=== PATIENT | female | born 1950 | race African-American/Black ===

== ENCOUNTER 2016-12-13 13:33 | Observation (INO) | payer BC ==
[2016-12-13] MEDS ORDERED: NS 0.9% 1000 ML* 1,000 ML IV ONE (14:22)
--- NOTE | 2016-12-13 15:01 | RAD ---
Indication: Near syncope. Comparison: March 10, 2016 Technique: Sitting AP chest 1446 hours Report: Accounting for superimposed soft tissues with large body habitus the lungs and pleural spaces are clear. Negative for pneumothorax. Median sternotomy wires. Upper normal heart size accounting for AP technique. Unremarkable central pulmonary vasculature and mediastinal contours. IMPRESSION: No acute cardiopulmonary process evident.
--- NOTE | 2016-12-13 15:12 | RAD ---
Indication: Near syncope today. Comparison: October 01, 2011 CT Technique: Noncontrast CT vertex of skull through foramen magnum. Report: Mild prominence of the cerebral sulci reflecting atrophy. Unremarkable ventricles and basal cisterns. Negative for johnson matter white matter obscuration, intra or extra-axial hemorrhage, or mass effect. Unremarkable orbital contents. No suspicious calvarial or skull base lesion evident. Indolent thickening of the table of the frontal bone noted without concern. Clear visualized paranasal sinuses and mastoid air spaces. Unremarkable scalp. IMPRESSION: Negative unenhanced head CT for age. No acute intracranial process evident.
[2016-12-13 15:48] LABS: Hematocrit 43 % (35-47); Mean Corpuscular HGB Conc 33 g/dl (31-36); Mean Corpuscular Hemoglobin 30 pg (27-31); Mean Corpuscular Volume 90 fL (80-97); Mean Platelet Volume 9 um3 (7.4-10.4); Red Blood Count 4.74 10^6/ul (4.0-5.4); Red Cell Distribution Width 14 % (10.5-15); White Blood Count 3.8 10^3/ul (3.5-10.8)
[2016-12-13 16:07] LABS: Troponin I 0.09 ng/mL (<0.04)
[2016-12-13 16:08] LABS: B Type Natriuretic Peptide 260 pg/mL
[2016-12-13 16:12] LABS: ALT 23 U/L (7-52); AST 26 U/L (13-39); Albumin 3.7 g/dL (3.2-5.2); Alkaline Phosphatase 70 U/L (34-104); Ammonia 31 mol/L (16-53); Anion Gap 7 mmol/L (2-11); BUN/Creatinine Ratio 20.7 (8-20); Blood Urea Nitrogen 28 mg/dL (6-24); CO2 Carbon Dioxide 27 mmol/L (22-32); Calcium 9.5 mg/dL (8.6-10.3); Chloride 102 mmol/L (101-111); Creatine Kinase 184 U/L (10-223); EGFR African American 50.8 (>60); EGFR Non-African American 39.5 (>60); Globulin 3.4 g/dL (2-4); Glucose 338 mg/dL (70-100); Magnesium 2.5 mg/dL (1.9-2.7); Potassium 3.9 mmol/L (3.5-5.0); Sodium 136 mmol/L (133-145); Total Protein 7.1 g/dL (6.4-8.9)
[2016-12-13 16:28] LABS: Alcohol < 10 mg/dL (<10)
[2016-12-13 16:38] LABS: TSH (Thyroid Stimulating Horm) 2.44 mcIU/mL (0.34-5.60)
[2016-12-13] MEDS ORDERED: Acetaminophen TAB* 325 MG PO PRN (17:43)
[2016-12-13] MEDS ORDERED: NS 0.9% 1000 ML* 1,000 ML IV SCH (17:45)
[2016-12-13] MEDS ORDERED: hydrALAZINE IV* 20 MG/ML VIAL IV SLOW PU PRN (17:46)
[2016-12-13] MEDS ORDERED: diPHENhydraMINE IV* 50 MG/ML 1 ml VIAL (BENADRYL) IV PRN (17:49)
[2016-12-13] MEDS ORDERED: Chlorthalidone TAB* 50 MG PO PRN (17:49)
[2016-12-13] MEDS ORDERED: Dextrose 50% Syringe 50 ML* 25 GM/50 ML SYRINGE IV PUSH PRN (17:51)
--- NOTE | 2016-12-13 19:01 | CONS ---
NEUROLOGY CONSULTATION: DATE OF CONSULT: 12/13/16 LOCATION: She is in the emergency room, bed 4. REFERRING PHYSICIAN: Dr. Mason. CHIEF COMPLAINT: Weakness. HISTORY OF PRESENT ILLNESS: Susan Arias is a 66-year-old right-handed woman, who was at the lab today, getting some blood drawn, when she felt very weak. She had to hold on to something and had to ease herself down. She felt diffusely weak, but denies lightheadedness or being faint. She never lost consciousness. People nearby summoned the ambulance and she was brought into the emergency room. In the emergency room, she was felt by Dr. Mason to have right-sided weakness, more than left-sided weakness. I was asked to see her in consultation. She has had a right carotid endarterectomy before, which she says was done simultaneously during a CABG procedure at a hospital in [place]. She said it was found incidentally and she has never had a stroke before. She has a history of diabetes and says that she is allergic to all the forms of diabetic medications that she has tried. She, therefore, does not take any medications for her diabetes. PAST MEDICAL HISTORY: Notable for uncontrolled diabetes, hypertension, coronary artery disease, renovascular disease. MEDICATIONS: Apparently consist of chlorthalidone at home and possibly Diflucan. It is not clear to me that she is taking any medication. ALLERGIES: She is listed as having numerous allergies to numerous medications with unknown reaction, but some of them consisting of throat and lip swelling. REVIEW OF SYSTEMS: Negative for change in vision recently, but she has had diabetic retinopathy in the past. No headaches today and she says she generally does not get headaches at all. No recent fevers or chills. She eased herself to the ground today, but no recent falls. She has several episodes where she gets generally weak over the last month, but never loses consciousness. PHYSICAL EXAMINATION: She is well nourished and overweight. Temperature 97.8 temporally, blood pressure most recently 180/110 on the monitor. Heart rate is in the 80s and looks to be in sinus. Respirations 17 and oxygen saturation is 99% on room air. Heart is in a regular rate and rhythm, without murmurs. Head is atraumatic. There are no cervical bruits. There is a well-healed right carotid endarterectomy scar. Neurological: Pupils react equally to light from 4 to 2.5 mm. Funduscopic exam reveals retinal scarring bilaterally, but no hemorrhages. Visual godinez are full to confrontation and eye movements are normal. Facial musculature is symmetric. Facial sensation to temperature and light touch are symmetric. Palate and tongue appear normal. Tongue protrudes in the midline. There is no dysarthria. Hearing is intact bilaterally. Motor exam reveals normal strength and tone in the limbs proximally and distally. Sensory exam is notable for distal loss to light touch and vibration in the hands and feet. Reflexes are hypoactive, trace at the knees, absent at the ankles. Plantars are flexor bilaterally. Finger taps are normal in both hands. She is alert and oriented and good historian. Memory seems preserved and language is fluent. She has good attention, concentration, and fund of knowledge. DIAGNOSTIC STUDIES/LAB DATA: Laboratory data is notable for chemistry profile with a glucose of 478 when she came in, down to 338 several hours later. Creatinine elevated at 1.35 which is stable for her and BUN slightly elevated at 28. Hemoglobin A1c goes back to 03/10/16 when it was 13.3%. First troponin today is 0.09. IMPRESSION: Diffuse weakness from severe hyperglycemia. 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 There is also a question of an ongoing cardiac process, which she is being evaluated by Dr. Mason. She is reportedly stronger and more lucid since Dr. Mason evaluated her earlier, which I would attribute to improvement in her severe hyperglycemia. I do not think there is a need for cerebrovascular workup. [id number]/[facility] #: [id number] [facility]
[2016-12-13 19:44] LABS: Urine Bacteria Absent (Absent); Urine Bilirubin Negative (Negative); Urine Glucose 3+(>=500 mg/dL) (Negative); Urine Nitrite Negative (Negative)
[2016-12-13] MEDS: Insulin GLARGINE(*) 1 UNITS UNIT SUBCUT SCH (19:46)
--- NOTE | 2016-12-13 21:38 | HP ---
CC: Dr. Garzon * HISTORY AND PHYSICAL: DATE OF ADMISSION: PRIMARY CARE PROVIDER: Dr. Garzon. ADMITTING PROVIDER: BHARAT Scott SUPERVISING PHYSICIAN: Dr. Mel Hernandez * (DICTATED BY BHARAT SCOTT) CHIEF COMPLAINT: Weakness and near syncope. HISTORY OF PRESENT ILLNESS: This is a 66-year-old female with history of severe coronary artery disease, status post CABG, as well as chronic kidney disease; largely untreated diabetes due to multiple drug allergies; hypertension ; obstructive sleep apnea, who presents to the emergency department after an acute episode of weakness that occurred earlier today. The patient was going to get lab work completed and was getting back on the bus to return home where she suddenly felt weak. She states that she was unable to put any weight on her legs. She did not fall, but she was able to lower herself to the ground. She denied any dizziness, palpitations, chest pain, or shortness of breath. She simply felt weak. The patient states that she had some recent diarrhea that has been intermittent for the last couple of weeks and has since resolved and she blamed on gluten intolerance and she has since started a gluten-free diet, which seems to be helping. She states that she is now having normal bowel movement without complaints of abdominal pain, nausea, or vomiting. She recently met with her primary care provider and attempted to restart Invokana for treatment of her diabetes, but stopped after 3 days due to complaints of shortness of breath. She denies any recent urinary symptoms including dysuria, hematuria, frequency, or pain. The patient was admitted about 9 months ago with a similar scenario, at which point, the patient had a mildly elevated troponin. She was kept for a period of observation and troponins remained minimally elevated without escalation. She did not undergo stress test at that time. They were not available during the time of her admission and it is recommended that it be completed on an outpatient basis. The patient declined trying additional medications for managing her blood pressure and glucose at that time. The patient reports that she has been recommended to take daily aspirin, but has not done so simply because she often forgets. PAST MEDICAL HISTORY: 1. Chronic kidney disease, stage 3. 2. Coronary artery disease, status post CABG. 3. Obstructive sleep apnea. 4. Poorly controlled diabetes. 5. Hypertension. PAST SURGICAL HISTORY: 1. CABG. 2. Carotid endarterectomy. HOME MEDICATIONS: Chlorthalidone 25 mg p.o. daily. 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 She has a minimal smoking history. No regular alcohol consumption. REVIEW OF SYSTEMS: As noted above in the HPI, all other systems reviewed and negative. PHYSICAL EXAMINATION GENERAL: This is a pleasant female who provides detailed history, but is in no acute distress. VITAL SIGNS: Initial vitals, temperature 97.8 degrees Fahrenheit, pulse 98 beats per minute, respiratory rate 20 per minute, oxygen saturation 99% on room air, and blood pressure 151/65 mmHg. HEENT: Head is normocephalic, atraumatic. Mucous membranes are pink and moist. RESPIRATORY: Lungs are clear to auscultation without wheezes, crackles, or rhonchi. CARDIOVASCULAR: Heart has a regular rate and rhythm without murmurs, rubs, or gallops. ABDOMEN: Abdomen is soft and nontender to palpation. EXTREMITIES: The patient has a few shallow ulcerations covering her lower legs , but no surrounding erythema or significant edema. PSYCH: The patient is alert and appropriately oriented. DIAGNOSTIC STUDIES/LAB DATA: CBC is unremarkable with white blood cell count of 3800, hemoglobin of 14, and platelet count of 227,000. D-dimer is negative. INR of 0.81, PTT of 27.6. Comprehensive metabolic panel shows a sodium of 136, potassium 3.9, BUN of 28, creatinine of 1.35 which appeared to be near her baseline, glucose of 338, lactic acid 2.0. Total bilirubin and transaminases within normal limits. Troponin, mildly elevated at 0.09. BNP mildly elevated at 260. TSH is normal at 2.44. EtOH is negative. Imagin. CT of the brain shows no acute process. 2. Chest x-ray shows no acute process. 3. EKG shows extremely large QRS segment meeting LVH voltage criteria. She has inverted T-waves in 1 and aVL as well as II and slightly biphasic in aVF, which appears unchanged from prior EKGs. ASSESSMENT AND PLAN: This is a 66-year-old female with poorly controlled diabetes; hypertension; coronary artery disease, status post CABG; obstructive sleep apnea; chronic kidney disease, who presented to the emergency department with complaints of weakness and near syncope, who reports poor control of her chronic medical problems due to multiple medication allergies. 1. Weakness and near syncope - this is not found to be cardiac, although the patient's troponin is mildly elevated and has been in the past. She is also hyperglycemic which seems to be chronic for her and there is no evidence of acidosis or hyperosmolar state. She is willing to trial treatment for her glucose with insulin during her hospital stay, but cites multiple prior reactions that she is unable to fully remember and is willing to take her Benadryl as needed if these occur. We will otherwise hydrate her with normal saline as she has had recent episodes of diarrhea, in combination with her hyperglycemia, this would make it more likely that she is mildly hypovolemic, which could contribute to her state of weakness. She also reports some improvement while sitting in the emergency department after receiving some fluid. 2. Poorly controlled diabetes - see discussion above. The patient cites allergies to nearly all listed DIABETIC MEDICATIONS including INSULIN therapy, but is willing to trial it during her hospital stay. 3. Elevated troponin - the patient has no complaints of chest pain or changes on EKG. She does have known significant coronary artery disease and again is not appropriately treated for this. We will plan to cycle her troponins. The patient should restart aspirin therapy. The patient would benefit from outpatient stress testing if there is no indication to do so during her hospital stay. 4. Hypertension - the patient is significantly hypertensive in the emergency department. She came in near normotensive, but blood pressure has risen throughout her time in the emergency room. Again, she is tentatively agreeable to a trialof some antihypertensive medications. We will use p.r.n. hydralazine as an IV medication and start her on oral carvedilol, neither of which is on her listed allergies. 5. Obstructive sleep apnea. 6. Code status. The patient is full code. 7. Healthcare proxy is unknown. 8. DVT prophylaxis. We will use SCDs and avoid chemical prophylactic measures at this time in order to reduce her risk of potential allergic interaction. DISPOSITION: The patient is being admitted to observation status. Anticipate potential discharge tomorrow morning. BHARAT SCOTT [id number]/[facility] #: [id number] [place]
[2016-12-13] MEDS: Carvedilol TAB* 6.25 MG PO SCH (22:48)
[2016-12-14] MEDS: traMADol TAB* 50 MG PO PRN ×2 (01:17→22:44)
--- NOTE | 2016-12-14 03:38 | ED ---
Nancy Mitchell Alfonso, scribed for Dena Mason MD on 12/13/16 at 1437 . Syncope/Near Syncope - HPI Summary HPI Summary: This patient is a 66 year old female presenting [facility] for near syncopal episode earlier today. She was at [facility] for blood work earlier today, and almost fell 3 times after standing from a chair. She reports generalized weakness, stating "loss of physical strength." Denies CP, SOB, Abd pain. No head trauma. Sx aggravated and alleviated by nothing. PSHx CABG and endarterectomy, both in December 2007. Employed at [employer]. Pt has hx DM which has been poorly controlled in part due to multiple medication allergies, HTN is also poorly controlled. - History Of Current Complaint Chief Complaint: EDSyncope Hx Obtained From: Patient Onset/Duration: Sudden Onset, Lasting Hours, Still Present Timing: Constant Context: Witnessed Activity At Onset: At Rest Associated Head Trauma: No Aggravating Factor(s): Nothing Alleviating Factor(s): Nothing Associated Signs And Symptoms: Headache, Weakness - generalized - Allergies/Home Medications Allergies/Adverse Reactions: Allergies Allergy/AdvReac Type Severity Reaction Status Date / Time Ceftriaxone [From Rocephin] Allergy Intermediate Swelling Verified 09/26/14 11: 33 Of Face,Lips Metformin Allergy Intermediate Pain Verified 09/26/14 11:33 Polyethylene Glycol Allergy Intermediate sob, Verified 09/26/14 11:33 [From MiraLax] abdominal swelling Levofloxacin [From Levaquin] Allergy Mild Hives Verified 09/26/14 11:33 Rosiglitazone [From Avandia] Allergy Mild sob, Verified 09/26/14 11:33 "doubling over" Insulin Allergy Unknown Unknown Verified 09/26/14 11:33 Reaction Details Insulin Aspart [From Novolog] Allergy Unknown Swelling Verified 09/26/14 11:33 Metoprolol Allergy Unknown Swelling Verified 09/26/14 11:33 Aliskiren [From Tekturna] Allergy Unknown Verified 09/26/14 11:34 Reaction Details Amlodipine [From Norvasc] Allergy Shortness Verified 09/26/14 11:31 of Breath Iodinated Diagnostic Agents Allergy Swelling Verified 03/10/16 16:26 Of Face,Lips,& Throat Irbesartan [From Avapro] Allergy Swelling Verified 09/26/14 11:33 Of Face,Lips,& Throat Lisinopril Allergy Unknown Verified 09/26/14 11:35 Reaction Details Rosuvastatin [From Crestor] Allergy Swelling Verified 09/26/14 11:30 Of Face,Lips,& Throat contrast dye Allergy Severe ^ BP / Uncoded 09/26/14 11:33 TONGUE SWELLING PMH/Surg Hx/FS Hx/Imm Hx Endocrine/Hematology History: Reports: Hx Diabetes Cardiovascular History: Reports: Hx Coronary Artery Disease, Hx Hypertension, Hx Peripheral Vascular Disease, Other Cardiovascular Problems/Disorders - carotid endarterectomy, cardiac cath 2010, CABG Denies: Hx Pacemaker/ICD Respiratory History: Reports: Hx Asthma, Hx Pneumonia, Hx Seasonal Allergies, Hx Sleep Apnea GI History: Reports: Hx Gastroesophageal Reflux Disease History: Reports: Hx Chronic Renal Failure - CKD stage III Musculoskeletal History: Reports: Hx Fibromyalgia Denies: Hx Osteoporosis Sensory History: Reports: Hx Cataracts, Hx Contacts or Glasses - Reading Glasses Denies: Hx Hearing Aid Opthamlomology History: Reports: Hx Cataracts, Hx Contacts or Glasses - Reading Glasses Neurological History: Reports: Hx Nerve Disease - fibromyalgia, Other Neuro Impairments/Disorders Psychiatric History: Denies: Hx Panic Disorder - Surgical History Surgery Procedure, Year, and Place: quintuple bi-pass. 2008, cataracts; Left 5th toe amputation; Left 2nd toe amputation; right patellar tendon repair; tonsilectomy, adenoids removed; carotid endarterectomy, left foot lisfranc reduction Infectious Disease History: No Infectious Disease History: Denies: Traveled Outside the [place] in Last 30 Days - Family History Known Family History: Positive: Cardiac Disease, Hypertension, Diabetes - Social History Occupation: Employed Full-time Alcohol Use: None Substance Use Type: Reports: None Smoking Status (MU): Former Smoker Review of Systems Constitutional: Negative Eyes: Negative ENT: Negative Cardiovascular: Negative Respiratory: Negative Gastrointestinal: Negative Genitourinary: Negative Musculoskeletal: Negative Skin: Negative Positive: Weakness - Generalized, Syncope - Near syncope earlier today Psychological: Normal All Other Systems Reviewed And Are Negative: Yes Physical Exam Triage Information Reviewed: Yes Vital Signs On Initial Exam: Initial Vitals Temp Pulse Resp BP Pulse Ox 97.8 F 98 20 151/65 99 12/13/16 13:47 12/13/16 13:47 12/13/16 13:47 12/13/16 13:47 12/13/16 13:47 Vital Signs Reviewed: Yes Appearance: Positive: No Pain Distress, Well-Nourished, Ill-Appearing - prefers eyes closed. Negative: Signs of Trauma Skin: Positive: Warm, Skin Color Reflects Adequate Perfusion, Dry Head/Face: Positive: Normal Head/Face Inspection. Negative: Cephalohematoma Eyes: Positive: EOMI, PATI, Conjunctiva Clear ENT: Positive: Normal ENT inspection, Hearing grossly normal, Pharynx normal, TMs normal. Negative: Muffled/hoarse voice Neck: Positive: Supple, Nontender, No Lymphadenopathy Respiratory/Lung Sounds: Positive: Clear to Auscultation, Breath Sounds Present - Normal breath sounds, Other - No respiratory distress Cardiovascular: Positive: RRR, Pulses are Symmetrical in both Upper and Lower Extremities, Murmur, Other - Brisk capillary refill Abdomen Description: Positive: Nontender, No Organomegaly, Soft. Negative: Distended, Guarding, Hepatomegaly, McBurney's Point Tenderness, Peritoneal Signs , Pulsatile Mass, Splenomegaly Bowel Sounds: Positive: Present Musculoskeletal: Positive: Strength/ROM Intact. Negative: Edema Left, Edema Right Neurological: Positive: Sensory/Motor Intact, Alert, Oriented to Person Place, Time, CN Intact II-III, Focal Deficit @ - right arm drops before count of 5, Speech Normal, Other - prefers eyes closed. Negative: Receptive Aphasia, Expressive Aphasia, Facial Droop, Slurred Speech Psychiatric: Positive: Normal Diagnostics - Vital Signs Vital Signs Temp Pulse Resp BP Pulse Ox 12/13/16 13:49 97.8 F 96 20 151/65 99 12/13/16 13:47 97.8 F 98 20 151/65 99 - Laboratory Lab Results: Lab Results 12/13/16 12/13/16 12/13/16 Range/Units 14:33 15:35 15:35 WBC 3.8 (3.5-10.8) 10^3/ul RBC 4.74 (4.0-5.4) 10^6/ul Hgb 14.0 (12.0-16.0) g/dl Hct 43 (35-47) % MCV 90 (80-97) fL MCH 30 (27-31) pg MCHC 33 (31-36) g/dl RDW 14 (10.5-15) % Plt Count 227 (150-450) 10^3/ul MPV 9 (7.4-10.4) um3 Neut % (Auto) 44.0 (38-83) % Lymph % (Auto) 44.6 (25-47) % [place] % (Auto) 8.9 (1-9) % Eos % (Auto) 2.0 (0-6) % Baso % (Auto) 0.5 (0-2) % Absolute Neuts (auto) 1.7 (1.5-7.7) 10^3/ul Absolute Lymphs (auto) 1.7 (1.0-4.8) 10^3/ul Absolute Monos (auto) 0.3 (0-0.8) 10^3/ul Absolute Eos (auto) 0.1 (0-0.6) 10^3/ul Absolute Basos (auto) 0 (0-0.2) 10^3/ul Absolute Nucleated RBC 0 10^3/ul Nucleated RBC % 0 INR (Anticoag Therapy) (0.89-1.11) APTT (26.0-36.3) seconds D-Dimer, Quantitative (Less Than 230) ng/mL Sodium 136 (133-145) mmol/L Potassium 3.9 (3.5-5.0) mmol/L Chloride 102 (101-111) mmol/L Carbon Dioxide 27 (22-32) mmol/L Anion Gap 7 (2-11) mmol/L BUN 28 H (6-24) mg/dL Creatinine 1.35 H (0.51-0.95) mg/dL Est GFR ( Amer) 50.8 (>60) Est GFR (Non-Af Amer) 39.5 (>60) BUN/Creatinine Ratio 20.7 H (8-20) Glucose 338 H (70-100) mg/dL POC Glucose (mg/dL) > 444 H* (74-106) mg/dL Hemoglobin A1c (Less than 6.0) % Lactic Acid (0.5-2.0) mmol/L Calcium 9.5 (8.6-10.3) mg/dL Magnesium 2.5 (1.9-2.7) mg/dL Total Bilirubin 0.40 (0.2-1.0) mg/dL AST 26 (13-39) U/L ALT 23 (7-52) U/L Alkaline Phosphatase 70 (34-104) U/L Ammonia (16-53) mol/L Total Creatine Kinase 184 (10-223) U/L Troponin I 0.09 H* (<0.04) ng/mL B-Natriuretic Peptide ( - 100) pg/mL Total Protein 7.1 (6.4-8.9) g/dL Albumin 3.7 (3.2-5.2) g/dL Globulin 3.4 (2-4) g/dL Albumin/Globulin Ratio 1.1 (1-3) TSH 2.44 (0.34-5.60) mcIU/mL Serum Alcohol < 10 (<10) mg/dL 12/13/16 12/13/16 12/13/16 Range/Units 15:35 15:35 15:35 WBC (3.5-10.8) 10^3/ul RBC (4.0-5.4) 10^6/ul Hgb (12.0-16.0) g/dl Hct (35-47) % MCV (80-97) fL MCH (27-31) pg MCHC (31-36) g/dl RDW (10.5-15) % Plt Count (150-450) 10^3/ul MPV (7.4-10.4) um3 Neut % (Auto) (38-83) % Lymph % (Auto) (25-47) % [place] % (Auto) (1-9) % Eos % (Auto) (0-6) % Baso % (Auto) (0-2) % Absolute Neuts (auto) (1.5-7.7) 10^3/ul Absolute Lymphs (auto) (1.0-4.8) 10^3/ul Absolute Monos (auto) (0-0.8) 10^3/ul Absolute Eos (auto) (0-0.6) 10^3/ul Absolute Basos (auto) (0-0.2) 10^3/ul Absolute Nucleated RBC 10^3/ul Nucleated RBC % INR (Anticoag Therapy) 0.81 L (0.89-1.11) APTT 27.6 (26.0-36.3) seconds D-Dimer, Quantitative < 200 (Less Than 230) ng/mL Sodium (133-145) mmol/L Potassium (3.5-5.0) mmol/L Chloride (101-111) mmol/L Carbon Dioxide (22-32) mmol/L Anion Gap (2-11) mmol/L BUN (6-24) mg/dL Creatinine (0.51-0.95) mg/dL Est GFR ( Amer) (>60) Est GFR (Non-Af Amer) (>60) BUN/Creatinine Ratio (8-20) Glucose (70-100) mg/dL POC Glucose (mg/dL) (74-106) mg/dL Hemoglobin A1c (Less than 6.0) % Lactic Acid 2.0 (0.5-2.0) mmol/L Calcium (8.6-10.3) mg/dL Magnesium (1.9-2.7) mg/dL Total Bilirubin (0.2-1.0) mg/dL AST (13-39) U/L ALT (7-52) U/L Alkaline Phosphatase (34-104) U/L Ammonia 31 (16-53) mol/L Total Creatine Kinase (10-223) U/L Troponin I (<0.04) ng/mL B-Natriuretic Peptide 260 H ( - 100) pg/mL Total Protein (6.4-8.9) g/dL Albumin (3.2-5.2) g/dL Globulin (2-4) g/dL Albumin/Globulin Ratio (1-3) TSH (0.34-5.60) mcIU/mL Serum Alcohol (<10) mg/dL 12/13/16 Range/Units 15:35 WBC (3.5-10.8) 10^3/ul RBC (4.0-5.4) 10^6/ul Hgb (12.0-16.0) g/dl Hct (35-47) % MCV (80-97) fL MCH (27-31) pg MCHC (31-36) g/dl RDW (10.5-15) % Plt Count (150-450) 10^3/ul MPV (7.4-10.4) um3 Neut % (Auto) (38-83) % Lymph % (Auto) (25-47) % [place] % (Auto) (1-9) % Eos % (Auto) (0-6) % Baso % (Auto) (0-2) % Absolute Neuts (auto) (1.5-7.7) 10^3/ul Absolute Lymphs (auto) (1.0-4.8) 10^3/ul Absolute Monos (auto) (0-0.8) 10^3/ul Absolute Eos (auto) (0-0.6) 10^3/ul Absolute Basos (auto) (0-0.2) 10^3/ul Absolute Nucleated RBC 10^3/ul Nucleated RBC % INR (Anticoag Therapy) (0.89-1.11) APTT (26.0-36.3) seconds D-Dimer, Quantitative (Less Than 230) ng/mL Sodium (133-145) mmol/L Potassium (3.5-5.0) mmol/L Chloride (101-111) mmol/L Carbon Dioxide (22-32) mmol/L Anion Gap (2-11) mmol/L BUN (6-24) mg/dL Creatinine (0.51-0.95) mg/dL Est GFR ( Amer) (>60) Est GFR (Non-Af Amer) (>60) BUN/Creatinine Ratio (8-20) Glucose (70-100) mg/dL POC Glucose (mg/dL) (74-106) mg/dL Hemoglobin A1c 12.2 H (Less than 6.0) % Lactic Acid (0.5-2.0) mmol/L Calcium (8.6-10.3) mg/dL Magnesium (1.9-2.7) mg/dL Total Bilirubin (0.2-1.0) mg/dL AST (13-39) U/L ALT (7-52) U/L Alkaline Phosphatase (34-104) U/L Ammonia (16-53) mol/L Total Creatine Kinase (10-223) U/L Troponin I (<0.04) ng/mL B-Natriuretic Peptide ( - 100) pg/mL Total Protein (6.4-8.9) g/dL Albumin (3.2-5.2) g/dL Globulin (2-4) g/dL Albumin/Globulin Ratio (1-3) TSH (0.34-5.60) mcIU/mL Serum Alcohol (<10) mg/dL Result Diagrams: 12/13/16 15:35 12/13/16 15:35 Lab Statement: Any lab studies that have been ordered have been reviewed, and results considered in the medical decision making process. - Radiology CXR Xray Interpretation: No Acute Changes - No acute cardiopulmonary process evident. Radiology Interpretation Completed By: Radiologist - CT CT Brain CT Interpretation: No Acute Changes - Negative unenhanced head CT for age. No acute intracranial process evident. CT Interpretation Completed By: Radiologist - EKG 1402 Cardiac Rate: NL EKG Rhythm: Sinus Rhythm - BPM EKG Interpretation: Normal AV and IV conduction time. Hubbard 4. LVH and not STEMI per Dr. Segal. EKG Comparison: No Significant Change - From 12/12/15 Re-Evaluation - Re-Evaluation 1610 Re-Evaluation Time: 16:10 Change: Improved Comment: Improved responsiveness and awareness. No neurological focal deficits. Second Eval Re-Evaluation Time: 16:25 Change: Unchanged Comment: Requests to use the bathroom. Course/Dx Assessment/Plan: Pt is a 65 y/o F who presents to ED s/p near syncopal episode earlier today while at [facility] for blood work. Additionally c/o generalized weakness. Denies any head trauma. PSHx CABG and endarterectomy. BNP 260. POC glucose >444. Troponin of 0.09 and 0.07. Discussed care of pt with Dr. Segal ( anode machine operator) who reports that the EKG shows LV hypertrophy and not STEMI. Dr. Cunningham (Neurology) consulted with the pt in the ED at 1425 and feels pt's neuro status can be explained by her hyperglycemia. No acute CVA. Pt will be admitted for observation and glucoses and troponins will be monitored. - Diagnoses Differential Diagnosis/HQI/PQRI: Positive: Cerebral Vascular Accident, Coronary Artery Disease, Metabolic Reaction, Transient Ischemic Attack Provider Diagnoses: Near syncope, Hypertension, poor control, Poorly controlled diabetes mellitus, Hx of type 2 diabetes mellitus, Hx of coronary artery disease, Elevated troponin - Physician Notifications Discussed Care of Patient With: Neto Segal Time Discussed With Above Provider: 14:20 Instructed by Provider To: Admit As Observation - Dr. Segal (Cardiology) reports that the EKG shows LV hypertrophy and not STEMI. Dr. Cunningham (Neurology ) consulted with the pt in the ED at 1425. - Critical Care Time Critical Care Time: 30-74 min Discharge - Discharge Plan Condition: Good Disposition: ADMITTED TO [facility] documentation as recorded by the Nancy pyle Alfonso accurately reflects the service I personally performed and the decisions made by , Dena Mason MD.
[2016-12-14 06:22] LABS: BUN/Creatinine Ratio 18.2 (8-20); Calcium 8.4 mg/dL (8.6-10.3); EGFR African American 57.6 (>60); EGFR Non-African American 44.8 (>60); Potassium 3.8 mmol/L (3.5-5.0)
[2016-12-14] MEDS: Insulin LISPRO* 1 UNITS UNIT SUBCUT SCH ×4 (08:32→21:24)
[2016-12-14] MEDS: Chlorthalidone TAB* 50 MG PO SCH (08:35)
--- NOTE | 2016-12-14 09:09 | PN ---
Subjective Date of Service: 12/14/16 Interval History: Patient seen and examined at bedside. She denies chest pain, SOB. She reports being out of bed multiple times but states that swelling in her feet made it difficult to walk. Ms. Arias reports recent diarrhea with "copious mucus" and concern that she may have a gluten allergy. She reports that she had blood work drawn yesterday for this but then became weak and nearly passed out. We discussed her HTN and DM and concern that these conditions are uncontrolled; the patient states that she was recently restarted on Invokana but stopped it because she became short of breath at home. She reports swelling of the lips and tongue after receiving Humalog this morning and while talking to me. She feels the medication she received last night caused swelling to her lower extremities and burning sensation. We also discussed her elevated troponin levels; patient continues to deny chest pain but acknowledges that she knows they have been elevated. She was supposed to follow up with Dr. Monet for her yearly visit a few weeks ago but missed the appointment. She is due in January for follow-up. Telemetry: SR with PACs 80s Family History: Unchanged from Admission Social History: Unchanged from Admission Past Medical History: Unchanged from Admission Objective Active Medications: Acetaminophen (Tylenol Tab*) 650 mg PO Q4H PRN PRN Reason: FEVER/PAIN Carvedilol (Coreg Tab*) 6.25 mg PO BID [facility] Last Admin: 12/13/16 22:48 Dose: 6.25 mg Chlorthalidone (Hygroton Tab*) 25 mg PO DAILY [facility] Last Admin: 12/14/16 08:35 Dose: 25 mg Dextrose (D50w Syringe 50 Ml*) 12.5 gm IV PUSH .FOR FS < 60 - SS PRN PRN Reason: FS < 60 Diphenhydramine HCl (Benadryl Iv*) 25 mg IV Q6H PRN PRN Reason: PRURITIS Last Admin: 12/14/16 08:48 Dose: 25 mg Hydralazine HCl (Apresoline Iv*) 5 mg IV SLOW PU Q6H PRN PRN Reason: sBP>190mmHg Last Admin: 12/13/16 19:46 Dose: 5 mg Insulin Glargine (Lantus(*)) 15 units SUBCUT Q24H [facility] Last Admin: 12/13/16 19:46 Dose: 15 units Insulin Human Lispro (Humalog*) 0 units SUBCUT ACHS [facility] PRN Reason: Protocol Last Admin: 12/14/16 08:32 Dose: 9 units Tramadol HCl (Ultram*) 50 mg PO Q6H PRN PRN Reason: PAIN Last Admin: 12/14/16 01:17 Dose: 50 mg Vital Signs 12/13/16 12/13/16 12/13/16 17:30 18:00 18:50 Temperature 97.3 F Pulse Rate 87 Respiratory 16 21 15 Rate Blood Pressure 198/98 209/97 210/118 (mmHg) O2 Sat by Pulse 98 Oximetry 12/13/16 12/13/16 12/14/16 22:13 23:50 01:17 Temperature 99.0 F Pulse Rate 78 83 Respiratory 20 16 Rate Blood Pressure 152/70 174/60 (mmHg) O2 Sat by Pulse 100 Oximetry 12/14/16 12/14/16 12/14/16 03:17 04:08 04:10 Temperature 98.7 F Pulse Rate 80 83 Respiratory 14 20 20 Rate Blood Pressure 167/75 148/73 (mmHg) O2 Sat by Pulse 94 Oximetry 12/14/16 12/14/16 12/14/16 04:30 04:32 04:33 Temperature 98.7 F Pulse Rate 80 83 96 Respiratory 20 20 20 Rate Blood Pressure 167/75 148/73 159/77 (mmHg) O2 Sat by Pulse 96 94 96 Oximetry 12/14/16 12/14/16 12/14/16 07:54 08:15 08:48 Temperature 99.2 F Pulse Rate 81 Respiratory 16 16 16 Rate Blood Pressure 142/75 (mmHg) O2 Sat by Pulse 97 Oximetry Oxygen Devices in Use Now: None Appearance: Pleasant middle aged female, sitting up in bed, in NAD. Patient is speaking in clear, full sentences. Eyes: PERRLA Ears/Nose/Mouth/Throat: Mucous Membranes Moist Neck: NL Appearance and Movements; NL JVP Respiratory: Symmetrical Chest Expansion and Respiratory Effort, Clear to Auscultation Cardiovascular: RRR Abdominal: NL Sounds; No Tenderness; No Distention Extremities: No Edema Skin: - - mild scattered ulcerations to BLE with no drainage or surrounding erythema Neurological: Alert and Oriented x 3 Lines/Tubes/Other Access: Clean, Dry and Intact Peripheral IV Nutrition: Taking PO's Result Diagrams: 12/13/16 15:35 12/14/16 05:40 Additional Lab and Data: Lab Results 12/13/16 12/13/16 12/13/16 Range/Units 14:33 15:35 15:35 WBC 3.8 (3.5-10.8) 10^3/ul RBC 4.74 (4.0-5.4) 10^6/ul Hgb 14.0 (12.0-16.0) g/dl Hct 43 (35-47) % MCV 90 (80-97) fL MCH 30 (27-31) pg MCHC 33 (31-36) g/dl RDW 14 (10.5-15) % Plt Count 227 (150-450) 10^3/ul MPV 9 (7.4-10.4) um3 Neut % (Auto) 44.0 (38-83) % Lymph % (Auto) 44.6 (25-47) % [place] % (Auto) 8.9 (1-9) % Eos % (Auto) 2.0 (0-6) % Baso % (Auto) 0.5 (0-2) % Absolute Neuts (auto) 1.7 (1.5-7.7) 10^3/ul Absolute Lymphs (auto) 1.7 (1.0-4.8) 10^3/ul Absolute Monos (auto) 0.3 (0-0.8) 10^3/ul Absolute Eos (auto) 0.1 (0-0.6) 10^3/ul Absolute Basos (auto) 0 (0-0.2) 10^3/ul Absolute Nucleated RBC 0 10^3/ul Nucleated RBC % 0 INR (Anticoag Therapy) (0.89-1.11) APTT (26.0-36.3) seconds D-Dimer, Quantitative (Less Than 230) ng/mL Sodium 136 (133-145) mmol/L Potassium 3.9 (3.5-5.0) mmol/L Chloride 102 (101-111) mmol/L Carbon Dioxide 27 (22-32) mmol/L Anion Gap 7 (2-11) mmol/L BUN 28 H (6-24) mg/dL Creatinine 1.35 H (0.51-0.95) mg/dL Est GFR ( Amer) 50.8 (>60) Est GFR (Non-Af Amer) 39.5 (>60) BUN/Creatinine Ratio 20.7 H (8-20) Glucose 338 H (70-100) mg/dL POC Glucose (mg/dL) > 444 H* (74-106) mg/dL Hemoglobin A1c (Less than 6.0) % Lactic Acid (0.5-2.0) mmol/L Calcium 9.5 (8.6-10.3) mg/dL Magnesium 2.5 (1.9-2.7) mg/dL Total Bilirubin 0.40 (0.2-1.0) mg/dL AST 26 (13-39) U/L ALT 23 (7-52) U/L Alkaline Phosphatase 70 (34-104) U/L Ammonia (16-53) mol/L Total Creatine Kinase 184 (10-223) U/L Troponin I 0.09 H* (<0.04) ng/mL B-Natriuretic Peptide ( - 100) pg/mL Total Protein 7.1 (6.4-8.9) g/dL Albumin 3.7 (3.2-5.2) g/dL Globulin 3.4 (2-4) g/dL Albumin/Globulin Ratio 1.1 (1-3) TSH 2.44 (0.34-5.60) mcIU/mL Serum Alcohol < 10 (<10) mg/dL 12/13/16 12/13/16 12/13/16 Range/Units 15:35 15:35 15:35 WBC (3.5-10.8) 10^3/ul RBC (4.0-5.4) 10^6/ul Hgb (12.0-16.0) g/dl Hct (35-47) % MCV (80-97) fL MCH (27-31) pg MCHC (31-36) g/dl RDW (10.5-15) % Plt Count (150-450) 10^3/ul MPV (7.4-10.4) um3 Neut % (Auto) (38-83) % Lymph % (Auto) (25-47) % [place] % (Auto) (1-9) % Eos % (Auto) (0-6) % Baso % (Auto) (0-2) % Absolute Neuts (auto) (1.5-7.7) 10^3/ul Absolute Lymphs (auto) (1.0-4.8) 10^3/ul Absolute Monos (auto) (0-0.8) 10^3/ul Absolute Eos (auto) (0-0.6) 10^3/ul Absolute Basos (auto) (0-0.2) 10^3/ul Absolute Nucleated RBC 10^3/ul Nucleated RBC % INR (Anticoag Therapy) 0.81 L (0.89-1.11) APTT 27.6 (26.0-36.3) seconds D-Dimer, Quantitative < 200 (Less Than 230) ng/mL Sodium (133-145) mmol/L Potassium (3.5-5.0) mmol/L Chloride (101-111) mmol/L Carbon Dioxide (22-32) mmol/L Anion Gap (2-11) mmol/L BUN (6-24) mg/dL Creatinine (0.51-0.95) mg/dL Est GFR ( Amer) (>60) Est GFR (Non-Af Amer) (>60) BUN/Creatinine Ratio (8-20) Glucose (70-100) mg/dL POC Glucose (mg/dL) (74-106) mg/dL Hemoglobin A1c (Less than 6.0) % Lactic Acid 2.0 (0.5-2.0) mmol/L Calcium (8.6-10.3) mg/dL Magnesium (1.9-2.7) mg/dL Total Bilirubin (0.2-1.0) mg/dL AST (13-39) U/L ALT (7-52) U/L Alkaline Phosphatase (34-104) U/L Ammonia 31 (16-53) mol/L Total Creatine Kinase (10-223) U/L Troponin I (<0.04) ng/mL B-Natriuretic Peptide 260 H ( - 100) pg/mL Total Protein (6.4-8.9) g/dL Albumin (3.2-5.2) g/dL Globulin (2-4) g/dL Albumin/Globulin Ratio (1-3) TSH (0.34-5.60) mcIU/mL Serum Alcohol (<10) mg/dL 12/13/16 Range/Units 15:35 WBC (3.5-10.8) 10^3/ul RBC (4.0-5.4) 10^6/ul Hgb (12.0-16.0) g/dl Hct (35-47) % MCV (80-97) fL MCH (27-31) pg MCHC (31-36) g/dl RDW (10.5-15) % Plt Count (150-450) 10^3/ul MPV (7.4-10.4) um3 Neut % (Auto) (38-83) % Lymph % (Auto) (25-47) % [place] % (Auto) (1-9) % Eos % (Auto) (0-6) % Baso % (Auto) (0-2) % Absolute Neuts (auto) (1.5-7.7) 10^3/ul Absolute Lymphs (auto) (1.0-4.8) 10^3/ul Absolute Monos (auto) (0-0.8) 10^3/ul Absolute Eos (auto) (0-0.6) 10^3/ul Absolute Basos (auto) (0-0.2) 10^3/ul Absolute Nucleated RBC 10^3/ul Nucleated RBC % INR (Anticoag Therapy) (0.89-1.11) APTT (26.0-36.3) seconds D-Dimer, Quantitative (Less Than 230) ng/mL Sodium (133-145) mmol/L Potassium (3.5-5.0) mmol/L Chloride (101-111) mmol/L Carbon Dioxide (22-32) mmol/L Anion Gap (2-11) mmol/L BUN (6-24) mg/dL Creatinine (0.51-0.95) mg/dL Est GFR ( Amer) (>60) Est GFR (Non-Af Amer) (>60) BUN/Creatinine Ratio (8-20) Glucose (70-100) mg/dL POC Glucose (mg/dL) (74-106) mg/dL Hemoglobin A1c 12.2 H (Less than 6.0) % Lactic Acid (0.5-2.0) mmol/L Calcium (8.6-10.3) mg/dL Magnesium (1.9-2.7) mg/dL Total Bilirubin (0.2-1.0) mg/dL AST (13-39) U/L ALT (7-52) U/L Alkaline Phosphatase (34-104) U/L Ammonia (16-53) mol/L Total Creatine Kinase (10-223) U/L Troponin I (<0.04) ng/mL B-Natriuretic Peptide ( - 100) pg/mL Total Protein (6.4-8.9) g/dL Albumin (3.2-5.2) g/dL Globulin (2-4) g/dL Albumin/Globulin Ratio (1-3) TSH (0.34-5.60) mcIU/mL Serum Alcohol (<10) mg/dL Diagnostic Imaging: CT brain - no acute process CXR - no acute process EKG Data: EKG - extremely large QRS segment meeting LVH voltage criteria. Inverted T- waves in lead I, II, and aVL, slightly biphasic in aVF, unchanged from previous. Assess/Plan/Problems-Billing Assessment: Ms. Arias is a 66 yo female with a PMH of CKD stage 3, CAD s/p CABG, TINO, poorly controlled diabetes, and HTN who presented to the ED on 12/13 with concern for weakness and with a noted elevated troponin. - Patient Problems (1) Weakness Code(s): R53.1 - WEAKNESS Comment: Improved with IVF Suspect mild hypovolemia in the presence of recent loose stools and chronic hyperglycemia, though there is no presence of hyperosmolar state. Patient has uncontrolled DM but reports allergies to insulin and most classes of medication. Patient also states she is undergoing evaluation for gluten allergy with PCP. PT evaluation Continue outpatient follow-up. (2) Elevated troponin Onset Date: 09/26/14 Code(s): R79.89 - OTHER SPECIFIED ABNORMAL FINDINGS OF BLOOD CHEMISTRY Comment: Patient denies CP, no new EKG changes (changes seen consistent with previous). Troponins have been minimally elevated with no significant escalation; patient had similar presentation in Mar 2016. Patient with known CAD (s/p CABG) but is not appropriately medically managed, due to reported allergies and medication intolerances. Patient advised to continue ASA therapy upon discharge. She appears to tolerate carvedilol but she is reluctant to continue this medication as she perceives that it may be causing swelling. Outpatient stress test recommended; patient states she will pursue with PCP. Continue outpatient follow-up with cardiology. (3) Uncontrolled diabetes mellitus Onset Date: 09/26/14 Code(s): E11.65 - TYPE 2 DIABETES MELLITUS WITH HYPERGLYCEMIA Comment: HgbA1c 12.2 Patient with existing retinopathy and nephropathy; previous diabetic ulcers and left 5th toe amputation. Patient with multiple "allergies" to insulin, metformin, Avandia, and ? Invokana. Patient unwilling to try any new medications, though she states the Lantus is fine. Will increase Lantus to 15 units BID. Outpatient follow-up. (4) History of hypertension Code(s): Z86.79 - PERSONAL HISTORY OF OTHER DISEASES OF THE CIRCULATORY SYSTEM Comment: Borderline control Continue to offer prn hydralazine and carvedilol. Patient has refused morning carvedilol. (5) Hx of coronary artery disease Code(s): Z86.79 - PERSONAL HISTORY OF OTHER DISEASES OF THE CIRCULATORY SYSTEM Comment: Hx of CABG Patient not compliant with ASA Patient encouraged to continue ASA everyday, as she does not take a statin, beta gary or GERARDO-I secondary to cited allergies. Outpatient f/u with cardiology as planned. (6) Obstructive sleep apnea Code(s): G47.33 - OBSTRUCTIVE SLEEP APNEA (ADULT) (PEDIATRIC) Comment: Offer CPAP for night time use. (7) DVT prophylaxis Onset Date: 09/26/14 Comment: SCDs (8) Full code status Onset Date: 09/26/14 Code(s): Z78.9 - OTHER SPECIFIED HEALTH STATUS Status and Disposition: OBV admit.
[2016-12-14] MEDS: Carvedilol TAB* 6.25 MG PO SCH ×2 (09:28→21:25)
[2016-12-14] MEDS ORDERED: Insulin GLARGINE(*) 1 UNITS UNIT SUBCUT ONE (11:49)
[2016-12-14] MEDS: Insulin GLARGINE(*) 1 UNITS UNIT SUBCUT SCH (19:21)
[2016-12-15] MEDS: Chlorthalidone TAB* 50 MG PO SCH (08:40)
[2016-12-15] MEDS: Insulin LISPRO* 1 UNITS UNIT SUBCUT SCH ×2 (08:41→14:59)
[2016-12-15] MEDS: Carvedilol TAB* 6.25 MG PO SCH (08:41)
[2016-12-15] MEDS ORDERED: Insulin GLARGINE(*) 1 UNITS UNIT SUBCUT ONE (08:44)
--- NOTE | 2016-12-15 08:59 | DCNOTE ---
Subjective Date of Service: 12/15/16 Interval History: Patient seen and examined at bedside. She reports feeling better and denies any CP, SOB, fever/chills, worsening weakness. She has declined Humalog, stating she is allergic. She has also been declining carvedilol. She states that she had previously stopped her Invokana due to allergies. She reports tolerating the Lantus well and would like to continue this at home. She states she was previously on Lantus but it was stopped by her PCP for a different medication. She denies any swelling or reaction to this medication. We discussed that this would provide baseline control for her but is not meant for use at mealtimes. She understands. Patient was also advised to check her BG twice a day in order to make sure her BG stays stable at home. She verbalized understanding. She has declined to stay for a stress test but states she will do this with Dr. Monet. Family History: Unchanged from Admission Social History: Unchanged from Admission Past Medical History: Unchanged from Admission Objective Active Medications: Acetaminophen (Tylenol Tab*) 650 mg PO Q4H PRN PRN Reason: FEVER/PAIN Carvedilol (Coreg Tab*) 6.25 mg PO BID [facility] Last Admin: 12/15/16 08:41 Dose: 6.25 mg Chlorthalidone (Hygroton Tab*) 25 mg PO DAILY [facility] Last Admin: 12/15/16 08:40 Dose: 25 mg Dextrose (D50w Syringe 50 Ml*) 12.5 gm IV PUSH .FOR FS < 60 - SS PRN PRN Reason: FS < 60 Diphenhydramine HCl (Benadryl Iv*) 25 mg IV Q6H PRN PRN Reason: PRURITIS Last Admin: 12/14/16 08:48 Dose: 25 mg Hydralazine HCl (Apresoline Iv*) 5 mg IV SLOW PU Q6H PRN PRN Reason: sBP>190mmHg Last Admin: 12/13/16 19:46 Dose: 5 mg Insulin Glargine (Lantus(*)) 15 units SUBCUT Q24H [facility] Last Admin: 12/14/16 19:21 Dose: 15 units Insulin Glargine (Lantus(*)) 15 units SUBCUT ONCE ONE Stop: 12/15/16 08:45 Insulin Human Lispro (Humalog*) 0 units SUBCUT ACHS [facility] PRN Reason: Protocol Last Admin: 12/15/16 08:41 Dose: Not Given Tramadol HCl (Ultram*) 50 mg PO Q6H PRN PRN Reason: PAIN Last Admin: 12/14/16 22:44 Dose: 50 mg Vital Signs 12/14/16 12/14/16 12/14/16 09:48 15:21 20:00 Temperature 97.8 F Pulse Rate 78 Respiratory 16 18 18 Rate Blood Pressure 178/82 (mmHg) O2 Sat by Pulse 99 Oximetry 12/14/16 12/14/16 12/14/16 20:12 22:44 23:26 Temperature 97.4 F 98.2 F Pulse Rate 78 79 Respiratory 18 17 16 Rate Blood Pressure 152/72 175/80 (mmHg) O2 Sat by Pulse 96 97 Oximetry 12/15/16 12/15/16 12/15/16 00:44 03:50 07:35 Temperature 97.5 F 99.2 F Pulse Rate 79 77 Respiratory 17 16 18 Rate Blood Pressure 155/80 184/84 (mmHg) O2 Sat by Pulse 99 98 Oximetry 12/15/16 07:37 Temperature Pulse Rate Respiratory 18 Rate Blood Pressure (mmHg) O2 Sat by Pulse Oximetry Oxygen Devices in Use Now: None Appearance: Female patient, lying in bed, NAD Eyes: PERRLA Ears/Nose/Mouth/Throat: Mucous Membranes Moist Neck: NL Appearance and Movements; NL JVP Respiratory: Symmetrical Chest Expansion and Respiratory Effort, Clear to Auscultation Cardiovascular: NL Sounds; No Murmurs; No JVD, RRR Abdominal: NL Sounds; No Tenderness; No Distention Extremities: No Edema Neurological: Alert and Oriented x 3 Lines/Tubes/Other Access: Clean, Dry and Intact Peripheral IV Nutrition: Taking PO's Result Diagrams: 12/13/16 15:35 12/14/16 05:40 Additional Lab and Data: Lab Results 12/13/16 12/13/16 12/13/16 Range/Units 14:33 15:35 15:35 WBC 3.8 (3.5-10.8) 10^3/ul RBC 4.74 (4.0-5.4) 10^6/ul Hgb 14.0 (12.0-16.0) g/dl Hct 43 (35-47) % MCV 90 (80-97) fL MCH 30 (27-31) pg MCHC 33 (31-36) g/dl RDW 14 (10.5-15) % Plt Count 227 (150-450) 10^3/ul MPV 9 (7.4-10.4) um3 Neut % (Auto) 44.0 (38-83) % Lymph % (Auto) 44.6 (25-47) % Real % (Auto) 8.9 (1-9) % Eos % (Auto) 2.0 (0-6) % Baso % (Auto) 0.5 (0-2) % Absolute Neuts (auto) 1.7 (1.5-7.7) 10^3/ul Absolute Lymphs (auto) 1.7 (1.0-4.8) 10^3/ul Absolute Monos (auto) 0.3 (0-0.8) 10^3/ul Absolute Eos (auto) 0.1 (0-0.6) 10^3/ul Absolute Basos (auto) 0 (0-0.2) 10^3/ul Absolute Nucleated RBC 0 10^3/ul Nucleated RBC % 0 INR (Anticoag Therapy) (0.89-1.11) APTT (26.0-36.3) seconds D-Dimer, Quantitative (Less Than 230) ng/mL Sodium 136 (133-145) mmol/L Potassium 3.9 (3.5-5.0) mmol/L Chloride 102 (101-111) mmol/L Carbon Dioxide 27 (22-32) mmol/L Anion Gap 7 (2-11) mmol/L BUN 28 H (6-24) mg/dL Creatinine 1.35 H (0.51-0.95) mg/dL Est GFR ( Amer) 50.8 (>60) Est GFR (Non-Af Amer) 39.5 (>60) BUN/Creatinine Ratio 20.7 H (8-20) Glucose 338 H (70-100) mg/dL POC Glucose (mg/dL) > 444 H* (74-106) mg/dL Hemoglobin A1c (Less than 6.0) % Lactic Acid (0.5-2.0) mmol/L Calcium 9.5 (8.6-10.3) mg/dL Magnesium 2.5 (1.9-2.7) mg/dL Total Bilirubin 0.40 (0.2-1.0) mg/dL AST 26 (13-39) U/L ALT 23 (7-52) U/L Alkaline Phosphatase 70 (34-104) U/L Ammonia (16-53) mol/L Total Creatine Kinase 184 (10-223) U/L Troponin I 0.09 H* (<0.04) ng/mL B-Natriuretic Peptide ( - 100) pg/mL Total Protein 7.1 (6.4-8.9) g/dL Albumin 3.7 (3.2-5.2) g/dL Globulin 3.4 (2-4) g/dL Albumin/Globulin Ratio 1.1 (1-3) TSH 2.44 (0.34-5.60) mcIU/mL Serum Alcohol < 10 (<10) mg/dL 12/13/16 12/13/16 12/13/16 Range/Units 15:35 15:35 15:35 WBC (3.5-10.8) 10^3/ul RBC (4.0-5.4) 10^6/ul Hgb (12.0-16.0) g/dl Hct (35-47) % MCV (80-97) fL MCH (27-31) pg MCHC (31-36) g/dl RDW (10.5-15) % Plt Count (150-450) 10^3/ul MPV (7.4-10.4) um3 Neut % (Auto) (38-83) % Lymph % (Auto) (25-47) % Real % (Auto) (1-9) % Eos % (Auto) (0-6) % Baso % (Auto) (0-2) % Absolute Neuts (auto) (1.5-7.7) 10^3/ul Absolute Lymphs (auto) (1.0-4.8) 10^3/ul Absolute Monos (auto) (0-0.8) 10^3/ul Absolute Eos (auto) (0-0.6) 10^3/ul Absolute Basos (auto) (0-0.2) 10^3/ul Absolute Nucleated RBC 10^3/ul Nucleated RBC % INR (Anticoag Therapy) 0.81 L (0.89-1.11) APTT 27.6 (26.0-36.3) seconds D-Dimer, Quantitative < 200 (Less Than 230) ng/mL Sodium (133-145) mmol/L Potassium (3.5-5.0) mmol/L Chloride (101-111) mmol/L Carbon Dioxide (22-32) mmol/L Anion Gap (2-11) mmol/L BUN (6-24) mg/dL Creatinine (0.51-0.95) mg/dL Est GFR ( Amer) (>60) Est GFR (Non-Af Amer) (>60) BUN/Creatinine Ratio (8-20) Glucose (70-100) mg/dL POC Glucose (mg/dL) (74-106) mg/dL Hemoglobin A1c (Less than 6.0) % Lactic Acid 2.0 (0.5-2.0) mmol/L Calcium (8.6-10.3) mg/dL Magnesium (1.9-2.7) mg/dL Total Bilirubin (0.2-1.0) mg/dL AST (13-39) U/L ALT (7-52) U/L Alkaline Phosphatase (34-104) U/L Ammonia 31 (16-53) mol/L Total Creatine Kinase (10-223) U/L Troponin I (<0.04) ng/mL B-Natriuretic Peptide 260 H ( - 100) pg/mL Total Protein (6.4-8.9) g/dL Albumin (3.2-5.2) g/dL Globulin (2-4) g/dL Albumin/Globulin Ratio (1-3) TSH (0.34-5.60) mcIU/mL Serum Alcohol (<10) mg/dL 12/13/16 Range/Units 15:35 WBC (3.5-10.8) 10^3/ul RBC (4.0-5.4) 10^6/ul Hgb (12.0-16.0) g/dl Hct (35-47) % MCV (80-97) fL MCH (27-31) pg MCHC (31-36) g/dl RDW (10.5-15) % Plt Count (150-450) 10^3/ul MPV (7.4-10.4) um3 Neut % (Auto) (38-83) % Lymph % (Auto) (25-47) % Real % (Auto) (1-9) % Eos % (Auto) (0-6) % Baso % (Auto) (0-2) % Absolute Neuts (auto) (1.5-7.7) 10^3/ul Absolute Lymphs (auto) (1.0-4.8) 10^3/ul Absolute Monos (auto) (0-0.8) 10^3/ul Absolute Eos (auto) (0-0.6) 10^3/ul Absolute Basos (auto) (0-0.2) 10^3/ul Absolute Nucleated RBC 10^3/ul Nucleated RBC % INR (Anticoag Therapy) (0.89-1.11) APTT (26.0-36.3) seconds D-Dimer, Quantitative (Less Than 230) ng/mL Sodium (133-145) mmol/L Potassium (3.5-5.0) mmol/L Chloride (101-111) mmol/L Carbon Dioxide (22-32) mmol/L Anion Gap (2-11) mmol/L BUN (6-24) mg/dL Creatinine (0.51-0.95) mg/dL Est GFR ( Amer) (>60) Est GFR (Non-Af Amer) (>60) BUN/Creatinine Ratio (8-20) Glucose (70-100) mg/dL POC Glucose (mg/dL) (74-106) mg/dL Hemoglobin A1c 12.2 H (Less than 6.0) % Lactic Acid (0.5-2.0) mmol/L Calcium (8.6-10.3) mg/dL Magnesium (1.9-2.7) mg/dL Total Bilirubin (0.2-1.0) mg/dL AST (13-39) U/L ALT (7-52) U/L Alkaline Phosphatase (34-104) U/L Ammonia (16-53) mol/L Total Creatine Kinase (10-223) U/L Troponin I (<0.04) ng/mL B-Natriuretic Peptide ( - 100) pg/mL Total Protein (6.4-8.9) g/dL Albumin (3.2-5.2) g/dL Globulin (2-4) g/dL Albumin/Globulin Ratio (1-3) TSH (0.34-5.60) mcIU/mL Serum Alcohol (<10) mg/dL Diagnostic Imaging: CT brain - no acute process CXR - no acute process EKG Data: EKG - extremely large QRS segment meeting LVH voltage criteria. Inverted T- waves in lead I, II, and aVL, slightly biphasic in aVF, unchanged from previous. Assess/Plan/Problems-Billing Assessment: Ms. Arias is a 66 yo female with a PMH of CKD stage 3, CAD s/p CABG, TINO, poorly controlled diabetes, and HTN who presented to the ED on 12/13 with concern for weakness and with a noted elevated troponin. - Patient Problems (1) Weakness Code(s): R53.1 - WEAKNESS Comment: Improved with IVF Suspect mild hypovolemia in the presence of recent loose stools and chronic hyperglycemia, though there is no presence of hyperosmolar state. Patient has uncontrolled DM but reports allergies to insulin and most classes of medication. Patient also states she is undergoing evaluation for gluten allergy with PCP. PT evaluation Continue outpatient follow-up. (2) Elevated troponin Onset Date: 09/26/14 Code(s): R79.89 - OTHER SPECIFIED ABNORMAL FINDINGS OF BLOOD CHEMISTRY Comment: Patient denies CP, no new EKG changes (changes seen consistent with previous). Troponins have been minimally elevated with no significant escalation; patient had similar presentation in Mar 2016. Patient with known CAD (s/p CABG) but is not appropriately medically managed, due to reported allergies and medication intolerances. Patient advised to continue ASA therapy upon discharge. She appears to tolerate carvedilol but she is reluctant to continue this medication as she perceives that it may be causing swelling. Outpatient stress test recommended (pt declined inpatient stress test); patient states she will pursue with PCP or crayon grader. Continue outpatient follow-up with cardiology. (3) Uncontrolled diabetes mellitus Onset Date: 09/26/14 Code(s): E11.65 - TYPE 2 DIABETES MELLITUS WITH HYPERGLYCEMIA Comment: HgbA1c 12.2 Patient with existing retinopathy and nephropathy; previous diabetic ulcers and left 5th toe amputation. Patient with multiple allergies to insulin, metformin, Avandia, and ? Invokana. Patient unwilling to try any new medications, though she states the Lantus is fine. Will increase Lantus to 15 units BID. Outpatient follow-up with PCP. (4) History of hypertension Code(s): Z86.79 - PERSONAL HISTORY OF OTHER DISEASES OF THE CIRCULATORY SYSTEM Comment: Borderline control Continue to offer prn hydralazine and carvedilol. Patient has refused morning carvedilol. Continue home chlorthalidone. (5) Hx of coronary artery disease Code(s): Z86.79 - PERSONAL HISTORY OF OTHER DISEASES OF THE CIRCULATORY SYSTEM Comment: Hx of CABG Patient not compliant with ASA Patient encouraged to continue ASA everyday, as she does not take a statin, beta gary or GERARDO-I secondary to cited allergies. Outpatient f/u with cardiology as planned. (6) Obstructive sleep apnea Code(s): G47.33 - OBSTRUCTIVE SLEEP APNEA (ADULT) (PEDIATRIC) Comment: Offer CPAP for night time use. (7) DVT prophylaxis Onset Date: 09/26/14 Comment: SCDs (8) Full code status Onset Date: 09/26/14 Code(s): Z78.9 - OTHER SPECIFIED HEALTH STATUS Status and Disposition: OBV admit. D/c to home.
[2016-12-15] MEDS ORDERED: Ondansetron INJ* 2 MG/ML VIAL IV PRN (10:41)
[2016-12-15 12:04] VITALS: BP 153/73
--- NOTE | 2016-12-16 02:50 | DS ---
CC: Dr. Garzon; Dr. Marlon Monet, Cardiology * MEDICINE DISCHARGE SUMMARY: DATE OF ADMISSION: 12/13/16 DATE OF DISCHARGE: 12/15/16 PRIMARY CARE PHYSICIAN: Dr. Garzon. PROVIDER: Connie Abdul NP ATTENDING PHYSICIAN: Dr. Chrsi Fiore * (as dictated by Connie Abdul NP) CONSULTING PHYSICIAN: Dr. Daniel Cunningham, Neurology. PRIMARY DISCHARGE DIAGNOSES: 1. Near syncope and weakness. 2. Elevated troponin. 3. Uncontrolled diabetes. SECONDARY DISCHARGE DIAGNOSES: 1. Chronic kidney disease, stage 3. 2. Coronary artery disease, status post coronary artery bypass graft. 3. Obstructive sleep apnea. 4. Hypertension. MEDICATIONS AT DISCHARGE: 1. Aspirin 81 mg daily. 2. Carvedilol 6.25 mg b.i.d. 3. Lantus SoloSTAR pen 15 units subcu b.i.d. 3. Tramadol 50 mg q.6 hours p.r.n. I did check I-STOP prior to prescription being transmitted. The patient was prescribed a 5-day supply with 20 pills. 4. Chlorthalidone 25 mg daily p.r.n. HOSPITAL COURSE OF STAY: For full details, please refer to the H and P provided by BHARAT Barrow, on 12/13/16. In summary, Ms. Ramirez is a 66-year -old female, who presented to the ER with complaints of weakness and near syncope. The patient reported going to get lab work completed and was getting back on the bus to return home when she suddenly felt weak. She was able to lower herself to the ground. She did report some recent diarrhea that has been intermittent over the last couple of weeks and has since resolved, which she blames on gluten intolerance. She has been seen in consultation by her PCP and states that she has started a gluten-free diet. She now reports normal bowel movements. The patient was admitted for observation and IV hydration as it was thought that her near syncope may be secondary to hypovolemia. The patient did report some improvement in the ER following fluids. It is also noted during her evaluation that she does have a mildly elevated troponin. The patient denied any chest pain and there are no changes noted on EKG. Of note, the patient was previous admitted about 9 months ago with a similar scenario and troponin has remained minimally elevated without escalation. During her stay here, the patient had no further episodes of near syncope or weakness. She had a PT evaluation where she was able to demonstrate safe ambulation. She reported a myriad of complaints, but denied chest pain or shortness of breath. The patient was offered a stress test, but states that she will follow up on this with Dr. Monet, who she is scheduled to see in a few weeks. In regards to her diabetes and hypertension, the patient is not adequately treated for these conditions. She is also not appropriately treated for her coronary artery disease. The patient presents with multiple allergies that she reports. The patient reports that she has been on numerous medications for her diabetes and hypertension, but that she is allergic to most of the medications offered to her for treatment. The patient did receive a dose of Humalog here, then reported lip swelling and tongue swelling, which was not observed by the nursing staff. However, the patient declined any further Humalog. The patient did state that she is in agreement with the Lantus, which did not cause any adverse reactions that she was able to notice. She states that she was previously prescribed Invokana a week or two ago and started this; however, she states that this caused swelling and shortness of breath and has since stopped it. She wishes to continue on Lantus in the outpatient setting. I did discuss that this will provide baseline blood sugar control, but would be better in combination with another medication. She understands this and states that she will follow up with Dr. Garzon regarding this medication. We have continued her on the 15 units subcu b.i.d. and the patient was advised to keep a track of her blood sugars at home. She does have a glucometer. In regards to her coronary artery disease and hypertension, the patient's blood pressures have been elevated. The patient initially refused the Coreg, but then states that she did not have much of reaction to it, would like to continue this medication as well. She asked a prescription for this medication. She does have a documented ALLERGY TO METOPROLOL, which includes swelling; however, she does not cite this complaint with the Coreg. Prescription was sent to the pharmacy for Coreg. The patient was also advised to continue her aspirin at home which she has been sporadically taking. The patient had no changes in her chronic minimal troponin elevation and no complaints of chest pain or other complaints that would be concerning for atypical ACS. Again, she has declined a stress test while she is here, but I did encourage her to pursue this with Dr. Garzon or Dr. Monet as an outpatient. CONCERNS AT DISCHARGE: Ms. Ramirez was discharged to home on 12/15/16. She is to follow up with her primary care provider, Dr. Garzon, as well as Dr. Monet , who she is scheduled to see in January. The patient also states that she has Podiatry and vascular surgeon appointment coming up in the upcoming weeks. DIET: Heart healthy, gluten-free diet. ACTIVITY: As tolerated. CONDITION: Stable. DISPOSITION: To home. TIME SPENT: Time spent on discharge was approximately 50 minutes. Again, this is only a brief summary of the patient's hospital course of stay. For full details, please refer to the full medical record. If you have any further questions or need further assistance, please feel free to contact me at [phone]. CONNIE ABDUL NP [id number]/[facility] #: [id number] YASSINE
== END 2016-12-15 15:20 | disposition home or self-care (01) ==
LOC: ED 13:33 → MEDTELE 17:13
PROVIDERS: ADMIT Internal Medicine; ATTEND Internal Medicine
DX: R55 Syncope and collapse (principal); R53.1 Weakness; R74.8 Abnormal levels of other serum enzymes; E11.65 Type 2 diabetes mellitus with hyperglycemia; I12.9 Hypertensive chronic kidney disease with stage 1 through stage 4 chronic kidney disease, or unspecified chronic kidney disease; N18.3 Chronic kidney disease, stage 3 (moderate); I25.10 Atherosclerotic heart disease of native coronary artery without angina pectoris; Z95.1 Presence of aortocoronary bypass graft; G47.33 Obstructive sleep apnea (adult) (pediatric); Z79.82 Long term (current) use of aspirin; Z79.899 Other long term (current) drug therapy; Z88.1 Allergy status to other antibiotic agents; Z88.8 Allergy status to other drugs, medicaments and biological substances; Z87.891 Personal history of nicotine dependence; I51.7 Cardiomegaly
CPT/HCPCS: 36415; 70450; 71010; 80048; 80053; 80320; 81003; 81015; 82140; 82550; 83036; 83605; 83735; 83880; 84443; 84484; 85025; 85379; 85610; 85730; 93005; 96361; 96374; 96375; 99291; A9270-GY; G0378; G0480; G8978-GP-CI; G8979-GP-CI; G8980-GP-CI; J0360; J1200

== ENCOUNTER 2017-02-28 16:12 | Emergency (ER) | payer BC, MEDICARE ==
[2017-02-28] MEDS ORDERED: Ondansetron INJ* 2 MG/ML VIAL IV ONE (16:55)
[2017-02-28] MEDS ORDERED: NS 0.9% 1000 ML* 1,000 ML IV ONE (16:55)
--- NOTE | 2017-02-28 18:22 | RAD ---
CLINICAL HISTORY: Abdominal pain COMPARISON: None TECHNIQUE: Multiple contiguous axial CT scans were obtained of the abdomen and pelvis, without intravenous contrast enhancement. Coronal and sagittal multiplanar reformations are submitted for review. Oral contrast was administered. FINDINGS: The study is limited by the lack of intravenous contrast. This limits evaluation of the solid organs and vasculature. LUNG BASES: The lung bases are clear. LIVER: The liver is normal in shape, size, contour, and attenuation. BILE DUCTS: There is no intrahepatic or extrahepatic biliary dilatation. GALLBLADDER: The gallbladder is normal, without pericholecystic inflammatory change. PANCREAS: The pancreas is normal, without mass or ductal dilatation. SPLEEN: Normal in size and appearance. UPPER GI TRACT: Evaluation of the gastrointestinal tract is limited by incomplete gastric distention. The upper GI tract is unremarkable. SMALL BOWEL AND MESENTERY: The small bowel is normal in contour, course, and caliber. There is no obstruction or dilatation. COLON: The colon is normal in contour, course, caliber. There is no pericolonic inflammatory change. There is a tubular, vermiform, hollow viscus that is blind ending, and originates from the cecum, consistent with a normal appendix. There is no periappendiceal inflammatory change. This is best seen on axial image 64. ADRENALS: Normal bilaterally. KIDNEYS: There are punctate nonobstructing renal calyceal stones. There is no hydronephrosis. BLADDER: There is mild bladder wall thickening. PELVIC ORGANS: The uterus and adnexa are grossly normal for technique. AORTA: There is calcific atherosclerotic disease of the abdominal aorta and its branches, without aneurysmal dilatation IVC: Unremarkable LYMPH NODES: There is no lymphadenopathy by size criteria. ABDOMINAL WALL: There is a fat-containing subxiphoid ventral hernia. BONES AND SOFT TISSUES: There is a scoliotic curvature of the spine. Degenerative changes are noted. OTHER: None IMPRESSION: 1. PUNCTATE NONOBSTRUCTING RENAL CALYCEAL STONES BILATERALLY. 2. MILD BLADDER WALL THICKENING. 3. FAT-CONTAINING SUBXIPHOID VENTRAL HERNIA.
[2017-02-28 19:03] LABS: Hematocrit 42 % (35-47); Hemoglobin 14.2 g/dl (12.0-16.0); Mean Corpuscular HGB Conc 34 g/dl (31-36); Mean Corpuscular Hemoglobin 30 pg (27-31); Mean Corpuscular Volume 89 fL (80-97); Mean Platelet Volume 8 um3 (7.4-10.4); Red Cell Distribution Width 13 % (10.5-15); White Blood Count 8.1 10^3/ul (3.5-10.8)
[2017-02-28 19:20] LABS: ALT 32 U/L (7-52); AST 34 U/L (13-39); Albumin 3.5 g/dL (3.2-5.2); Alkaline Phosphatase 107 U/L (34-104); Anion Gap 5 mmol/L (2-11); BUN/Creatinine Ratio 16.4 (8-20); Blood Urea Nitrogen 20 mg/dL (6-24); C Reactive Protein 19.69 mg/L (< 5.00); CO2 Carbon Dioxide 27 mmol/L (22-32); Calcium 9.4 mg/dL (8.6-10.3); Chloride 100 mmol/L (101-111); EGFR African American 56.9 (>60); EGFR Non-African American 44.2 (>60); Globulin 4.2 g/dL (2-4); Glucose 224 mg/dL (70-100); Lipase < 10 U/L (11.0-82.0); Magnesium 2.1 mg/dL (1.9-2.7); Potassium 3.8 mmol/L (3.5-5.0); Sodium 132 mmol/L (133-145); Total Protein 7.7 g/dL (6.4-8.9)
[2017-02-28 19:25] LABS: Troponin I 0.07 ng/mL (<0.04)
[2017-02-28 20:18] LABS: Urine Bacteria Absent (Absent); Urine Bilirubin Negative (Negative); Urine Glucose 2+(150 mg/dL) (Negative); Urine Nitrite Negative (Negative)
--- NOTE | 2017-02-28 20:46 | ED ---
Nancy Mitchell Alfonso scribed for Maria Elena Hwang MD on 02/28/17 at 1642 . Abdominal Pain/Female - HPI Summary HPI Summary: This patient is a 67 year old F presenting to [facility] accompanied by two female friends with a chief complaint of constipation since one week ago. The patient rates the aching pain 8/10 in severity. Symptoms aggravated by nothing. Symptoms alleviated by nothing. Patient reports chills, nausea, dark green stool (this morning), rectal pain (this morning), and abdominal pain ( intermittent). Patient denies headache, diarrhea, dysuria, cough, CP, and SOB. She denies any abdominal PSHx. PMHx includes DM, HTN, and CAD. - History of Current Complaint Chief Complaint: EDAbdPain Stated Complaint: SEVERE CONSTIPATION Time Seen by Provider: 02/28/17 16:24 Hx Obtained From: Patient Onset/Duration: Sudden Onset, Lasting Weeks - 1, Still Present Timing: Constant Severity Initially: Moderate Severity Currently: Moderate Pain Intensity: 8 Pain Scale Used: 0-10 Numeric Character: Dull - Aching Aggravating Factor(s): Nothing Alleviating Factor(s): Nothing Associated Signs and Symptoms: Positive: Other: - Patient reports chills, nausea , dark green stool (this morning), rectal pain (this morning), and abdominal pain (intermittent). Patient denies headache, diarrhea, dysuria, cough, CP, and SOB. Allergies/Adverse Reactions: Allergies Allergy/AdvReac Type Severity Reaction Status Date / Time Ceftriaxone [From Rocephin] Allergy Intermediate Swelling Verified 09/26/14 11: 33 Of Face,Lips Metformin Allergy Intermediate Pain Verified 09/26/14 11:33 Polyethylene Glycol Allergy Intermediate sob, Verified 09/26/14 11:33 [From MiraLax] abdominal swelling Levofloxacin [From Levaquin] Allergy Mild Hives Verified 09/26/14 11:33 Rosiglitazone [From Avandia] Allergy Mild sob, Verified 09/26/14 11:33 "doubling over" Insulin Allergy Unknown Unknown Verified 09/26/14 11:33 Reaction Details Insulin Aspart [From Novolog] Allergy Unknown Swelling Verified 09/26/14 11:33 Metoprolol Allergy Unknown Swelling Verified 09/26/14 11:33 Aliskiren [From Tekturna] Allergy Unknown Verified 09/26/14 11:34 Reaction Details Amlodipine [From Norvasc] Allergy Shortness Verified 09/26/14 11:31 of Breath Iodinated Diagnostic Agents Allergy Swelling Verified 03/10/16 16:26 Of Face,Lips,& Throat Irbesartan [From Avapro] Allergy Swelling Verified 09/26/14 11:33 Of Face,Lips,& Throat Lisinopril Allergy Unknown Verified 09/26/14 11:35 Reaction Details Rosuvastatin [From Crestor] Allergy Swelling Verified 09/26/14 11:30 Of Face,Lips,& Throat contrast dye Allergy Severe ^ BP / Uncoded 09/26/14 11:33 TONGUE SWELLING PMH/Surg Hx/FS Hx/Imm Hx Endocrine/Hematology History: Reports: Hx Diabetes Cardiovascular History: Reports: Hx Coronary Artery Disease, Hx Hypertension, Hx Peripheral Vascular Disease, Other Cardiovascular Problems/Disorders - carotid endarterectomy, cardiac cath 2010, CABG Denies: Hx Pacemaker/ICD Respiratory History: Reports: Hx Asthma, Hx Pneumonia, Hx Seasonal Allergies, Hx Sleep Apnea GI History: Reports: Hx Gastroesophageal Reflux Disease, Other GI Disorders - Ham[place] History: Reports: Hx Chronic Renal Failure - CKD stage III Denies: Hx Renal Disease Musculoskeletal History: Reports: Hx Fibromyalgia Denies: Hx Osteoporosis Sensory History: Reports: Hx Cataracts, Hx Contacts or Glasses - Reading Glasses Denies: Hx Hearing Aid Opthamlomology History: Reports: Hx Cataracts, Hx Contacts or Glasses - Reading Glasses Neurological History: Reports: Hx Nerve Disease - fibromyalgia, Other Neuro Impairments/Disorders Psychiatric History: Denies: Hx Panic Disorder - Surgical History Surgery Procedure, Year, and Place: quintuple bi-pass. 2008, cataracts; Left 5th toe amputation; Left 2nd toe amputation; right patellar tendon repair; tonsilectomy, adenoids removed; carotid endarterectomy, left foot lisfranc reduction Hx Anesthesia Reactions: No Infectious Disease History: No Infectious Disease History: Denies: Traveled Outside the [place] in Last 30 Days - Family History Known Family History: Positive: Cardiac Disease, Hypertension, Diabetes - Social History Lives: Alone Alcohol Use: None Substance Use Type: Reports: None Smoking Status (MU): Former Smoker Type: Cigarettes Amount Used/How Often: 1/2 ppweek Length of Time of Smoking/Using Tobacco: 2 years Review of Systems Positive: Chills Negative: Chest Pain Negative: Shortness Of Breath, Cough Positive: Abdominal Pain, Nausea, Other - Constipation, dark green stool, rectal pain . Negative: Diarrhea Negative: dysuria Negative: Headache All Other Systems Reviewed And Are Negative: Yes Physical Exam Triage Information Reviewed: Yes Vital Signs On Initial Exam: Initial Vitals Temp Pulse Resp BP Pulse Ox 98.1 F 104 20 202/110 97 02/28/17 16:14 02/28/17 16:14 02/28/17 16:14 02/28/17 16:14 02/28/17 16:14 Vital Signs Reviewed: Yes Appearance: Positive: Well-Appearing, No Pain Distress Skin: Positive: Skin Color Reflects Adequate Perfusion, Dry Eyes: Positive: EOMI, PATI ENT: Positive: Pharynx normal, TMs normal Neck: Positive: Supple, Nontender Respiratory/Lung Sounds: Positive: Clear to Auscultation, Breath Sounds Present. Negative: Rales, Rhonchi, Wheezes Cardiovascular: Positive: RRR, Other - No gallop. Negative: Murmur, Rub Abdomen Description: Positive: Nontender, Soft, Other: - No rebound. Negative: Distended, Guarding Bowel Sounds: Positive: Present Musculoskeletal: Positive: Strength/ROM Intact. Negative: Edema Left, Edema Right Neurological: Positive: Sensory/Motor Intact, Alert, Oriented to Person Place, Time, CN Intact II-III Psychiatric: Positive: Affect/Mood Appropriate Diagnostics - Vital Signs Vital Signs Temp Pulse Resp BP Pulse Ox 02/28/17 16:14 98.1 F 104 20 202/110 97 - Laboratory Lab Results: Lab Results 02/28/17 02/28/17 02/28/17 Range/Units 18:55 18:55 18:55 WBC 8.1 (3.5-10.8) 10^3/ul RBC 4.70 (4.0-5.4) 10^6/ul Hgb 14.2 (12.0-16.0) g/dl Hct 42 (35-47) % MCV 89 (80-97) fL MCH 30 (27-31) pg MCHC 34 (31-36) g/dl RDW 13 (10.5-15) % Plt Count 275 (150-450) 10^3/ul MPV 8 (7.4-10.4) um3 Neut % (Auto) 88.5 H (38-83) % Lymph % (Auto) 6.3 L (25-47) % Pettis % (Auto) 4.4 (1-9) % Eos % (Auto) 0.4 (0-6) % Baso % (Auto) 0.4 (0-2) % Absolute Neuts (auto) 7.2 (1.5-7.7) 10^3/ul Absolute Lymphs (auto) 0.5 L (1.0-4.8) 10^3/ul Absolute Monos (auto) 0.4 (0-0.8) 10^3/ul Absolute Eos (auto) 0 (0-0.6) 10^3/ul Absolute Basos (auto) 0 (0-0.2) 10^3/ul Absolute Nucleated RBC 0.01 10^3/ul Nucleated RBC % 0.1 Sodium 132 L (133-145) mmol/L Potassium 3.8 (3.5-5.0) mmol/L Chloride 100 L (101-111) mmol/L Carbon Dioxide 27 (22-32) mmol/L Anion Gap 5 (2-11) mmol/L BUN 20 (6-24) mg/dL Creatinine 1.22 H (0.51-0.95) mg/dL Est GFR ( Amer) 56.9 (>60) Est GFR (Non-Af Amer) 44.2 (>60) BUN/Creatinine Ratio 16.4 (8-20) Glucose 224 H (70-100) mg/dL Lactic Acid 1.3 (0.5-2.0) mmol/L Calcium 9.4 (8.6-10.3) mg/dL Magnesium 2.1 (1.9-2.7) mg/dL Total Bilirubin 0.80 (0.2-1.0) mg/dL AST 34 (13-39) U/L ALT 32 (7-52) U/L Alkaline Phosphatase 107 H (34-104) U/L Troponin I 0.07 H* (<0.04) ng/mL C-Reactive Protein 19.69 H (< 5.00) mg/L Total Protein 7.7 (6.4-8.9) g/dL Albumin 3.5 (3.2-5.2) g/dL Globulin 4.2 H (2-4) g/dL Albumin/Globulin Ratio 0.8 L (1-3) Lipase < 10 L (11.0-82.0) U/L Urine Color Urine Appearance Urine pH (5-9) Ur Specific [place] (1.010-1.030) Urine Protein (Negative) Urine Ketones (Negative) Urine Blood (Negative) Urine Nitrate (Negative) Urine Bilirubin (Negative) Urine Urobilinogen (Negative) Ur Leukocyte Esterase (Negative) Urine WBC (Auto) (Absent) Urine RBC (Auto) (Absent) Ur Squamous Epith Cells (Absent) Urine Bacteria (Absent) Urine Glucose (Negative) 02/28/17 Range/Units 20:06 WBC (3.5-10.8) 10^3/ul RBC (4.0-5.4) 10^6/ul Hgb (12.0-16.0) g/dl Hct (35-47) % MCV (80-97) fL MCH (27-31) pg MCHC (31-36) g/dl RDW (10.5-15) % Plt Count (150-450) 10^3/ul MPV (7.4-10.4) um3 Neut % (Auto) (38-83) % Lymph % (Auto) (25-47) % Pettis % (Auto) (1-9) % Eos % (Auto) (0-6) % Baso % (Auto) (0-2) % Absolute Neuts (auto) (1.5-7.7) 10^3/ul Absolute Lymphs (auto) (1.0-4.8) 10^3/ul Absolute Monos (auto) (0-0.8) 10^3/ul Absolute Eos (auto) (0-0.6) 10^3/ul Absolute Basos (auto) (0-0.2) 10^3/ul Absolute Nucleated RBC 10^3/ul Nucleated RBC % Sodium (133-145) mmol/L Potassium (3.5-5.0) mmol/L Chloride (101-111) mmol/L Carbon Dioxide (22-32) mmol/L Anion Gap (2-11) mmol/L BUN (6-24) mg/dL Creatinine (0.51-0.95) mg/dL Est GFR ( Amer) (>60) Est GFR (Non-Af Amer) (>60) BUN/Creatinine Ratio (8-20) Glucose (70-100) mg/dL Lactic Acid (0.5-2.0) mmol/L Calcium (8.6-10.3) mg/dL Magnesium (1.9-2.7) mg/dL Total Bilirubin (0.2-1.0) mg/dL AST (13-39) U/L ALT (7-52) U/L Alkaline Phosphatase (34-104) U/L Troponin I (<0.04) ng/mL C-Reactive Protein (< 5.00) mg/L Total Protein (6.4-8.9) g/dL Albumin (3.2-5.2) g/dL Globulin (2-4) g/dL Albumin/Globulin Ratio (1-3) Lipase (11.0-82.0) U/L Urine Color Yellow Urine Appearance Clear Urine pH 7.0 (5-9) Ur Specific [place] 1.017 (1.010-1.030) Urine Protein 2+(100 mg/dl) H (Negative) Urine Ketones Negative (Negative) Urine Blood 1+ H (Negative) Urine Nitrate Negative (Negative) Urine Bilirubin Negative (Negative) Urine Urobilinogen Negative (Negative) Ur Leukocyte Esterase Negative (Negative) Urine WBC (Auto) Trace(0-5/hpf) (Absent) Urine RBC (Auto) Trace(0-2/hpf) (Absent) Ur Squamous Epith Cells Present H (Absent) Urine Bacteria Absent (Absent) Urine Glucose 2+(150 mg/dl) H (Negative) Result Diagrams: 02/28/17 18:55 02/28/17 18:55 Lab Statement: Any lab studies that have been ordered have been reviewed, and results considered in the medical decision making process. - CT A/P CT Interpretation Completed By: Radiologist - 1. PUNCTATE NONOBSTRUCTING RENAL CALYCEAL STONES BILATERALLY. 2. MILD BLADDER WALL THICKENING. 3. FAT- CONTAINING SUBXIPHOID VENTRAL HERNIA. ED physician has reviewed this radiology report and agrees. - EKG 1710 Cardiac Rate: Tachycardia - BPM 102 EKG Rhythm: Sinus Tachycardia EKG Interpretation: LVH. Diffuse T-wave changes. EKG Comparison: No Significant Change - 12/15/16 Abdominal Pain Fem Course/Dx - Course Course Of Treatment: 67 yo female with c/o several days of constipation and then generalized weakness today, labs and ct were normal, but upon review there was mod stool on ct which was noted when pt asked for a fleets enema this was given and pt was sent home with docusate script - Diagnoses Provider Diagnoses: Constipation, Weakness Discharge - Discharge Plan Condition: Stable Disposition: HOME Prescriptions: Docusate CAP* [Colace Cap*] 100 mg PO BID PRN #20 cap PRN Reason: Constipation Patient Education Materials: Constipation (ED), Weakness (ED) Referrals: Tho Garzon MD [Primary Care Provider] - 3 Days The documentation as recorded by the Nancy pyle Alfonso accurately reflects the service I personally performed and the decisions made by me, Maria Elena Hwang MD.
[2017-02-28 21:09] VITALS: BP 160/76
== END 2017-02-28 22:12 | disposition home or self-care (01) ==
LOC: ED 16:12
DX: R11.0 Nausea (principal); R10.9 Unspecified abdominal pain; K59.00 Constipation, unspecified; Z87.891 Personal history of nicotine dependence; R53.1 Weakness
CPT/HCPCS: 36415; 74176; 80053; 81003; 81015; 83605; 83690; 83735; 84484; 85025; 86140; 93005; 96374; 99282; J2405

== ENCOUNTER 2017-04-20 14:40 | Inpatient (IN) | payer MEDICARE ==
[2017-04-20] MEDS ORDERED: NS 0.9% 1000 ML* 1,000 ML IV ONE ×2 (15:34→16:48)
[2017-04-20] MEDS ORDERED: Meropenem 1 GM PREMIX(*) 1 GM/50 ML BAG IV ONE (15:39)
[2017-04-20] MEDS ORDERED: Vancomycin(*) 1,000 MG in NS 0.9% 250 ML* 250 ML IVPB ONE (15:40)
[2017-04-20 15:59] LABS: Hematocrit 39 % (35-47); Hemoglobin 13.2 g/dl (12.0-16.0); Mean Corpuscular HGB Conc 34 g/dl (31-36); Mean Corpuscular Hemoglobin 30 pg (27-31); Mean Corpuscular Volume 88 fL (80-97); Mean Platelet Volume 8 um3 (7.4-10.4); Red Blood Count 4.44 10^6/ul (4.0-5.4); Red Cell Distribution Width 14 % (10.5-15); White Blood Count 11.8 10^3/ul (3.5-10.8)
[2017-04-20 16:07] LABS: Urine Bacteria Absent (Absent); Urine Bilirubin Negative (Negative); Urine Glucose 3+(>=500 mg/dL) (Negative); Urine Nitrite Negative (Negative)
--- NOTE | 2017-04-20 16:17 | RAD ---
INDICATION: Fever. COMPARISON: Comparison is made with a prior study from December 13, 2016. TECHNIQUE: A portable view of the chest was obtained. FINDINGS: The patient is status poststernotomy and coronary artery bypass surgery. The heart is within normal limits in size. The lungs are clear. No pleural effusion is seen. IMPRESSION: POSTSURGICAL CHANGES, NO EVIDENCE FOR ACUTE FINDING.
[2017-04-20 16:18] LABS: Troponin I 0.11 ng/mL (<0.04)
--- NOTE | 2017-04-20 16:23 | RAD ---
INDICATION: Left great toe infection. TECHNIQUE: 3 views of the left great toe were obtained. FINDINGS: The patient is status post amputation of the fifth toe at the level of the distal metatarsal and amputation of the second toe at the metatarsal phalangeal joint. There is diffuse soft tissue swelling in the great toe and adjacent to the first metatarsal. There appears to be a soft tissue defect inferior to the interphalangeal joint of the great toe. No significant focal osseous abnormality, erosion or periosteal reaction is seen. IMPRESSION: SOFT TISSUE SWELLING, NO SPECIFIC EVIDENCE FOR OSTEOMYELITIS. IF THE PATIENT'S SYMPTOMS PERSIST RECOMMEND AN MRI OF THE FOOT FOR FURTHER EVALUATION.
[2017-04-20 16:35] LABS: Albumin 3.6 g/dL (3.2-5.2); BUN/Creatinine Ratio 21.8 (8-20); C Reactive Protein 262.19 mg/L (< 5.00); Calcium 9.3 mg/dL (8.6-10.3); EGFR African American 40.2 (>60); EGFR Non-African American 31.2 (>60); Globulin 4.6 g/dL (2-4); Potassium 3.8 mmol/L (3.5-5.0); Total Bilirubin 0.6 mg/dL (0.2-1.0); Total Protein 8.2 g/dL (6.4-8.9)
[2017-04-20] MEDS ORDERED: Acetaminophen TAB* 325 MG PO PRN (20:02)
[2017-04-20] MEDS ORDERED: Acetaminophen TAB* 325 MG PO ONE (20:03)
[2017-04-20] MEDS ORDERED: Nitroglycerin 2% OINT* 1 GM PAK TOPICAL ONE (20:06)
[2017-04-20] MEDS ORDERED: Magnesium Hydroxide LIQ* 30 ML UDC PO PRN (20:08)
[2017-04-20] MEDS ORDERED: Zosyn per Pharmacy* NOTE FOLLOW UP SCH (21:00)
--- NOTE | 2017-04-20 21:00 | RAD ---
INDICATION: Poor pedal pulses, assess BELLA. COMPARISON: Comparison is made with a prior study from December 22, 2015. TECHNIQUE: Bilateral ankle brachial indices were measured and Doppler tracings were obtained at the ankle of the dorsalis pedis and posterior tibial arteries. FINDINGS: The ankle brachial index on the right was 0.58 and on the left was 0.42. The ankle-brachial indices on the prior study were 0.70 and 0.59 respectively. The arterial waveforms are dampened especially on the left side. There is biphasic flow within the right posterior tibial artery and biphasic flow within the right dorsalis pedis artery. There is monophasic flow within the left posterior tibial artery and monophasic flow within the left dorsalis pedis artery. IMPRESSION: DECREASED ANKLE-BRACHIAL INDICES AND DAMPENED WAVEFORMS CONSISTENT WITH SEVERE PERIPHERAL VASCULAR DISEASE WHICH HAS PROGRESSED FROM THE PRIOR STUDY. A CT ANGIOGRAM OF THE AORTA AND LOWER EXTREMITIES MAY BE HELPFUL FOR FURTHER EVALUATION CLINICALLY NEEDED.
[2017-04-20] MEDS: Chlorthalidone TAB* 50 MG PO SCH (22:33)
[2017-04-20] MEDS: traMADol TAB* 50 MG PO PRN (22:34)
[2017-04-20] MEDS: Docusate CAP* 100 MG PO SCH (22:34)
--- NOTE | 2017-04-20 22:36 | HP ---
CC: Dr. Garzon * HISTORY AND PHYSICAL: DATE OF ADMISSION: 04/20/17 PRIMARY CARE PROVIDER: Dr. Garzon. CHIEF COMPLAINT: Fever and weakness. HISTORY OF PRESENT ILLNESS: Susan Arias is a 67-year-old female with history of diabetes, uncontrolled hypertension, diabetic nephropathy who presented to the hospital with no specific complaints of generalized weakness, constipation, and fever. The patient is not the greatest historian. I believe she is encephalopathic with her fever of 101 with which she presented to the ED. Upon the evaluation in the ED, she was noted to have a couple of ulcerations with purulent discharge on her left great toe. The patient is going to be admitted with a diagnosis of sepsis. In addition to that, she has uncontrolled hypertension and uncontrolled diabetes. PAST MEDICAL HISTORY: 1. History of chronic kidney disease stage 3 due to diabetes. 2. Coronary artery disease, status post coronary artery bypass grafting. 3. Obstructive sleep apnea. 4. Diabetes type 2. 5. Hypertension. 6. Carotid endarterectomy. 7. History of diabetic foot disease, status post 2 toes amputation, left fifth toe and left second toe in the past. MEDICATIONS AT HOME: Include: 1. Chlorthalidone 25 mg daily. 2. Lantus insulin 15 units b.i.d. 3. Ultram 50 mg every 6 hours p.r.n. ALLERGIES: The patient stated that she is allergic to "ALL SHORT-ACTING INSULIN " including LISPRO, ASPART, and REGULAR. She is also allergic to many other medications including CEFTRIAXONE, METFORMIN, MIRALAX, LEVOFLOXACIN, AVANDIA, METOPROLOL, TEKTURNA, AMLODIPINE, CT DYE, AVAPRO, LISINOPRIL, CRESTOR. Despite having an allergy to "INSULIN," She has had been taking INSULIN LANTUS without any problems. FAMILY HISTORY: Positive for uncontrolled diabetes, hypertension in both parents and siblings. 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 She denies any tobacco, alcohol, or drug use. She lives by herself. Her surrogate is Shanelle Arias, her sister. REVIEW OF SYSTEMS: Very difficult to obtain from this patient who has problems remembering the timing of recent events. She stated that she had been weak for "quite sometime." She stated that she has her feet checked regularly at Dr. Lua. She does not remember how her sugars have been and she stated that she always has elevated blood pressure mostly because she is allergic to most of the medications. She used to be on Coreg during her previous hospital stay in December of 2016, but stated that she got allergic to it and she is not taking it anymore. All the remaining 12 systems reviewed with the patient, somewhat limited due to the patient's mental status, but otherwise negative. PHYSICAL EXAMINATION GENERAL: The patient is a pleasant 67-year-old female, who is in no acute distress. The patient is alert, awake, and oriented x3. Nevertheless, she is a very poor historian, poor memory and recall. VITAL SIGNS: Blood pressure of 196/73, heart rate of 107 and regular, respiratory rate 20, oxygen saturation 98% on room air, temperature of 101.0. HEENT: Head: Atraumatic, normocephalic. Eyes: Pupils are equal and reactive to light and accommodation. Oropharynx clear. Mucosa moist. NECK: Supple. No JVD. No bruits bilaterally. RESPIRATORY: Clear to auscultation bilaterally. CARDIOVASCULAR: Regular rate and rhythm. No murmur. ABDOMEN: Soft, nontender. Bowel sounds present in all 4 quadrants. EXTREMITIES: There is trace bilateral pedal edema, right slightly more than left. Pulses are poorly palpable in the left foot. There is no clubbing in the left great toe. The right great toe appears cyanotic and cool to touch. The left foot with the 3 toes remaining, the first great toe has very hardened skin on the bottom with a couple of ulcerations approximately 1 cm in diameter each with purulent discharge. The entire first toe was cyanotic and cold to touch. The remaining part of the foot is warm to touch with good capillary refill, but no palpable pedal pulses. The right foot has poorly palpable pedal pulses. Good capillary refill and no cyanosis. NEURO EVALUATION: Speech is clear. Cranial nerves II through XII are grossly intact. Motor strength is 5/5 bilaterally. Decreased sensation in bilateral feet. SKIN: Remaining evaluation of the patient's skin, no other ecchymotic areas or rashes noted. DIAGNOSTIC STUDIES/LAB DATA: The patient's EKG shows sinus tachycardia with a heart rate of 102 beats per minute with J-point elevation and LVH criteria in multiple leads. That is compatible with an EKG from December of 2016 apart from that the tachycardia is new. Toe x-ray, impression: "Soft tissue swelling, no specific evidence for osteomyelitis. If the patient's symptoms persist, recommend an MRI of the foot for further evaluation." Portable chest x-ray, impression: "Postsurgical changes. No evidence of acute findings." Laboratory data, white blood cell count of 11.8, hemoglobin of 13.2, hematocrit of 39, and platelets of 282. There was left shift with 89% of neutrophils. Sodium of 127, potassium 3.8, chloride 93, carbon dioxide 24, BUN 36, creatinine 1.65. The patient's baseline creatinine has been between 1.2 to 1.5. The patient's glucose level was 395. AST of 106, ALT of 93, alkaline phosphatase of 279. Troponin of 0.11. C-reactive protein of 162. Urinalysis positive for trace esterase, +1 blood and white cells, negative for bacteria, negative for nitrites. ASSESSMENT AND PLAN: 1. Sepsis in a patient who is mildly encephalopathic, has elevated creatinine and liver function test. At this point, the likely source of sepsis is the patient's left fist toe with suspicion of osteomyelitis. At this point, the patient received meropenem and vancomycin in the emergency department. She is going to be placed on Zosyn. She has multiple allergies and choice of antibiotics for this patient is at this point is limited. She is also going to be placed on intravenous hydration. 2. In regards to the patient's acute kidney injury on top of chronic kidney disease due to diabetes. I suspect the patient is mildly dehydrated, I will start her on intravenous fluids. 3. The patient's uncontrolled diabetes. I suspect was never controlled at home. I will obtain hemoglobin A1c in the morning. The patient stated that she is allergic to all short-acting insulin and at this point, insulin sliding scale would not be useful. I will increase the patient's insulin Lantus to 20 units twice a day and start it tonight. I will check the patient's sugars before insulin every meal and asked the nurse to notify doctor if the sugar is above 300. 4. In regards to the patient's uncontrolled hypertension. From review of medical record, the patient's blood pressure had been in between 170 to 180 for the past year. The patient stated that she is allergic to most of the medications . I will place her on hydralazine and continue her chlorthalidone. I will also institute nitro paste for the time being. Due to her EKG showing LVH, she would be a very good candidate for being treated with beta-gary, although the patient claims that she has an allergy to it. I will also obtain transthoracic echocardiogram. Her last echo was noted in 2011. 5. The patient's elevation of liver function test. I suspect this is due to sepsis and may be mild liver hypoperfusion due to dehydration. I will check liver function test in the morning and institute intravenous hydration as mentioned above. The patient's alkaline phosphatase is likely elevated due to osteomyelitis. 6. Due to poor peripheral pulses in the left foot and due to the patient's history of peripheral vascular disease I will obtain ankle brachial indexes on the left to evaluate it further. 7. The patient's elevated troponin is most likely due to demand ischemia. The patient is asymptomatic from cardiac standpoint. We will continue following troponins and obtain echocardiogram as mentioned above. 8. Hyponatremia as well as likely pseudohyponatremia with a sodium level of 127 when the glucose level was 395. We will work on controlling the patient's glucose level and and instituting intravenous hydration. 9. The patient's code status is full and her surrogate is her sister. TIME SPENT: Approximately 75 minutes were spent on admission of this patient, more than half that time was spent [id number] with the patient during the interview and physical exam. [id number]/[facility] #: [id number] [place]
[2017-04-20] MEDS: Insulin GLARGINE(*) 1 UNITS UNIT SUBCUT SCH (22:39)
[2017-04-20] MEDS: Heparin VIAL(*) 5000 UNITS/ML VIAL (FIVE THOUSAND) SUBCUT SCH (22:41)
[2017-04-21] MEDS: ZOSYN 3.375 GM Q8H per EXTENDED INFUSION IVPB SCH ×6 (03:30→21:03)
[2017-04-21] MEDS: Heparin VIAL(*) 5000 UNITS/ML VIAL (FIVE THOUSAND) SUBCUT SCH ×3 (05:50→20:51)
[2017-04-21 06:46] LABS: Hematocrit 34 % (35-47); Hemoglobin 11.7 g/dl (12.0-16.0); Mean Corpuscular HGB Conc 34 g/dl (31-36); Mean Corpuscular Hemoglobin 30 pg (27-31); Mean Corpuscular Volume 88 fL (80-97); Mean Platelet Volume 8 um3 (7.4-10.4); Red Blood Count 3.93 10^6/ul (4.0-5.4); Red Cell Distribution Width 14 % (10.5-15)
[2017-04-21 07:10] LABS: Troponin I 0.11 ng/mL (<0.04)
[2017-04-21 07:31] LABS: Albumin 2.8 g/dL (3.2-5.2); BUN/Creatinine Ratio 18.6 (8-20); Calcium 8.3 mg/dL (8.6-10.3); Direct Bilirubin 0.1 mg/dL (0.03-0.18); EGFR African American 48.5 (>60); EGFR Non-African American 37.7 (>60); Globulin 3.9 g/dL (2-4); Indirect Bilirubin 0.6 mg/dL (0.3-1.0); Potassium 3.5 mmol/L (3.5-5.0); Total Bilirubin 0.7 mg/dL (0.2-1.0); Total Protein 6.7 g/dL (6.4-8.9)
[2017-04-21] MEDS: Chlorthalidone TAB* 50 MG PO SCH (09:36)
[2017-04-21] MEDS: Docusate CAP* 100 MG PO SCH ×2 (09:36→20:51)
[2017-04-21] MEDS: Insulin GLARGINE(*) 1 UNITS UNIT SUBCUT SCH ×2 (09:36→20:52)
[2017-04-21] MEDS: NS 0.9% 1000 ML* 1,000 ML IV SCH (09:39)
[2017-04-21] MEDS ORDERED: Fluconazole 100 MG TAB* TAB PO ONE (11:40)
[2017-04-21] MEDS: traMADol TAB* 50 MG PO PRN ×2 (11:55→17:52)
[2017-04-21] MEDS: Lactobacillus Acidophilu (GG)* 1 CAP CAP PO SCH ×2 (11:56→20:51)
--- NOTE | 2017-04-21 12:57 | CONS ---
CONSULTATION REPORT: DATE OF CONSULT: 04/21/17 REQUESTING PROVIDER: BHARAT Barrow. CONSULTING SERVICE: Infectious Disease. REASON FOR CONSULTATION: Staph bacteremia. IMPRESSION: 1. Methicillin-sensitive Staphylococcus aureus bacteremia, 4 out of 4 blood culture bottles. I think this is the source of her left great toe infection, which probably includes chronic osteomyelitis and definitely includes cellulitis. There is also chronic non-pressure related wound on the great toe. She may have seeded distant structures including heart valve though she does not have prosthetic material present or painful spine or joints, so those areas of infection seem less likely. 2. Sepsis was present on admission. 3. Diabetes with peripheral neuropathy. 4. Peripheral vascular disease. 5. Coronary artery disease, status post coronary artery bypass grafting. 6. Chronic kidney disease. 7. Allergies to LISPRO, ASPART, CEFTRIAXONE, LEVAQUIN, unknown reactions. 8. Encephalopathy that was present on admission. RECOMMENDATIONS: 1. Agree with Zosyn 3.375 g every 8 hours by infusion as well as MRI of the toe , also transthoracic echocardiogram as starting point for endocarditis workup. I will repeat the blood cultures tomorrow. 2. I added a wound culture from the toe ulceration. HISTORY OF PRESENT ILLNESS: This is 67-year-old diabetic with diabetes and chronic left toe wounds for at least few months, she is unclear exactly how long they have been there, now with sepsis. She came to the hospital yesterday with fever, weakness, encephalopathy, which is improving. She was given vancomycin and meropenem in the emergency room and found to have ulcers on her great toe. X-ray was done that showed no bone changes. She was febrile initially, afebrile this morning and normotensive, though still tachycardic. She can answer most questions including no pain in her left foot and has noticed the redness there, had noticed fevers and chills the last few days. Does not have pain in her back or joints and does not have any artificial material present that she knows of. She has had toe infections in the past that required amputation, none recently. PAST MEDICAL HISTORY: 1. Diabetes complicated by neuropathy. 2. Coronary artery disease, status post CABG. 3. Peripheral vascular disease. 4. Hypertension. 5. Status post carotid endarterectomy. 6. Left foot infection, status post amputation of the left fifth and second toes. 7. Chronic kidney disease, stage 3. MEDICATIONS: 1. Tylenol. 2. Chlorthalidone. 3. Docusate. 4. Heparin subcutaneous injection. 5. Glargine. 6. Lactobacillus. 7. Zosyn 3.375 g every 8 hours. 8. Hydralazine. 9. Tramadol. ALLERGIES: To LISPRO, ASPART, CEFTRIAXONE, METFORMIN, MIRALAX, LEVAQUIN, AVANDIA, METOPROLOL, TEKTURNA, AMLODIPINE, CT DYE, AVAPRO, LISINOPRIL, CRESTOR. FAMILY HISTORY: High blood pressure in both parents, who are . SOCIAL HISTORY: She lives in [place]. She is retired. She has no travel or injection drug use. REVIEW OF SYSTEMS: A 14-point review of systems was negative except as noted above. PHYSICAL EXAM: Vital Signs: Temperature is 37, heart rate 91, respiratory rate 16, blood pressure 160/80, O2 sat 97% on room air. General: She is awake , not in distress. Neurologic: She is oriented, follows commands, answers most questions. Can move both legs and arms. Sensation is decreased to light touch in the feet bilaterally. HEENT: There is no conjunctival hemorrhage. Oropharynx without lesions. Neck: Supple. Lymph Nodes: There is no cervical , supraclavicular, inguinal, axillary, or epitrochlear lymphadenopathy. Heart is regular and tachycardic without murmurs. Lungs are clear to auscultation bilaterally. Abdomen is soft, nontender. There is bowel sounds present. Skin : There is no splinter hemorrhage. Around her left great toe and medial forefoot, there is erythema, warmth without tenderness or crepitus. There are two 2 to 3 mm ulcerations on the plantar surface of the great toe without surrounding crepitans or fluctuance. DIAGNOSTIC STUDIES/LAB DATA: White blood cell count 9, hemoglobin 11.7, platelets 261. Creatinine 1.4 down from 1.65. Troponin is 0.11. Hemoglobin A1c is 10.3. ALT 63 down from 93. Please see impressions and recommendations outlined above, which I have discussed with BHARAT Barrow. Thank you for asking me to see Ms. Arias in consultation. [id number]/[facility] #: [id number] [facility]
--- NOTE | 2017-04-21 14:00 | PN ---
Subjective Date of Service: 04/21/17 Interval History: This is a 67 yo female with DM and HTN which are poorly controlled due to multiple allergies who presented with complaints of confusion found to be febrile. She was admitted with signs of sepsis with multiple ulcerations noted on her L GT as the presumed source of infection. Blood cultures reported positive overnight. This am, she reports feeling slightly better. Still fatigued. Confusion has cleared. No c/o cough, SOB, or CP. Mild nausea, no vomiting. Some appetite Objective Active Medications: Acetaminophen (Tylenol Tab*) 650 mg PO Q4H PRN PRN Reason: FEVER/PAIN Chlorthalidone (Hygroton Tab*) 25 mg PO DAILY [facility] Last Admin: 04/21/17 09:36 Dose: 25 mg Diphenhydramine HCl (Benadryl Iv*) 50 mg IV Q6H PRN PRN Reason: allergic reaction Docusate Sodium (Colace Cap*) 100 mg PO BID [facility] Last Admin: 04/21/17 09:36 Dose: 100 mg Heparin Sodium (Porcine) (Heparin Vial(*)) 5,000 units SUBCUT Q8HR [facility] Last Admin: 04/21/17 05:50 Dose: 5,000 units Hydralazine HCl (Apresoline Iv*) 5 mg IV SLOW PU Q6H PRN PRN Reason: blood pressure Hydralazine HCl (Apresoline Tab*) 10 mg PO TID [facility] Sodium Chloride (Ns 0.9% 1000 Ml*) 1,000 mls @ 125 mls/hr IV PER RATE [facility] Last Admin: 04/21/17 09:39 Dose: 125 mls/hr Piperacillin Sod/Tazobactam (Sod 3.375 gm/ Sodium Chloride) 100 mls @ 25 mls/ hr IVPB Q8H [facility] Last Admin: 04/21/17 11:56 Dose: 25 mls/hr Insulin Glargine (Lantus(*)) 25 units SUBCUT Q12H [facility] Lactobacillus Rhamnosus (Culturelle*) 1 cap PO BID [facility] Last Admin: 04/21/17 11:56 Dose: 1 cap Magnesium Hydroxide (Milk Of Magnesia Liq*) 30 ml PO Q4H PRN PRN Reason: CONSTIPATION Last Admin: 04/21/17 09:36 Dose: 30 ml Pharmacy Consult (Zosyn Per Pharmacy*) 1 note FOLLOW UP .ZOSYN PER PHARMACY [facility] Tramadol HCl (Ultram*) 50 mg PO Q6HR PRN PRN Reason: PAIN Last Admin: 04/21/17 11:55 Dose: 50 mg Vital Signs: Temp Pulse Resp BP Pulse Ox 98.1 F 97 16 172/83 98 04/21/17 11:35 04/21/17 12:54 04/21/17 11:55 04/21/17 12:54 04/21/17 11:35 Oxygen Devices in Use Now: None Appearance: Relatively well appearing middle aged female in NAD Respiratory: Symmetrical Chest Expansion and Respiratory Effort, Clear to Auscultation Cardiovascular: NL Sounds; No Murmurs; No JVD, RRR Abdominal: NL Sounds; No Tenderness; No Distention Extremities: No Edema Skin: - - shallow ulcerations of the L GT on the dorsal and planar surface without purulent drainage, but some surrounding erythema Neurological: Alert and Oriented x 3 Result Diagrams: 04/21/17 06:36 04/21/17 06:36 Microbiology and Other Data: Microbiology 04/21/17 10:00 Skin and Soft Tissue MRSA/MSSA (PCR - Final Toe Mrsa Negative S.aureus Positive Gram Stain - Final Assess/Plan/Problems-Billing Assessment: This is a 67 yo female with poorly controlled DM and HTN with CKD who presents with confusion and fever, found to be septic with L GT as the likely source. - Patient Problems (1) Septicemia Comment: MSSA bacteremia with signs of sepsis present at admission qSOFA = 1 for confusion with SIRS criteria of fever and leukocytosis L GT appears to be the source of infection Acute cellulitis with suspected osteomyelitis, MRI pending Cont Zosyn, appreciate ID input Will request ortho eval if MRI confirms presence of osteo TTE pending (2) Elevated troponin Comment: Likely demand secondary to sepsis Echo pend (3) IDDM (insulin dependent diabetes mellitus) Comment: Poorly controlled, HgbA1c 10.3 Lantus is the only medication she is able to tolerate due to multiple allergies She uses 15u bid at home Will titrate that up during her admission to improve control (4) Hypertension Comment: Poorly controlled Multiple allergies Cont chlorthalidone Patient is agreeable to trial hydralazine if IV benadryl is ordered for use if a reaction develops. Start at 10mg tid, and will titrate up as necessary (5) CKD (chronic kidney disease) stage 3, GFR 30-59 ml/min Comment: Cr near baseline (6) Full code status (7) DVT prophylaxis Comment: SQ heparin Status and Disposition: Inpatient. Pending MRI of the L foot
[2017-04-21] MEDS: hydrALAZINE TAB* 10 MG PO SCH ×2 (14:16→20:51)
[2017-04-21] MEDS: hydrALAZINE IV* 20 MG/ML VIAL IV SLOW PU PRN (18:12)
[2017-04-22] MEDS: traMADol TAB* 50 MG PO PRN ×3 (00:10→18:55)
[2017-04-22] MEDS: NS 0.9% 1000 ML* 1,000 ML IV SCH (04:12)
[2017-04-22] MEDS: ZOSYN 3.375 GM Q8H per EXTENDED INFUSION IVPB SCH ×6 (04:12→18:55)
[2017-04-22] MEDS: Heparin VIAL(*) 5000 UNITS/ML VIAL (FIVE THOUSAND) SUBCUT SCH ×3 (05:51→22:12)
[2017-04-22 06:06] LABS: Hematocrit 32 % (35-47); Hemoglobin 10.8 g/dl (12.0-16.0); Mean Corpuscular HGB Conc 34 g/dl (31-36); Mean Corpuscular Hemoglobin 30 pg (27-31); Mean Corpuscular Volume 88 fL (80-97); Mean Platelet Volume 8 um3 (7.4-10.4); Red Blood Count 3.64 10^6/ul (4.0-5.4); Red Cell Distribution Width 14 % (10.5-15); White Blood Count 9.8 10^3/ul (3.5-10.8)
[2017-04-22 06:22] LABS: BUN/Creatinine Ratio 16.8 (8-20); Calcium 8.1 mg/dL (8.6-10.3); EGFR African American 47.4 (>60); EGFR Non-African American 36.8 (>60); Potassium 3.9 mmol/L (3.5-5.0)
[2017-04-22] MEDS: hydrALAZINE TAB* 10 MG PO SCH ×3 (08:30→20:17)
[2017-04-22] MEDS: Docusate CAP* 100 MG PO SCH ×2 (08:30→20:17)
[2017-04-22] MEDS: Chlorthalidone TAB* 50 MG PO SCH (08:31)
[2017-04-22] MEDS: Lactobacillus Acidophilu (GG)* 1 CAP CAP PO SCH ×2 (08:32→20:17)
[2017-04-22] MEDS: Insulin GLARGINE(*) 1 UNITS UNIT SUBCUT SCH ×2 (08:33→22:11)
--- NOTE | 2017-04-22 09:52 | RAD ---
Indication: Left great toe osteomyelitis. Image Sequences: Sagittal, axial and coronal T1 and STIR images of the foot with attention to the great toe was performed. Motion artifact limits evaluation. Diffuse soft tissue edema and muscular edema is noted consistent with cellulitis. No evidence of bone marrow edema is noted to suggest osteomyelitis. Soft tissue swelling is noted on the plantar aspect of the great toe. Patient is status post amputation of the second digit. The remainder of the metatarsals show no bone marrow edema. IMPRESSION: No definite bone marrow edema is noted, although soft tissue swelling is present.
--- NOTE | 2017-04-22 13:47 | PN ---
Subjective Date of Service: 04/22/17 Interval History: Patient is doing well today. She reports that she had some transient hives, but they resolved without intervention. She denies pain, SOB. No n/v. Objective Active Medications: Acetaminophen (Tylenol Tab*) 650 mg PO Q4H PRN PRN Reason: FEVER/PAIN Chlorthalidone (Hygroton Tab*) 25 mg PO DAILY [facility] Last Admin: 04/22/17 08:31 Dose: 25 mg Diphenhydramine HCl (Benadryl Iv*) 50 mg IV Q6H PRN PRN Reason: allergic reaction Docusate Sodium (Colace Cap*) 100 mg PO BID [facility] Last Admin: 04/22/17 08:30 Dose: 100 mg Heparin Sodium (Porcine) (Heparin Vial(*)) 5,000 units SUBCUT Q8HR [facility] Last Admin: 04/22/17 12:11 Dose: 5,000 units Hydralazine HCl (Apresoline Iv*) 5 mg IV SLOW PU Q6H PRN PRN Reason: blood pressure Last Admin: 04/21/17 18:12 Dose: 5 mg Hydralazine HCl (Apresoline Tab*) 15 mg PO TID [facility] Last Admin: 04/22/17 12:11 Dose: 15 mg Piperacillin Sod/Tazobactam (Sod 3.375 gm/ Sodium Chloride) 100 mls @ 25 mls/ hr IVPB Q8H [facility] Last Admin: 04/22/17 12:08 Dose: 25 mls/hr Insulin Glargine (Lantus(*)) 25 units SUBCUT Q12H [facility] Last Admin: 04/22/17 08:33 Dose: 25 units Lactobacillus Rhamnosus (Culturelle*) 1 cap PO BID [facility] Last Admin: 04/22/17 08:32 Dose: 1 cap Magnesium Hydroxide (Milk Of Magnesia Liq*) 30 ml PO Q4H PRN PRN Reason: CONSTIPATION Last Admin: 04/21/17 09:36 Dose: 30 ml Pharmacy Consult (Zosyn Per Pharmacy*) 1 note FOLLOW UP .ZOSYN PER PHARMACY [facility] Tramadol HCl (Ultram*) 50 mg PO Q6HR PRN PRN Reason: PAIN Last Admin: 04/22/17 05:51 Dose: 50 mg Vital Signs: Temp Pulse Resp BP Pulse Ox 98.0 F 84 20 147/73 98 10/17/17 11:58 04/22/17 11:58 04/22/17 08:00 04/22/17 11:58 04/22/17 11:58 Oxygen Devices in Use Now: None Appearance: Middle aged female who is somewhat lethargic, but in NAD Respiratory: Symmetrical Chest Expansion and Respiratory Effort, Clear to Auscultation Cardiovascular: NL Sounds; No Murmurs; No JVD, RRR Extremities: No Edema Skin: No Rash or Ulcers Neurological: Alert and Oriented x 3 Result Diagrams: 04/22/17 05:52 04/22/17 05:52 Microbiology and Other Data: Microbiology 04/21/17 10:00 Skin and Soft Tissue MRSA/MSSA (PCR - Final Toe Mrsa Negative S.aureus Positive Gram Stain - Final Diagnostic Imaging: MRI foot - soft tissue swelling of the foot, but no definite marrow edema Assess/Plan/Problems-Billing Assessment: This is a 67 yo female with poorly controlled DM and HTN with CKD who presents with confusion and fever, found to be septic with L GT as the likely source. - Patient Problems (1) Septicemia Comment: MSSA bacteremia with signs of sepsis present at admission qSOFA = 1 for confusion with SIRS criteria of fever and leukocytosis L GT appears to be the source of infection Acute cellulitis, acute osteomyelitis suspected, but no marrow edema noted on MRI Cont Zosyn, appreciate ID input TTE shows no obvious vegetations Repeat blood cultures drawn this am, depending on results can discuss dc options with ID tomorrow with oral v continued IV abx. (2) Elevated troponin Comment: Likely demand secondary to sepsis Echo showed no wall motion abnormalities to indicate ischemia (3) IDDM (insulin dependent diabetes mellitus) Comment: Poorly controlled, HgbA1c 10.3 Lantus is the only medication she is able to tolerate due to multiple allergies She uses 15u bid at home Up to 25U bid here, with some improvement in glycemic control Can increase further tomorrow if necessary (4) Hypertension Comment: BP control is improving Multiple allergies Cont chlorthalidone Started hydralazine and titrated up to 15mg tid, she appears to be tolerating well (5) CKD (chronic kidney disease) stage 3, GFR 30-59 ml/min Comment: Cr near baseline (6) Full code status (7) DVT prophylaxis Comment: SQ heparin Status and Disposition: Inpatient. Dc in 2-3d
[2017-04-22] MEDS ORDERED: LORazepam INJ* 2 MG/ML 1 ML VIAL IV PUSH ONE (19:50)
[2017-04-23] MEDS: ZOSYN 3.375 GM Q8H per EXTENDED INFUSION IVPB SCH ×6 (04:56→11:33)
[2017-04-23] MEDS: Heparin VIAL(*) 5000 UNITS/ML VIAL (FIVE THOUSAND) SUBCUT SCH ×4 (04:56→21:47)
[2017-04-23] MEDS: Docusate CAP* 100 MG PO SCH ×2 (09:52→21:21)
[2017-04-23] MEDS: Lactobacillus Acidophilu (GG)* 1 CAP CAP PO SCH ×2 (09:56→21:15)
[2017-04-23] MEDS: Chlorthalidone TAB* 50 MG PO SCH (09:56)
[2017-04-23] MEDS: Insulin GLARGINE(*) 1 UNITS UNIT SUBCUT SCH ×2 (09:56→21:16)
[2017-04-23] MEDS: hydrALAZINE TAB* 10 MG PO SCH ×3 (09:56→21:15)
[2017-04-23] MEDS: traMADol TAB* 50 MG PO PRN (11:33)
--- NOTE | 2017-04-23 12:14 | PN ---
Subjective Date of Service: 04/23/17 Interval History: Patient seen and examined at bedside. Denies fever, chills, shortness of breath , chest discomfort, N/V/D. Pt states that she had abdominal cramping last night when the nurse entered the room with the IV ABX bag, Pt has since been declining the ABX as she feels that she no longer needs it. Tele: Sinus rhythm, rate 70-80's. Few PVCs noted. Family History: Unchanged from Admission Social History: Unchanged from Admission Past Medical History: Unchanged from Admission Objective Active Medications: Acetaminophen (Tylenol Tab*) 650 mg PO Q4H PRN Reason: FEVER/PAIN Chlorthalidone (Hygroton Tab*) 25 mg PO DAILY ROYAL Diphenhydramine HCl (Benadryl Iv*) 50 mg IV Q6H PRN Reason: allergic reaction Docusate Sodium (Colace Cap*) 100 mg PO BID ROYAL Heparin Sodium (Porcine) (Heparin Vial(*)) 5,000 units SUBCUT Q8HR ROYAL Hydralazine HCl (Apresoline Iv*) 5 mg IV SLOW PU Q6H PRN Reason: blood pressure Hydralazine HCl (Apresoline Tab*) 15 mg PO TID ROYAL Piperacillin Sod/Tazobactam (Sod 3.375 gm/ Sodium Chloride) 100 mls @ 25 mls/ hr IVPB Q8H ROYAL Insulin Glargine (Lantus(*)) 25 units SUBCUT Q12H ROYAL Lactobacillus Rhamnosus (Culturelle*) 1 cap PO BID ROYAL Magnesium Hydroxide (Milk Of Magnesia Liq*) 30 ml PO Q4H PRN Reason: CONSTIPATION Pharmacy Consult (Zosyn Per Pharmacy*) 1 note FOLLOW UP .ZOSYN PER PHARMACY ROYAL Tramadol HCl (Ultram*) 50 mg PO Q6HR PRN Reason: PAIN Vital Signs 04/22/17 04/22/17 04/22/17 15:11 18:53 18:55 Temperature 98.2 F 98.9 F Pulse Rate 76 94 Respiratory 16 16 16 Rate Blood Pressure 137/70 144/59 (mmHg) O2 Sat by Pulse 98 100 Oximetry 04/22/17 04/22/17 04/22/17 20:00 20:55 23:21 Temperature 99.7 F Pulse Rate 87 Respiratory 16 16 16 Rate Blood Pressure 152/74 (mmHg) O2 Sat by Pulse 94 Oximetry 04/23/17 04/23/17 04/23/17 03:56 08:00 08:14 Temperature 98.5 F 100.4 F Pulse Rate 81 81 Respiratory 16 16 16 Rate Blood Pressure 148/74 170/83 (mmHg) O2 Sat by Pulse 95 93 Oximetry Oxygen Devices in Use Now: None Appearance: NAD, laying in bed Ears/Nose/Mouth/Throat: Mucous Membranes Moist Respiratory: Symmetrical Chest Expansion and Respiratory Effort, Clear to Auscultation Cardiovascular: NL Sounds; No Murmurs; No JVD, RRR Abdominal: NL Sounds; No Tenderness; No Distention Extremities: No Edema Skin: No Rash or Ulcers Neurological: Alert and Oriented x 3, NL Muscle Strength and Tone Lines/Tubes/Other Access: Clean, Dry and Intact Peripheral IV - site benign Nutrition: Taking PO's Result Diagrams: 04/22/17 05:52 04/22/17 05:52 Microbiology and Other Data: Microbiology 04/21/17 10:00 Skin and Soft Tissue MRSA/MSSA (PCR - Final Toe Mrsa Negative S.aureus Positive Gram Stain - Final Diagnostic Imaging: MRI foot - soft tissue swelling of the foot, but no definite marrow edema Assess/Plan/Problems-Billing Assessment: Ms. Arias is a 67 yo female with poorly controlled DM and HTN with CKD who presents with confusion and fever, found to be septic with Left great toe as the likely source. - Patient Problems (1) Septicemia Code(s): A41.9 - SEPSIS, UNSPECIFIED ORGANISM SNOMED Code(s): 454767548 Comment: - MSSA bacteremia with signs of sepsis present at admission - qSOFA = 1 for confusion and SIRS criteria of fever and leukocytosis - Left great toe appears to be the source of infection - Acute cellulitis, acute osteomyelitis suspected, but no marrow edema noted on MRI - TTE shows no obvious vegetations - Repeat blood cultures from 04/22 - 07/10 bottles with MSSA - ID consult, appreciate input - Will get a AYALA - Change Zosyn to oxacillin (2) Elevated troponin Code(s): R79.89 - OTHER SPECIFIED ABNORMAL FINDINGS OF BLOOD CHEMISTRY SNOMED Code(s): 568821490 Comment: - Likely demand ischemia - Echo - no wall motion abnormalities to indicate ischemia - Continue outpatient follow-up with cardiology. (3) IDDM (insulin dependent diabetes mellitus) Code(s): E11.9 - TYPE 2 DIABETES MELLITUS WITHOUT COMPLICATIONS; Z79.4 - SHELTER (CURRENT) USE OF INSULIN SNOMED Code(s): 61452434 Comment: - Poorly controlled, HgbA1c 10.3 - Glucose 130-160's - Lantus is the only medication she is able to tolerate due to multiple allergies - She uses 15u bid at home - Continue Lantus 25U bid, now with improvement in glycemic control (4) CKD (chronic kidney disease) stage 3, GFR 30-59 ml/min Code(s): N18.3 - CHRONIC KIDNEY DISEASE, STAGE 3 (MODERATE) SNOMED Code(s): 401394350 Comment: - Cr near baseline (5) Hypertension Code(s): I10 - ESSENTIAL (PRIMARY) HYPERTENSION SNOMED Code(s): 79713731 Comment: - BP control is improving, SBP 130-170's - Multiple allergies - Continue chlorthalidone and hydralazine 15mg tid (6) Hx of coronary artery disease Code(s): Z86.79 - PERSONAL HISTORY OF OTHER DISEASES OF THE CIRCULATORY SYSTEM SNOMED Code(s): 627612102 Comment: - Hx of CABG - Patient not compliant with ASA - Patient encouraged to continue ASA everyday, as she does not take a statin, beta gary or GERARDO-I secondary to cited allergies. (7) Obstructive sleep apnea Code(s): G47.33 - OBSTRUCTIVE SLEEP APNEA (ADULT) (PEDIATRIC) SNOMED Code(s): 09707146 Comment: - Offer CPAP for night time use. (8) DVT prophylaxis Code(s): MJP1064 - SNOMED Code(s): 259339591 Comment: - SQ heparin (9) Full code status Code(s): Z78.9 - OTHER SPECIFIED HEALTH STATUS SNOMED Code(s): 571458159 Status and Disposition: Inpatient. Discharge to home when medically stable, possibly in 2-3 days.
[2017-04-23] MEDS: diPHENhydraMINE IV* 50 MG/ML 1 ml VIAL (BENADRYL) IV PRN ×2 (16:47→22:48)
[2017-04-24] MEDS: hydrALAZINE IV* 20 MG/ML VIAL IV SLOW PU PRN ×2 (02:10→12:41)
[2017-04-24] MEDS: diPHENhydraMINE IV* 50 MG/ML 1 ml VIAL (BENADRYL) IV PRN ×3 (05:43→21:42)
[2017-04-24] MEDS: Heparin VIAL(*) 5000 UNITS/ML VIAL (FIVE THOUSAND) SUBCUT SCH ×3 (05:46→21:22)
[2017-04-24 06:15] LABS: Hematocrit 33 % (35-47); Hemoglobin 11.5 g/dl (12.0-16.0); Mean Corpuscular HGB Conc 35 g/dl (31-36); Mean Corpuscular Hemoglobin 30 pg (27-31); Mean Corpuscular Volume 87 fL (80-97); Mean Platelet Volume 7 um3 (7.4-10.4); Red Blood Count 3.83 10^6/ul (4.0-5.4); Red Cell Distribution Width 14 % (10.5-15); White Blood Count 9.9 10^3/ul (3.5-10.8)
[2017-04-24 06:34] LABS: BUN/Creatinine Ratio 15.7 (8-20); Calcium 8.7 mg/dL (8.6-10.3); EGFR African American 54.3 (>60); EGFR Non-African American 42.2 (>60); Potassium 3.4 mmol/L (3.5-5.0)
[2017-04-24] MEDS ORDERED: Midazolam* 1 MG/ML 5 ML VIAL (5 MG) ONE (09:49)
[2017-04-24] MEDS ORDERED: Flumazenil* 0.1 MG/ML 5 ML MDV ONE (09:49)
[2017-04-24] MEDS ORDERED: Lidocaine 2% VISCOUS* 15 ML UDC ONE (09:49)
[2017-04-24] MEDS ORDERED: Naloxone* 0.4 MG/ML 1 ML VIAL ONE (09:49)
[2017-04-24] MEDS ORDERED: fentaNYL* 50 MCG/ML 2 ML VIAL (100 MCG VIAL) ONE (09:49)
[2017-04-24] MEDS: hydrALAZINE TAB* 10 MG PO SCH ×3 (12:32→21:21)
[2017-04-24] MEDS: traMADol TAB* 50 MG PO PRN ×2 (12:41→19:12)
--- NOTE | 2017-04-24 13:01 | TEE ---
Patient: ELEN CASAREZ [facility] Rec#: [id number] : 1950 Date: 04/24/2017 Age: 67y Height: 142.24 cm / 56.0 in Weight: 95.71 kg / 210.9 lbs Sex: F BSA: 1.82 Room#: 446 Type: Inpatient Referring: Arcelia Liang NP Performing: Jackeline Leos MD Reading: Jackeline Leos MD Postage Machine Operator: Marie Franco RDCS Nurse: Tatyana MCPHERSON,Dominique Nurse: VIDA Agosto,[place] CC: Ryann KOENIG,Yousif Transesophageal Echocardiogram Indication: Bacteremia BP: 168/69 HR: 87 Rhythm: NSR Findings History: CAD with CABG,PVD,HTN,TINO,CKD stage III,DM, + blood cultures Staph Aureus. Technical Comments: The study quality is good. Completed at 1125. Left Ventricle: Moderate to severe concentric left ventricular hypertrophy is observed. The estimated ejection fraction is 55-60%. Post surgical hypokinesis of the interventricular septum is observed consistent with coronary artery bypass. Left Atrium: The left atrium is normal in size. Spontaneous echo contrast is present in the left atrium. The spontaneous echo contrast is of a mild degree. Right Ventricle: The right ventricular cavity size is normal. The right ventricular global systolic function is normal. Right Atrium: The right atrial cavity size is normal. There is no patent foramen ovale visualized. There is no evidence of patent foramen ovale shunting. A patent foramen ovale is not demonstrated with color Doppler and agitated contrast. Aortic Valve: The aortic valve is trileaflet. There is a trace of aortic regurgitation. There is no aortic vegetation present. Mitral Valve: The mitral valve leaflets are mildly thickened. Mild mitral leaflet calcification is visualized. There is mild mitral regurgitation. There is no evidence of mitral stenosis. No vegetation is observed on the mitral valve. Tricuspid Valve: The tricuspid valve leaflets are normal. There is trace tricuspid regurgitation. There is no tricuspid stenosis. No vegetation is observed on the tricuspid valve. Pulmonic Valve: The pulmonic valve structure is not well visualized. No vegetation is observed on the pulmonic valve. Pericardium: The pericardium appears normal. Aorta: There is no dilatation of the ascending aorta. There is no dilatation of the aortic arch. There is no dilation of the aortic root. There is plaque visualized in the descending aorta. Pulmonary Artery: The main pulmonary artery appears normal. Venous: The bicaval view was obtained and appears normal. The pulmonary veins appear normal in size. 3 out of 4 seen. The flow pattern of the pulmonary veins appear normal. AYALA Procedures: History and physical as well as labs were reviewed. The patient was in a fasting state. Risks and benefits of the procedure, including alternatives, were discussed and written informed consent was obtained. The patient and/or their health care medical device sales representative expressed understanding of the procedure, risks and benefits. Baseline and continuous monitoring of blood pressure, heart rate, pulse oximetry and heart rhythm was performed throughout the procedure. The appropriate time-out procedure was performed as per [facility] protocol. The patient was placed in the left lateral decubitus position. The patient's posterior pharynx was anesthetized with 20ml of 2% viscous lidocaine. The patient received IV Midazolam with a total dose of 3mg. The patient received IV Fentanyl with a total dose of 25mcg. An oral bite block was inserted for protection of oral dentition. The multiplane transesophageal echocardiogram probe was inserted through the posterior oropharynx and advanced into the esophagus without difficulty. Multiple 2D images were obtained of the heart and its related structures. Color flow Doppler was used for evaluation. Spectral Doppler was also used. The atrial septum was interrogated with color flow Doppler. At the conclusion of the procedure the probe was removed with continuous suction without complications. The patient tolerated the procedure with no apparent complications. Conclusions Moderate to severe concentric left ventricular hypertrophy is observed. The estimated ejection fraction is 55-60%. Post surgical hypokinesis of the interventricular septum is observed consistent with coronary artery bypass. Spontaneous echo contrast is present in the left atrium. The spontaneous echo contrast is of a mild degree. A patent foramen ovale is not demonstrated with color Doppler and agitated contrast. There is a trace of aortic regurgitation. There is mild mitral regurgitation. There is trace tricuspid regurgitation. No obvious intracavitary masses, clots or vegetations seen. Measurements Name Value Normal Range Aortic Annulus 2 cm (1.4 - 2.6) Ao root diameter (2D) 2.9 cm (2.1 - 3.5) Ascending Ao 3.1 cm (2.1 - 3.4) Name Value Normal Range MV E-wave Vmax 1.1 m/sec - MV deceleration time 165 msec - MV A-wave Vmax 0.8 m/sec - MV E:A ratio 1.39 ratio -
[2017-04-24] MEDS: Docusate CAP* 100 MG PO SCH ×2 (13:46→21:19)
[2017-04-24] MEDS: Lactobacillus Acidophilu (GG)* 1 CAP CAP PO SCH ×2 (13:46→21:21)
[2017-04-24] MEDS: Chlorthalidone TAB* 50 MG PO SCH (13:46)
[2017-04-24] MEDS: Insulin GLARGINE(*) 1 UNITS UNIT SUBCUT SCH ×2 (13:48→21:25)
--- NOTE | 2017-04-24 16:09 | PN ---
Subjective Date of Service: 04/24/17 Interval History: Patient seen and examined at bedside. Denies fever, chills, shortness of breath , chest discomfort, N/V/D. Pt reports soft stools. Pt denies further feelings of tongue tingling, lip or leg swelling. Tele: Sinus rhythm, rate 80's. Family History: Unchanged from Admission Social History: Unchanged from Admission Past Medical History: Unchanged from Admission Objective Active Medications: Acetaminophen (Tylenol Tab*) 650 mg PO Q4H PRN Reason: FEVER/PAIN Chlorthalidone (Hygroton Tab*) 25 mg PO DAILY ROYAL Diphenhydramine HCl (Benadryl Iv*) 50 mg IV Q6H PRN Reason: allergic reaction Docusate Sodium (Colace Cap*) 100 mg PO BID ROYAL Heparin Sodium (Porcine) (Heparin Vial(*)) 5,000 units SUBCUT Q8HR ROYAL Hydralazine HCl (Apresoline Iv*) 5 mg IV SLOW PU Q6H PRN Reason: blood pressure Hydralazine HCl (Apresoline Tab*) 15 mg PO TID ROYAL Piperacillin Sod/Tazobactam (Sod 3.375 gm/ Sodium Chloride) 100 mls @ 25 mls/ hr IVPB 0600,1400,2200 ROYAL Insulin Glargine (Lantus(*)) 25 units SUBCUT Q12H ROYAL Lactobacillus Rhamnosus (Culturelle*) 1 cap PO BID ROYAL Magnesium Hydroxide (Milk Of Magnesia Liq*) 30 ml PO Q4H PRN Reason: CONSTIPATION Tramadol HCl (Ultram*) 50 mg PO Q6HR PRN Reason: PAIN Vital Signs 04/23/17 04/23/17 04/23/17 16:47 17:47 20:00 Temperature Pulse Rate Respiratory 18 18 18 Rate Blood Pressure (mmHg) O2 Sat by Pulse 99 Oximetry 04/23/17 04/23/17 04/23/17 20:02 22:48 23:29 Temperature 97.8 F 98.2 F Pulse Rate 87 91 Respiratory 16 18 Rate Blood Pressure 171/79 (mmHg) O2 Sat by Pulse 99 98 Oximetry 04/23/17 04/24/17 04/24/17 23:48 00:51 03:34 Temperature 98.1 F Pulse Rate 90 Respiratory 18 16 24 Rate Blood Pressure 192/95 168/69 (mmHg) O2 Sat by Pulse 98 Oximetry 04/24/17 04/24/17 04/24/17 05:43 06:43 08:18 Temperature 98.7 F Pulse Rate 83 Respiratory 22 16 16 Rate Blood Pressure 166/81 (mmHg) O2 Sat by Pulse 97 Oximetry 04/24/17 04/24/17 04/24/17 11:12 11:50 12:24 Temperature 98.7 F 99.4 F Pulse Rate 81 93 Respiratory 24 18 Rate Blood Pressure 165/76 184/83 190/100 (mmHg) O2 Sat by Pulse 96 95 Oximetry 04/24/17 04/24/17 04/24/17 12:41 13:52 14:02 Temperature Pulse Rate Respiratory 18 20 Rate Blood Pressure 147/71 (mmHg) O2 Sat by Pulse Oximetry Oxygen Devices in Use Now: None Appearance: NAD, laying in bed Ears/Nose/Mouth/Throat: Mucous Membranes Moist Respiratory: Symmetrical Chest Expansion and Respiratory Effort, Clear to Auscultation Cardiovascular: NL Sounds; No Murmurs; No JVD, RRR Abdominal: NL Sounds; No Tenderness; No Distention Extremities: No Edema Skin: - - Dressing to left 1st toe, clean dry and intact. Neurological: Alert and Oriented x 3, NL Muscle Strength and Tone Lines/Tubes/Other Access: Clean, Dry and Intact Peripheral IV - site benign Nutrition: Taking PO's Result Diagrams: 04/24/17 05:59 04/24/17 05:59 Microbiology and Other Data: Microbiology 04/21/17 10:00 Skin and Soft Tissue MRSA/MSSA (PCR - Final Toe Mrsa Negative S.aureus Positive Gram Stain - Final Diagnostic Imaging: MRI foot - soft tissue swelling of the foot, but no definite marrow edema Assess/Plan/Problems-Billing Assessment: Ms. Arias is a 67 yo female with poorly controlled DM and HTN with CKD who presents with confusion and fever, found to be septic with Left great toe as the likely source. - Patient Problems (1) Septicemia Code(s): A41.9 - SEPSIS, UNSPECIFIED ORGANISM SNOMED Code(s): 140793422 Comment: - MSSA bacteremia with signs of sepsis present at admission - qSOFA = 1 for confusion and SIRS criteria of fever and leukocytosis - Left great toe appears to be the source of infection - Acute cellulitis, acute osteomyelitis suspected, but no marrow edema noted on MRI - TTE shows no obvious vegetations - Repeat blood cultures from 04/22 - 07/10 bottles with MSSA - ID consult, appreciate input - AYALA shows no vegitation - Continue Zosyn (2) Elevated troponin Code(s): R79.89 - OTHER SPECIFIED ABNORMAL FINDINGS OF BLOOD CHEMISTRY SNOMED Code(s): 667691594 Comment: - Likely demand ischemia - Echo - no wall motion abnormalities to indicate ischemia - Continue outpatient follow-up with cardiology. (3) IDDM (insulin dependent diabetes mellitus) Code(s): E11.9 - TYPE 2 DIABETES MELLITUS WITHOUT COMPLICATIONS; Z79.4 - DATA COORDINATOR (CURRENT) USE OF INSULIN SNOMED Code(s): 22900523 Comment: - Poorly controlled, HgbA1c 10.3 - Glucose 70-140's - Lantus is the only medication she is able to tolerate due to multiple allergies - She uses 15u bid at home - Continue Lantus 25U bid, now with improvement in glycemic control (4) CKD (chronic kidney disease) stage 3, GFR 30-59 ml/min Code(s): N18.3 - CHRONIC KIDNEY DISEASE, STAGE 3 (MODERATE) SNOMED Code(s): 444595856 Comment: - Cr near baseline (5) Hypertension Code(s): I10 - ESSENTIAL (PRIMARY) HYPERTENSION SNOMED Code(s): 43554316 Comment: - BP control is improving, SBP 110-190's - Multiple allergies - Continue chlorthalidone and hydralazine 15mg tid (6) Hx of coronary artery disease Code(s): Z86.79 - PERSONAL HISTORY OF OTHER DISEASES OF THE CIRCULATORY SYSTEM SNOMED Code(s): 973364262 Comment: - Hx of CABG - Patient not compliant with ASA - Patient encouraged to continue ASA everyday, as she does not take a statin, beta gary or GERARDO-I secondary to cited allergies. (7) Obstructive sleep apnea Code(s): G47.33 - OBSTRUCTIVE SLEEP APNEA (ADULT) (PEDIATRIC) SNOMED Code(s): 83760679 Comment: - Offer CPAP for night time use. (8) DVT prophylaxis Code(s): KKB1001 - SNOMED Code(s): 314212282 Comment: - SQ heparin (9) Full code status Code(s): Z78.9 - OTHER SPECIFIED HEALTH STATUS SNOMED Code(s): 823316211 Status and Disposition: Inpatient. Discharge to home when medically stable, possibly in 2-3 days.
[2017-04-24] MEDS ORDERED: Potassium Chlor TAB* 20 MEQ TAB.ER PO ONE (20:21)
[2017-04-25] MEDS: traMADol TAB* 50 MG PO PRN ×3 (03:27→21:15)
[2017-04-25 05:34] LABS: BUN/Creatinine Ratio 13.6 (8-20); Calcium 9.2 mg/dL (8.6-10.3); EGFR African American 51.9 (>60); EGFR Non-African American 40.4 (>60)
[2017-04-25] MEDS: Heparin VIAL(*) 5000 UNITS/ML VIAL (FIVE THOUSAND) SUBCUT SCH ×3 (06:38→21:17)
[2017-04-25] MEDS: Lactobacillus Acidophilu (GG)* 1 CAP CAP PO SCH ×2 (08:45→21:15)
[2017-04-25] MEDS: hydrALAZINE TAB* 10 MG PO SCH ×3 (08:45→21:15)
[2017-04-25] MEDS: Insulin GLARGINE(*) 1 UNITS UNIT SUBCUT SCH ×2 (08:45→21:16)
[2017-04-25] MEDS: Docusate CAP* 100 MG PO SCH ×2 (08:45→21:16)
[2017-04-25] MEDS: Chlorthalidone TAB* 50 MG PO SCH (08:46)
--- NOTE | 2017-04-25 12:40 | PN ---
Subjective Date of Service: 04/25/17 Interval History: Patient seen and examined at bedside. Pt denies fever, chills, shortness of breath, chest discomfort, N/V. Pt states that she gets abdominal cramping with the antibiotic and feels that she is having leg, lip and tongue swelling with the antibiotics, Pt will not discuss if this is still occurring since changing back to Zosyn. Pt feels that she no longer needs antibiotics since she doesn't have an elevated WBC and no fevers. Discussed that she still has bacteria in her blood and a significant infection in her left 1st toe. There are no signs of tongue, lip or LE swelling with exam. Pt also states that she pain in her legs that she feels is related to the antibiotics, discussed that this could be peripheral neuropathy. Also attempted to discuss with the Pt if she felt she would be able to do home IV ABX infusions or if she would need short term placement and she wouldn't discuss this. It is noted that the Pt has been refusing the IV abx. Family History: Unchanged from Admission Social History: Unchanged from Admission Past Medical History: Unchanged from Admission Objective Active Medications: Acetaminophen (Tylenol Tab*) 650 mg PO Q4H PRN Reason: FEVER/PAIN Chlorthalidone (Hygroton Tab*) 25 mg PO DAILY ROYAL Diphenhydramine HCl (Benadryl Iv*) 50 mg IV Q6H PRN Reason: allergic reaction Docusate Sodium (Colace Cap*) 100 mg PO BID ROYAL Heparin Sodium (Porcine) (Heparin Vial(*)) 5,000 units SUBCUT Q8HR ROYAL Hydralazine HCl (Apresoline Iv*) 5 mg IV SLOW PU Q6H PRN Reason: blood pressure Hydralazine HCl (Apresoline Tab*) 15 mg PO TID ROYAL Piperacillin Sod/Tazobactam (Sod 3.375 gm/ Sodium Chloride) 100 mls @ 25 mls/ hr IVPB 0600,1400,2200 ROYAL Insulin Glargine (Lantus(*)) 25 units SUBCUT Q12H ROYAL Lactobacillus Rhamnosus (Culturelle*) 1 cap PO BID ROYAL Magnesium Hydroxide (Milk Of Magnesia Liq*) 30 ml PO Q4H PRN Reason: CONSTIPATION Tramadol HCl (Ultram*) 50 mg PO Q6HR PRN Reason: PAIN Vital Signs 04/24/17 04/24/17 04/24/17 12:41 13:52 14:02 Temperature Pulse Rate Respiratory 18 20 Rate Blood Pressure 147/71 (mmHg) O2 Sat by Pulse Oximetry 04/24/17 04/24/17 04/24/17 14:41 15:02 15:36 Temperature 98.2 F Pulse Rate 93 Respiratory 16 16 20 Rate Blood Pressure 119/48 (mmHg) O2 Sat by Pulse 97 Oximetry 04/24/17 04/24/17 04/24/17 19:12 19:37 20:00 Temperature 98.1 F Pulse Rate 89 Respiratory 16 20 20 Rate Blood Pressure 168/80 (mmHg) O2 Sat by Pulse 97 97 Oximetry 04/25/17 04/25/17 04/25/17 00:08 03:27 03:48 Temperature 97.7 F 97.8 F Pulse Rate 87 85 Respiratory 16 20 16 Rate Blood Pressure 158/75 159/81 (mmHg) O2 Sat by Pulse 98 98 Oximetry 04/25/17 04/25/17 04/25/17 05:27 07:46 08:00 Temperature 97.4 F Pulse Rate 90 Respiratory 17 18 18 Rate Blood Pressure 184/87 (mmHg) O2 Sat by Pulse 100 Oximetry 04/25/17 04/25/17 10:11 11:19 Temperature 97.4 F Pulse Rate 86 81 Respiratory 18 Rate Blood Pressure 138/74 140/65 (mmHg) O2 Sat by Pulse 99 Oximetry Oxygen Devices in Use Now: None Appearance: NAD, laying in bed Ears/Nose/Mouth/Throat: - - No signs of tongue or lip swelling Respiratory: Symmetrical Chest Expansion and Respiratory Effort, Clear to Auscultation Cardiovascular: NL Sounds; No Murmurs; No JVD, RRR Abdominal: NL Sounds; No Tenderness; No Distention Extremities: No Edema Skin: - - Dry skin to bilateral LE. Left 1st toe with some areas that appear to be wet and dry gangrene. Toe cool to the touch Neurological: Alert and Oriented x 3 Lines/Tubes/Other Access: Clean, Dry and Intact Peripheral IV - site benign Result Diagrams: 04/24/17 05:59 04/25/17 05:01 Additional Lab and Data: Pictures taken 04/25/17 Microbiology and Other Data: Microbiology 04/21/17 10:00 Skin and Soft Tissue MRSA/MSSA (PCR - Final Toe Mrsa Negative S.aureus Positive Gram Stain - Final Diagnostic Imaging: MRI foot - soft tissue swelling of the foot, but no definite marrow edema Assess/Plan/Problems-Billing Assessment: Ms. Arias is a 67 yo female with poorly controlled DM and HTN with CKD who presented with confusion and fever, found to be septic with Left great toe as the likely source. - Patient Problems (1) Gangrene Comment: - Acute cellulitis, acute osteomyelitis suspected, but no marrow edema noted on MRI, now looks like gangrene - Ortho consult requested for possible amputation - Continue IV ABX (2) Septicemia Code(s): A41.9 - SEPSIS, UNSPECIFIED ORGANISM SNOMED Code(s): 009148719 Comment: - MSSA bacteremia with signs of sepsis present at admission - Left great toe appears to be the source of infection - Acute cellulitis, acute osteomyelitis suspected, but no marrow edema noted on MRI - TTE shows no obvious vegetation - Repeat blood cultures from 04/22 - 07/10 bottles with MSSA - ID consult, appreciate input - AYALA shows no vegetation - Continue Zosyn (3) Elevated troponin Code(s): R79.89 - OTHER SPECIFIED ABNORMAL FINDINGS OF BLOOD CHEMISTRY SNOMED Code(s): 924696369 Comment: - Likely demand ischemia - Echo - no wall motion abnormalities to indicate ischemia - Continue outpatient follow-up with cardiology. (4) IDDM (insulin dependent diabetes mellitus) Code(s): E11.9 - TYPE 2 DIABETES MELLITUS WITHOUT COMPLICATIONS; Z79.4 - PATIENT CASE MANAGER (CURRENT) USE OF INSULIN SNOMED Code(s): 85631373 Comment: - Poorly controlled, HgbA1c 10.3 - Glucose 70-120's - Lantus is the only medication she is able to tolerate due to multiple allergies - She uses 15u bid at home - Continue Lantus 25U bid, now with improvement in glycemic control (5) CKD (chronic kidney disease) stage 3, GFR 30-59 ml/min Code(s): N18.3 - CHRONIC KIDNEY DISEASE, STAGE 3 (MODERATE) SNOMED Code(s): 021256068 Comment: - Cr near baseline (6) Hypertension Code(s): I10 - ESSENTIAL (PRIMARY) HYPERTENSION SNOMED Code(s): 56174907 Comment: - BP control is improving, SBP 130-180's - Multiple allergies - Continue chlorthalidone and hydralazine 15mg tid (7) Hx of coronary artery disease Code(s): Z86.79 - PERSONAL HISTORY OF OTHER DISEASES OF THE CIRCULATORY SYSTEM SNOMED Code(s): 132928054 Comment: - Hx of CABG - Patient not compliant with ASA - Patient encouraged to continue ASA everyday, as she does not take a statin, beta gary or GERARDO-I secondary to cited allergies. (8) Obstructive sleep apnea Code(s): G47.33 - OBSTRUCTIVE SLEEP APNEA (ADULT) (PEDIATRIC) SNOMED Code(s): 07266703 Comment: - Offer CPAP for night time use. (9) DVT prophylaxis Code(s): [id number] - SNOMED Code(s): 330454129 Comment: - SQ heparin (10) Full code status Code(s): Z78.9 - OTHER SPECIFIED HEALTH STATUS SNOMED Code(s): 433746938 Status and Disposition: Inpatient. Discharge to home when medically stable, possibly in 2-3 days.
--- NOTE | 2017-04-25 15:43 | CONSULT ---
Consult Consult: Orthopedic consult was requested, upon arrival to patients room she refused to be examined or treated by orthopedics. Patient's nursing staff and Dr. Acevedo have been made aware. I will alert the hospitalist team as well.
[2017-04-25] MEDS: diPHENhydraMINE IV* 50 MG/ML 1 ml VIAL (BENADRYL) IV PRN (20:30)
[2017-04-26] MEDS: diPHENhydraMINE IV* 50 MG/ML 1 ml VIAL (BENADRYL) IV PRN ×2 (05:37→20:03)
[2017-04-26] MEDS: traMADol TAB* 50 MG PO PRN ×3 (05:37→21:12)
[2017-04-26] MEDS: Heparin VIAL(*) 5000 UNITS/ML VIAL (FIVE THOUSAND) SUBCUT SCH ×3 (06:27→21:12)
[2017-04-26 08:29] LABS: Hematocrit 35 % (35-47); Hemoglobin 11.7 g/dl (12.0-16.0); Mean Corpuscular HGB Conc 34 g/dl (31-36); Mean Corpuscular Hemoglobin 30 pg (27-31); Mean Corpuscular Volume 88 fL (80-97); Mean Platelet Volume 7 um3 (7.4-10.4); Red Blood Count 3.93 10^6/ul (4.0-5.4); Red Cell Distribution Width 14 % (10.5-15)
[2017-04-26] MEDS: hydrALAZINE TAB* 10 MG PO SCH ×3 (09:08→19:59)
[2017-04-26] MEDS: Insulin GLARGINE(*) 1 UNITS UNIT SUBCUT SCH ×2 (09:09→20:07)
[2017-04-26] MEDS: Lactobacillus Acidophilu (GG)* 1 CAP CAP PO SCH ×2 (09:09→20:00)
[2017-04-26] MEDS: Chlorthalidone TAB* 50 MG PO SCH (09:09)
[2017-04-26] MEDS: Docusate CAP* 100 MG PO SCH ×2 (09:09→20:00)
[2017-04-26] MEDS: hydrALAZINE IV* 20 MG/ML VIAL IV SLOW PU PRN (09:10)
[2017-04-26] MEDS ORDERED: NS 0.9% 250 ML* 250 ML ONE (09:21)
[2017-04-26] MEDS: DOXYcycline IV* 100 MG in NS 0.9% 250 ML* 250 ML IVPB SCH ×2 (09:23→21:12)
[2017-04-26 09:49] LABS: BUN/Creatinine Ratio 11.4 (8-20); Calcium 9.2 mg/dL (8.6-10.3); EGFR African American 48.5 (>60); EGFR Non-African American 37.7 (>60); Potassium 3.9 mmol/L (3.5-5.0)
--- NOTE | 2017-04-26 11:47 | CONS ---
ORTHOPEDIC CONSULTATION NOTE: DATE OF CONSULT: 04/26/17 Thank you for this Orthopedic consultation. CHIEF COMPLAINT: Left toe infection and pain. HISTORY OF PRESENT ILLNESS: Ms. Arias is a 67-year-old female with multiple medical comorbidities, who presented to [facility] on 04/20/17 with sepsis. She was noted to have purulent jojo inage from the left great toe and positive Staph aureus was found in her blood stream. The patient was admitted. Her left great toe has become necrotic and Orthopedics was consulted yesterday. Yester day, on 04/25/17, the patient did refuse a consult by Orthopedics. Today, she agrees to speak with me at her bedside. She reports several weeks of increasingly severe left foot pain and the developm ent of infection in her great toe. She does have a history of multiple open wounds over time. She has diabetes, diabetic nephropathy and neuropathy distally. She also has peripheral vascular diseas e history. PAST MEDICAL HISTORY: Chronic kidney disease, stage 3, due to diabetes; diabetes, type 2; periphera l vascular disease; coronary artery disease; obstructive sleep apnea; hypertension; diabetic neuropa thy with multiple diabetic foot disease; multiple toes amputated on the left. PAST SURGICAL HISTORY: CABG, carotid endarterectomy, left second and fifth toe amputation. HOME MEDICATIONS: 1. Chlorthalidone 25 mg p.o. daily. 2. Lantus insulin 15 units b.i.d. 3. Ultram 50 mg q.6 hours p.r.n. ALLERGIES: The patient states she is allergic to ALL SHORT-ACTING INSULIN including LISPRO, ASPART REGULAR. Also, allergic to CEFTRIAXONE, METFORMIN, MIRALAX, LEVOFLOXACIN, AVANDIA, METOPROLOL, TEKT URNA, AMLODIPINE, CT DYE, AVAPRO, LISINOPRIL, CRESTOR. FAMILY HISTORY: Diabetes, hypertension. SOCIAL HISTORY: The patient is retired. No tobacco, alcohol, or recreational drug use. Lives by h erself. Her surrogate is her sister, Shanelle Arias. REVIEW OF SYSTEMS: Fourteen systems reviewed with the patient today, positive for some weakness, po sitive for left foot wounds in the past, and left great toe infection. Positive for multiple drug a llergies. Negative for fevers, chills, chest pain, shortness of breath. Otherwise, review of syste ms is negative, but not relevant. PHYSICAL EXAM: General: The patient is a thin female, in no apparent distress. She is in bed. Angelique rt and oriented x3. Pleasant mood and appropriate affect today. Vitals: Temperature 97.8, heart ra te 83, respiratory rate 18, 96% oxygen on room air, blood pressure 131/59. Chest: Unlabored breath ing. HEENT: Atraumatic, normocephalic. Pupils equal and reactive to light. Left lower extremity: The patient's skin has multiple healing scabs along the tibia. She has some amount of open wound along the great toe with what looks like wet gangrene up to the metatarsophalangeal joint. No signi ficant cellulitis or warmth around the foot. No palpable pulses. Multiple healed scars around the f oot. She has multiple toes amputated including second and fifth on this foot with healed wounds her e. She can demonstrate dorsiflexion and plantar flexion strength. She reports full sensation to li ght touch in all nerve distribution. DIAGNOSTIC STUDIES/LAB DATA: Radiographs: There is lower extremity MRI from 04/21/17 showing soft tissue swelling around the great toe but no obvious bone marrow edema. Laboratory values: Most recent 04/26/17, show white blood cells of 10 with no left shift, hematocri t 35, platelets 401. Sodium 134, potassium 3.9, chloride 100, BUN and creatinine 16 and 1.4. ASSESSMENT AND PLAN: Ms. Arias is a 67-year-old female, who was admitted on 04/20/17 with sepsis l ikely due to left great toe infection. She has multiple medical comorbidities including peripheral vascular disease and diabetes with associated complications. The patient is often noncompliant and refuses recommended treatment. Yesterday, she refused an Orth opedic consult. Today, the patient is pleasant and accepts an Orthopedic consultation at her bedside. We discussed that she will likely need surgery for this toe at some point. We discussed that I do not feel this toe will have clearance of infection. First, she would like to have Vascular consult to determine va scular blood flow to that leg and foot. Dr. Acevedo, one of our foot and ankle specialists, has ag juan francisco to see this patient and is also awaiting some vascular studies. ABIs are significantly abnorma l and there are no palpable pulses or Doppler signals distally. For now, the patient will continue IV antibiotics and I made it well known to her and clear that I r ecommend continuing IV antibiotics. Ortho will follow and Dr. Acevedo will see the patient as soon as vascular appraisal of that limb has been performed. Thank you for this Orthopedic consultation. [id number]/[facility] #: [id number]
--- NOTE | 2017-04-26 15:46 | PN ---
Subjective Date of Service: 04/26/17 Interval History: HOSPITALIST PROGRESS NOTE Patient seen and examined at bedside. She offers no new complaints today. Concerned her glucose was 75 this AM and she felt weak. Appetite has been poor, but she states this is not a new change for her. Family History: Unchanged from Admission Social History: Unchanged from Admission Past Medical History: Unchanged from Admission Objective Active Medications: Acetaminophen (Tylenol Tab*) 650 mg PO Q4H PRN PRN Reason: FEVER/PAIN Chlorthalidone (Hygroton Tab*) 25 mg PO DAILY [facility] Last Admin: 04/26/17 09:09 Dose: 25 mg Diphenhydramine HCl (Benadryl Iv*) 50 mg IV Q6H PRN PRN Reason: allergic reaction Last Admin: 04/26/17 05:37 Dose: 50 mg Docusate Sodium (Colace Cap*) 100 mg PO BID [facility] Last Admin: 04/26/17 09:09 Dose: 100 mg Heparin Sodium (Porcine) (Heparin Vial(*)) 5,000 units SUBCUT Q8HR [facility] Last Admin: 04/26/17 13:04 Dose: Not Given Hydralazine HCl (Apresoline Iv*) 5 mg IV SLOW PU Q6H PRN PRN Reason: blood pressure Last Admin: 04/26/17 09:10 Dose: 5 mg Hydralazine HCl (Apresoline Tab*) 15 mg PO TID [facility] Last Admin: 04/26/17 13:09 Dose: 15 mg Doxycycline Hyclate 100 mg/ (Sodium Chloride) 250 mls @ 250 mls/hr IVPB Q12H [facility] Last Admin: 04/26/17 09:23 Dose: 250 mls/hr Insulin Glargine (Lantus(*)) 20 units SUBCUT Q12H [facility] Lactobacillus Rhamnosus (Culturelle*) 1 cap PO BID [facility] Last Admin: 04/26/17 09:09 Dose: 1 cap Magnesium Hydroxide (Milk Of Magnesia Liq*) 30 ml PO Q4H PRN PRN Reason: CONSTIPATION Last Admin: 04/21/17 09:36 Dose: 30 ml Tramadol HCl (Ultram*) 50 mg PO Q6HR PRN PRN Reason: PAIN Last Admin: 04/26/17 15:32 Dose: 50 mg Vital Signs 04/26/17 04/26/17 04/26/17 11:48 15:19 15:32 Temperature 97.7 F 98.0 F Pulse Rate 77 80 Respiratory 16 16 18 Rate Blood Pressure 140/69 138/62 (mmHg) O2 Sat by Pulse 97 99 Oximetry Oxygen Devices in Use Now: None Appearance: Pleasant lady sitting up in bed in NAD. Eyes: No Scleral Icterus Ears/Nose/Mouth/Throat: Mucous Membranes Moist Neck: Trachea Midline Respiratory: Symmetrical Chest Expansion and Respiratory Effort, Clear to Auscultation Cardiovascular: RRR - Normal S1 and S2 Extremities: - - No edema. Very dry skin with desquamation. Left hallux wet gangrene, s/p amputation of 2nd and 5th toes on the left. Unable to palpate DP and TP. Neurological: Alert and Oriented x 3, NL Muscle Strength and Tone, - - States feet sensation is intact. Lines/Tubes/Other Access: Clean, Dry and Intact Peripheral IV Nutrition: Taking PO's Result Diagrams: 04/26/17 08:19 04/26/17 08:19 Additional Lab and Data: Assess/Plan/Problems-Billing Assessment: Ms. 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 - Patient Problems (1) Severe sepsis Comment: - Patient met sepsis criteria on admission with fever and tachycardia, complicated by encephalopathy, transaminitis, and demand ischemia. - Source is MSSA septicemia secondary to left hallux infection. (2) MSSA (methicillin susceptible Staphylococcus aureus) septicemia Comment: - One set of blood cultures was still positive on 04/22 - follow repeat blood cultures to make sure bacteremia is resolved. - AYALA was negative for vegetations. (3) Diabetic infection of left foot Comment: - Patient presented with severe sepsis, left hallux cellulitis, that progressed to wet gangrene. - She c/o GI reactions with Zosyn and declined multiple doses of it; could not tolerate oxacillin either and describes multiple reactions to different antibiotics over the years. - D/w ID (Dr. Barber) - will try doxycycline with Benadryl to see if she can tolerate it as at this point she has declined almost 24h of Zosyn. - D/w Ortho (Dr. Acevedo) - patient will certainly require amputation, but he would like to have vascular evaluation prior to surgery as her BELLA was compatible with severe PVD. - Patient has seen Dr. Ricci in the past - will request consultation. - MRI showed soft tissue swelling, but no definite bone marrow edema. - Patient update about test results and plan of care. (4) Elevated troponin Comment: - Likely demand ischemia in the setting of severe sepsis. - Echo showed no wall motion abnormalities, only post surgical hypokinesis and EF 60-65%. (5) CKD (chronic kidney disease) stage 3, GFR 30-59 ml/min Comment: - Renal function is stable. (6) Type 2 diabetes mellitus Comment: - Chronically uncontrolled - last A1c 10.3. - She's concerned with her lower glucose numbers - will decrease Lantus to 20 units BID and continue to monitor. (7) Hypertension Comment: - Controlled with chlorthalidone and hydralazine 15mg tid. (8) Hx of coronary artery disease Comment: - Patient has h/o CAD s/p CABG. - Not compliant with ASA, not taking a statin, beta gary or ACEI secondary to multiple reactions. (9) DVT prophylaxis Comment: - SQ heparin. (10) Full code status Status and Disposition: Inpatient. Long conversation with patient about seriousness of her diagnosis and importance of compliance with treatment.
[2017-04-27] MEDS: traMADol TAB* 50 MG PO PRN ×3 (03:26→21:23)
[2017-04-27] MEDS: hydrALAZINE IV* 20 MG/ML VIAL IV SLOW PU PRN ×2 (03:26→05:08)
[2017-04-27] MEDS ORDERED: Ondansetron INJ* 2 MG/ML VIAL IV PRN (04:51)
[2017-04-27] MEDS ORDERED: Ondansetron INJ* 2 MG/ML VIAL ONE (05:00)
[2017-04-27] MEDS ORDERED: hydrALAZINE IV* 20 MG/ML VIAL ONE (05:01)
[2017-04-27] MEDS: Heparin VIAL(*) 5000 UNITS/ML VIAL (FIVE THOUSAND) SUBCUT SCH ×3 (05:08→22:32)
[2017-04-27] MEDS: diPHENhydraMINE IV* 50 MG/ML 1 ml VIAL (BENADRYL) IV PRN ×2 (07:25→19:41)
[2017-04-27] MEDS: Insulin GLARGINE(*) 1 UNITS UNIT SUBCUT SCH ×2 (07:29→21:08)
[2017-04-27] MEDS: Lactobacillus Acidophilu (GG)* 1 CAP CAP PO SCH ×2 (07:50→21:05)
[2017-04-27] MEDS: hydrALAZINE TAB* 10 MG PO SCH ×3 (07:50→21:05)
[2017-04-27] MEDS: Chlorthalidone TAB* 50 MG PO SCH (07:50)
[2017-04-27] MEDS: Docusate CAP* 100 MG PO SCH ×2 (07:50→21:05)
[2017-04-27] MEDS: DOXYcycline IV* 100 MG in NS 0.9% 250 ML* 250 ML IVPB SCH ×2 (08:22→21:09)
--- NOTE | 2017-04-27 13:47 | PN ---
Subjective Date of Service: 04/27/17 Interval History: HOSPITALIST PROGRESS NOTE Patient seen and examined at bedside. She c/o fatigue, poor appetite. Denies pain, tolerating Doxycycline well so far with Benadryl. Complains her diet is too salty and she thinks that's why her BP was high last night. Family History: Unchanged from Admission Social History: Unchanged from Admission Past Medical History: Unchanged from Admission Objective Active Medications: Acetaminophen (Tylenol Tab*) 650 mg PO Q4H PRN PRN Reason: FEVER/PAIN Chlorthalidone (Hygroton Tab*) 25 mg PO DAILY [facility] Last Admin: 04/27/17 07:50 Dose: 25 mg Diphenhydramine HCl (Benadryl Iv*) 50 mg IV Q6H PRN PRN Reason: allergic reaction Last Admin: 04/27/17 07:25 Dose: 50 mg Docusate Sodium (Colace Cap*) 100 mg PO BID [facility] Last Admin: 04/27/17 07:50 Dose: 100 mg Heparin Sodium (Porcine) (Heparin Vial(*)) 5,000 units SUBCUT Q8HR [facility] Last Admin: 04/27/17 13:30 Dose: 5,000 units Hydralazine HCl (Apresoline Tab*) 15 mg PO TID [facility] Last Admin: 04/27/17 13:31 Dose: 15 mg Hydralazine HCl (Apresoline Iv*) 10 mg IV SLOW PU Q6H PRN PRN Reason: blood pressure Last Admin: 04/27/17 05:08 Dose: 10 mg Doxycycline Hyclate 100 mg/ (Sodium Chloride) 250 mls @ 250 mls/hr IVPB Q12H [facility] Last Admin: 04/27/17 08:22 Dose: 250 mls/hr Insulin Glargine (Lantus(*)) 20 units SUBCUT Q12H [facility] Last Admin: 04/27/17 07:29 Dose: Not Given Lactobacillus Rhamnosus (Culturelle*) 1 cap PO BID [facility] Last Admin: 04/27/17 07:50 Dose: 1 cap Magnesium Hydroxide (Milk Of Magnesia Liq*) 30 ml PO Q4H PRN PRN Reason: CONSTIPATION Last Admin: 04/21/17 09:36 Dose: 30 ml Ondansetron HCl (Zofran Inj*) 4 mg IV Q6H PRN PRN Reason: NAUSEA Last Admin: 04/27/17 05:22 Dose: 4 mg Tramadol HCl (Ultram*) 50 mg PO Q6HR PRN PRN Reason: PAIN Last Admin: 04/27/17 13:04 Dose: 50 mg Vital Signs 04/27/17 04/27/17 04/27/17 12:17 12:19 13:04 Temperature 98.2 F Pulse Rate 86 Respiratory 18 18 Rate Blood Pressure 155/80 (mmHg) O2 Sat by Pulse 100 Oximetry Oxygen Devices in Use Now: None Appearance: Pleasant lady lying in bed in NAD. Eyes: No Scleral Icterus Ears/Nose/Mouth/Throat: Mucous Membranes Moist Neck: Trachea Midline Extremities: No Edema, - - CDI to left foot Neurological: Alert and Oriented x 3, NL Muscle Strength and Tone Lines/Tubes/Other Access: Clean, Dry and Intact Peripheral IV Nutrition: Taking PO's Result Diagrams: 04/26/17 08:19 04/26/17 08:19 Additional Lab and Data: Assess/Plan/Problems-Billing Assessment: Ms. 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 - Patient Problems (1) Severe sepsis Comment: - Patient met sepsis criteria on admission with fever and tachycardia, complicated by encephalopathy, transaminitis, and demand ischemia. - Source is MSSA septicemia secondary to left hallux infection. (2) MSSA (methicillin susceptible Staphylococcus aureus) septicemia Comment: - One set of blood cultures was still positive on 04/22 - last set of repeat blood cultures shows no growth so far. - AYALA was negative for vegetations. (3) Diabetic infection of left foot Comment: - Patient presented with severe sepsis, left hallux cellulitis, that progressed to wet gangrene. - She c/o GI reactions with Zosyn and declined multiple doses of it; could not tolerate oxacillin either and describes multiple reactions to different antibiotics over the years. - D/w ID (Dr. Barber) - will try doxycycline with Benadryl to see if she can tolerate it as at this point she has declined almost 24h of Zosyn. - D/w Ortho (Dr. Acevedo) - patient will certainly require amputation, but he would like to have vascular evaluation prior to surgery as her BELLA was compatible with severe PVD. - Patient has seen Dr. Ricci in the past - will request consultation. - MRI showed soft tissue swelling, but no definite bone marrow edema. - Patient updated about test results and plan of care. (4) Elevated troponin Comment: - Likely demand ischemia in the setting of severe sepsis. - Echo showed no wall motion abnormalities, only post surgical hypokinesis and EF 60-65%. (5) CKD (chronic kidney disease) stage 3, GFR 30-59 ml/min Comment: - Renal function is stable. (6) Type 2 diabetes mellitus Comment: - Chronically uncontrolled - last A1c 10.3. - She's concerned with her lower glucose numbers - will decrease Lantus to 15 units bedtime and continue to monitor. (7) Hypertension Comment: - Change diet to low sodium and continue chlorthalidone and hydralazine 15mg tid. (8) Hx of coronary artery disease Comment: - Patient has h/o CAD s/p CABG. - Not compliant with ASA, not taking a statin, beta gary or ACEI secondary to multiple reactions. (9) DVT prophylaxis Comment: - SQ heparin. (10) Full code status Status and Disposition: Inpatient.
[2017-04-28] MEDS: hydrALAZINE IV* 20 MG/ML VIAL IV SLOW PU PRN ×2 (00:23→23:44)
[2017-04-28] MEDS: Heparin VIAL(*) 5000 UNITS/ML VIAL (FIVE THOUSAND) SUBCUT SCH ×3 (05:38→21:52)
[2017-04-28] MEDS: diPHENhydraMINE IV* 50 MG/ML 1 ml VIAL (BENADRYL) IV PRN ×2 (07:43→20:48)
--- NOTE | 2017-04-28 08:30 | SURGPN ---
Subjective - Introduction -: [f ADM pt sex out], current age [f ADM pt cur age] years Admitted on: [f ADM pt adm dt] Patient's surgical date: Procedure completed: - Medications -: Active Medications Generic Name Dose Route Start Last Admin Trade Name Freq PRN Reason Stop Dose Admin Acetaminophen 650 mg 04/20/17 20:02 Tylenol Tab* PO Q4H PRN FEVER/PAIN Chlorthalidone 25 mg 04/20/17 21:00 04/27/17 07:50 [place]groton Tab* PO 25 mg DAILY [facility] Administration Diphenhydramine HCl 50 mg 04/21/17 13:48 04/28/17 07:43 Benadryl Iv* IV 50 mg Q6H PRN Administration allergic reaction Docusate Sodium 100 mg 04/20/17 21:00 04/27/17 21:05 Colace Cap* PO 100 mg BID [facility] Administration Heparin Sodium (Porcine) 5,000 units 04/20/17 22:00 04/28/17 05:38 Heparin Vial(*) SUBCUT 5,000 units Q8HR [facility] Administration Hydralazine HCl 15 mg 04/22/17 09:00 04/27/17 21:05 Apresoline Tab* PO 15 mg TID [facility] Administration Hydralazine HCl 10 mg 04/27/17 04:52 04/28/17 00:23 Apresoline Iv* IV SLOW PU 10 mg Q6H PRN Administration blood pressure Doxycycline Hyclate 100 mg/ 250 mls @ 250 mls/hr 04/26/17 08:00 04/27/17 21: 09 Sodium Chloride IVPB 250 mls/hr Q12H [facility] Administration Insulin Glargine 15 units 04/27/17 21:00 04/27/17 21:08 Lantus(*) SUBCUT 15 units BEDTIME [facility] Administration Lactobacillus Rhamnosus 1 cap 04/21/17 11:00 04/27/17 21:05 Culturelle* PO 1 cap BID [facility] Administration Magnesium Hydroxide 30 ml 04/20/17 20:08 04/21/17 09:36 Milk Of Magnesia Liq* PO 30 ml Q4H PRN Administration CONSTIPATION Ondansetron HCl 4 mg 04/27/17 04:51 04/27/17 05:22 Zofran Inj* IV 4 mg Q6H PRN Administration NAUSEA Tramadol HCl 50 mg 04/20/17 20:04 04/27/17 21:23 Ultram* PO 50 mg Q6HR PRN Administration PAIN - Comments Comments: Chief Complaint: Left hallux infection/gangrene. History: 67F with ~1 week of left hallux gangrene. Reports unchanged this morning. The pain is located at left hallux and is daily, minimal, dull. Pain worse with weight-bearing and lessened when weight bearing is discontinued. Review of Systems: Negative for recent visual changes, difficulty swallowing, chest pain, shortness of breath, abdominal pain, hematuria, easy bruising, diffuse weakness or lack of coordination, and diffuse rash. Physical Examination: Constitutional: Temp Pulse Resp BP Pulse Ox 97.6 F 79 16 142/64 98 04/28/17 07:28 04/28/17 07:28 04/28/17 07:43 04/28/17 07:28 04/28/17 07:28 General appearance is healthy and non-septic in no acute distress. Cardiovascular: Pulse examination demonstrates absent pedal pulses. Psychiatric / Neurological: Appropriate affect. Alert and oriented to person, place and time. Musculoskeletal: Impaired light touch sensation. there is a gangrenous hallux. There does appear to be some purulence at the dorsal skin break. No spreading Erythema proximally. Absent pedal pulses. Studies: MRI reviewed. BELLA 0.4 Impression and Plan: Left hallux gangrene in the setting of peripheral vascular disease and diabetes. . The diagnosis and prognosis was diiscussed with the patient at length this morning. While this will likely need an amputation, I feel it is important to see if any sort of revascularization is possible before hand. Given the current poor blood flow, I worry she would have trouble healing a surgical wound. - Vascular consult - Antibiotics per ID - will continue to follow A total of 35 min. was spent [id number] with the patient during this encounter and over half of that time was spent on counseling and coordination of care. Orlando Acevedo MD Objective - Intake and Output -: Intake & Output 04/26/17 04/27/17 04/28/17 04/29/17 06:59 06:59 06:59 06:59 Intake Total 1653 3191 2255 Output Total 0 Balance 1653 3191 2255 Intake: IV Fluids 25 36 65 ABX - DOXYCYCLINE 36 ABX - ZOSYN 25 NS (0.9%) 65 IVPB 108 355 510 ABX - DOXYCYCLINE 355 510 ABX - ZOSYN 108 Oral 1520 2800 1680 Output: Urine 0 Other: Estimated Void Medium Medium Small # Bowel Movements 0 3 Estimated Stool Amount Small # Voids 1 1 0 ADLs: Meal Record Start: 04/20/17 19: 36 Freq: DAILY@0900,1400,1800 Status: Active Created 04/20/17 19:36 System (Rec: 04/20/17 19:36 System TELE-M04) Document 04/21/17 09:00 [id number] (Rec: 04/21/17 09:12 [id number] TELE-C09) Document 04/21/17 14:00 [id number] (Rec: 04/21/17 14:29 [id number] TELE-C09) Document 04/21/17 18:00 [id number] (Rec: 04/21/17 18:42 [id number] TELE-C07) Document 04/22/17 09:02 [id number] (Rec: 04/22/17 09:02 [id number] TELE-C05) Document 04/22/17 14:00 [id number] (Rec: 04/22/17 15:12 [id number] TELE-C01) Document 04/22/17 18:00 [id number] (Rec: 04/22/17 21:43 [id number] TELE-C08) Document 04/23/17 09:00 [id number] (Rec: 04/23/17 14:53 [id number] TELE-C01) Document 04/23/17 14:00 [id number] (Rec: 04/23/17 14:55 WWJ7401 TELE-C01) Document 04/23/17 18:00 [id number] (Rec: 04/23/17 18:31 OED1661 TELE-C01) Document 04/24/17 09:00 IOJ3253 (Rec: 04/24/17 13:26 HIF0028 TELE-C01) Document 04/24/17 14:00 LMI6113 (Rec: 04/24/17 14:42 HYG0130 TELE-C01) Document 04/24/17 18:00 IWD9361 (Rec: 04/24/17 18:50 WVC0003 TELE-C07) Document 04/25/17 09:00 MIZ7571 (Rec: 04/25/17 10:36 [id number] TELE-C03) Document 04/25/17 14:00 PRG0551 (Rec: 04/25/17 14:19 BIX3754 TELE-C03) Document 04/25/17 18:00 [id number] (Rec: 04/25/17 22:07 [id number] TELE-C01) Document 04/26/17 14:00 IED0606 (Rec: 04/26/17 15:34 [id number] TELE-M07) Document 04/26/17 18:00 ZAS6966 (Rec: 04/26/17 18:23 [id number] MED-C11) Document 04/27/17 09:00 NWH9743 (Rec: 04/27/17 12:04 MKG3564 MED-C11) Document 04/27/17 13:51 ZVB2057 (Rec: 04/27/17 13:58 [id number] MED-C11) Document 04/27/17 18:00 IHU8510 (Rec: 04/27/17 19:06 PVO5120 MED-C11) Intake and Output Start: 04/20/17 14: 45 Freq: Status: Active Created 04/20/17 14:45 System (Rec: 04/20/17 14:45 System ED-C24) Intake and Output Start: 04/20/17 19: 36 Freq: DAILY@0600,1400,2200 Status: Active Created 04/20/17 19:36 System (Rec: 04/20/17 19:36 System TELE-M04) Document 04/21/17 06:00 [id number] (Rec: 04/21/17 06:40 SKC0064 TELE-C34) Document 04/21/17 14:00 IKD9717 (Rec: 04/21/17 14:29 INH9713 TELE-C09) Document 04/21/17 22:00 [id number] (Rec: 04/21/17 22:43 GOO8499 TELE-C07) Document 04/22/17 04:40 [id number] (Rec: 04/22/17 04:40 SJT5312 TELE-C05) Document 04/22/17 06:00 UIG4630 (Rec: 04/22/17 06:30 AVR9792 TELE-C35) Document 04/22/17 07:58 ZFV1673 (Rec: 04/22/17 07:58 IYP6205 TELE-C05) Document 04/22/17 08:39 [id number] (Rec: 04/22/17 08:39 UFX6522 TELE-M06) Document 04/22/17 14:00 LMQ3296 (Rec: 04/22/17 15:12 LWD8583 TELE-C01) Document 04/22/17 21:32 [id number] (Rec: 04/22/17 21:32 [id number] TELE-C08) Document 04/22/17 22:00 [id number] (Rec: 04/22/17 22:18 BIK9325 TELE-C08) Document 04/23/17 06:00 DJS5553 (Rec: 04/23/17 06:39 BWK4740 TELE-C09) Document 04/23/17 07:49 QRE0508 (Rec: 04/23/17 07:49 BHR3794 MED-M21) Document 04/23/17 14:00 SRR5745 (Rec: 04/23/17 14:55 [id number] TELE-C01) Document 04/23/17 21:59 KOA0582 (Rec: 04/23/17 22:00 YXI2649 TELE-C01) Document 04/24/17 05:47 BWJ9157 (Rec: 04/24/17 05:48 URR5717 TELE-C01) Document 04/24/17 14:00 ZZU6725 (Rec: 04/24/17 14:42 OWS2973 TELE-C01) Document 04/24/17 22:00 AXI2529 (Rec: 04/24/17 22:27 FQI1869 TELE-C05) Document 04/25/17 06:00 FLI4400 (Rec: 04/25/17 06:40 MYN4630 TELE-C05) Document 04/25/17 14:00 OCQ9695 (Rec: 04/25/17 14:22 [id number] TELE-C03) Document 04/25/17 22:00 VJU0678 (Rec: 04/25/17 22:15 QTW9592 TELE-C01) Document 04/26/17 06:00 CSF1388 (Rec: 04/26/17 06:02 [id number] TELE-C10) Document 04/26/17 11:30 XGB7301 (Rec: 04/26/17 12:41 LSN2811 TELE-C08) Document 04/26/17 14:00 [id number] (Rec: 04/26/17 15:35 IZF0999 TELE-M07) Document 04/26/17 21:24 BKD4001 (Rec: 04/26/17 21:24 JJZ9488 MED-C15) Document 04/27/17 04:12 DPI8581 (Rec: 04/27/17 04:12 GVF9467 MED-M01) Document 04/27/17 13:51 [id number] (Rec: 04/27/17 13:58 [id number] MED-C11) Document 04/27/17 22:00 [id number] (Rec: 04/27/17 22:22 PZM9639 MED-C11) Document 04/28/17 05:15 GMP5630 (Rec: 04/28/17 05:15 [id number] MEDL-C02)
[2017-04-28] MEDS: Lactobacillus Acidophilu (GG)* 1 CAP CAP PO SCH ×2 (08:41→20:48)
[2017-04-28] MEDS: Chlorthalidone TAB* 50 MG PO SCH (08:41)
[2017-04-28] MEDS: hydrALAZINE TAB* 10 MG PO SCH ×3 (08:42→20:45)
[2017-04-28] MEDS: Docusate CAP* 100 MG PO SCH ×3 (08:42→21:18)
[2017-04-28] MEDS: DOXYcycline IV* 100 MG in NS 0.9% 250 ML* 250 ML IVPB SCH ×2 (08:47→21:51)
--- NOTE | 2017-04-28 09:38 | PN ---
Subjective Date of Service: 04/28/17 Interval History: HOSPITALIST PROGRESS NOTE Patient seen and examined at bedside. She offers no new complaints at this time. Tolerating IV doxycycline well as long as she receives Benadryl before. Denies pain. Family History: Unchanged from Admission Social History: Unchanged from Admission Past Medical History: Unchanged from Admission Objective Active Medications: Acetaminophen (Tylenol Tab*) 650 mg PO Q4H PRN PRN Reason: FEVER/PAIN Chlorthalidone (Hygroton Tab*) 25 mg PO DAILY [facility] Last Admin: 04/28/17 08:41 Dose: 25 mg Diphenhydramine HCl (Benadryl Iv*) 50 mg IV Q6H PRN PRN Reason: allergic reaction Last Admin: 04/28/17 07:43 Dose: 50 mg Docusate Sodium (Colace Cap*) 100 mg PO BID [facility] Last Admin: 04/28/17 08:42 Dose: Not Given Heparin Sodium (Porcine) (Heparin Vial(*)) 5,000 units SUBCUT Q8HR [facility] Last Admin: 04/28/17 05:38 Dose: 5,000 units Hydralazine HCl (Apresoline Tab*) 15 mg PO TID [facility] Last Admin: 04/28/17 08:42 Dose: 15 mg Hydralazine HCl (Apresoline Iv*) 10 mg IV SLOW PU Q6H PRN PRN Reason: blood pressure Last Admin: 04/28/17 00:23 Dose: 10 mg Doxycycline Hyclate 100 mg/ (Sodium Chloride) 250 mls @ 250 mls/hr IVPB Q12H [facility] Last Admin: 04/28/17 08:47 Dose: 250 mls/hr Insulin Glargine (Lantus(*)) 15 units SUBCUT BEDTIME [facility] Last Admin: 04/27/17 21:08 Dose: 15 units Lactobacillus Rhamnosus (Culturelle*) 1 cap PO BID [facility] Last Admin: 04/28/17 08:41 Dose: 1 cap Magnesium Hydroxide (Milk Of Magnesia Liq*) 30 ml PO Q4H PRN PRN Reason: CONSTIPATION Last Admin: 04/21/17 09:36 Dose: 30 ml Ondansetron HCl (Zofran Inj*) 4 mg IV Q6H PRN PRN Reason: NAUSEA Last Admin: 04/27/17 05:22 Dose: 4 mg Tramadol HCl (Ultram*) 50 mg PO Q6HR PRN PRN Reason: PAIN Last Admin: 04/27/17 21:23 Dose: 50 mg Vital Signs 04/27/17 04/28/17 04/28/17 23:45 03:21 07:28 Temperature 98.1 F 97.6 F Pulse Rate 91 97 79 Respiratory 17 17 15 Rate Blood Pressure 168/80 130/60 142/64 (mmHg) O2 Sat by Pulse 99 98 98 Oximetry Oxygen Devices in Use Now: None Appearance: Pleasant lady sitting up in bed in NAD. Eyes: No Scleral Icterus Ears/Nose/Mouth/Throat: Mucous Membranes Moist Neck: Trachea Midline Extremities: - - CDI to left foot Neurological: Alert and Oriented x 3, NL Muscle Strength and Tone Lines/Tubes/Other Access: Clean, Dry and Intact Peripheral IV Nutrition: Taking PO's Result Diagrams: 04/26/17 08:19 04/26/17 08:19 Assess/Plan/Problems-Billing Assessment: Ms. 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 - Patient Problems (1) Severe sepsis Comment: - Patient met sepsis criteria on admission with fever and tachycardia, complicated by encephalopathy, transaminitis, and demand ischemia. - Source is MSSA septicemia secondary to left hallux infection. (2) MSSA (methicillin susceptible Staphylococcus aureus) septicemia Comment: - One set of blood cultures was still positive on 04/22 - last set of repeat blood cultures shows no growth so far. - AYALA was negative for vegetations. (3) Diabetic infection of left foot Comment: - Patient presented with severe sepsis, left hallux cellulitis, that progressed to wet gangrene. - She c/o GI reactions with Zosyn and declined multiple doses of it; could not tolerate oxacillin either and describes multiple reactions to different antibiotics over the years. - D/w ID (Dr. Barber) - will continue doxycycline with Benadryl as she declined almost Zosyn and oxacillin. - D/w Ortho (Dr. Acevedo) - patient will certainly require amputation, but he would like to have vascular evaluation prior to surgery as her BELLA was compatible with severe PVD. - Consult requested with Dr. Ricci. - MRI showed soft tissue swelling, but no definite bone marrow edema. - Patient updated about test results and plan of care. (4) Elevated troponin Comment: - Likely demand ischemia in the setting of severe sepsis. - Echo showed no wall motion abnormalities, only post surgical hypokinesis and EF 60-65%. (5) CKD (chronic kidney disease) stage 3, GFR 30-59 ml/min Comment: - Renal function is stable. (6) Type 2 diabetes mellitus Comment: - Chronically uncontrolled - last A1c 10.3. - She's concerned with her lower glucose numbers - continue Lantus 15 units at bedtime and monitor. (7) Hypertension Comment: - Better controlled. - Continue low sodium diet and chlorthalidone/hydralazine 15mg tid. (8) Hx of coronary artery disease Comment: - Patient has h/o CAD s/p CABG. - Not compliant with ASA, not taking a statin, beta gary or ACEI secondary to multiple reactions. (9) DVT prophylaxis Comment: - SQ heparin. (10) Full code status Status and Disposition: Inpatient.
[2017-04-28] MEDS: traMADol TAB* 50 MG PO PRN (12:28)
--- NOTE | 2017-04-28 14:37 | CONSULT ---
Consult Consult: Date of Service: 04/28/17 Reason for Consultation: Gangrenous left toe/foot with evidence of arterial insufficiency. Focused HPI: Mrs. Casarez is a 67 YOF, known to the IR service from consultation for renal artery stenosis, admitted to the hospital with signs of sepsis in the presence of a gangrenous left toe. She reports that prior to her hospital admission her friend felt she "wasn't well" and she was febrile with chattering teeth. It was not until she was examined in the ER that she was made aware of her gangrenous foot wound. Prior to this event she describes intermittent foot and toe "pins and needles" pain, but denies symptoms of claudication. She does admit that prior to this she experienced foot pain when laying in bed at night. PE: Selected Entries 04/28/17 04/28/17 07:28 12:28 Temperature 97.6 F Temperature Oral Source Pulse Rate 79 Respiratory 18 Rate Blood Pressure 142/64 (mmHg) Blood Pressure 83 Mean O2 Sat by Pulse 98 Oximetry Patient on Room Yes Air NAD, AAO X 3 Speech is tangential RRR, S1/S2 CTAB Abd is soft, NT 2+ pulses palpated in the bilateral upper extremities and B/L [employer] 1+ popliteal artery pulses nonpalpable pedal pulses left distal foot is wrapped in gauze Laboratory Tests 04/26/17 04/26/17 08:19 08:19 WBC 10.0 RBC 3.93 L Hgb 11.7 L Hct 35 BUN 16 Creatinine 1.40 H Est GFR ( Amer) 48.5 Patient Name: ELEN CASAREZ Medical Record#: [id number] Ordering Physician: Mel Hernandez MD Acct.#: [id number] : 1950 Age: 67 Sex: F Location: [address] [place] [address]/TELEMETRY Exam Date: 04/21/172002 ADM Status: ADM IN Order Information: MRI LOWER EXTREMITY LEFT W/O Accession Number: [id number] CPT: 76981 Indication: Left great toe osteomyelitis. Image Sequences: Sagittal, axial and coronal T1 and STIR images of the foot with attention to the great toe was performed. Motion artifact limits evaluation. Diffuse soft tissue edema and muscular edema is noted consistent with cellulitis. No evidence of bone marrow edema is noted to suggest osteomyelitis. Soft tissue swelling is noted on the plantar aspect of the great toe. Patient is status post amputation of the second digit. The remainder of the metatarsals show no bone marrow edema. IMPRESSION: No definite bone marrow edema is noted, although soft tissue swelling is present. <Electronically signed by Carlie Jesus MD in [place]> 04/22/171900 Dictated By: Carlie Jesus MD Dictated Date/Time: 04/22/171900 Transcribed Date/Time: 04/21/172146 Copy to: CC:Elizabeth Titus MD; Clemente Chicas MD; Jayy Mccray MD; Mel Hernandez MD ; Tho Garzon MD Imaging - [facility] [address] [place] [address] ph ([phone]) ph ([phone]) ph ([phone]) Patient Name: ELEN CASAREZ Medical Record#: [id number] Ordering Physician: Mel Hernandez MD Acct.#: [id number] : 1950 Age: 67 Sex: F Location: [address] [place] [address] MEDICAL/TELEMETRY Exam Date: 04/20/172001 ADM Status: ADM IN Order Information: VL ANK/BRACHIAL INDICES Accession Number: [id number] CPT: 38225 INDICATION: Poor pedal pulses, assess BELLA. COMPARISON: Comparison is made with a prior study from December 22, 2015. TECHNIQUE: Bilateral ankle brachial indices were measured and Doppler tracings were obtained at the ankle of the dorsalis pedis and posterior tibial arteries. FINDINGS: The ankle brachial index on the right was 0.58 and on the left was 0.42. The ankle-brachial indices on the prior study were 0.70 and 0.59 respectively. The arterial waveforms are dampened especially on the left side. There is biphasic flow within the right posterior tibial artery and biphasic flow within the right dorsalis pedis artery. There is monophasic flow within the left posterior tibial artery and monophasic flow within the left dorsalis pedis artery. IMPRESSION: DECREASED ANKLE-BRACHIAL INDICES AND DAMPENED WAVEFORMS CONSISTENT WITH SEVERE PERIPHERAL VASCULAR DISEASE WHICH HAS PROGRESSED FROM THE PRIOR STUDY. A CT ANGIOGRAM OF THE AORTA AND LOWER EXTREMITIES MAY BE HELPFUL FOR FURTHER EVALUATION CLINICALLY NEEDED. <Electronically signed by Mariano Davenport MD in [place]> 04/20/172056 Dictated By: Mariano Davenport MD Dictated Date/Time: 04/20/172056 Transcribed Date/Time: 04/20/172050 Copy to: CC:Jayy Mccray MD; Mel Hernandez MD; Tho Garzon MD Imaging - [facility] Imaging - [facility] [address] [address] ph ([phone]) ph ([phone]) ph ([phone]) Summary: 67 year old diabetic woman presents with sepsis due to a gangrenous left great toe with objective and physical examination evidence of left infrapopliteal arterial insufficiency. Plan: Left lower extremity arteriography with potential endovascular revascularization. I explained to Mrs. Casarez that best case scenario may be restoring in line arterial flow to heal an amputation site. At the moment Mrs. Casarez appears to be hemodynamically stable and WBC has returned to normal with IV abx. Her arteriogram will be given priority scheduling, but she may have to return to the hospital if she is otherwise stable to discharge prior to being able to schedule her arteriogram.
--- NOTE | 2017-04-28 16:06 | PN ---
Progress Note - Progress Note Date of Service: 04/28/17 SOAP: Subjective: CC: foot infection HPI: 67 year old woman with bacteremia due to infected left great toe which was initially cellulitic. By report it has progressed to include some ischemic type changes. She has had issues with antibiotics over the weekend including abdominal pain during infusion of zosyn and when oxacillin bags were brought into the room. She has no fever, rash, or diarrhea. Objective: [] Vital Signs Temp 36.6 C 04/28/17 15:26 Pulse 80 04/28/17 15:26 Resp 18 04/28/17 15:26 BP 147/70 04/28/17 15:26 Pulse Ox 99 04/28/17 15:26 Intake & Output 04/27/17 04/28/17 04/28/17 18:59 06:59 18:59 Intake Total 1095 1160 955 Balance 1095 1160 955 Intake: IV Fluids 30 35 25 NS (0.9%) 30 35 25 IVPB 255 255 250 ABX - DOXYCYCLINE 255 255 250 Oral 810 870 680 Other: Estimated Void Small Medium # Bowel Movements 1 3 1 Estimated Stool Amount Medium Small Medium # Voids 1 0 2 Gen:awake, no distress HEENT:PERRL, MMM Neck:Supple Heart:RRR no murmur Lungs:CTA BL Abd:+BS NTND soft Skin: no rash MSK: L foot wrapped, she declines unwrapping Laboratory Results - last 24 hr 04/27/17 04/28/17 04/28/17 17:04 07:20 11:39 POC Glucose (mg/dL) 108 H 134 H 152 H Microbiology 04/26/17 10:16 Blood Venous Aerobic Blood Culture - Preliminary No Growth Day 2 04/26/17 10:16 Blood Venous Anaerobic Blood Culture - Preliminary No Growth Day 2 04/26/17 10:16 Blood Venous Blood Culture - Final 04/26/17 08:19 Blood Venous Aerobic Blood Culture - Preliminary No Growth Day 2 04/26/17 08:19 Blood Venous Anaerobic Blood Culture - Preliminary No Growth Day 2 04/26/17 08:19 Blood Venous Blood Culture - Final 04/22/17 05:52 Blood Venous Aerobic Blood Culture - Final No Growth Day 5 04/22/17 05:52 Blood Venous Anaerobic Blood Culture - Final No Growth Day 5 04/22/17 05:52 Blood Venous Blood Culture - Final 04/22/17 05:52 Blood Venous Aerobic Blood Culture - Final No Growth Day 5 04/22/17 05:52 Blood Venous Anaerobic Blood Culture - Final Staphylococcus Aureus 04/22/17 05:52 Blood Venous Blood Culture - Final 04/22/17 05:52 Blood Venous Blood MRSA/MSSA (PCR) - Final Mrsa Negative S.aureus Positive 04/20/17 15:42 Blood Venous Aerobic Blood Culture - Final Staphylococcus Aureus 04/20/17 15:42 Blood Venous Anaerobic Blood Culture - Final Staphylococcus Aureus 04/20/17 15:42 Blood Venous Blood Culture - Final 04/20/17 15:42 Blood Venous Blood MRSA/MSSA (PCR) - Final Mrsa Negative S.aureus Positive 04/21/17 10:00 Toe Skin and Soft Tissue MRSA/MSSA (PCR - Final Mrsa Negative S.aureus Positive 04/21/17 10:00 Toe Gram Stain - Final 04/21/17 10:00 Toe Wound Culture - Final Staphylococcus Aureus Alcaligenes Species 04/20/17 15:42 Urine Urine Culture - Final 04/20/17 16:04 Blood Venous Aerobic Blood Culture - Final Staphylococcus Aureus 04/20/17 16:04 Blood Venous Anaerobic Blood Culture - Final Staphylococcus Aureus 04/20/17 16:04 Blood Venous Blood Culture - Final 04/20/17 16:04 Nasal Influenza Types A,B Antigen (AMINAH) - Final Specimen received for Influenza A/B Molecular testing Assessment: 1. MSSA left great toe cellulitis and myositis with bacteremia 2. left great toe ischemia 3. diabetes with neuropathy 4. vascular disease Plan: 1. continue doxycycline, though not 1st line abx for MSSA bacteremia she has declined all other options 2. non viable toe will need amputation, vascular intervention pending
[2017-04-28] MEDS ORDERED: Fluconazole 100 MG TAB* TAB PO ONE (17:45)
[2017-04-28] MEDS: Insulin GLARGINE(*) 1 UNITS UNIT SUBCUT SCH (20:49)
[2017-04-29] MEDS: traMADol TAB* 50 MG PO PRN ×2 (05:22→12:19)
[2017-04-29] MEDS: Heparin VIAL(*) 5000 UNITS/ML VIAL (FIVE THOUSAND) SUBCUT SCH (05:23)
[2017-04-29] MEDS: hydrALAZINE IV* 20 MG/ML VIAL IV SLOW PU PRN (06:36)
[2017-04-29] MEDS: diPHENhydraMINE IV* 50 MG/ML 1 ml VIAL (BENADRYL) IV PRN (07:34)
[2017-04-29] MEDS: Chlorthalidone TAB* 50 MG PO SCH (07:34)
[2017-04-29] MEDS: Lactobacillus Acidophilu (GG)* 1 CAP CAP PO SCH (07:34)
[2017-04-29] MEDS: Docusate CAP* 100 MG PO SCH (07:34)
[2017-04-29] MEDS: DOXYcycline IV* 100 MG in NS 0.9% 250 ML* 250 ML IVPB SCH (08:30)
[2017-04-29] MEDS: hydrALAZINE TAB* 10 MG PO SCH (09:57)
[2017-04-29 11:31] VITALS: BP 152/72
--- NOTE | 2017-04-29 13:41 | PN ---
Progress Note - Progress Note Date of Service: 04/29/17
--- NOTE | 2017-04-29 13:42 | PN ---
Progress Note - Progress Note Date of Service: 04/29/17 Note: Time spent on discharge 50 minutes.
[2017-04-29] MEDS ORDERED: DOXYcycline CAP(*) 100 MG PO SCH (21:00)
--- NOTE | 2017-04-30 03:00 | DS ---
CC: Dr. Garzon; Dr. Ricci; Dr. Richter DISCHARGE SUMMARY: DATE OF ADMISSION: DATE OF DISCHARGE: 04/29/17 HISTORY OF PRESENT ILLNESS: This 67-year-old woman presented with fever and weakness. Temperature was 101.1 on admission. Sodium is 127. Patient had mild encephalopathy related to her sepsis and her fever. The left foot had only three t oes remaining. The great toe had hardened, was completely cyanotic and cold. There was no discharg e. One set of blood cultures on 04/20, both bottles grew out MSSA. Wound grew the same staphylococcus. On 04/22, two sets of blood cultures were drawn, one out of four bottles grew MSSA. On 04/26/17, two sets of blood cultures were drawn, all four bottles were no growth. Clinically, she did well. Her fever resolved. She was given hydralazine and chlorthalidone for her blood pressure. She is either allergic or intolerant to many medications and would not accept any blood pressure medications or antibiotics. She was mainly treated with intravenous doxycycline. [employer] sodium level on 04/26/17 was 134. She was seen in consultation by Dr. Ricci. He scheduled her for angiography with possible revascul arization on 05/01/17 at 12:30 p.m. She has an appointment with Dr. Richter, 05/05/17 at 3:45 p.m. f or surgical evaluation. She will take three more weeks of oral doxycycline 100 mg b.i.d. She will continue on chlorthalidon e and doxycycline. DISCHARGE DIAGNOSES: 1. Severe sepsis with encephalopathy, transaminitis, demand ischemia, fever, and tachycardia due to peripheral arterial disease with left great toe infection. 2. MSSA bacteremia. 3. Diabetic infection of left foot. 4. Chronic kidney disease, stage 3. 5. Diabetes mellitus. 6. Hypertension. 7. History of coronary artery disease. DISCHARGE MEDICATIONS: 1. Glargine insulin 18 units daily at bedtime. 2. Lactobacillus one capsule b.i.d. 3. Doxycycline 100 mg b.i.d. for 21 days. 4. Hydralazine 15 mg t.i.d. 5. Chlorthalidone 25 mg daily. 6. Tramadol 50 mg every 6 hours p.r.n. [id number]/[facility] #: [id number]
--- NOTE | 2017-05-02 13:24 | ED ---
Jose Mitchell Abhishek, scribed for Evans Olson MD on 04/20/17 at 1543 . HPI Febrile Illness - HPI Summary HPI Summary: This patient is a 67 year old F presenting to [facility] accompanied by female with a chief complaint of fever (100.5 to 102.2). The CC is described as constant. The patient rates the pain 8/10 in severity. Symptoms aggravated by nothing. Symptoms alleviated by nothing. Patient reports abd pain onset few minutes ago, constipation, nausea, right pedal pain onset a few days ago. Patient denies cough, congestion, and dysuria. PMHx includes HTH and DM. FHx includes cardiac disease, diabetes and HTN. - History of Current Complaint Chief Complaint: EDFever Time Seen by Provider: 04/20/17 15:03 Hx Obtained From: Patient Onset/Duration: Still Present Timing: Constant Initial Severity: Severe Current Severity: Severe Pain Intensity: 8 Pain Scale Used: 0-10 Numeric Aggravating Factors: Nothing Alleviating Factors: Nothing Associated Signs and Symptoms: Nausea, Other: - abd pain onset a few minutes ago , constipation, and right pedal pain onset a few days - Additional Pertinent History Primary Care Physician: [id number] - Allergy/Home Medications Allergies/Adverse Reactions: Allergies Allergy/AdvReac Type Severity Reaction Status Date / Time Ceftriaxone [From Rocephin] Allergy Intermediate Swelling Verified 09/26/14 11: 33 Of Face,Lips Metformin Allergy Intermediate Pain Verified 09/26/14 11:33 Polyethylene Glycol Allergy Intermediate sob, Verified 09/26/14 11:33 [From MiraLax] abdominal swelling Levofloxacin [From Levaquin] Allergy Mild Hives Verified 09/26/14 11:33 Rosiglitazone [From Avandia] Allergy Mild sob, Verified 09/26/14 11:33 "doubling over" Insulin Allergy Unknown Unknown Verified 09/26/14 11:33 Reaction Details Insulin Aspart [From Novolog] Allergy Unknown Swelling Verified 09/26/14 11:33 Metoprolol Allergy Unknown Swelling Verified 09/26/14 11:33 Aliskiren [From Tekturna] Allergy Unknown Verified 09/26/14 11:34 Reaction Details Amlodipine [From Norvasc] Allergy Shortness Verified 09/26/14 11:31 of Breath Iodinated Diagnostic Agents Allergy Swelling Verified 03/10/16 16:26 Of Face,Lips,& Throat Irbesartan [From Avapro] Allergy Swelling Verified 09/26/14 11:33 Of Face,Lips,& Throat Lisinopril Allergy Unknown Verified 09/26/14 11:35 Reaction Details Rosuvastatin [From Crestor] Allergy Swelling Verified 09/26/14 11:30 Of Face,Lips,& Throat contrast dye Allergy Severe ^ BP / Uncoded 09/26/14 11:33 TONGUE SWELLING PMH/Surg Hx/FS Hx/Imm Hx Endocrine/Hematology History: Reports: Hx Diabetes Cardiovascular History: Reports: Hx Coronary Artery Disease, Hx Hypertension, Hx Peripheral Vascular Disease, Other Cardiovascular Problems/Disorders - carotid endarterectomy, cardiac cath 2010, CABG Denies: Hx Pacemaker/ICD Respiratory History: Reports: Hx Asthma, Hx Pneumonia, Hx Seasonal Allergies, Hx Sleep Apnea GI History: Reports: Hx Gastroesophageal Reflux Disease, Other GI Disorders - [place] History: Reports: Hx Chronic Renal Failure - CKD stage III Denies: Hx Renal Disease Musculoskeletal History: Reports: Hx Fibromyalgia Denies: Hx Osteoporosis Sensory History: Reports: Hx Cataracts, Hx Contacts or Glasses - Reading Glasses Denies: Hx Hearing Aid Opthamlomology History: Reports: Hx Cataracts, Hx Contacts or Glasses - Reading Glasses Neurological History: Reports: Hx Nerve Disease - fibromyalgia, Other Neuro Impairments/Disorders Psychiatric History: Denies: Hx Panic Disorder - Surgical History Surgery Procedure, Year, and Place: quintuple bi-pass. 2008, cataracts; Left 5th toe amputation; Left 2nd toe amputation; right patellar tendon repair; tonsilectomy, adenoids removed; carotid endarterectomy, left foot lisfranc reduction Hx Anesthesia Reactions: No Infectious Disease History: No Infectious Disease History: Denies: Traveled Outside the [place] in Last 30 Days - Family History Known Family History: Positive: Cardiac Disease, Hypertension, Diabetes - Social History Alcohol Use: None Substance Use Type: Reports: None Smoking Status (MU): Former Smoker Type: Cigarettes Amount Used/How Often: 1/2 ppweek Length of Time of Smoking/Using Tobacco: 2 years Review of Systems Positive: Fever - 100.5 to 102.2 Eyes: Negative ENT: Negative Positive: Other - Negative nasal congestion Cardiovascular: Negative Negative: Cough Positive: Abdominal Pain - onset a few minutes ago, Nausea, Other - constipation Negative: dysuria Positive: Other - right pedal pain onset a few days ago Skin: Negative Neurological: Negative Psychological: Normal All Other Systems Reviewed And Are Negative: Yes Physical Exam - Summary Physical Exam Summary: Appearance: Well-appearing, no pain distress IF BMI > 30 = obese Skin: Left foot has an ulcer plantar surface of her great toe She has erythema and warmth of the distal half of her footn Head/face: Nml head/face Eyes: Nml eyes ENT: Nml ENT Neck: Supple, non-tender Respiratory: CTA, breath sound present Cardiovascular: RRR Abdomen: Abd soft, non-tender, Bowel: Bowel sounds + Musculoskeletal: Nml musculoskeletal, Abd soft nontender Neurological: Nml neuro (unless it is a neuro Pt, then click the first 4) Psychiatric: Nml psychiatric, affect/mood appropriate Triage Information Reviewed: Yes Vital Signs On Initial Exam: Initial Vitals Temp Pulse Resp BP Pulse Ox 101.0 F 112 20 199/96 96 04/20/17 14:42 04/20/17 14:42 04/20/17 14:42 04/20/17 14:42 04/20/17 14:42 Vital Signs Reviewed: Yes - Rebekah Coma Scale Coma Scale Total: 15 Diagnostics - Vital Signs Vital Signs Temp Pulse Resp BP Pulse Ox 04/20/17 14:42 101.0 F 112 20 199/96 96 - Laboratory Lab Results: Lab Results 04/20/17 04/20/17 04/20/17 Range/Units 15:42 15:42 15:42 WBC 11.8 H (3.5-10.8) 10^3/ul RBC 4.44 (4.0-5.4) 10^6/ul Hgb 13.2 (12.0-16.0) g/dl Hct 39 (35-47) % MCV 88 (80-97) fL MCH 30 (27-31) pg MCHC 34 (31-36) g/dl RDW 14 (10.5-15) % Plt Count 282 (150-450) 10^3/ul MPV 8 (7.4-10.4) um3 Neut % (Auto) 89.6 H (38-83) % Lymph % (Auto) 5.8 L (25-47) % Mower % (Auto) 4.1 (1-9) % Eos % (Auto) 0.2 (0-6) % Baso % (Auto) 0.3 (0-2) % Absolute Neuts (auto) 10.6 H (1.5-7.7) 10^3/ul Absolute Lymphs (auto) 0.7 L (1.0-4.8) 10^3/ul Absolute Monos (auto) 0.5 (0-0.8) 10^3/ul Absolute Eos (auto) 0 (0-0.6) 10^3/ul Absolute Basos (auto) 0 (0-0.2) 10^3/ul Absolute Nucleated RBC 0 10^3/ul Nucleated RBC % 0 INR (Anticoag Therapy) 0.98 (0.89-1.11) APTT 29.4 (26.0-36.3) seconds Sodium 127 L (133-145) mmol/L Potassium 3.8 (3.5-5.0) mmol/L Chloride 93 L (101-111) mmol/L Carbon Dioxide 24 (22-32) mmol/L Anion Gap 10 (2-11) mmol/L BUN 36 H (6-24) mg/dL Creatinine 1.65 H (0.51-0.95) mg/dL Est GFR ( Amer) 40.2 (>60) Est GFR (Non-Af Amer) 31.2 (>60) BUN/Creatinine Ratio 21.8 H (8-20) Glucose 395 H (70-100) mg/dL Lactic Acid (0.5-2.0) mmol/L Calcium 9.3 (8.6-10.3) mg/dL Total Bilirubin 0.60 (0.2-1.0) mg/dL AST 106 H (13-39) U/L ALT 93 H (7-52) U/L Alkaline Phosphatase 279 H (34-104) U/L Troponin I 0.11 H* (<0.04) ng/mL C-Reactive Protein 262.19 H (< 5.00) mg/L Total Protein 8.2 (6.4-8.9) g/dL Albumin 3.6 (3.2-5.2) g/dL Globulin 4.6 H (2-4) g/dL Albumin/Globulin Ratio 0.8 L (1-3) Urine Color Urine Appearance Urine pH (5-9) Ur Specific [place] (1.010-1.030) Urine Protein (Negative) Urine Ketones (Negative) Urine Blood (Negative) Urine Nitrate (Negative) Urine Bilirubin (Negative) Urine Urobilinogen (Negative) Ur Leukocyte Esterase (Negative) Urine WBC (Auto) (Absent) Urine RBC (Auto) (Absent) Ur Squamous Epith Cells (Absent) Urine Bacteria (Absent) Hyaline Casts (Absent) Urine Glucose (Negative) Influenza A (Rapid) (Negative) Influenza B (Rapid) (Negative) 04/20/17 04/20/17 04/20/17 Range/Units 15:42 15:42 16:20 WBC (3.5-10.8) 10^3/ul RBC (4.0-5.4) 10^6/ul Hgb (12.0-16.0) g/dl Hct (35-47) % MCV (80-97) fL MCH (27-31) pg MCHC (31-36) g/dl RDW (10.5-15) % Plt Count (150-450) 10^3/ul MPV (7.4-10.4) um3 Neut % (Auto) (38-83) % Lymph % (Auto) (25-47) % Mower % (Auto) (1-9) % Eos % (Auto) (0-6) % Baso % (Auto) (0-2) % Absolute Neuts (auto) (1.5-7.7) 10^3/ul Absolute Lymphs (auto) (1.0-4.8) 10^3/ul Absolute Monos (auto) (0-0.8) 10^3/ul Absolute Eos (auto) (0-0.6) 10^3/ul Absolute Basos (auto) (0-0.2) 10^3/ul Absolute Nucleated RBC 10^3/ul Nucleated RBC % INR (Anticoag Therapy) (0.89-1.11) APTT (26.0-36.3) seconds Sodium (133-145) mmol/L Potassium (3.5-5.0) mmol/L Chloride (101-111) mmol/L Carbon Dioxide (22-32) mmol/L Anion Gap (2-11) mmol/L BUN (6-24) mg/dL Creatinine (0.51-0.95) mg/dL Est GFR ( Amer) (>60) Est GFR (Non-Af Amer) (>60) BUN/Creatinine Ratio (8-20) Glucose (70-100) mg/dL Lactic Acid 1.8 (0.5-2.0) mmol/L Calcium (8.6-10.3) mg/dL Total Bilirubin (0.2-1.0) mg/dL AST (13-39) U/L ALT (7-52) U/L Alkaline Phosphatase (34-104) U/L Troponin I (<0.04) ng/mL C-Reactive Protein (< 5.00) mg/L Total Protein (6.4-8.9) g/dL Albumin (3.2-5.2) g/dL Globulin (2-4) g/dL Albumin/Globulin Ratio (1-3) Urine Color Yellow Urine Appearance Cloudy Urine pH 5.0 (5-9) Ur Specific [place] 1.015 (1.010-1.030) Urine Protein 2+(100 mg/dl) H (Negative) Urine Ketones Negative (Negative) Urine Blood 1+ H (Negative) Urine Nitrate Negative (Negative) Urine Bilirubin Negative (Negative) Urine Urobilinogen Negative (Negative) Ur Leukocyte Esterase Trace H (Negative) Urine WBC (Auto) 1+(6-10/hpf) H (Absent) Urine RBC (Auto) 1+(3-5/hpf) H (Absent) Ur Squamous Epith Cells Present H (Absent) Urine Bacteria Absent (Absent) Hyaline Casts Present H (Absent) Urine Glucose 3+(>=500 mg/dl) H (Negative) Influenza A (Rapid) Negative (Negative) Influenza B (Rapid) Negative (Negative) Result Diagrams: 04/26/17 08:19 04/26/17 08:19 Lab Statement: Any lab studies that have been ordered have been reviewed, and results considered in the medical decision making process. - Radiology toe X-ray Radiology Interpretation Completed By: Radiologist - Toe X-ray reveals SOFT TISSUE SWELLING, NO SPECIFIC EVIDENCE FOR OSTEOMYELITIS. IF THE PATIENT'S SYMPTOMS PERSIST RECOMMEND AN MRI OF THE FOOT FOR FURTHER EVALUATION. ED physician has reviewed this radiology report and agrees. Chest X-ray Radiology Interpretation Completed By: Radiologist - CXR reveals POSTSURGICAL CHANGES, NO EVIDENCE FOR ACUTE FINDING. ED physician has reviewed this radiology report and agrees. Course/Dx - Course Course Of Treatment: Ms. Sharp presented tachydardic and febrile and was identified as septic and given flouids and antibiotics and admitted to the hospitalists. - Diagnoses Provider Diagnoses: Sepsis Discharge - Discharge Plan Condition: Stable Disposition: ADMITTED TO [facility] The documentation as recorded by the Jose pyle Abhishek accurately reflects the service I personally performed and the decisions made by me, Evans Olson MD.
== END 2017-04-29 15:50 | disposition home or self-care (01) | DRG 871 ==
LOC: ED 14:40 → MEDTELE 18:59 → MED 04-26 16:38
PROVIDERS: ADMIT Internal Medicine; ATTEND Internal Medicine
PROC: B24BZZ4 Ultrasonography of Heart with Aorta, Transesophageal (ICD-10-PCS; principal; 2017-04-24 09:45)
DX: A41.01 Sepsis due to Methicillin susceptible Staphylococcus aureus (principal); G93.41 Metabolic encephalopathy; N17.9 Acute kidney failure, unspecified; M60.077 Infective myositis, left toe(s); E87.1 Hypo-osmolality and hyponatremia; E11.52 Type 2 diabetes mellitus with diabetic peripheral angiopathy with gangrene; E11.21 Type 2 diabetes mellitus with diabetic nephropathy; E11.40 Type 2 diabetes mellitus with diabetic neuropathy, unspecified; I25.10 Atherosclerotic heart disease of native coronary artery without angina pectoris; R65.20 Severe sepsis without septic shock; E11.621 Type 2 diabetes mellitus with foot ulcer; N18.3 Chronic kidney disease, stage 3 (moderate); G47.33 Obstructive sleep apnea (adult) (pediatric); E11.65 Type 2 diabetes mellitus with hyperglycemia; L97.529 Non-pressure chronic ulcer of other part of left foot with unspecified severity; L03.032 Cellulitis of left toe; M20.5X2 Other deformities of toe(s) (acquired), left foot; B95.61 Methicillin susceptible Staphylococcus aureus infection as the cause of diseases classified elsewhere; I12.9 Hypertensive chronic kidney disease with stage 1 through stage 4 chronic kidney disease, or unspecified chronic kidney disease; E11.22 Type 2 diabetes mellitus with diabetic chronic kidney disease; Z89.422 Acquired absence of other left toe(s); Z88.8 Allergy status to other drugs, medicaments and biological substances; Z88.1 Allergy status to other antibiotic agents; Z91.041 Radiographic dye allergy status; Z82.49 Family history of ischemic heart disease and other diseases of the circulatory system; Z83.3 Family history of diabetes mellitus; Z95.1 Presence of aortocoronary bypass graft; Z79.4 Long term (current) use of insulin
CPT/HCPCS: 36415; 71010; 80048; 80053; 80076; 81003; 81015; 83036; 83605; 84484; 85025; 85610; 85730; 86140; 87040; 87070; 87077; 87086; 87150; 87186; 87205; 87502; 87640; 87641; 93306; 93312; 93325; 93922; 99156; A9270-GY; J0360; J1200; J1644; J2060; J2185; J2250; J2310; J2405; J2543; J2700; J3010; J3370

== ENCOUNTER 2017-05-31 16:40 | Inpatient (IN) | payer MEDICARE ==
[2017-05-31 19:53] LABS: Hematocrit 35 % (35-47); Hemoglobin 11.6 g/dl (12.0-16.0); Mean Corpuscular HGB Conc 34 g/dl (31-36); Mean Corpuscular Hemoglobin 30 pg (27-31); Mean Corpuscular Volume 88 fL (80-97); Mean Platelet Volume 8 um3 (7.4-10.4); Red Blood Count 3.95 10^6/ul (4.0-5.4); Red Cell Distribution Width 15 % (10.5-15)
[2017-05-31 20:11] LABS: ALT 54 U/L (7-52); AST 46 U/L (13-39); Albumin 3.4 g/dL (3.2-5.2); Alkaline Phosphatase 119 U/L (34-104); Anion Gap 7 mmol/L (2-11); Blood Urea Nitrogen 38 mg/dL (6-24); CO2 Carbon Dioxide 27 mmol/L (22-32); Calcium 8.9 mg/dL (8.6-10.3); Chloride 102 mmol/L (101-111); EGFR African American 36.1 (>60); EGFR Non-African American 28.1 (>60); Globulin 3.2 g/dL (2-4); Glucose 166 mg/dL (70-100); Potassium 3.9 mmol/L (3.5-5.0); Sodium 136 mmol/L (133-145); Total Protein 6.6 g/dL (6.4-8.9)
--- NOTE | 2017-05-31 20:46 | RAD ---
INDICATION: Right flank abdominal pain. COMPARISON: Comparison is made with a prior CT of the abdomen and pelvis from February 28, 2017. TECHNIQUE: A CT scan of the abdomen and pelvis was performed without intravenous or oral contrast. Contiguous axial sections were obtained from the lung bases through the symphysis pubis. Images were reconstructed in the coronal and sagittal planes. FINDINGS: The lung bases are clear. No pleural effusion is present. The liver and spleen are normal in size without significant focal abnormality on this noncontrast study. There are are small areas of increased density in the dependent portion of the gallbladder most consistent with gallstones. No gallbladder wall thickening is present. The pancreas appears to be within normal limits. The adrenal glands appear within normal limits. The kidneys are normal in size. There are bilateral vascular calcifications within the renal dhara and probable small bilateral renal calculi. No hydronephrosis is seen. No ureteral or bladder calculi are seen. There is mild diffuse thickening of the wall of the urinary bladder which appears similar to the prior study. The aorta is normal in caliber with moderate calcific plaque present. No significant enlarged retroperitoneal lymph nodes are seen. The stomach, small and large bowel appear nondistended. The appendix is within normal limits. There is a moderate to large amount retained stool. There are mild diverticulosis in the descending and sigmoid colon. There is no evidence for diverticulitis or colitis. There is a small periumbilical hernia containing fat. The uterus is retroverted and normal in size. No free intraperitoneal air or fluid is seen. There is degenerative disc disease and severe hypertrophic changes in the facet joints at the L3-L4, L4-L5 and L5-S1 levels. IMPRESSION: 1. MILD DIFFUSE THICKENING OF THE WALL OF THE URINARY BLADDER SUGGESTING THE POSSIBILITY OF CYSTITIS. 2. SMALL NONOBSTRUCTING RENAL CALCULI, NO EVIDENCE FOR HYDRONEPHROSIS. 3. PROBABLE CHOLELITHIASIS.
[2017-05-31 21:47] LABS: Budding Yeast Present (Absent); Urine Bacteria Absent (Absent); Urine Bilirubin Negative (Negative); Urine Glucose Negative (Negative); Urine Nitrite Negative (Negative)
[2017-05-31 22:23] LABS: Lipase < 10 U/L (11.0-82.0)
[2017-05-31] MEDS ORDERED: Aspirin TAB* 325 MG PO ONE (23:15)
[2017-05-31] MEDS ORDERED: traMADol TAB* 50 MG PO PRN (23:46)
[2017-05-31] MEDS ORDERED: Albuterol 2.5 MG/3 ML NEB.SOL* (0.083%) INH PRN (23:49)
[2017-05-31] MEDS ORDERED: Melatonin (NF) 3 MG TAB PO PRN (23:49)
[2017-05-31] MEDS ORDERED: Ondansetron INJ* 2 MG/ML VIAL IV PRN (23:49)
[2017-06-01 00:10] LABS: Creatine Kinase 175 U/L (10-223)
[2017-06-01] MEDS ORDERED: traMADol TAB* 50 MG ONE (00:16)
--- NOTE | 2017-06-01 00:19 | ED ---
Roc Mitchell Thomas, scribed for Sylvester Solomon on 05/31/17 at 1949 . GI/ HPI - HPI Summary HPI Summary: The pt is a 67 y/o F presenting to the ED c/o low back pain and dots of blood in my urine that began 24 hours ago. The pain is rated 3/10. The pain is aggravated by ambulation and is alleviated by nothing. 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 Pt additionally c/o urinary frequency, urinary incontinence, chronic constipation, drowsiness, generalized weakness, and R- sided abd pain. Pt denies CP, IYER, and fever. PMHx includes CAD and sepsis. - History of Current Complaint Chief Complaint: EDUrogenitalProblems Time Seen by Provider: 05/31/17 19:15 Stated Complaint: BLOOD IN URINE Hx Obtained From: Patient Onset/Duration: Started Hours Ago - 24, Still Present Timing: Constant Current Severity: Moderate Pain Intensity: 3 Associated Signs and Symptoms: Positive: Other: - Chronic constipation, lower back pain, drowsiness, urinary frequency, urinary incontinence, generalized weakness, R-sided abd pain; NEGATIVE: CP, IYER, fever Aggravating Factor(s): Liquids - Ambulation Alleviating Factor(s): Nothing - Additional Pertinent History Primary Care Physician: [id number] - Allergy/Home Medications Allergies/Adverse Reactions: Allergies Allergy/AdvReac Type Severity Reaction Status Date / Time Ceftriaxone [From Rocephin] Allergy Intermediate Swelling Verified 05/31/17 16: 44 Of Face,Lips Metformin Allergy Intermediate Pain Verified 05/31/17 16:44 Polyethylene Glycol Allergy Intermediate sob, Verified 05/31/17 16:44 [From MiraLax] abdominal swelling Levofloxacin [From Levaquin] Allergy Mild Hives Verified 05/31/17 16:44 Rosiglitazone [From Avandia] Allergy Mild sob, Verified 05/31/17 16:44 "doubling over" Insulin Allergy Unknown Unknown Verified 05/31/17 16:44 Reaction Details Insulin Aspart [From Novolog] Allergy Unknown Swelling Verified 05/31/17 16:44 Metoprolol Allergy Unknown Swelling Verified 05/31/17 16:44 Aliskiren [From Tekturna] Allergy Unknown Verified 05/31/17 16:44 Reaction Details Amlodipine [From Norvasc] Allergy Shortness Verified 05/31/17 16:44 of Breath Iodinated Diagnostic Agents Allergy Swelling Verified 05/31/17 16:44 Of Face,Lips,& Throat Irbesartan [From Avapro] Allergy Swelling Verified 05/31/17 16:44 Of Face,Lips,& Throat Lisinopril Allergy Unknown Verified 05/31/17 16:44 Reaction Details Rosuvastatin [From Crestor] Allergy Swelling Verified 05/31/17 16:44 Of Face,Lips,& Throat contrast dye Allergy Severe ^ BP / Uncoded 05/31/17 16:44 TONGUE SWELLING PMH/Surg Hx/FS Hx/Imm Hx Previously Healthy: No Endocrine/Hematology History: Reports: Hx Diabetes Cardiovascular History: Reports: Hx Coronary Artery Disease, Hx Hypertension, Hx Peripheral Vascular Disease, Other Cardiovascular Problems/Disorders - carotid endarterectomy, cardiac cath 2010, CABG Denies: Hx Pacemaker/ICD Respiratory History: Reports: Hx Asthma, Hx Pneumonia, Hx Seasonal Allergies, Hx Sleep Apnea GI History: Reports: Hx Gastroesophageal Reflux Disease, Other GI Disorders - [place], constipation History: Reports: Hx Chronic Renal Failure - CKD stage III Denies: Hx Renal Disease Musculoskeletal History: Reports: Hx Fibromyalgia, Hx Orthopedic Injury Denies: Hx Osteoporosis Sensory History: Reports: Hx Cataracts Denies: Hx Contacts or Glasses, Hx Hearing Aid, Hx Hearing Problem Opthamlomology History: Reports: Hx Cataracts Denies: Hx Contacts or Glasses Neurological History: Reports: Hx Nerve Disease - fibromyalgia, Other Neuro Impairments/Disorders Denies: Hx Dementia Psychiatric History: Denies: Hx Panic Disorder - Surgical History Surgery Procedure, Year, and Place: quintuple bi-pass. 2008, cataracts; Left 5th toe amputation; Left 2nd toe amputation; right patellar tendon repair; tonsilectomy, adenoids removed; carotid endarterectomy, left foot lisfranc reduction Hx Anesthesia Reactions: No Infectious Disease History: No Infectious Disease History: Denies: Hx Hepatitis, Hx Shingles, Hx Tuberculosis, Traveled Outside the [place] in Last 30 Days - Family History Known Family History: Positive: Cardiac Disease, Hypertension, Diabetes - Social History Alcohol Use: None Substance Use Type: Reports: None Smoking Status (MU): Former Smoker Type: Cigarettes Amount Used/How Often: 1/2 ppweek Length of Time of Smoking/Using Tobacco: 2 years Review of Systems Positive: Other - Generalized weakness. Negative: Fever Negative: Chest Pain Positive: Abdominal Pain - R-sided, Other - Chronic constipation Positive: frequency, hematuria, incontinence Positive: Other - Lower back pain Neurological: Other - Drowsiness Negative: Headache All Other Systems Reviewed And Are Negative: Yes Physical Exam - Summary Physical Exam Summary: Appearance: Well appearing, no pain distress Skin: warm, dry, reflects adequate perfusion Head/face: normal Eyes: EOMI, PATI ENT: normal Neck: supple, non-tender Respiratory: CTA, breath sounds present Cardiovascular: RRR, pulses symmetrical Abdomen: non-tender, soft Bowel: present Musculoskeletal: normal, strength/ROM intact Neuro: normal, sensory motor intact, A&Ox3 Triage Information Reviewed: Yes Vital Signs On Initial Exam: Initial Vitals Temp Pulse Resp BP Pulse Ox 98.5 F 92 16 130/67 100 05/31/17 16:44 05/31/17 16:44 05/31/17 16:44 05/31/17 16:44 05/31/17 16:44 Vital Signs Reviewed: Yes Diagnostics - Vital Signs Vital Signs Temp Pulse Resp BP Pulse Ox 05/31/17 16:44 98.5 F 92 16 130/67 100 - Laboratory Lab Results: Lab Results 05/31/17 05/31/17 05/31/17 Range/Units 19:36 19:36 21:28 WBC 5.0 (3.5-10.8) 10^3/ul RBC 3.95 L (4.0-5.4) 10^6/ul Hgb 11.6 L (12.0-16.0) g/dl Hct 35 (35-47) % MCV 88 (80-97) fL MCH 30 (27-31) pg MCHC 34 (31-36) g/dl RDW 15 (10.5-15) % Plt Count 247 (150-450) 10^3/ul MPV 8 (7.4-10.4) um3 Neut % (Auto) 42.1 (38-83) % Lymph % (Auto) 44.8 (25-47) % [place] % (Auto) 9.3 H (1-9) % Eos % (Auto) 3.2 (0-6) % Baso % (Auto) 0.6 (0-2) % Absolute Neuts (auto) 2.1 (1.5-7.7) 10^3/ul Absolute Lymphs (auto) 2.2 (1.0-4.8) 10^3/ul Absolute Monos (auto) 0.5 (0-0.8) 10^3/ul Absolute Eos (auto) 0.2 (0-0.6) 10^3/ul Absolute Basos (auto) 0 (0-0.2) 10^3/ul Absolute Nucleated RBC 0 10^3/ul Nucleated RBC % 0.1 Sodium 136 (133-145) mmol/L Potassium 3.9 (3.5-5.0) mmol/L Chloride 102 (101-111) mmol/L Carbon Dioxide 27 (22-32) mmol/L Anion Gap 7 (2-11) mmol/L BUN 38 H (6-24) mg/dL Creatinine 1.81 H (0.51-0.95) mg/dL Est GFR ( Amer) 36.1 (>60) Est GFR (Non-Af Amer) 28.1 (>60) BUN/Creatinine Ratio 21.0 H (8-20) Glucose 166 H (70-100) mg/dL Calcium 8.9 (8.6-10.3) mg/dL Total Bilirubin 0.30 (0.2-1.0) mg/dL AST 46 H (13-39) U/L ALT 54 H (7-52) U/L Alkaline Phosphatase 119 H (34-104) U/L Total Creatine Kinase 175 (10-223) U/L CK-MB (CK-2) 6.5 H (0.6-6.3) ng/mL Troponin I 0.50 H* (<0.04) ng/mL Total Protein 6.6 (6.4-8.9) g/dL Albumin 3.4 (3.2-5.2) g/dL Globulin 3.2 (2-4) g/dL Albumin/Globulin Ratio 1.1 (1-3) Lipase < 10 L (11.0-82.0) U/L Urine Color Yellow Urine Appearance Cloudy Urine pH 5.0 (5-9) Ur Specific [place] 1.013 (1.010-1.030) Urine Protein Negative (Negative) Urine Ketones Negative (Negative) Urine Blood 2+ H (Negative) Urine Nitrate Negative (Negative) Urine Bilirubin Negative (Negative) Urine Urobilinogen Negative (Negative) Ur Leukocyte Esterase 1+ H (Negative) Urine WBC (Auto) 2+(11-20/hpf) H (Absent) Urine RBC (Auto) 1+(3-5/hpf) H (Absent) Ur Squamous Epith Cells Present H (Absent) Urine Bacteria Absent (Absent) Hyaline Casts Present H (Absent) Urine Yeast Present H (Absent) Urine Glucose Negative (Negative) Result Diagrams: 05/31/17 19:36 05/31/17 19:36 Lab Statement: Any lab studies that have been ordered have been reviewed, and results considered in the medical decision making process. - CT Abd/Pel CT Interpretation: Positive (See Comments) - 1. MILD DIFFUSE THICKENING OF THE WALL OF THE URINARY BLADDER SUGGESTING THE POSSIBILITY OF CYSTITIS. 2. SMALL NONOBSTRUCTING RENAL CALCULI, NO EVIDENCE FOR HYDRONEPHROSIS. 3. PROBABLE CHOLELITHIASIS. ED physician has reviewed this report and agrees. CT Interpretation Completed By: Radiologist - EKG 22:53 Cardiac Rate: NL EKG Rhythm: Sinus Rhythm EKG Interpretation: [address] are old ST T-wave changes. No new changes. GIGU Course/Dx - Course Assessment/Plan: The patient came into the ED with weakness and back pain. Labs and EKG were obtained, which showed an elevated troponin. The patient will be admitted for ACS. - Diagnoses Differential Diagnoses - Female: Dehydration, Diverticulitis, Gerd, DC, Renal Colic, Urinary Tract Infection Provider Diagnoses: Dizziness, ACS (acute coronary syndrome), Weakness - Physician Notifications Discussed Care Of Patient With: Teodoro Cavazos Time Discussed With Above Provider: 23:20 Instructed by Provider To: Admit As Inpatient Discharge - Discharge Plan Condition: Fair Disposition: ADMITTED TO [facility] documentation as recorded by the Roc pyle Thomas accurately reflects the service I personally performed and the decisions made by , Sylvester Solomon.
[2017-06-01 00:30] LABS: Hematocrit 38 % (35-47); Mean Corpuscular HGB Conc 34 g/dl (31-36); Mean Corpuscular Hemoglobin 30 pg (27-31); Mean Corpuscular Volume 88 fL (80-97); Mean Platelet Volume 8 um3 (7.4-10.4); Red Blood Count 4.35 10^6/ul (4.0-5.4); Red Cell Distribution Width 15 % (10.5-15); White Blood Count 5.5 10^3/ul (3.5-10.8)
[2017-06-01 00:44] LABS: EGFR African American 40.2 (>60); EGFR Non-African American 31.2 (>60)
[2017-06-01 01:21] LABS: Troponin I 0.51 ng/mL (<0.04)
[2017-06-01] MEDS: NS 0.9% 1000 ML* 1,000 ML IV SCH ×2 (02:20→16:46)
--- NOTE | 2017-06-01 06:08 | HP ---
H&P (Free Text) History and Physical: PCP: Brandy Garzon MD Cardiology: Cynthia Monet MD Date/Time: 05/31/20172044 CC: blood in urine HPI: Ms Arias is a 67YO female HX CAD/CABG, DM2 w/ CKD stg 3, PAOD s/p CEA & arterial insufficiency to LLE who was admitted to [facility] 04/20-04/29/2017 for severe sepsis with encephalopathy 2nd gangrene of L 1st toe and MSSA bacteremia. She presents at this time reporting seeing a small clot of blood in her urine on 2 occasions today. She is currently irritable and a difficult tangential historian as she is dissatisfied with her progress through ED and prefers to perseverate. However, ultimately she reports having felt some SOB last PM and again today without significant exertion, chest pain, palpitations, nausea, sweats, light-headedness, or palpitations. She denies B/U/F of urine, abdominal pain, change in bowel, F/C, or other issues. She has LLE revascularization surgery scheduled for Jun 09 at [facility]. PMedHx DM2 w/ CKD stg 3 CAD/CABG TINO HTN PAOD s/p carotid endarterectomy & arterial insufficiency to [facility] Ambulatory Orders Chlorthalidone TAB* [Hygroton TAB*] 25 mg PO DAILY 03/10/16 traMADol TAB* [Ultram*] 50 mg PO Q6HR PRN #20 tab MDD 4 12/15/16 Insulin GLARGINE(*) [Lantus(*)] 15 units SUBCUT BID 04/30/17 DOXYcycline CAP(*) [DOXYcycline 100MG CAP(*)] 100 mg PO BID 05/01/17 hydrALAZINE TAB* [Apresoline TAB*] 15 mg PO TID 05/01/17 predniSONE TAB* [Deltasone TAB*] 50 mg PO SEE INSTRUCTIONS 05/01/17 Allergies Ceftriaxone [From Rocephin] Allergy (Intermediate, Verified 05/31/17 16:44) Swelling Of Face,Lips Polyethylene Glycol [From MiraLax] Allergy (Intermediate, Verified 05/31/17 16: 44) sob, abdominal swelling Insulin Aspart [From Novolog] Allergy (Mild, Verified 06/01/17 05:34) Swelling Levofloxacin [From Levaquin] Allergy (Mild, Verified 05/31/17 16:44) Hives Metoprolol Allergy (Mild, Verified 06/01/17 05:34) Swelling Rosiglitazone [From Avandia] Allergy (Mild, Verified 05/31/17 16:44) sob, "doubling over" Insulin Allergy (Unknown, Verified 05/31/17 16:44) Unknown Reaction Details PT UNABLE TO TOLERATE SOME INSULINS (UNKNOWN WHICH ONES) PLEASE DOUBLE CHECK Aliskiren [From Tekturna] Allergy (Verified 05/31/17 16:44) Unknown Reaction Details Amlodipine [From Norvasc] Allergy (Verified 05/31/17 16:44) Shortness of Breath Iodinated Diagnostic Agents Allergy (Verified 05/31/17 16:44) Swelling Of Face,Lips,& Throat Irbesartan [From Avapro] Allergy (Verified 05/31/17 16:44) Swelling Of Face,Lips,& Throat Lisinopril Allergy (Verified 05/31/17 16:44) Unknown Reaction Details Rosuvastatin [From Crestor] Allergy (Verified 05/31/17 16:44) Swelling Of Face,Lips,& Throat Metformin Adverse Reaction (Intermediate, Verified 06/01/17 05:34) Pain contrast dye Allergy (Severe, Uncoded 05/31/17 16:44) ^ BP / TONGUE SWELLING REACTIONS PER PT SocHx: no tobacco, alcohol, or recreational drugs; lives alone; retired frm the [employer], previously worked as a hospital social service agency director; full code status FamHx: positive for DM, HTN ROS: as above, otherwise reviewed and all were negative vitals: Vital Signs Temp 36.2 C 06/01/17 00:25 Pulse 84 06/01/17 00:25 Resp 18 06/01/17 00:25 BP 146/89 06/01/17 00:25 Pulse Ox 100 06/01/17 00:25 Intake & Output 05/31/17 05/31/17 06/01/17 11:59 23:59 11:59 Weight 92.533 kg 94.846 kg Constitutional: NAD, normally developed, obese black female HEENM: atraumatic; sclera/conjunctiva: anicteric/mildly injected OU; hearing: clinically intact; oropharynx: clear, mucosa moist Neck: soft tissue: non-tender; thyroid: normal Pulmonary: clear to auscultation bilaterally, good aeration, no accessory muscle use CV: RR/RR, normal S1S2, no carotid bruit, no jugular venous distention, 2+ B DP/ PT, no edema Abdominal: soft, non-distended, non-tender, no rebound/guarding/rigidity, normoactive bowel sounds, no hepatosplenomegaly or masses, no costovertebral angle tenderness Musculoskeletal: general: L 2nd & 5th toes surgically absent, L 1st toe mummified dry gangrene, L foot dusky & atrophic; gait: uses walker at baseline Integumental: as above Psychiatric orientation: AA&O to PPS affect: frustrated mood: irritable eye contact: fair content: reliable responses: highly tangential insight: poor Testing: Lab Results 05/31/17 05/31/17 05/31/17 Range/Units 19:36 19:36 21:28 WBC 5.0 (3.5-10.8) 10^3/ul RBC 3.95 L (4.0-5.4) 10^6/ul Hgb 11.6 L (12.0-16.0) g/dl Hct 35 (35-47) % MCV 88 (80-97) fL MCH 30 (27-31) pg MCHC 34 (31-36) g/dl RDW 15 (10.5-15) % Plt Count 247 (150-450) 10^3/ul MPV 8 (7.4-10.4) um3 Neut % (Auto) 42.1 (38-83) % Lymph % (Auto) 44.8 (25-47) % [place] % (Auto) 9.3 H (1-9) % Eos % (Auto) 3.2 (0-6) % Baso % (Auto) 0.6 (0-2) % Absolute Neuts (auto) 2.1 (1.5-7.7) 10^3/ul Absolute Lymphs (auto) 2.2 (1.0-4.8) 10^3/ul Absolute Monos (auto) 0.5 (0-0.8) 10^3/ul Absolute Eos (auto) 0.2 (0-0.6) 10^3/ul Absolute Basos (auto) 0 (0-0.2) 10^3/ul Absolute Nucleated RBC 0 10^3/ul Nucleated RBC % 0.1 INR (Anticoag Therapy) (0.89-1.11) APTT (26.0-36.3) seconds Sodium 136 (133-145) mmol/L Potassium 3.9 (3.5-5.0) mmol/L Chloride 102 (101-111) mmol/L Carbon Dioxide 27 (22-32) mmol/L Anion Gap 7 (2-11) mmol/L BUN 38 H (6-24) mg/dL Creatinine 1.81 H (0.51-0.95) mg/dL Est GFR ( Amer) 36.1 (>60) Est GFR (Non-Af Amer) 28.1 (>60) BUN/Creatinine Ratio 21.0 H (8-20) Glucose 166 H (70-100) mg/dL Calcium 8.9 (8.6-10.3) mg/dL Total Bilirubin 0.30 (0.2-1.0) mg/dL AST 46 H (13-39) U/L ALT 54 H (7-52) U/L Alkaline Phosphatase 119 H (34-104) U/L Total Creatine Kinase 175 (10-223) U/L CK-MB (CK-2) 6.5 H (0.6-6.3) ng/mL Troponin I 0.50 H* (<0.04) ng/mL Total Protein 6.6 (6.4-8.9) g/dL Albumin 3.4 (3.2-5.2) g/dL Globulin 3.2 (2-4) g/dL Albumin/Globulin Ratio 1.1 (1-3) Lipase < 10 L (11.0-82.0) U/L Urine Color Yellow Urine Appearance Cloudy Urine pH 5.0 (5-9) Ur Specific [place] 1.013 (1.010-1.030) Urine Protein Negative (Negative) Urine Ketones Negative (Negative) Urine Blood 2+ H (Negative) Urine Nitrate Negative (Negative) Urine Bilirubin Negative (Negative) Urine Urobilinogen Negative (Negative) Ur Leukocyte Esterase 1+ H (Negative) Urine WBC (Auto) 2+(11-20/hpf) H (Absent) Urine RBC (Auto) 1+(3-5/hpf) H (Absent) Ur Squamous Epith Cells Present H (Absent) Urine Bacteria Absent (Absent) Hyaline Casts Present H (Absent) Urine Yeast Present H (Absent) Urine Glucose Negative (Negative) 06/01/17 06/01/17 06/01/17 Range/Units 00:10 00:10 00:10 WBC 5.5 (3.5-10.8) 10^3/ul RBC 4.35 (4.0-5.4) 10^6/ul Hgb 13.0 (12.0-16.0) g/dl Hct 38 (35-47) % MCV 88 (80-97) fL MCH 30 (27-31) pg MCHC 34 (31-36) g/dl RDW 15 (10.5-15) % Plt Count 274 (150-450) 10^3/ul MPV 8 (7.4-10.4) um3 Neut % (Auto) 35.5 L (38-83) % Lymph % (Auto) 52.7 H (25-47) % [place] % (Auto) 7.5 (1-9) % Eos % (Auto) 3.5 (0-6) % Baso % (Auto) 0.8 (0-2) % Absolute Neuts (auto) 1.9 (1.5-7.7) 10^3/ul Absolute Lymphs (auto) 2.9 (1.0-4.8) 10^3/ul Absolute Monos (auto) 0.4 (0-0.8) 10^3/ul Absolute Eos (auto) 0.2 (0-0.6) 10^3/ul Absolute Basos (auto) 0 (0-0.2) 10^3/ul Absolute Nucleated RBC 0.01 10^3/ul Nucleated RBC % 0.1 INR (Anticoag Therapy) 0.85 L (0.89-1.11) APTT 31.4 (26.0-36.3) seconds Sodium (133-145) mmol/L Potassium (3.5-5.0) mmol/L Chloride (101-111) mmol/L Carbon Dioxide (22-32) mmol/L Anion Gap (2-11) mmol/L BUN 39 H (6-24) mg/dL Creatinine 1.65 H (0.51-0.95) mg/dL Est GFR ( Amer) 40.2 (>60) Est GFR (Non-Af Amer) 31.2 (>60) BUN/Creatinine Ratio (8-20) Glucose (70-100) mg/dL Calcium (8.6-10.3) mg/dL Total Bilirubin (0.2-1.0) mg/dL AST (13-39) U/L ALT (7-52) U/L Alkaline Phosphatase (34-104) U/L Total Creatine Kinase (10-223) U/L CK-MB (CK-2) (0.6-6.3) ng/mL Troponin I 0.51 H* (<0.04) ng/mL Total Protein (6.4-8.9) g/dL Albumin (3.2-5.2) g/dL Globulin (2-4) g/dL Albumin/Globulin Ratio (1-3) Lipase (11.0-82.0) U/L Urine Color Urine Appearance Urine pH (5-9) Ur Specific [place] (1.010-1.030) Urine Protein (Negative) Urine Ketones (Negative) Urine Blood (Negative) Urine Nitrate (Negative) Urine Bilirubin (Negative) Urine Urobilinogen (Negative) Ur Leukocyte Esterase (Negative) Urine WBC (Auto) (Absent) Urine RBC (Auto) (Absent) Ur Squamous Epith Cells (Absent) Urine Bacteria (Absent) Hyaline Casts (Absent) Urine Yeast (Absent) Urine Glucose (Negative) ECG, personally reviewed: NSR rate 76, J-point elevation V1-2, biphasic T V3, T- wave inversions V3-6/I/II; unchanged compared to 02/28/2017 CT abd/pel WO, personally reviewed: IMPRESSION: 1. MILD DIFFUSE THICKENING OF THE WALL OF THE URINARY BLADDER SUGGESTING THE POSSIBILITY OF CYSTITIS. 2. SMALL NONOBSTRUCTING RENAL CALCULI, NO EVIDENCE FOR HYDRONEPHROSIS. 3. PROBABLE CHOLELITHIASIS. AYALA (04/24/2017): Conclusions: Moderate to severe concentric left ventricular hypertrophy is observed. The estimated ejection fraction is 55-60%. Post surgical hypokinesis of the interventricular septum is observed consistent with coronary artery bypass. Spontaneous echo contrast is present in the left atrium. Thespontaneous echo contrast is of a mild degree. A patent foramen ovale is not demonstrated with color Doppler andagitated contrast. There is a trace of aortic regurgitation. There is mild mitral regurgitation. There is trace tricuspid regurgitation. No obvious intracavitary masses, clots or vegetations seen. Impression: 67F presenting with blood in the urine and findings consistent with UTI on CT abd/pel WO & UA; incidental findings of an elevated troponin of 0.5 concerning for her HX CAD, POAD, CEA and recent episodes of SOB DIAGNOSIS & PLAN Primary UTI : PO sulfamethoxazole/trimethoprim (claims allergy to ceftriaxone & levofloxacin ) : IVFs : urine CX : supportive care elevated troponin : telemetry : trend : aspirin given in ED : no beta gary 2nd claimed allergy to metoprolol : she has recently been cleared by her sports marketer (Cynthia Monet) for the LLE revascularization, recommend consulting in AM for further recommendations Secondary DM2 w/ CKD stg 3 : A1c 10.3 in Apr 2017 : continue glargine : no bolus/correctional insulin as she claims an allergy to insulin despite taking glargine : BID glucometry as we will not be doing bolus/correctional therapy CAD/CABG : currently on no medications HTN : continue chlorthalidone & hydralazine PAOD s/p carotid endarterectomy & arterial insufficiency to LLE : revascularization of LLE scheduled for Jun 09 recent severe sepsis 2nd L 1st toe gangrene : continue PO doxycycline Admission Rational: observation for elevated troponin of uncertain significance DVTp: heparin SQ Code Status: full HCP: sister, Shanelle Arias
[2017-06-01 06:20] LABS: Hematocrit 36 % (35-47); Hemoglobin 11.8 g/dl (12.0-16.0); Mean Corpuscular HGB Conc 33 g/dl (31-36); Mean Corpuscular Hemoglobin 29 pg (27-31); Mean Corpuscular Volume 89 fL (80-97); Mean Platelet Volume 8 um3 (7.4-10.4); Red Blood Count 4.05 10^6/ul (4.0-5.4); Red Cell Distribution Width 15 % (10.5-15); White Blood Count 5.2 10^3/ul (3.5-10.8)
[2017-06-01 06:28] LABS: BUN/Creatinine Ratio 24.2 (8-20); EGFR African American 42.5 (>60); EGFR Non-African American 33.1 (>60); Potassium 3.9 mmol/L (3.5-5.0)
[2017-06-01 06:52] LABS: Troponin I 0.26 ng/mL (<0.04)
[2017-06-01] MEDS: Insulin GLARGINE(*) 1 UNITS UNIT SUBCUT SCH ×2 (08:51→22:05)
[2017-06-01] MEDS: traMADol TAB* 50 MG PO PRN ×2 (08:51→22:03)
[2017-06-01] MEDS: Aspirin EC Low Dose* 81 MG TAB.EC PO SCH (08:52)
[2017-06-01] MEDS: hydrALAZINE TAB* 10 MG PO SCH ×3 (08:52→22:11)
[2017-06-01] MEDS: Sulfamethox/Trimethoprim DS 800/160* TAB PO SCH ×2 (08:52→22:02)
[2017-06-01] MEDS: Docusate CAP* 100 MG PO SCH ×2 (08:52→22:02)
[2017-06-01] MEDS: Heparin VIAL(*) 5000 UNITS/ML VIAL (FIVE THOUSAND) SUBCUT SCH ×4 (08:52→22:11)
[2017-06-01] MEDS: Chlorthalidone TAB* 50 MG PO SCH (08:56)
[2017-06-01] MEDS: Omeprazole CAP* 20 MG PO SCH (08:57)
[2017-06-01] MEDS ORDERED: DOXYcycline CAP(*) 100 MG PO SCH (09:00)
[2017-06-01] MEDS ORDERED: diPHENhydraMINE IV* 50 MG/ML 1 ml VIAL (BENADRYL) SLOW PUSH ONE (13:42)
--- NOTE | 2017-06-01 14:34 | PN ---
Subjective Date of Service: 06/01/17 Interval History: Pt believes she is having an allergic rxn to hydralazine, SOB, swollen lip and tongue (not noticable to me), hives (none noted on exam), hoarse voice and staccato like speech. She tells me she was allergic to it years ago but was willing to try it again last hospitalization but feels she has had a progressive allergy to the hydralazine since restarting it last hospitalization. She denies any chest pain. She states she had mild SOB when she came in that she was attributing to hydralazine that she was taking at home , then was SOB free until just recently when she again took the hydralazine and she believes she is having a worse allergic rxn. Objective Active Medications: Albuterol (Ventolin 2.5 Mg/3 Ml Neb.Kelsey*) 2.5 mg INH Q2H PRN PRN Reason: SOB/WHEEZING Aspirin (Aspirin Ec Low Dose*) 81 mg PO DAILY [facility] Last Admin: 06/01/17 08:52 Dose: 81 mg Chlorthalidone (Hygroton Tab*) 25 mg PO DAILY [facility] Last Admin: 06/01/17 08:56 Dose: 25 mg Docusate Sodium (Colace Cap*) 200 mg PO BID [facility] Last Admin: 06/01/17 08:52 Dose: 200 mg Doxycycline Hyclate (Vibramycin Cap(*)) 100 mg PO BID [facility] Last Admin: 06/01/17 08:52 Dose: 100 mg Heparin Sodium (Porcine) (Heparin Vial(*)) 5,000 units SUBCUT Q8HR [facility] Last Admin: 06/01/17 13:22 Dose: Not Given Hydralazine HCl (Apresoline Tab*) 15 mg PO TID [facility] Last Admin: 06/01/17 13:30 Dose: 15 mg Sodium Chloride (Ns 0.9% 1000 Ml*) 1,000 mls @ 75 mls/hr IV PER RATE [facility] Last Admin: 06/01/17 02:20 Dose: 75 mls/hr Insulin Glargine (Lantus(*)) 15 units SUBCUT BID [facility] Last Admin: 06/01/17 08:51 Dose: 15 unit Melatonin (Melatonin (Nf)) 3 mg PO BEDTIME PRN; Protocol PRN Reason: Sleep Omeprazole (Prilosec Cap*) 20 mg PO DAILY@0600 [facility] Last Admin: 06/01/17 08:57 Dose: Not Given Ondansetron HCl (Zofran Inj*) 4 mg IV Q6H PRN PRN Reason: NAUSEA Tramadol HCl (Ultram*) 50 mg PO Q6HR PRN PRN Reason: PAIN Last Admin: 06/01/17 08:51 Dose: 50 mg Trimethoprim/Sulfamethoxazole (Bactrim Ds 800/160 Tab*) 1 tab PO BID [facility] Last Admin: 06/01/17 08:52 Dose: 1 tab Vital Signs 06/01/17 06/01/17 06/01/17 00:19 00:25 07:27 Temperature 97.1 F 97.3 F Pulse Rate 84 77 Respiratory 18 18 16 Rate Blood Pressure 146/89 163/82 (mmHg) O2 Sat by Pulse 100 100 Oximetry 06/01/17 06/01/17 06/01/17 08:13 08:51 11:58 Temperature 97.9 F Pulse Rate 77 73 Respiratory 16 14 16 Rate Blood Pressure 117/57 (mmHg) O2 Sat by Pulse 100 100 Oximetry 06/01/17 06/01/17 13:40 14:18 Temperature Pulse Rate Respiratory 16 16 Rate Blood Pressure (mmHg) O2 Sat by Pulse Oximetry Oxygen Devices in Use Now: None Appearance: Middle aged male lying in bed, NAD Eyes: No Scleral Icterus Ears/Nose/Mouth/Throat: Mucous Membranes Moist Respiratory: Symmetrical Chest Expansion and Respiratory Effort, Clear to Auscultation Cardiovascular: NL Sounds; No Murmurs; No JVD, RRR, No Edema Abdominal: NL Sounds; No Tenderness; No Distention Extremities: No Clubbing, Cyanosis Skin: No Rash or Ulcers, No Nodules or Sclerosis, - - Left 1st toe appears blackened and mummified Neurological: Alert and Oriented x 3 Result Diagrams: 06/01/17 06:01 06/01/17 06:01 Additional Lab and Data: Lab Results 05/31/17 05/31/17 05/31/17 Range/Units 19:36 19:36 21:28 WBC 5.0 (3.5-10.8) 10^3/ul RBC 3.95 L (4.0-5.4) 10^6/ul Hgb 11.6 L (12.0-16.0) g/dl Hct 35 (35-47) % MCV 88 (80-97) fL MCH 30 (27-31) pg MCHC 34 (31-36) g/dl RDW 15 (10.5-15) % Plt Count 247 (150-450) 10^3/ul MPV 8 (7.4-10.4) um3 Neut % (Auto) 42.1 (38-83) % Lymph % (Auto) 44.8 (25-47) % [place] % (Auto) 9.3 H (1-9) % Eos % (Auto) 3.2 (0-6) % Baso % (Auto) 0.6 (0-2) % Absolute Neuts (auto) 2.1 (1.5-7.7) 10^3/ul Absolute Lymphs (auto) 2.2 (1.0-4.8) 10^3/ul Absolute Monos (auto) 0.5 (0-0.8) 10^3/ul Absolute Eos (auto) 0.2 (0-0.6) 10^3/ul Absolute Basos (auto) 0 (0-0.2) 10^3/ul Absolute Nucleated RBC 0 10^3/ul Nucleated RBC % 0.1 Sodium 136 (133-145) mmol/L Potassium 3.9 (3.5-5.0) mmol/L Chloride 102 (101-111) mmol/L Carbon Dioxide 27 (22-32) mmol/L Anion Gap 7 (2-11) mmol/L BUN 38 H (6-24) mg/dL Creatinine 1.81 H (0.51-0.95) mg/dL Est GFR ( Amer) 36.1 (>60) Est GFR (Non-Af Amer) 28.1 (>60) BUN/Creatinine Ratio 21.0 H (8-20) Glucose 166 H (70-100) mg/dL Calcium 8.9 (8.6-10.3) mg/dL Total Bilirubin 0.30 (0.2-1.0) mg/dL AST 46 H (13-39) U/L ALT 54 H (7-52) U/L Alkaline Phosphatase 119 H (34-104) U/L Total Creatine Kinase 175 (10-223) U/L CK-MB (CK-2) 6.5 H (0.6-6.3) ng/mL Troponin I 0.50 H* (<0.04) ng/mL Total Protein 6.6 (6.4-8.9) g/dL Albumin 3.4 (3.2-5.2) g/dL Globulin 3.2 (2-4) g/dL Albumin/Globulin Ratio 1.1 (1-3) Lipase < 10 L (11.0-82.0) U/L Urine Color Yellow Urine Appearance Cloudy Urine pH 5.0 (5-9) Ur Specific [place] 1.013 (1.010-1.030) Urine Protein Negative (Negative) Urine Ketones Negative (Negative) Urine Blood 2+ H (Negative) Urine Nitrate Negative (Negative) Urine Bilirubin Negative (Negative) Urine Urobilinogen Negative (Negative) Ur Leukocyte Esterase 1+ H (Negative) Urine WBC (Auto) 2+(11-20/hpf) H (Absent) Urine RBC (Auto) 1+(3-5/hpf) H (Absent) Ur Squamous Epith Cells Present H (Absent) Urine Bacteria Absent (Absent) Hyaline Casts Present H (Absent) Urine Yeast Present H (Absent) Urine Glucose Negative (Negative) Assess/Plan/Problems-Billing Ms Arias is a 67 yo F who has a h/o CAD, PAD, type II DM, stage III CKD, HTN and TINO who presented to the ER with c/o blood clots in the urine and was admitted for treatment of a possible UTI and was also found to have an elevated troponin. - Patient Problems (1) Elevated troponin Current Visit: Yes Status: Acute Priority: Medium Onset Date: 09/26/14 Code(s): R79.89 - OTHER SPECIFIED ABNORMAL FINDINGS OF BLOOD CHEMISTRY SNOMED Code(s): 483096241 Comment: Unclear why the patient's troponin is elevated. She does not look acutely ill. Will get stress test as the plan is for the patient to go for L LE revascularization 06/09. Continue ASA. (2) UTI (urinary tract infection) Current Visit: Yes Status: Acute Comment: Await urine culture. Continue bactrim. (3) Diabetic infection of left foot Current Visit: Yes Status: Acute Code(s): E11.69 - TYPE 2 DIABETES MELLITUS WITH OTHER SPECIFIED COMPLICATION; L08.9 - LOCAL INFECTION OF THE SKIN AND SUBCUTANEOUS TISSUE, UNSP SNOMED Code(s): 30791028 Comment: Now dry gangrene of the left 1st toe. No signs of active infection. Plan for revascularization 06/09/17. (4) CKD (chronic kidney disease) stage 3, GFR 30-59 ml/min Current Visit: Yes Status: Chronic Code(s): N18.3 - CHRONIC KIDNEY DISEASE, STAGE 3 (MODERATE) SNOMED Code(s): 818605658 Comment: Creatinine is at baseline. Continue to monitor. (5) Hypertension Current Visit: Yes Status: Chronic Code(s): I10 - ESSENTIAL (PRIMARY) HYPERTENSION SNOMED Code(s): 64066610 Comment: BP is under good control but she is now going to refuse hydralazine which will undoubtedly cause worsened control. If BP increases can start clonidine. (6) Uncontrolled diabetes mellitus Current Visit: Yes Status: Chronic Onset Date: 09/26/14 Code(s): E11.65 - TYPE 2 DIABETES MELLITUS WITH HYPERGLYCEMIA SNOMED Code(s): 038350739 Comment: Most recent A1c 04/2017 is 10.3%. Continue lantus 15 units BID. (7) DVT prophylaxis Current Visit: Yes Status: Acute Onset Date: 09/26/14 Code(s): LHX3387 - SNOMED Code(s): 106951309 Comment: SQ heparin. (8) Full code status Current Visit: Yes Status: Acute Onset Date: 09/26/14 Code(s): Z78.9 - OTHER SPECIFIED HEALTH STATUS SNOMED Code(s): 905946573
[2017-06-01] MEDS ORDERED: diPHENhydraMINE IV* 50 MG/ML 1 ml VIAL (BENADRYL) IM ONE (23:40)
[2017-06-02] MEDS: hydrALAZINE TAB* 10 MG PO SCH (00:27)
[2017-06-02] MEDS: Heparin VIAL(*) 5000 UNITS/ML VIAL (FIVE THOUSAND) SUBCUT SCH ×2 (05:29→12:26)
[2017-06-02] MEDS: Omeprazole CAP* 20 MG PO SCH (05:29)
[2017-06-02] MEDS: NS 0.9% 1000 ML* 1,000 ML IV SCH (06:28)
[2017-06-02] MEDS ORDERED: Regadenoson* 0.4 MG/5 ML SYRINGE ONE (10:43)
[2017-06-02] MEDS: Insulin GLARGINE(*) 1 UNITS UNIT SUBCUT SCH (10:58)
[2017-06-02] MEDS: Chlorthalidone TAB* 50 MG PO SCH (11:00)
[2017-06-02] MEDS: Aspirin EC Low Dose* 81 MG TAB.EC PO SCH (11:00)
[2017-06-02] MEDS: Docusate CAP* 100 MG PO SCH (11:00)
--- NOTE | 2017-06-02 11:34 | RAD ---
Edited for charges. INDICATION: Shortness of breath, history of prior coronary artery bypass surgery evaluate for ischemia. COMPARISON: Correlation is made with a prior study from June 28, 2009. Technique: A single day myocardial perfusion stress study was performed. Initially the resting study was performed. The patient was given an intravenous injection of 10.1 mCi of technetium 99m tetrofosmin and and the heart was imaged in multiple projections. The patient returned later in the day and under the direction of Dr. Medina, the patient was given intervenous injection of Lexiscan. Subsequently the patient was given intravenous injection of 26.0 mCi of technetium 99m tetrofosmin and the heart was imaged in multiple projections. Images were reconstructed in the axial, sagittal and coronal planes and in a 3- D format. FINDINGS: There is global decreased wall motion with more focal decreased wall motion in the inferior wall. The left ventricular ejection fraction is calculated to be 38 % which is decreased from the prior study. This was calculated to be 46% on the prior exam. Review of the images demonstrates a moderate size area of decreased activity in the anterior wall on the post pharmacologic stress images which appears improved on the resting set of images most consistent with ischemic change. There is also a moderate size area of decreased activity in the lateral wall which appears similar on the post pharmacologic stress and resting images most consistent with an infarct. The results of this exam were called to the referring clinician. IMPRESSION: 1. FINDINGS MOST CONSISTENT WITH A MODERATE SIZE AREA OF ISCHEMIA IN THE ANTERIOR WALL. 2. PERSISTENT DECREASED ACTIVITY IN THE LATERAL WALL MOST CONSISTENT WITH AN INFARCT. 3. DECREASED THE LEFT VENTRICULAR EJECTION FRACTION CALCULATED TO BE 38%. ASSESSMENT: Intermediate risk. Based on imaging criteria from ACC/AHA 2002 Guideline Update for the Management of Patients With Chronic Stable Angina Table 23. Noninvasive Risk Stratification. MTDD
[2017-06-02] MEDS ORDERED: diPHENhydraMINE IV* 50 MG/ML 1 ml VIAL (BENADRYL) IM ONE (11:43)
--- NOTE | 2017-06-02 13:42 | PN ---
Subjective Date of Service: 06/02/17 Interval History: Pt is feeling ok. She states she has persistent SOB. She states she also feels like she is "swollen on the inside." She noticed 2 small areas of light pink blood in her urine this AM. Objective Active Medications: Albuterol (Ventolin 2.5 Mg/3 Ml Neb.Kelsey*) 2.5 mg INH Q2H PRN PRN Reason: SOB/WHEEZING Aspirin (Aspirin Ec Low Dose*) 81 mg PO DAILY [facility] Last Admin: 06/02/17 11:00 Dose: 81 mg Chlorthalidone (Hygroton Tab*) 25 mg PO DAILY [facility] Last Admin: 06/02/17 11:00 Dose: 25 mg Docusate Sodium (Colace Cap*) 200 mg PO BID [facility] Last Admin: 06/02/17 11:00 Dose: 200 mg Heparin Sodium (Porcine) (Heparin Vial(*)) 5,000 units SUBCUT Q8HR [facility] Last Admin: 06/02/17 12:26 Dose: Not Given Hydralazine HCl (Apresoline Tab*) 15 mg PO TID [facility] Last Admin: 06/02/17 00:27 Dose: 15 mg Sodium Chloride (Ns 0.9% 1000 Ml*) 1,000 mls @ 75 mls/hr IV PER RATE [facility] Last Admin: 06/02/17 06:28 Dose: 75 mls/hr Insulin Glargine (Lantus(*)) 15 units SUBCUT BID [facility] Last Admin: 06/02/17 10:58 Dose: 15 unit Melatonin (Melatonin (Nf)) 3 mg PO BEDTIME PRN; Protocol PRN Reason: Sleep Omeprazole (Prilosec Cap*) 20 mg PO DAILY@0600 [facility] Last Admin: 06/02/17 05:29 Dose: Not Given Ondansetron HCl (Zofran Inj*) 4 mg IV Q6H PRN PRN Reason: NAUSEA Tramadol HCl (Ultram*) 50 mg PO Q6HR PRN PRN Reason: PAIN Last Admin: 06/01/17 22:03 Dose: 50 mg Trimethoprim/Sulfamethoxazole (Bactrim Ds 800/160 Tab*) 1 tab PO BID [facility] Last Admin: 06/01/17 22:02 Dose: 1 tab Vital Signs 06/01/17 06/01/17 06/01/17 19:37 20:00 22:03 Temperature 97.5 F Pulse Rate 70 Respiratory 16 16 18 Rate Blood Pressure 145/76 (mmHg) O2 Sat by Pulse 100 Oximetry 06/01/17 06/02/17 06/02/17 23:51 00:03 01:08 Temperature 97.5 F Pulse Rate 83 Respiratory 16 20 14 Rate Blood Pressure 177/89 (mmHg) O2 Sat by Pulse 100 Oximetry 06/02/17 06/02/17 06/02/17 03:01 03:52 04:13 Temperature 98.7 F Pulse Rate 81 80 Respiratory 14 20 16 Rate Blood Pressure 129/68 (mmHg) O2 Sat by Pulse 100 100 Oximetry 06/02/17 06/02/17 08:33 11:48 Temperature 98.9 F 97.5 F Pulse Rate 73 80 Respiratory 16 18 Rate Blood Pressure 148/80 187/87 (mmHg) O2 Sat by Pulse 100 100 Oximetry Oxygen Devices in Use Now: None Appearance: Middle aged female lying in bed, NAD Eyes: No Scleral Icterus Ears/Nose/Mouth/Throat: Mucous Membranes Moist Respiratory: Symmetrical Chest Expansion and Respiratory Effort, Clear to Auscultation Cardiovascular: NL Sounds; No Murmurs; No JVD, RRR, No Edema Abdominal: NL Sounds; No Tenderness; No Distention Extremities: No Clubbing, Cyanosis Skin: No Rash or Ulcers, No Nodules or Sclerosis Neurological: Alert and Oriented x 3 Result Diagrams: 06/01/17 06:01 06/01/17 06:01 Additional Lab and Data: Lab Results 05/31/17 05/31/17 05/31/17 Range/Units 19:36 19:36 21:28 WBC 5.0 (3.5-10.8) 10^3/ul RBC 3.95 L (4.0-5.4) 10^6/ul Hgb 11.6 L (12.0-16.0) g/dl Hct 35 (35-47) % MCV 88 (80-97) fL MCH 30 (27-31) pg MCHC 34 (31-36) g/dl RDW 15 (10.5-15) % Plt Count 247 (150-450) 10^3/ul MPV 8 (7.4-10.4) um3 Neut % (Auto) 42.1 (38-83) % Lymph % (Auto) 44.8 (25-47) % Branch % (Auto) 9.3 H (1-9) % Eos % (Auto) 3.2 (0-6) % Baso % (Auto) 0.6 (0-2) % Absolute Neuts (auto) 2.1 (1.5-7.7) 10^3/ul Absolute Lymphs (auto) 2.2 (1.0-4.8) 10^3/ul Absolute Monos (auto) 0.5 (0-0.8) 10^3/ul Absolute Eos (auto) 0.2 (0-0.6) 10^3/ul Absolute Basos (auto) 0 (0-0.2) 10^3/ul Absolute Nucleated RBC 0 10^3/ul Nucleated RBC % 0.1 Sodium 136 (133-145) mmol/L Potassium 3.9 (3.5-5.0) mmol/L Chloride 102 (101-111) mmol/L Carbon Dioxide 27 (22-32) mmol/L Anion Gap 7 (2-11) mmol/L BUN 38 H (6-24) mg/dL Creatinine 1.81 H (0.51-0.95) mg/dL Est GFR ( Amer) 36.1 (>60) Est GFR (Non-Af Amer) 28.1 (>60) BUN/Creatinine Ratio 21.0 H (8-20) Glucose 166 H (70-100) mg/dL Calcium 8.9 (8.6-10.3) mg/dL Total Bilirubin 0.30 (0.2-1.0) mg/dL AST 46 H (13-39) U/L ALT 54 H (7-52) U/L Alkaline Phosphatase 119 H (34-104) U/L Total Creatine Kinase 175 (10-223) U/L CK-MB (CK-2) 6.5 H (0.6-6.3) ng/mL Troponin I 0.50 H* (<0.04) ng/mL Total Protein 6.6 (6.4-8.9) g/dL Albumin 3.4 (3.2-5.2) g/dL Globulin 3.2 (2-4) g/dL Albumin/Globulin Ratio 1.1 (1-3) Lipase < 10 L (11.0-82.0) U/L Urine Color Yellow Urine Appearance Cloudy Urine pH 5.0 (5-9) Ur Specific [place] 1.013 (1.010-1.030) Urine Protein Negative (Negative) Urine Ketones Negative (Negative) Urine Blood 2+ H (Negative) Urine Nitrate Negative (Negative) Urine Bilirubin Negative (Negative) Urine Urobilinogen Negative (Negative) Ur Leukocyte Esterase 1+ H (Negative) Urine WBC (Auto) 2+(11-20/hpf) H (Absent) Urine RBC (Auto) 1+(3-5/hpf) H (Absent) Ur Squamous Epith Cells Present H (Absent) Urine Bacteria Absent (Absent) Hyaline Casts Present H (Absent) Urine Yeast Present H (Absent) Urine Glucose Negative (Negative) Assess/Plan/Problems-Billing Ms Arias is a 67 yo F who has a h/o CAD, PAD, type II DM, stage III CKD, HTN and TINO who presented to the ER with c/o blood clots in the urine and was admitted for treatment of a possible UTI and was also found to have an elevated troponin. - Patient Problems (1) Elevated troponin Current Visit: Yes Status: Acute Onset Date: 09/26/14 Code(s): R79.89 - OTHER SPECIFIED ABNORMAL FINDINGS OF BLOOD CHEMISTRY SNOMED Code(s): 223789024 Comment: Pt underwent stress test today that showed a large reversible defect in the anterior wall. Cardiology consult pending. Continue ASA. (2) UTI (urinary tract infection) Current Visit: Yes Status: Acute Comment: Urine culture is negative. She will continue course of bactrim (3 days). She should be seen by urology for evaluation of the hematuria and bladder wall thickening on CT scan. (3) Diabetic infection of left foot Current Visit: Yes Status: Acute Code(s): E11.69 - TYPE 2 DIABETES MELLITUS WITH OTHER SPECIFIED COMPLICATION; L08.9 - LOCAL INFECTION OF THE SKIN AND SUBCUTANEOUS TISSUE, UNSP SNOMED Code(s): 77078883 Comment: Now dry gangrene of the left 1st toe. No signs of active infection. Plan for revascularization 06/09/17. (4) CKD (chronic kidney disease) stage 3, GFR 30-59 ml/min Current Visit: Yes Status: Chronic Code(s): N18.3 - CHRONIC KIDNEY DISEASE, STAGE 3 (MODERATE) SNOMED Code(s): 443503523 Comment: Creatinine is at baseline. Continue to monitor. (5) Hypertension Current Visit: Yes Status: Chronic Code(s): I10 - ESSENTIAL (PRIMARY) HYPERTENSION SNOMED Code(s): 89336610 Comment: Pt states she would rather take hydralazine than clonidine. Will continue to dose prn benadryl with the hydralazine. I did not notice any allergic rxn signs at the time of the patient's reported allergy yesterday. (6) Uncontrolled diabetes mellitus Current Visit: Yes Status: Chronic Onset Date: 09/26/14 Code(s): E11.65 - TYPE 2 DIABETES MELLITUS WITH HYPERGLYCEMIA SNOMED Code(s): 566422055 Comment: Most recent A1c 04/2017 is 10.3%. Continue lantus 15 units BID. Sugars are under fair control. (7) DVT prophylaxis Current Visit: Yes Status: Acute Onset Date: 09/26/14 Code(s): MLM0288 - SNOMED Code(s): 089161945 Comment: SQ heparin. (8) Full code status Current Visit: Yes Status: Acute Onset Date: 09/26/14 Code(s): Z78.9 - OTHER SPECIFIED HEALTH STATUS SNOMED Code(s): 586519223
[2017-06-02 15:36] VITALS: BP 149/82
--- NOTE | 2017-06-02 16:56 | PN ---
Progress Note - Progress Note Date of Service: 06/02/17 Note: Dr. Álvarez reviewed her stress test and prior test ([address] Monet's office) and notes no significant changes. He does not feel she needs catheterization so will d/c pt home.
--- NOTE | 2017-06-03 02:44 | CONS ---
CC: Dr. Marlon Monte; Dr. Tuyet Bales, Vascular Surgery Department, [facility] [place], [place]; Dr. Garzon. * CARDIOLOGY CONSULTATION: DATE OF CONSULTATION: 06/02/17 INDICATION FOR CONSULTATION: Coronary artery disease. HISTORY OF PRESENT ILLNESS: The patient is a 67-year-old female with a history of coronary artery disease, history of coronary bypass surgery who was admitted to the hospital because of blood in her urine. While the patient was in the emergency room, she was noted to have mildly elevated troponin level and was admitted for evaluation. In speaking with the patient, I cannot elicit any significant change in her symptoms. The patient denies any chest pain. She denies any shortness of breath. She denies any palpitations. No lightheadedness, dizziness, or syncope. On admission to the hospital, the patient's elevated troponin level was 0.5. Because of that patient underwent a chemical nuclear stress test today that was evaluated by the radiologist and documented a large area of ischemia to his anterior wall and a smaller area of infarct to a lateral wall and significantly reduced LV systolic function with calculated ejection fraction of 38%. I personally reviewed the stress test. I also reviewed the patient's old stress test from 2013 at our office. The moderate area of anterior wall ischemia has been present all the way back from 2008 since her bypass surgery. There has been no change in her anterior wall ischemia. Her small area of infarct was even less obvious on the attenuated corrected images. I personally reviewed the gated images from the nuclear stress test. I think her stress test images show an ejection fraction of at least 50% and I think the calculated ejection fraction is erroneous. Again in speaking with the patient, I cannot elicit any cardiac symptoms. PAST MEDICAL HISTORY: Significant for: 1. Coronary artery disease. 2. History of coronary bypass surgery in 2007. 3. History of severe peripheral vascular disease. 4. History of renal artery stenosis. 5. History of diabetes. 6. Obesity. 7. Hyperlipidemia. 8. Hypertension. OUTPATIENT MEDICATIONS: 1. Insulin as directed. 2. Tramadol 50 mg q. 6 hours as needed. 3. Chlorthalidone 25 mg a day. 4. Benadryl. 5. Multiple supplements. 6. Hydralazine 10 mg 3 times a day. 7. Diflucan 150 mg every 72 hours. ALLERGIES: The patient has very long list of allergies, both to cardiac and other medications, too long to list at this time. FAMILY HISTORY: Her mother of hypertension. Father has diabetes. SOCIAL HISTORY: She is single. She lives alone. She is a retired director of social services. She quit smoking 20 years ago. Rare alcohol intake. She exercises sporadically. PHYSICAL EXAMINATION: Height is 5 feet 6 inches, weight 209 pounds, temperature 98.9, heart rate of 73, blood pressure 148/80, respiratory rate is 16, oxygen saturation 100% on room air. Sclerae anicteric. Oropharynx is pink without erythema. Carotids are 2+ without bruits. JVD is normal. Thyroid is normal. Cardiac Exam: S1, S2 without any murmurs, rubs, or gallops. Abdomen is soft, nontender, and nondistended with normoactive bowel sounds. Extremities show 1+ edema. DIAGNOSTIC STUDIES: EKG demonstrates normal sinus rhythm with LVH and T wave abnormalities. No change from previous EKGs. Please see my description above of her recent stress test in the hospital; again , in comparing it to her stress test in 2014 there is no significant change. IMPRESSION: This is a 67-year-old female with a history of coronary artery disease admitted to the hospital with a urinary tract infection, was found to have minimally elevated troponin. Stress test shows possible anterior ischemia and possible lateral wall infarct. Again, please see my description at the top of this dictation for details of my interpretation. At this point, I do not think any medication changes are necessary, I do not think any cardiac testing is necessary. I think her cardiac status is same as Dr. Monet's evaluation earlier this month when she was consulted by Dr. Monet for preop surgery for her vascular disease. The patient will follow up with Dr. Monet as directed. [id number]/[facility] #: [id number] [facility]
--- NOTE | 2017-06-03 07:38 | DS ---
CC: Dr. Bales; Dr. Garzon * DISCHARGE SUMMARY: DATE OF ADMISSION: 05/31/17 DATE OF DISCHARGE: 06/02/17 PRIMARY CARE PROVIDER: Dr. Garzon. VASCULAR SURGEON: Dr. Bales. PRINCIPAL DIAGNOSES: 1. Hematuria of unclear etiology - no signs of urinary tract infection. 2. Elevated troponin of unclear significance with unchanged stress test. SECONDARY DIAGNOSES: 1. Hypertension. 2. Type 2 diabetes. 3. Dry gangrene of the left 1st toe with known peripheral arterial disease. DISCHARGE MEDICATIONS: 1. Tramadol 50 mg p.o. q.6 hours p.r.n. pain. 2. Hydralazine 15 mg p.o. t.i.d. 3. Lantus 15 units subcutaneous twice daily. 4. Chlorthalidone 25 mg p.o. daily. 5. Aspirin 81 mg p.o. daily. HOSPITAL COURSE: Ms. Arias is a 67-year-old female who has past medical history significant for hypertension, type 2 diabetes, peripheral artery disease , and coronary artery disease, who presented to the emergency room with complaints of blood in her urine. While in the ER, the patient had a troponin checked, which was found to be elevated at 0.51. The patient was admitted for the troponin elevation and possible UTI. In terms of a possible UTI, the patient's urine culture was negative. The urinalysis did reveal blood, but it was negative for nitrites and bacteria. Antibiotic therapy is being stopped at this point as there is no clear evidence of urinary tract infection. In terms of elevated troponin, given the patient's upcoming revascularization surgery, the decision was made to have the patient undergo nuclear stress test. This revealed moderate ischemia of the anterior wall and an infarct of the lateral wall. Given these findings as well as a reduced EF, a cardiology consultation was requested. Dr. Álvarez reviewed the current images and compared them to stress test from 2014 and feels that there is no significant change. The patient was not recommended to undergo cardiac catheterization by Dr. Álvarez. It was recommended to continue medical management of her diabetes and hypertension. The patient will continue on her usual home medication regimen; however, she does feel that she may be having an allergy to hydralazine; however , I did not witness any hives or swelling that the patient claims she had. The patient was offered a trial of a different antihypertensive; however, she decided against this and wants to stay on the hydralazine. The patient, unfortunately, appears to be limiting her medical care by her reported allergies , which are numerous and impact management of each disease process. The patient also has chronic kidney disease. Her creatinine is essentially at baseline. At this point, the patient is stable for discharge home. FOLLOWUP CONCERNS: The patient is being discharged home today, 06/02/17. She is to follow up with Dr. Garzon in the next 4 to 7 days. She has a followup appointment with Dr. Bales for later this week. ACTIVITY LEVEL: As tolerated. DIET: Diabetic, heart healthy. CONDITION ON DISCHARGE: Stable. TIME SPENT: Thirty-five minutes was spent discharging this patient. [id number]/[facility] #: [id number] [facility]
== END 2017-06-02 17:55 | disposition home or self-care (01) | DRG 696 ==
LOC: ED 16:40 → MEDTELE 23:44 → OBSVTOIN 06-01 17:26
PROVIDERS: ADMIT Hospitalist; ATTEND Hospitalist
DX: R31.9 Hematuria, unspecified (principal); E11.52 Type 2 diabetes mellitus with diabetic peripheral angiopathy with gangrene; I13.10 Hypertensive heart and chronic kidney disease without heart failure, with stage 1 through stage 4 chronic kidney disease, or unspecified chronic kidney disease; R74.8 Abnormal levels of other serum enzymes; I25.10 Atherosclerotic heart disease of native coronary artery without angina pectoris; N18.3 Chronic kidney disease, stage 3 (moderate); Z95.1 Presence of aortocoronary bypass graft; G47.33 Obstructive sleep apnea (adult) (pediatric); Z79.4 Long term (current) use of insulin; Z79.52 Long term (current) use of systemic steroids; Z79.899 Other long term (current) drug therapy; Z88.8 Allergy status to other drugs, medicaments and biological substances; Z91.041 Radiographic dye allergy status; Z83.3 Family history of diabetes mellitus; Z82.49 Family history of ischemic heart disease and other diseases of the circulatory system; E11.65 Type 2 diabetes mellitus with hyperglycemia; E66.9 Obesity, unspecified; Z68.33 Body mass index [BMI] 33.0-33.9, adult; E78.5 Hyperlipidemia, unspecified; Z87.891 Personal history of nicotine dependence
CPT/HCPCS: 36415; 74176; 78452; 80048; 80053; 81003; 81015; 82550; 82553; 82565; 83690; 84484; 84520; 85025; 85610; 85730; 87086; 93005; 93017; A9270-GY; A9502; J1200; J1644; J2785

== ENCOUNTER 2018-08-01 14:59 | Observation (INO) | payer MEDICARE ==
[2018-08-01 15:45] LABS: ABS Basophils 0 10^3/ul (0-0.2); ABS Eosinophils 0.1 10^3/ul (0-0.6); ABS Lymphocytes 0.7 10^3/ul (1.0-4.8); ABS Monocytes 0.3 10^3/ul (0-0.8); ABS Neutrophils 2.6 10^3/ul (1.5-7.7); ABS Nucleated RBC 0 10^3/ul; Eosinophil % 1.4 %; Hematocrit 42 % (35-47); Hemoglobin 13.5 g/dl (12.0-16.0); Lymphocyte % 19.1 %; Mean Corpuscular HGB Conc 32 g/dl (31-36); Mean Corpuscular Hemoglobin 28 pg (27-31); Mean Corpuscular Volume 87 fL (80-97); Mean Platelet Volume 9.4 fL (7.4-10.4); Nucleated Red Blood Cells % 0.2; Platelet Count 204 10^3/ul (150-450); Red Blood Count 4.81 10^6/ul (4.00-5.40); Red Cell Distribution Width 14 % (10.5-15); White Blood Count 3.7 10^3/ul (3.5-10.8)
[2018-08-01 15:57] LABS: Activated Partial Thrombo Time 27.7 seconds (26.0-36.3); INR 0.97 (0.77-1.02)
[2018-08-01 16:01] LABS: Albumin 3.7 g/dL (3.2-5.2); Albumin/Globulin Ratio 1.1 (1-3); BUN/Creatinine Ratio 16.4 (8-20); Calcium 9.1 mg/dL (8.6-10.3); EGFR African American 43.4 (>60); EGFR Non-African American 35.8 (>60); Globulin 3.4 g/dL (2-4); Potassium 3.5 mmol/L (3.5-5.0); Total Bilirubin 0.7 mg/dL (0.2-1.0); Total Protein 7.1 g/dL (6.4-8.9)
[2018-08-01 16:04] LABS: Troponin I 0.09 ng/mL (<0.04)
[2018-08-01 16:05] LABS: CKMB ng/mL 6.1 ng/mL (0.6-6.3)
--- NOTE | 2018-08-01 16:06 | ED ---
Hypertension - HPI Summary HPI Summary: This patient is a 68 year old female brought in by ambulance [place] [facility] [place] by friend with a chief complaint of near-syncope, generalized weakness and severe hypertension since 2-3 hours ago. EMS was initially called for a mechanical fall, but patient denies a fall. Instead, patient states that when she bent down to open her door, she could not straighten back up, so she let herself sit down and called EMS because she could not get up from the floor. En route to the ED by EMS, patient was noted to have a bp reading of 265/ 130. A second reading a few minute later revealed 190/100. In the ED, patients bp reading lowered to the 160s. The pain is rated 0/10 in severity. Symptoms aggravated by nothing. Symptoms alleviated by nothing. Patient additionally reports mild SOB, productive cough (clear phlegm), mild fever, hematuria. Patients blood glucose is 265 by FS enroute to [facility] [place] Pt has multiple medication allergies (most anti-hypertension drugs, and insulin) which are documented severe allergies. Pt's parents were both pharmacists and pt is conversant and knowledgeable about medication names and allergic reactions. Pt has hx HTN, DM, HLD, PVD, sleep apnea, S/P CABG. Pt's only medication for hypertension is chlorthalidone 25mg qd as her only medication. Pt states she has had furosemide in the past in 2007, and she thought she reacted to it, but it is not listed in her allergies. Pt also complains of mold in her apt which she states she is allergic to. Vital signs while in room: HR 96 bpm, BP 191/101 O2 sat. 98%. - History of Current Complaint Stated Complaint: FALL Time Seen by Provider: 08/01/18 15:12 Hx Obtained From: Patient, EMS, Other: - friend Cristine with pt Onset/Duration: Started Hours Ago, Still Present Timing: Constant Reported Blood Pressure Prior To Arrival: 265/130 Aggravating Factor(s): Nothing Alleviating Factor(s): Nothing Associated Signs & Symptoms: Other: - mild SOB, productive cough (clear phlegm) , mild fever, hematuria - Allergies/Home Medications Allergies/Adverse Reactions: Allergies Allergy/AdvReac Type Severity Reaction Status Date / Time aliskiren [From Tekturna] Allergy Severe Swelling Verified 08/02/18 08:17 Of Face,Lips,& Throat amlodipine [From Norvasc] Allergy Severe Shortness Verified 08/01/18 15:37 of Breath ceftriaxone [From Rocephin] Allergy Severe Swelling Verified 08/01/18 15:37 Of Face,Lips,& Throat insulin aspart Allergy Severe Swelling Verified 08/01/18 15:37 Of Face,Lips,& Throat Insulins Allergy Severe Swelling Verified 08/02/18 08:19 Iodinated Contrast- Oral and Allergy Severe Anaphylatic Verified 08/01/18 15:37 IV Dye Shock irbesartan [From Avapro] Allergy Severe Swelling Verified 08/01/18 15:37 Of Face,Lips,& Throat levofloxacin [From Levaquin] Allergy Severe Hives Verified 08/01/18 15:37 metoprolol Allergy Severe Swelling Verified 08/01/18 15:37 MS Iodinated Diagnostic Allergy Severe Swelling Verified 08/01/18 15:37 Agents Of [Iodinated Diagnostic Agents] Face,Lips,& Throat polyethylene glycol 3350 Allergy Severe Shortness Verified 08/01/18 15:37 [From Miralax] of Breath rosiglitazone [From Avandia] Allergy Severe Shortness Verified 08/01/18 15:37 of Breath rosuvastatin [From Crestor] Allergy Severe Swelling Verified 08/01/18 15:37 Of Face,Lips,& Throat metformin Allergy Intermediate Pain Verified 08/01/18 15:37 iodine Allergy Anaphylatic Verified 08/01/18 15:37 Shock lisinopril Allergy Unknown Verified 08/01/18 15:37 Reaction Details contrast dye Allergy Severe ^ BP / Uncoded 05/31/17 16:44 TONGUE SWELLING PMH/Surg Hx/FS Hx/Imm Hx Previously Healthy: No Endocrine/Hematology History: Reports: Hx Diabetes Cardiovascular History: Reports: Hx Coronary Artery Disease, Hx Hypertension, Hx Peripheral Vascular Disease, Other Cardiovascular Problems/Disorders - carotid endarterectomy, cardiac cath 2010, CABG x 4 Denies: Hx Angina, Hx Hypercholesterolemia, Hx Myocardial Infarction, Hx Pacemaker/ICD, Hx Valvular Heart Disease Respiratory History: Reports: Hx Asthma, Hx Pneumonia, Hx Seasonal Allergies, Hx Sleep Apnea Denies: Hx Chronic Obstructive Pulmonary Disease (COPD) GI History: Reports: Hx Gastroesophageal Reflux Disease, Other GI Disorders - [place], constipation History: Reports: Hx Chronic Renal Failure - CKD stage III Denies: Hx Renal Disease Musculoskeletal History: Reports: Hx Fibromyalgia, Hx Orthopedic Injury, Other Musculoskeletal History - S/P metatarsal amputation left foot Denies: Hx Osteoporosis Sensory History: Reports: Hx Cataracts - corrected by surgery, Hx Contacts or Glasses - reading only Denies: Hx Hearing Aid, Hx Hearing Problem Opthamlomology History: Reports: Hx Cataracts - corrected by surgery, Hx Contacts or Glasses - reading only Neurological History: Reports: Hx Nerve Disease - fibromyalgia Denies: Hx Dementia Psychiatric History: Denies: Hx Panic Disorder - Surgical History Surgery Procedure, Year, and Place: quintup bi-pass. 2008, cataracts; Left 5th toe amputation; Left 2nd toe amputation;(subsequent left foot complete metatarsal amputation) right patellar tendon repair; tonsilectomy, adenoids removed; carotid endarterectomy, left foot LisFranc reduction Hx Anesthesia Reactions: No Infectious Disease History: No Infectious Disease History: Denies: Hx Hepatitis, Hx Shingles, Hx Tuberculosis, Traveled Outside the [place] in Last 30 Days - Family History Known Family History: Positive: Cardiac Disease, Hypertension, Diabetes - Social History Occupation: Retired - nursing home social worker Lives: Dormitory/Roommates Alcohol Use: Rare Hx Substance Use: No Substance Use Type: Reports: None Hx Tobacco Use: Yes Smoking Status (MU): Former Smoker Type: Cigarettes Amount Used/How Often: 1/2 ppweek Length of Time of Smoking/Using Tobacco: 2 years Have You Smoked in the Last Year: No Review of Systems Positive: Fever Cardiovascular: Other - negative chest pain Positive: Other - HTN emergency Positive: Shortness Of Breath, Cough - clear phlegm Gastrointestinal: Negative Positive: hematuria Positive: Other - couldn't get up from floor, redness left foot (with metatarsal amputation), draining wound L leg Positive: Other - open wound left leg, clear draining Neurological: Negative Psychological: Normal All Other Systems Reviewed And Are Negative: Yes Physical Exam - Summary Physical Exam Summary: Appearance: Well-appearing, no pain distress, well-nourished, hypertensive Skin: Warm, color reflects adequate perfusion, redness left foot, draining wound , clear fluid, LLE Head: Normal Head/Face inspection, atraumatic Eyes: Conjunctiva clear, PERRL, EOMI ENT: Normal inspection Neck: Supple, no nodes, no JVD Respiratory: no respiratory distress, mild expiratory wheezing bilaterally Cardio: RRR, No murmur, pulses normal, brisk capillary refill Abdomen: Soft, nontender Bowel sounds: Present Musculoskeletal: Strength Intact/ROM intact, Metatarsal amputation of left foot , Redness of left foot that is entire foot to ankle, swollen with erythema, Multiple lesions of differing ages on bilateral anterior tibiae and one area that is open and weeping clear fluid in lateral lower fibula; Well healed midline scar from CABG on anterior chest Psychological: Normal Neuro: Alert, muscle tone normal, no focal deficit, facial symmetry, speech intact, no motor weakness, decreased sensation bilat LE consistent with peripheral neuropathy Triage Information Reviewed: Yes Vital Signs On Initial Exam: Initial Vitals Temp Pulse Resp BP Pulse Ox 100.1 F 97 16 179/85 97 08/01/18 15:19 08/01/18 15:19 08/01/18 15:19 08/01/18 15:19 08/01/18 15:19 Vital Signs Reviewed: Yes Diagnostics - Vital Signs Vital Signs Temp Pulse Resp BP Pulse Ox 08/01/18 15:20 98 08/01/18 15:19 100.1 F 97 16 179/85 97 - Laboratory Lab Results: Lab Results 08/01/18 08/01/18 08/01/18 Range/Units 14:40 14:40 14:40 WBC 3.7 (3.5-10.8) 10^3/ul RBC 4.81 (4.00-5.40) 10^6/ul Hgb 13.5 (12.0-16.0) g/dl Hct 42 (35-47) % MCV 87 (80-97) fL MCH 28 (27-31) pg MCHC 32 (31-36) g/dl RDW 14 (10.5-15) % Plt Count 204 (150-450) 10^3/ul MPV 9.4 (7.4-10.4) fL Neut % (Auto) 70.1 % Lymph % (Auto) 19.1 % Brown % (Auto) 8.7 % Eos % (Auto) 1.4 % Baso % (Auto) 0.7 % Absolute Neuts (auto) 2.6 (1.5-7.7) 10^3/ul Absolute Lymphs (auto) 0.7 L (1.0-4.8) 10^3/ul Absolute Monos (auto) 0.3 (0-0.8) 10^3/ul Absolute Eos (auto) 0.1 (0-0.6) 10^3/ul Absolute Basos (auto) 0 (0-0.2) 10^3/ul Absolute Nucleated RBC 0 10^3/ul Nucleated RBC % 0.2 INR (Anticoag Therapy) 0.97 (0.77-1.02) APTT 27.7 (26.0-36.3) seconds D-Dimer, Quantitative 412 H (Less Than 230) ng/mL Sodium 139 (135-145) mmol/L Potassium 3.5 (3.5-5.0) mmol/L Chloride 101 (101-111) mmol/L Carbon Dioxide 29 (22-32) mmol/L Anion Gap 9 (2-11) mmol/L BUN 24 (6-24) mg/dL Creatinine 1.46 H (0.51-0.95) mg/dL Est GFR ( Amer) 43.4 (>60) Est GFR (Non-Af Amer) 35.8 (>60) BUN/Creatinine Ratio 16.4 (8-20) Glucose 301 H (70-100) mg/dL Lactic Acid (0.5-2.0) mmol/L Calcium 9.1 (8.6-10.3) mg/dL Total Bilirubin 0.70 (0.2-1.0) mg/dL AST 25 (13-39) U/L ALT 16 (7-52) U/L Alkaline Phosphatase 97 (34-104) U/L Total Creatine Kinase 232 H (10-223) U/L CK-MB (CK-2) Pending Troponin I Pending Total Protein 7.1 (6.4-8.9) g/dL Albumin 3.7 (3.2-5.2) g/dL Globulin 3.4 (2-4) g/dL Albumin/Globulin Ratio 1.1 (1-3) Thyroxine (T4) Pending 08/01/18 Range/Units 14:40 WBC (3.5-10.8) 10^3/ul RBC (4.00-5.40) 10^6/ul Hgb (12.0-16.0) g/dl Hct (35-47) % MCV (80-97) fL MCH (27-31) pg MCHC (31-36) g/dl RDW (10.5-15) % Plt Count (150-450) 10^3/ul MPV (7.4-10.4) fL Neut % (Auto) % Lymph % (Auto) % Brown % (Auto) % Eos % (Auto) % Baso % (Auto) % Absolute Neuts (auto) (1.5-7.7) 10^3/ul Absolute Lymphs (auto) (1.0-4.8) 10^3/ul Absolute Monos (auto) (0-0.8) 10^3/ul Absolute Eos (auto) (0-0.6) 10^3/ul Absolute Basos (auto) (0-0.2) 10^3/ul Absolute Nucleated RBC 10^3/ul Nucleated RBC % INR (Anticoag Therapy) (0.77-1.02) APTT (26.0-36.3) seconds D-Dimer, Quantitative (Less Than 230) ng/mL Sodium (135-145) mmol/L Potassium (3.5-5.0) mmol/L Chloride (101-111) mmol/L Carbon Dioxide (22-32) mmol/L Anion Gap (2-11) mmol/L BUN (6-24) mg/dL Creatinine (0.51-0.95) mg/dL Est GFR ( Amer) (>60) Est GFR (Non-Af Amer) (>60) BUN/Creatinine Ratio (8-20) Glucose (70-100) mg/dL Lactic Acid 2.0 (0.5-2.0) mmol/L Calcium (8.6-10.3) mg/dL Total Bilirubin (0.2-1.0) mg/dL AST (13-39) U/L ALT (7-52) U/L Alkaline Phosphatase (34-104) U/L Total Creatine Kinase (10-223) U/L CK-MB (CK-2) Troponin I Total Protein (6.4-8.9) g/dL Albumin (3.2-5.2) g/dL Globulin (2-4) g/dL Albumin/Globulin Ratio (1-3) Thyroxine (T4) Result Diagrams: 08/02/18 05:59 08/02/18 05:59 Lab Statement: Any lab studies that have been ordered have been reviewed, and results considered in the medical decision making process. - EKG 1508 Cardiac Rate: NL EKG Rhythm: Sinus Rhythm - 98 BPM Summary of EKG Findings: An EKG, taken 1508, reveals NSR (98 BPM), normal AV Iv CT, normal QTc, normal axis, + LVH, no ectopy, no significant change compared to 05/28/17 Re-Evaluation - Re-Evaluation First Eval Re-Evaluation Time: 18:00 Change: Unchanged Comment: Troponin is elevated, but has been consistently elevated in the past. Pt has no chest pain, no SOB at rest, remains hypertensive, tachycardic. Pt agrees with hospitalist consult for possible admission. Hypertension Course/Dx - Course Course Of Treatment: This patient is a 68 year old female with hx HTN, DM, HLD, sleep apnea, PVD, CKD stage III, S/P CABG x 4, brought in by ambulance to [facility] accompanied by friend with a chief complaint of generalized weakness,near- syncope and severe hypertension since 2-3 hours ago. Bloodwork Obtained showing elevated troponin 0.09, elevated glucose 301, stable elevated creatinine, elevated BNP 1046 (higher than previous). Urinalysis Obtained showing hematuria that pt has c/o. In the ED course the patient was given IV hydralazine 10mg for hypertensive emergency. Benadryl medication was in the room at the time of administration of the hydralazine, due to patient's hx of anaphylaxis due to multiple medications, but was not needed. Pt did not have allergic reaction to the hydralazine. The pt is hemodynamically stable, alert and oriented x3 with no signs or symptoms of stroke. Patient will be signed out to Dr. Arnold at end of shift, awaiting Medicine Consult for admission. The patient is agreeable with this plan. - Diagnoses Differential Diagnosis/HQI PQRI: Angina, Endocrine Disorder, Hypertensive Crisis , Hyperthyroidism, Other - CHF, demand ischemia Provider Diagnoses: Hypertensive emergency, Elevated troponin, Uncontrolled diabetes mellitus, Weakness, CKD (chronic kidney disease) stage 3, GFR 30-59 ml/min, Open wound of left lower leg, Hematuria Discharge - Sign-Out/Discharge Documenting (check all that apply): Sign-Out Patient Signing out patient TO: Evans Arnold - 08/01/18 1900, pending med consult for admission - Discharge Plan Condition: Stable Disposition: ADMITTED TO [facility] - Billing Disposition and Condition Condition: STABLE Disposition: Admitted to [facility] - Attestation Statements Document Initiated by Shahzad: Yes Documenting Scribe: Tripp Ballesteros Provider For Whom Shahzad is Documenting (Include Credential): Dena Mason MD Scribe Attestation: Tripp Mitchell, scribed for Dena Maosn MD on 08/02/18 at 1243. Scribe Documentation Reviewed: Yes Provider Attestation: The documentation as recorded by the Tripp pyle accurately reflects the service I personally performed and the decisions made by me, Dena Mason MD Status of Scribe Document: Viewed
[2018-08-01] MEDS ORDERED: hydrALAZINE IV* 20 MG/ML VIAL IV SLOW PU ONE (16:12)
[2018-08-01 16:17] LABS: T4, Total 17.39 g/dL (6.09-12.23)
[2018-08-01] MEDS ORDERED: diPHENhydraMINE IV* 50 MG/ML 1 ml VIAL (BENADRYL) IV ONE (16:20)
[2018-08-01 19:03] LABS: Urine Appearance Cloudy; Urine Bacteria 1+ (Absent); Urine Bilirubin Negative (Negative); Urine Blood 2+ (Negative); Urine Color Yellow; Urine Glucose 3+(>=500 mg/dL) (Negative); Urine Ketones Negative (Negative); Urine Nitrite Negative (Negative); Urine Protein 2+(100 mg/dL) (Negative); Urine Red Blood Cell 1+(3-5/hpf) (Absent); Urine Squamous Epithelial Cell Present (Absent); Urine Urobilinogen Negative (Negative); Urine White Blood Cell Trace(0-5/hpf) (Absent)
[2018-08-01 19:44] LABS: Influenza A Molecular NEGATIVE (Negative); Influenza B Molecular NEGATIVE (Negative)
[2018-08-01] MEDS ORDERED: Acetaminophen TAB* 325 MG PO PRN (20:42)
[2018-08-01] MEDS ORDERED: Ondansetron INJ* 2 MG/ML VIAL IV PRN (20:42)
[2018-08-01] MEDS ORDERED: hydrALAZINE TAB* 10 MG PO SCH (21:00)
[2018-08-01] MEDS: Heparin VIAL(*) 5000 UNITS/ML VIAL (FIVE THOUSAND) SUBCUT SCH (22:18)
[2018-08-01] MEDS: Calcium/Vitamin D TAB 250/125* TAB PO SCH (23:52)
--- NOTE | 2018-08-02 00:37 | PN ---
Hospitalist Progress Note Date of Service: 08/02/18 seen and evaluated, does not have any weakness any more. Lying in bed, not in distress mild exophthalmos, with no lid lag regular rate rhythm no tachypnea, not using oxygen, no crackles/wheezing. dry skin noted. AA/OX 3, moves all four extremities. Patient is a diabetic, was prescribed insulin, but does not use as she feels she is allergic to. HTN; was given hydralazine script by PCP, however she does not use CAD: does not take aspirin, because she does not like it. CKD 1. TSH low with elevated T4, labs in February 2018, normal TSH, so we will repeat the TSH, currently does not appear to have thyroid storm. On the scoring system of Jones and Wartofsky- she scores 10 points due to temp on arrival was 100.1F. We will repeat the TSH and T4, ultrasound of the thyroid. If TSH still low, and elevated T4, she will require medications for hyperthyroidism and endocrinology follow up. She does have elevated BNP, but no crackles on exam, no leg edema and clear CXR- I do not think she is having acute CHF. 2. Eleavted trop: due to demand caused by accelerated HTN. 3. Accelerated HTN: restart home dose hydralazine, monitor BP, could add second agent if does not get controlled- given thyroid issues- Beta gary would be a good choice. 4. Diabetes: chooses not to take insulin, will monitor fingersticks, currently not in DKA.
--- NOTE | 2018-08-02 00:50 | HP ---
AMENDED REPORT NOW INCLUDES DESIGNATED COSIGNER CC: Dr. Garzon * HISTORY AND PHYSICAL: DATE OF ADMISSION: 08/01/18 PRIMARY CARE PROVIDER: Dr. Garzon. ATTENDING PHYSICIAN: Dr. Cadet * (dictated by Kiki Yeboah, LEVI) CHIEF COMPLAINT: 1. Weakness. 2. Hypertension. HISTORY OF PRESENT ILLNESS: Mrs. Arias is a 68-year-old female with a past medical history significant for CAD, PVD, hypertension, CABG, asthma, sleep apnea, GERD, diabetes; who presented to the emergency department today with complaints of feeling weak. On the patient's arrival to the emergency room, she reports that she was accompanied by a friend and attempting to open her apartment door when she felt like she could not straighten back up and felt like she was bending down at the knees and at the waist due to weakness, therefore she sat herself down. She also reports that she attempted to roll on to her side, but was too weak. She tells this creative services writer that she attempted to get up with assistance of neighbors and friends without success due to weakness. Therefore, EMS was called. En route to [facility], the patient was noted to have a BP of 265/130. While in the emergency room, the patient continued to have elevated blood pressures in the 190s systolically and 100 diastolically. The patient was given hydralazine IV with improvement and her SBP dropped into the 160s. Due to the patient's hypertensive emergency with elevated BP into the 200 systolically without intervention, elevated troponin of 0.9 and elevated BNP of 1067, we were asked to evaluate the patient for admission. While in the emergency room, the patient's troponin was repeated several hours after her initial troponin and is noted to be trending down at 0.08. The patient continues to have some hypertension with most recent blood pressure being 170/ 94. The patient's previous medical records were reviewed and it was noted that she saw her primary care provider on 07/23/17 at which time she was noted to be on insulin, aspirin, hydralazine 15 mg 3 times a day by mouth. When discussing admission with the patient, she is agreeable to admission. We discussed her complicated medical history and treatment due to multiple drug allergies including, but not limited to MULTIPLE BLOOD PRESSURE MEDICATIONS, STATINS, ANTIBIOTICS, ALL INSULINS, and ORAL DIABETIC AGENTS. The patient reports that she did not have reaction to the hydralazine given to her in the emergency department "so far." I asked the patient if she was still taking hydralazine at home and the patient states she did not know that she was on hydralazine. The patient reports she has had no recent illness. There were no aggravating or alleviating factors to her weakness. She reports that she has mold in her apartment, which she is allergic to, which has been causing recent cough with production of clear sputum. She reports this cough has also caused occasional shortness of breath. She denies that the shortness of breath is increased with exertion or lying flat. She also reports that she has had occasional blood in her urine and/or stool. She states, "I am unsure where it is coming from." She also mentions that she has had incontinence of bowel and bladder for about a month. She reports this is not consistent and it only happens once in a while. She reports that when she is constipated, she will have leakage of stool and urine. PAST MEDICAL HISTORY: 1. CAD, status post cath and CABG. 2. PVD. 3. Hypertension. 4. Carotid endarterectomy. 5. Diabetes. 6. Obesity. 7. Hypothyroid. 8. Sleep apnea. 9. Dyslipidemia. 10. Asthma. 11. Seasonal allergies. 12. GERD. 13. Constipation. 14. Hamida. PAST SURGICAL HISTORY: 1. Quintuple bypass. 2. Cataracts. 3. Left fifth toe amputation. 4. Left second toe amputation. 5. Right patellar tendon repair. 6. Tonsillectomy. 7. Adenoids removed. 8. Carotid endarterectomy. 9. Left foot Lisfranc reduction. HOME MEDICATIONS: 1. Chlorthalidone 25 mg p.o. daily. This is reviewed with the patient and she verifies this is the only medication she takes. ALLERGIES: 1. ALISKIREN. 2. AMLODIPINE. 3. CEFTRIAXONE. 4. INSULIN ASPART. 5. ALL INSULINS. 6. IODINE CONTRAST. 7. AVAPRO. 8. LEVAQUIN. 9. METOPROLOL. 10. MIRALAX. 11. AVANDIA. 12. CRESTOR. 13. METFORMIN. 14. IODINE. 15. LISINOPRIL. FAMILY HISTORY: The patient's family history is positive for cardiac disease and diabetes. SOCIAL HISTORY: The patient is a former smoker half a pack per week for approximately 2 years. The patient denies substance abuse. The patient reports very rare alcohol use. The patient is retired. The patient lives with roommates. She uses a wheelchair for transportation. REVIEW OF SYSTEMS: The patient denies fevers, anorexia, and chills. The patient denies chest pain, edema, palpitations. Respiratory: The patient denies hemoptysis. The patient reports occasional cough and shortness of breath , which she attributes to mold in her home. The patient denies nausea and vomiting, denies diarrhea, denies abdominal pain. : The patient reports occasional blood in urine. The patient denies dysuria, denies increasing frequency, denies flank pain. Neuro: The patient denies focal weakness or sensory loss. The patient reports she currently is no longer weak as she was able to transfer herself between the CT table and her bed. Eyes: No visual complaints. ENT: No sore throat, difficulty swallowing, or nasal congestion. Musculoskeletal: No arthralgias or myalgias. Skin: No rashes or lesions. Psych: No psychosis, anxiety, or depression. PHYSICAL EXAMINATION GENERAL: Mrs. Arias is a 68-year-old female. She is well developed, slightly obese, sitting in bed, in no acute distress. Appears stated age. VITAL SIGNS: Temp 97.9, HR 88, RR 21, O2 saturation 95% on room air, BP 170/94. HEENT: Visual godinez are grossly intact. Pupils are equal and round, reactive to light and accommodation. EOMs intact. Sclerae without icterus. External ears and nose within normal limits. Dentition is good. Oral mucosa is moist without lesion. Tonsils are without erythema or exudate. Pharynx is clear. NECK: Full range of motion. Thyroid not palpable. No lymphadenopathy. RESPIRATORY: Symmetrical chest expansion. No accessory muscle use. LUNGS: Clear to auscultation. No rhonchi, wheezes, or rubs. CV: Regular rate and rhythm. S1, S2 present. No murmurs, rubs, or gallops. No JVD. ABDOMEN: Soft, nontender to palpation. Bowel sounds x4. EXTREMITIES: Skin is warm and smooth bilaterally. She has no edema. No clubbing or cyanosis. Pedal pulses 2+ bilaterally. The patient does have a midfoot amputation on the left. In addition, has a small healing wound to left medial thompson that is not open. Per patient, the culture was sent by ER physician. MUSCULOSKELETAL: Full range of motion. No deformities. NEURO: Alert, awake, and oriented x4. Cranial nerves II thorough XII intact. Moves all extremities. Motor strength 5/5 in upper and lower extremities bilaterally. SKIN: Grossly intact without lesions. DIAGNOSTIC STUDIES/LABORATORY DATA: Sodium 139, potassium 3.5, chloride 101, carbon dioxide 29, anion gap 9, BUN 24, creatinine is 1.46, glucose 103. Troponin 0.08, BNP 1067. TSH 0.00, T4 of 17.39. WBC 3.7, hemoglobin 13.4, hematocrit 42, platelets 204. Urine positive for protein, blood, rbc, squamous epithelial cell, bacteria, hyaline cast, urine glucose. Negative flu swab. Chest x-ray revealed no active cardiopulmonary disease. Brain CT revealed no intracranial abnormality. ASSESSMENT AND PLAN: Mrs. Arias is a 68-year-old female with a past medical history of coronary artery disease, status post cath and coronary artery bypass grafting, hyperlipidemia, peripheral vascular disease, obesity, diabetes, hypertension, asthma, sleep apnea, constipation; who presented to the ED today with complaints of weakness and was found to have hypertensive emergency. The patient will be admitted OBV for the followin. Hypertension emergency: The patient's blood pressure responded well to 1 dose of 10 mg IV hydralazine in the emergency department. Since the patient's primary care notes do document the patient has been prescribed hydralazine 15 mg p.o. t.i.d., we will restart this tonight at a lower dose initially. The patient will be started at 10 mg p.o. t.i.d. We will monitor the patient's blood pressure routinely. In addition due to the patient's possible longstanding hypertension, I have ordered an echo to be completed. Since the patient's troponins are trending down, I suspect this was from demand ischemia due to hypertension. Therefore, we will repeat an EKG in the morning. 2. Renal insufficiency: It should be noted that the patient has a documented history of chronic kidney disease stage III. The patient's current creatinine is 1.46 which is consistent with previous visits since 2016. We will monitor the patient's kidney function. 3. Elevated glucose: The patient's glucose on admission was 301. The patient is a known diabetic, but not treated as she has not been able to tolerate any diabetic medications. Therefore, she will not be started on sliding scale while in the hospital. I believe this patient may benefit from an Endocrinology consult as an outpatient. I have also ordered hemoglobin A1c to be obtained in the morning. 4. Elevated troponin: As previously mentioned, the patient's admission troponin was 0.09. This is consistent with the patient's baseline as she has had an elevated troponin since 2016 ranging from 0.09 to 0.51. Repeat troponin while in the emergency department revealed a downtrend with a troponin of 0.08. 5. Elevated BNP: The patient's BNP was noted to be 1067; this is higher than previously documented BNPs of approximately 200. The patient does not appear to be in acute heart failure as she has no respiratory symptoms, her oxygen saturation is within normal limits on room air, she has no signs of edema. I suspect this elevated BNP is due to the patient's hypertension. We will continue to watch the patient for signs and symptoms of heart failure. As previously mentioned, I have ordered an echo to be completed. 6. Hyperthyroid state: The patient's TSH is 0.00 and T4 is 17.39. I did find mention in previous notes of hypothyroidism, but no recorded labs to support this. The patient's last TSH was obtained on 02/04/17 and was 2.10. Given this TSH of 0.00 which is new, I will obtain an ultrasound of the patient's thyroid in the morning. In addition, I have ordered her TSH to be repeated. If it is again low, she would benefit from an Endocrinology consult and possible intervention. She does not have signs of thyroid storm. Will continue to monitor. 7. Coronary artery disease: On the patient's previous med list, it appears she was to be taking 81 mg aspirin. I am unsure why the patient is no longer taking this. Given the reports of bloody stool and bloody urine, I will hold on restarting this currently and await further evaluation. But if the patient can tolerate, she should be restarted on her aspirin. 8. Hyperlipidemia: As previously mentioned, the patient has a statin as a listed allergy. I have ordered a repeat lipid panel to be completed in the morning. If continues to be elevated, the patient should be referred to her primary care for further treatment and possible alternative agents. 9. Peripheral vascular disease: The patient does have a healing wound on the anterior left thompson that should be watched, but it is not open at this time. 10. FEN: The patient will be provided with a heart healthy diet and no caffeine. 11. Code status: The patient is a full code. 12. DVT prophylaxis: Based on the patient's DVT risk assessment, the patient is high risk. I will order subcu heparin q.8 hours. TIME SPENT: Approximately 60 minutes was spent on this admission; greater than half the time was spent [id number] withe the patient, obtaining my history and performing my physical exam and reviewing my plan of care. The case has been reviewed with my attending, Dr. Cadet, who is in agreement with my plan. KIKI YEBOAH, LEVI [id number]/CPS #: [id number] YASSINE
--- NOTE | 2018-08-02 04:06 | ED ---
Progress - Progress Note Progress Note: Received pt sign out from Dr. Mason awaiting medicine consult. Pt was admitted to medicine with diagnosis of hypertensive emergency. Course/Dx - Course Course Of Treatment: Received pt sign out from Dr. Mason awaiting medicine consult. Pt was admitted to medicine with diagnosis of hypertensive emergency. - Diagnoses Provider Diagnoses: Hypertensive emergency Discharge - Sign-Out/Discharge Documenting (check all that apply): Patient Departure - Admit Receiving patient FROM: Dena Mason - Discharge Plan Condition: Fair Disposition: ADMITTED TO [facility] - Billing Disposition and Condition Condition: FAIR Disposition: Admitted to [facility] - Attestation Statements Document Initiated by Shahzad: Yes Documenting Scribe: Dahiana Barfield Provider For Whom Shahzad is Documenting (Include Credential): Dr. Evans Arnold MD Scribe Attestation: Dahiana Mitchell, scribed for Dr. Evans Arnold MD on 08/02/18 at 0524. Scribe Documentation Reviewed: Yes Provider Attestation: The documentation as recorded by the Dahiana pyle accurately reflects the service I personally performed and the decisions made by , Dr. Evans Arnold MD Status of Scribe Document: Viewed
[2018-08-02] MEDS: Heparin VIAL(*) 5000 UNITS/ML VIAL (FIVE THOUSAND) SUBCUT SCH ×2 (05:54→15:26)
[2018-08-02 06:52] LABS: ABS Basophils 0 10^3/ul (0-0.2); ABS Eosinophils 0.1 10^3/ul (0-0.6); ABS Monocytes 0.4 10^3/ul (0-0.8); ABS Nucleated RBC 0 10^3/ul; Eosinophil % 2.6 %; Hematocrit 36 % (35-47); Hemoglobin 11.5 g/dl (12.0-16.0); Lymphocyte % 39.1 %; Mean Corpuscular HGB Conc 32 g/dl (31-36); Mean Corpuscular Hemoglobin 28 pg (27-31); Mean Corpuscular Volume 86 fL (80-97); Mean Platelet Volume 9.4 fL (7.4-10.4); Nucleated Red Blood Cells % 0.4; Platelet Count 185 10^3/ul (150-450); Red Blood Count 4.11 10^6/ul (4.00-5.40); Red Cell Distribution Width 14 % (10.5-15); White Blood Count 2.4 10^3/ul (3.5-10.8)
[2018-08-02 07:11] LABS: BUN/Creatinine Ratio 18.8 (8-20); Calcium 8.6 mg/dL (8.6-10.3); EGFR African American 50.5 (>60); EGFR Non-African American 41.7 (>60); HDL Cholesterol 35.7 mg/dL; Potassium 3.2 mmol/L (3.5-5.0)
[2018-08-02 07:30] LABS: Free T4 2.34 ng/dL (0.61-1.12)
[2018-08-02] MEDS: Calcium/Vitamin D TAB 250/125* TAB PO SCH (08:22)
[2018-08-02] MEDS ORDERED: diPHENhydraMINE IV* 50 MG/ML 1 ml VIAL (BENADRYL) IV PRN (09:23)
[2018-08-02] MEDS: hydrALAZINE TAB* 25 MG PO SCH ×2 (11:00→15:26)
[2018-08-02 11:56] LABS: Troponin I 0.09 ng/mL (<0.04)
[2018-08-02] MEDS ORDERED: Chlorthalidone TAB* 50 MG PO ONE (15:00)
[2018-08-02] MEDS ORDERED: Fluconazole 150 MG TAB PO ONE (15:00)
--- NOTE | 2018-08-02 15:36 | ECHO ---
Patient: ELEN CASAREZ [facility] Rec#: [id number] : 1950 Date: 08/02/2018 Age: 68y Height: 168 cm / 66.1 in Weight: 99.8 kg / 220.0 lbs Sex: F BSA: 2.09 Room#: 452 Admit Date#: 08/02/2018 Type: Inpatient Referring: Lacy Lanier Reading: Jemal De León MD Warehouse Delivery Manager: Caren Abbott RN RDCS CC: Ryann KOENIG,[facility] Transthoracic Echocardiogram Indication: Syncope BP: 163/80 HR: 93 Rhythm: NSR Findings History: CAD, CABG, PVD, HTN, TINO, CKD, DM Technical Comments: The study quality is fair. Left Ventricle: The left ventricular chamber size is normal. Moderate concentric left ventricular hypertrophy is observed. Global left ventricular wall motion and contractility are within normal limits. There is normal left ventricular systolic function.Mid to distal lateral wall not well seen in the ap4; cannot exclude mild hypokinesis. The estimated ejection fraction is 55-60%. Abnormal left ventricular diastolic function is observed. The left ventricular diastolic filling pattern is consistent with pseudonormalization. Left Atrium: The left atrium is mildly dilated. Right Ventricle: The right ventricular chamber size and systolic function are within normal limits. Right Atrium: The right atrial cavity size is normal. Aortic Valve: The aortic valve is trileaflet. The aortic valve leaflets are mildly thickened. There is no evidence of aortic regurgitation. There is no evidence of aortic stenosis. Mitral Valve: The mitral valve leaflets are mildly thickened. There is mild mitral regurgitation. There is no evidence of mitral stenosis. Tricuspid Valve: The tricuspid valve leaflets are normal. There is mild tricuspid regurgitation. There is evidence of moderate pulmonary hypertension. There is no tricuspid stenosis. Pulmonic Valve: The pulmonic valve appears normal. There is a trace pulmonic regurgitation. There is no pulmonic stenosis. Pericardium: There is no significant pericardial effusion. A pericardial fat pad is visualized. A left pleural effusion is present. Aorta: There is no dilatation of the ascending aorta. There is no dilation of the aortic root. Pulmonary Artery: The main pulmonary artery appears normal. Venous: The inferior vena cava is dilated. There is less than 50% respiratory change in the inferior vena cava dimension. Conclusions Moderate concentric left ventricular hypertrophy is observed. There is normal left ventricular systolic function.Mid to distal lateral wall not well seen in the ap4; cannot exclude mild hypokinesis. The estimated ejection fraction is 55-60%. The left ventricular diastolic filling pattern is consistent with pseudonormalization. The left atrium is mildly dilated. There is mild mitral regurgitation. There is mild tricuspid regurgitation. There is evidence of moderate pulmonary hypertension. A left pleural effusion is present. Similar to the echo report of 04/2017 Measurements Name Value Normal Range RVDdMajor (2D) 3.6 cm (2.2 - 4.4) RAd ISD 4CH 4.8 cm (3.4 - 4.9) RA (A4C)W 4.4 cm (2.9 - 4.6) IVSd (2D) 1.4 cm (0.6 - 1) LVPWd (2D) 1.4 cm (0.6 - 1) LVIDd (2D) 3.8 cm (3.6 - 5.4) LVIDs (2D) 2.7 cm - LV FS (2D) 29 % (25 - 45) Aortic Annulus 2 cm (1.4 - 2.6) Ao root diameter (2D) 2.9 cm (2.1 - 3.5) Ascending Ao 3.2 cm (2.1 - 3.4) LA dimension (AP) 2D 4 cm (2.3 - 3.8) LAd ISD 4CH 5.7 cm (2.9 - 5.3) LA ISD 4CH W 4.5 cm (2.5 - 4.5) Name Value Normal Range LA ESV BP (A/L) index 35 ml/m2 - Name Value Normal Range MV E-wave Vmax 1.3 m/sec - MV deceleration time 197 msec - MV A-wave Vmax 0.84 m/sec - MV E:A ratio 1.6 ratio - LV septal e' Vmax 0.06 m/sec - LV lateral e' Vmax 0.04 m/sec - LV E:e' septal ratio 21.7 ratio - LV E:e' lateral ratio 32.5 ratio - Name Value Normal Range AV Vmax 1.5 m/sec - AV VTI 27 cm - AV peak gradient 9 mmHg - AV mean gradient 5 mmHg - LVOT Vmax 0.95 m/sec - LVOT VTI 15.7 cm - LVOT peak gradient 4 mmHg - LVOT mean gradient 2 mmHg - Name Value Normal Range TR Vmax 3 m/sec - TR peak gradient 36 mmHg - RAP 15 mmHg - RVSP 51 mmHg - IVC diameter 2.2 cm - Name Value Normal Range PV Vmax 0.82 m/sec - Wallmotion BAS Normal BA Normal BAL Normal MARÍA Normal BI Normal BIS Normal MAS Normal MA Normal MAL Normal MIL Normal GA Normal MIS Normal Normal AA Normal AL Not Seen AI Normal APEX Scarring/Thinning
[2018-08-02 17:28] VITALS: BP 173/80
[2018-08-03] MEDS ORDERED: Chlorthalidone TAB* 50 MG PO SCH (09:00)
--- NOTE | 2018-08-28 15:06 | DS ---
CC: Dr. Garzon * DISCHARGE SUMMARY: DATE OF ADMISSION: 08/01/18 DATE OF DISCHARGE: 08/02/18 PRINCIPAL DISCHARGE DIAGNOSES: 1. Hypertensive emergency. 2. Hyperthyroidism. SECONDARY DISCHARGE DIAGNOSES: 1. Type 2 diabetes. 2. Obesity. 3. History of coronary artery disease. 4. History of peripheral vascular disease. 5. History of sleep apnea. 6. History of extensive medication allergies. HISTORY OF PRESENT ILLNESS AND REASON FOR PRESENTATION: Please see Lacy Lanier's H and P for a complete description of the HPI. In brief, Ms. Arias is a 68-year-old lady with history of hypertension and diabetes, both of which have been poorly controlled, who presented to the emergency department on for weakness that began several hours prior. She had been on a walk with her friend and she felt herself down and felt that she could not stand up. Her friend called EMS, and in the ambulance, she was noted to have a blood pressure of 265/130, and in the emergency department, she was given IV hydralazine and was noted to have an elevated troponin, and so we were asked to admit her for suspected hypertensive emergency. HOSPITAL COURSE BY PROBLEM: 1. Hypertensive emergency, likely related to poorly controlled blood pressure at baseline. According to her PCP notes, she was supposed to be on hydralazine as an outpatient; however, she was not taking it. She was only taking chlorthalidone. She was given IV hydralazine in the emergency department without any adverse reactions and her MAP dropped by over 25% already by the time we admitted her, so she was admitted to the floor and the decision was made not to treat her with a drip and rather scheduled medications with a goal of normalizing her blood pressure in the next 24 hours. This was done with the addition of PO hydralazine to her chlorthalidone and she tolerated it well. It should be noted that these medications were chosen based on her extensive list of allergies. They would not otherwise be the two firstline agents. She declined addition of other agents based on prior allergice reactions. On the day following admission, her blood pressures were improved, though not at goal which needs to be continued to be followed closely as an outpatient. Her weakness resolved and I ambulated with her walker to the hallway and she felt that she was at baseline and agreed to discharge. She walks with a walker at baseline, and she was able to safely do so as she was prior to admission. 2. Hyperthyroidism. Again, her TSH was 0.00; however, she did not meet criteria for a hyperthyroid storm. Her free T4 was 2.34 and she was given instruction to follow up and a referral with Dr. Collins upon discharge. This was emphasized strongly, as it may be contributing both to her accelerated hypertension and her symptoms of weakness. 3. Elevated troponin. This was thought to be due to the demand in the setting of hypertensive emergency. On further review, her troponin has been elevated since 2014. An echocardiogram was obtained on this admission and showed moderate concentric LVH with an EF of 55% to 60% with the LV diastolic filling pattern consistent with pseudonormalization, mildly dilated left atrium, mild mitral regurgitation, mild tricuspid regurgitation, and moderate pulmonary hypertension. An ECG also showed evidence of LVH. 4. Diabetes. Her hemoglobin A1c had been 10.3 in 2017. Her primary care notes suggest that she is on INSULIN; however, she declines ever taking INSULIN due to an allergy. She declines retrying INSULIN and also has METFORMIN listed as an allergy. Given her extensive allergy list, she was not interested in trying an alternative diabetic medication. She was encouraged to also discuss this with Dr. Collins when she follows up with him for hyperthyroidism. 5. Chronic renal insufficiency. Her renal function was at baseline and her discharge creatinine is 1.33. PHYSICAL EXAM AT THE TIME OF DISCHARGE: General: Alert, well-appearing female , in no distress. HEENT: Pupils are 3 mm bilaterally and reactive to light. Extraocular movements are intact with no nystagmus. Oral mucosa is moist with no pharyngeal exudates or erythema. Neck: No JVP. No cervical adenopathy. Chest: She is in a regular rate and rhythm with no murmurs. Her PMI is laterally displaced. Lungs are clear bilaterally. No wheezes or rhonchi. Abdomen is soft, nontender, nondistended with no guarding or rebound. Extremities: She has no edema. She has a left mid foot amputation. She has a small sore on her left thompson with little drainage. Neurologic: Strength is 5/5 in all extremities. Her gait is antalgic with a walker due to a midfoot amputation, but she is steady. FOLLOWUP NEEDED: Ms. Arias is instructed to follow up with her primary care physician within 1 week of discharge for a blood pressure check on both chlorthalidone and hydralazine. She has also been referred to Dr. Collins for evaluation of her diabetes and hyperthyroidism. These are essential follow up visits, and this was emphasized to Susan prior to discharge. [id number]/[facility] #: [id number] YASSINE
== END 2018-08-02 21:59 | disposition home or self-care (01) ==
LOC: ED 14:59 → MEDTELE 20:42
PROVIDERS: ADMIT Internal Medicine; ATTEND Hospitalist
DX: I16.1 Hypertensive emergency (principal); E03.9 Hypothyroidism, unspecified; R53.1 Weakness; I10 Essential (primary) hypertension; I25.10 Atherosclerotic heart disease of native coronary artery without angina pectoris; I73.9 Peripheral vascular disease, unspecified; Z86.79 Personal history of other diseases of the circulatory system; E11.9 Type 2 diabetes mellitus without complications; E66.9 Obesity, unspecified; G47.30 Sleep apnea, unspecified; E78.5 Hyperlipidemia, unspecified; J45.909 Unspecified asthma, uncomplicated; J30.2 Other seasonal allergic rhinitis; K21.9 Gastro-esophageal reflux disease without esophagitis; K59.00 Constipation, unspecified; L30.2 Cutaneous autosensitization; Z95.1 Presence of aortocoronary bypass graft; Z89.429 Acquired absence of other toe(s), unspecified side; Z88.8 Allergy status to other drugs, medicaments and biological substances; Z87.891 Personal history of nicotine dependence; N18.9 Chronic kidney disease, unspecified
CPT/HCPCS: 36415; 70450; 71045; 76536; 80048; 80053; 80061; 81003; 81015; 82270; 82550; 82553; 83605; 83735; 83880; 84436; 84439; 84443; 84484; 85025; 85379; 85610; 85730; 87070; 87077; 87086; 87186; 87205; 87640; 87641; 93005; 93306; 96372; 96374; 96375; 96376; 99284; A9270-GY; G0378; J0360; J1200; J1644

== ENCOUNTER 2018-08-12 12:28 | Inpatient (IN) | payer MEDICARE ==
--- NOTE | 2018-08-12 12:50 | ED ---
Hypertension - HPI Summary HPI Summary: This pt is a 68 y/o female presenting to [facility] via EMS from her PCP's office for hypertension. Pt reports she saw Dr. March today for a follow up and was told her blood pressure was in the 260s/100s. She states she has been feeling a little weak and SOB. Denies chest pain, dizziness, headache, nausea, vomiting. Pt notes she was hospitalized and discharged on 08/02/18 with Hydralazine. She notes she had an allergic reaction 2-3 days ago after taking Hydralazine, she had swelling of her bottom lip and had her whole body in hives. Pt stopped taking this medication and also notes Hydralazine did not make her blood pressure any better. Pt was also told on 08/02/18 upon being discharged she had hyperthyroidism. - History of Current Complaint Stated Complaint: HIGH BLOOD PRESSURE Hx Obtained From: Patient Onset/Duration: Started Hours Ago, Still Present Timing: Lasting Hours Aggravating Factor(s): Nothing Alleviating Factor(s): Nothing Associated Signs & Symptoms: Weakness, SOB, Other: - NEG: chest pain, SOB, dizziness, headache, nausea, vomiting - Allergies/Home Medications Allergies/Adverse Reactions: Allergies Allergy/AdvReac Type Severity Reaction Status Date / Time aliskiren [From Tekturna] Allergy Severe Swelling Verified 08/12/18 14:32 Of Face,Lips,& Throat amlodipine [From Norvasc] Allergy Severe Shortness Verified 08/12/18 14:32 of Breath ceftriaxone [From Rocephin] Allergy Severe Swelling Verified 08/12/18 14:32 Of Face,Lips,& Throat Insulins Allergy Severe Swelling Verified 08/12/18 14:32 Iodinated Contrast- Oral and Allergy Severe Anaphylatic Verified 08/12/18 14:32 IV Dye Shock irbesartan [From Avapro] Allergy Severe Swelling Verified 08/12/18 14:32 Of Face,Lips,& Throat levofloxacin [From Levaquin] Allergy Severe Hives Verified 08/12/18 14:32 metoprolol Allergy Severe Swelling Verified 08/12/18 14:32 polyethylene glycol 3350 Allergy Severe Shortness Verified 08/12/18 14:32 [From Miralax] of Breath rosiglitazone [From Avandia] Allergy Severe Shortness Verified 08/12/18 14:32 of Breath rosuvastatin [From Crestor] Allergy Severe Swelling Verified 08/12/18 14:32 Of Face,Lips,& Throat metformin Allergy Intermediate Pain Verified 08/12/18 14:32 furosemide [From Lasix] Allergy Unknown Verified 08/12/18 14:32 Reaction Details iodine Allergy Anaphylatic Verified 08/12/18 14:32 Shock Iodine and Iodide Containing Allergy Anaphylatic Verified 08/12/18 14:32 Produc Shock lisinopril Allergy Unknown Verified 08/12/18 14:32 Reaction Details PMH/Surg Hx/FS Hx/Imm Hx Endocrine/Hematology History: Reports: Hx Diabetes Cardiovascular History: Reports: Hx Coronary Artery Disease, Hx Hypertension, Hx Peripheral Vascular Disease, Other Cardiovascular Problems/Disorders - carotid endarterectomy, cardiac cath 2010, CABG x 4 Denies: Hx Angina, Hx Hypercholesterolemia, Hx Myocardial Infarction, Hx Pacemaker/ICD, Hx Valvular Heart Disease Respiratory History: Reports: Hx Asthma, Hx Pneumonia, Hx Seasonal Allergies, Hx Sleep Apnea Denies: Hx Chronic Obstructive Pulmonary Disease (COPD) GI History: Reports: Hx Gastroesophageal Reflux Disease, Other GI Disorders - Ham[place], constipation History: Reports: Hx Chronic Renal Failure - CKD stage III Denies: Hx Renal Disease Musculoskeletal History: Reports: Hx Fibromyalgia, Hx Orthopedic Injury, Other Musculoskeletal History - S/P metatarsal amputation left foot Denies: Hx Osteoporosis Sensory History: Reports: Hx Cataracts - corrected by surgery, Hx Contacts or Glasses - reading only Denies: Hx Hearing Aid, Hx Hearing Problem Opthamlomology History: Reports: Hx Cataracts - corrected by surgery, Hx Contacts or Glasses - reading only Neurological History: Reports: Hx Nerve Disease - fibromyalgia, Other Neuro Impairments/Disorders Denies: Hx Dementia Psychiatric History: Denies: Hx Panic Disorder - Surgical History Surgery Procedure, Year, and Place: quintuple bi-pass. 2008, cataracts; Left 5th toe amputation; Left 2nd toe amputation;(subsequent left foot complete metatarsal amputation) right patellar tendon repair; tonsilectomy, adenoids removed; carotid endarterectomy, left foot LisFranc reduction Hx Anesthesia Reactions: No Infectious Disease History: Denies: Hx Hepatitis, Hx Shingles, Hx Tuberculosis - Family History Known Family History: Positive: Cardiac Disease, Hypertension, Diabetes - Social History Alcohol Use: Rare Hx Substance Use: No Substance Use Type: Reports: None Hx Tobacco Use: Yes Smoking Status (MU): Former Smoker Type: Cigarettes Amount Used/How Often: 1/2 ppweek Length of Time of Smoking/Using Tobacco: 2 years Have You Smoked in the Last Year: No Review of Systems Negative: Fever, Chills Negative: Chest Pain Positive: Shortness Of Breath Negative: Vomiting, Nausea Neurological: Other - NEG: dizziness Positive: Weakness. Negative: Headache All Other Systems Reviewed And Are Negative: Yes Physical Exam - Summary Physical Exam Summary: VITAL SIGNS: Reviewed. GENERAL: Patient is a well-developed and nourished female who is lying comfortable in the stretcher. Patient is not in any acute respiratory distress. HEAD AND FACE: No signs of trauma. No ecchymosis, hematomas or skull depressions. No sinus tenderness. EYES: PERRLA, EOMI x 2, No injected conjunctiva, no nystagmus. EARS: Hearing grossly intact. Ear canals and tympanic membranes are within normal limits. MOUTH: Oropharynx within normal limits. NECK: Supple, trachea is midline, no adenopathy, no JVD, no carotid bruit, no c- spine tenderness, neck with full ROM. CHEST: Symmetric, no tenderness at palpation LUNGS: Clear to auscultation bilaterally. No wheezing or crackles. CVS: Regular rate and rhythm, S1 and S2 present, no murmurs or gallops appreciated. ABDOMEN: Soft, non-tender. No signs of distention. No rebound, no guarding, and no masses palpated. Bowel sounds are normal. EXTREMITIES: FROM in all major joints, no edema, no cyanosis or clubbing. NEURO: Alert and oriented x 3. No acute neurological deficits. Speech is normal and follows commands. SKIN: Dry and warm Triage Information Reviewed: Yes Vital Signs On Initial Exam: Initial Vitals Temp Pulse Resp BP Pulse Ox 98.7 F 94 19 221/118 99 08/12/18 12:49 08/12/18 12:49 08/12/18 12:49 08/12/18 12:49 08/12/18 12:49 Vital Signs Reviewed: Yes Diagnostics - Laboratory Result Diagrams: 08/12/18 13:02 08/13/18 07:50 Lab Statement: Any lab studies that have been ordered have been reviewed, and results considered in the medical decision making process. - Radiology Chest XR Radiology Interpretation Completed By: Radiologist Summary of Radiographic Findings: IMPRESSION: Cardiomegaly. Patient is status post tracer thoracotomy. Right basilar atelectasis is noted. Dr. Krishna has reviewed this report. - EKG 13:01 Cardiac Rate: NL - at 90 bpm EKG Rhythm: Sinus Rhythm EKG Comparison: No Significant Change - similar to prior EKG on 08/01/18. Summary of EKG Findings: No ST elevations. LVH. Hypertension Course/Dx - Course Assessment/Plan: Blood work without any significant abnormality except for WBC of 3.1, BUN is 26, creatinine 1.18, glucose of 205, troponin 0.0.7, BNP is 1166 , and urinalysis is contaminated. Therefore we will send urine for cultures. In the ED course the patient has hypertensive urgency and she has multiple antihypertensive medications allergies. Therefore, I decided to place the patient on Nitroprusside drip. The patient was also given Lasix. The troponin is usually elevated for her and I do not believe that the patient has an acute coronary syndrome. I discussed my physical exam and findings with Dr. Mccray from the hospitalist services and he accepted the patient for admission. Patient is hemodynamically stable, alert and oriented x3. - Diagnoses Differential Diagnosis/HQI PQRI: Hypertension, Hypertensive Crisis, Hypertensive Urgency, Myocardial Infarction Provider Diagnoses: Hypertensive emergency, CHF exacerbation - Physician Notifications Discussed Care Of Patient With: Moe Mccray MD - hospitalist Time Discussed With Above Provider: 13:44 Instructed by Provider To: Admit As Inpatient - Critical Care Time Critical Care Time: 75-104 min Discharge - Sign-Out/Discharge Documenting (check all that apply): Patient Departure - [place] [facility] [place] Received Moderate/Deep Sedation with Procedure: No - Discharge Plan Condition: Stable Disposition: ADMITTED TO [facility] - Billing Disposition and Condition Condition: STABLE Disposition: Admitted to [facility] - Attestation Statements Document Initiated by Scribe: Yes Documenting Scribe: Taya Hernandez Provider For Whom Scribe is Documenting (Include Credential): Bishnu Krishna MD Scribe Attestation: Taya Mitchell, scribed for Bishnu Krishna MD on 08/14/18 at 2033. Scribe Documentation Reviewed: Yes Provider Attestation: The documentation as recorded by the scribTaya mckeon accurately reflects the service I personally performed and the decisions made by me, Bishnu Krishna MD Status of Scribe Document: Viewed
[2018-08-12 13:11] LABS: ABS Basophils 0 10^3/ul (0-0.2); ABS Eosinophils 0.1 10^3/ul (0-0.6); ABS Lymphocytes 1.1 10^3/ul (1.0-4.8); ABS Monocytes 0.4 10^3/ul (0-0.8); ABS Neutrophils 1.5 10^3/ul (1.5-7.7); ABS Nucleated RBC 0 10^3/ul; Eosinophil % 2.3 %; Hematocrit 39 % (35-47); Hemoglobin 12.8 g/dl (12.0-16.0); Mean Corpuscular HGB Conc 33 g/dl (31-36); Mean Corpuscular Hemoglobin 28 pg (27-31); Mean Corpuscular Volume 86 fL (80-97); Nucleated Red Blood Cells % 0.3; Platelet Count 232 10^3/ul (150-450); Red Blood Count 4.59 10^6/ul (4.00-5.40); Red Cell Distribution Width 14 % (10.5-15); White Blood Count 3.1 10^3/ul (3.5-10.8)
[2018-08-12] MEDS ORDERED: diPHENhydraMINE IV* 50 MG/ML 1 ml VIAL (BENADRYL) IV ONE (13:19)
[2018-08-12 13:29] LABS: ALT 18 U/L (7-52); Albumin 3.7 g/dL (3.2-5.2); Albumin/Globulin Ratio 1.1 (1-3); Alkaline Phosphatase 93 U/L (34-104); Blood Urea Nitrogen 26 mg/dL (6-24); CO2 Carbon Dioxide 27 mmol/L (22-32); Calcium 8.9 mg/dL (8.6-10.3); Chloride 106 mmol/L (101-111); Creatine Kinase 172 U/L (10-223); EGFR African American 55.5 (>60); EGFR Non-African American 45.8 (>60); Globulin 3.4 g/dL (2-4); Glucose 205 mg/dL (70-100); Sodium 139 mmol/L (135-145); Total Protein 7.1 g/dL (6.4-8.9)
[2018-08-12 13:31] LABS: Urine Appearance Cloudy; Urine Bacteria Absent (Absent); Urine Bilirubin Negative (Negative); Urine Blood 2+ (Negative); Urine Color Yellow; Urine Glucose 2+(150 mg/dL) (Negative); Urine Ketones Negative (Negative); Urine Nitrite Negative (Negative); Urine Protein 2+(100 mg/dL) (Negative); Urine Red Blood Cell 2+(6-10/hpf) (Absent); Urine Specific Gravity 1.014 (1.010-1.030); Urine Squamous Epithelial Cell Present (Absent); Urine Urobilinogen Negative (Negative); Urine White Blood Cell 1+(6-10/hpf) (Absent)
[2018-08-12 13:32] LABS: CKMB ng/mL 5.6 ng/mL (0.6-6.3)
[2018-08-12 13:38] LABS: Troponin I 0.07 ng/mL (<0.04)
[2018-08-12] MEDS ORDERED: Furosemide IV* 10 MG/ML 2 ML VIAL (20 MG) IV ONE (13:38)
[2018-08-12 13:53] LABS: T4, Total 18.66 g/dL (6.09-12.23)
[2018-08-12] MEDS ORDERED: NitroPRUSSide* 50 MG in D5W 250 ML BAG* 248 ML IVPB SCH ×4 (14:00)
[2018-08-12 14:10] LABS: Anion Gap 6 mmol/L (2-11)
[2018-08-12] MEDS ORDERED: Acetaminophen TAB* 325 MG PO PRN (15:13)
[2018-08-12] MEDS ORDERED: diPHENhydraMINE IV* 50 MG/ML 1 ml VIAL (BENADRYL) IV PRN (15:19)
[2018-08-12] MEDS: nitroGLYCERIN DRIP* 25,000 MCG/250 ML BTL IV SCH (15:29)
[2018-08-12 15:40] LABS: Magnesium 2.4 mg/dL (1.9-2.7); Potassium Redraw 3.8 mmol/L (3.5-5.0)
--- NOTE | 2018-08-12 17:42 | HP ---
CC: Dr. Garzon * HISTORY AND PHYSICAL: DATE OF ADMISSION: 08/12/18 PROVIDER: Patricia Paredes NP. PRIMARY CARE PROVIDER: Dr. Garzon. ATTENDING PHYSICIAN WHILE IN THE HOSPITAL: Dr. Jayy Mccray * (dictated by Patricia Paredes NP). CHIEF COMPLAINT: Hypertension. HISTORY OF PRESENT ILLNESS: Ms. Arias is a 68-year-old female with a past medical history significant for CAD, PVD, hypertension, CABG, asthma, sleep apnea, GERD, diabetes, who presented to the emergency room from her doctor's office due to hypertension. The patient reports that she was seen at her primary care physician's office today for routine followup after a recent admission from 08/01/18 to 08/03/18 for hypertension. The patient reports the blood pressure at her doctor's office was 200s/100s, so she was sent to the emergency room for further evaluation. On arrival to the emergency room, the patient's blood pressure was 221/118. The patient states that she was recently started on hydralazine 3 times a day, which she had been taking at home until 3 days ago when she developed lower lip swelling and broke out into hives, so she discontinued the medication. Due to the patient's continued hypertensive emergency, we were asked to evaluate the patient for admission. PAST MEDICAL HISTORY: Significant for coronary artery disease, status post CABG ; peripheral vascular disease; hypertension; carotid endarterectomy; diabetes; obesity; hypothyroid; sleep apnea; dyslipidemia; asthma; seasonal allergies; GERD; constipation; edgar. PAST SURGICAL HISTORY: Quintuple bypass, cataracts, left fifth toe amputation, left second toe amputation, right patellar tendon repair, tonsillectomy, adenoidectomy, carotid endarterectomy, left foot Lisfranc reduction. HOME MEDICATIONS: Chlorthalidone 25 mg p.o. daily. ALLERGIES: 1. ALISKIREN. 2. AMLODIPINE. 3. CEFTRIAXONE. 4. INSULIN ASPART. 5. ALL INSULINS. 6. IODINE CONTRAST. 7. AVAPRO. 8. HYDRALAZINE. 9. LEVAQUIN. 10. METOPROLOL. 11. MIRALAX. 12. AVANDIA. 13. CRESTOR. 14. METFORMIN. 15. IODINE. 16. LISINOPRIL. 17. FUROSEMIDE. FAMILY HISTORY: The patient reports father had a history of hypertension and diabetes. She does report maternal and paternal grandparents with heart disease and diabetes. No reported history of cancer within the family. SOCIAL HISTORY: The patient reports she quit smoking approximately 40 years ago. She denies any alcohol or illicit drug use. She is single. She lives alone. Her surrogate decision maker in the event she is unable to make her own decisions is her sister, Shanelle Arias or Cristine Guerra. Code status, she is a full code. The patient does use a wheelchair for transportation. REVIEW OF SYSTEMS: The patient denies any fever, chills, unintended weight loss. Denies any chest pain or edema. Denies any cough, hemoptysis, or shortness of breath. Denies any nausea, vomiting, diarrhea, hematuria, dysuria , focal weakness, or sensory loss. Denies any visual complaints, dysphagia, arthralgias, myalgias, rashes, lesions, psychosis, or anxiety. The patient does report some tongue tingling and swelling after the initiation of nitroprusside in the emergency room. Nitroprusside drip has been discontinued. PHYSICAL EXAMINATION GENERAL: At this time, Ms. Arias is a 68-year-old female. She is well developed, sitting in bed. She is in no acute distress. She appears her stated age. VITAL SIGNS: Temperature was 98.7, blood pressure 203/104, heart rate is 94, respirations are 20, O2 saturation 97%. HEENT: Head is atraumatic, normocephalic. Eyes: EOMs are intact. Sclerae anicteric and not pale. Oral mucosa appeared to be moist. No oropharyngeal erythema. NECK: Supple. LUNGS: Clear to auscultation bilaterally. No wheezes, rales, or rhonchi. CARDIAC: S1, S2. Regular rate and rhythm. No murmurs, rubs, or gallops. There is no JVD. ABDOMEN: Soft and nontender. Bowel sounds are present x4. EXTREMITIES: There is no clubbing or cyanosis. Pedal pulses are +1 bilaterally. The patient has a left mid foot amputation. She also has a left lateral extremity with dressing that is intact with healing wound. She is able to move all 4 extremities. There are no deformities. NEUROLOGIC: She is awake, alert, and oriented x3. Cranial nerves II through XII are grossly intact. Speech is clear. Thought process is intact. SKIN: She does have an abrasion and wound noted to her left lateral leg. DIAGNOSTIC STUDIES/LAB DATA: WBCs are 3.1, RBCs 4.59, hemoglobin 12.8, hematocrit was 39, platelet count was 232. Sodium 139, potassium not reported, chloride 106, carbon dioxide was 27, anion gap was 6, BUN was 26, creatinine 1.18, glucose is 205, lactic acid is 1.2, calcium 8.9, magnesium not reported. Total bilirubin 0.60. Troponin 0.07. BNP was 1166. TSH was 0.00. T4 was 18.66. Urine was cloudy, pH was 6, specific gravity 1.014, urine protein was 2+ , ketones was negative, urine blood was 2+, nitrites was negative, bilirubin was negative, urobilinogen was negative, leukocyte esterase was trace, wbc's were 1+, rbc's were 2+, squamous epithelial cells were present, bacteria was absent, glucose was 2+. She had a chest x-ray, radiologist's impression: Cardiomegaly. The patient is status post tracer thoracotomy, right basilar atelectasis is noted. ASSESSMENT AND PLAN: Ms. Arias is a 68-year-old female with a past medical history significant for coronary artery disease, hypertension, coronary artery bypass grafting, hyperlipidemia, peripheral vascular disease, obesity, diabetes , who presented to the emergency room from her primary care office after being found to have hypertensive emergency. She will be admitted under observation for the followin. Hypertensive emergency. The patient recently was started on hydralazine, which she has developed an allergy to. The patient reports she developed hives and lip swelling, so medication was discontinued. The patient was started on nitroprusside in the emergency room. Again, the patient complained of tongue tingling and tongue swelling, so nitroprusside was discontinued. She will be started on a nitro drip at 5 mcg and titrated to achieve a systolic blood pressure between 140 and 150. I did talk to Dr. Leos as he says this was his recommendation. We will consider trying clonidine and Imdur if the patient tolerates nitroglycerin drip. We can convert her to a nitro patch when able. We will place her in the ICU on a nitro drip and titrate the nitro drip to achieve a systolic blood pressure between 140 and 150. Will add clonidine if no reaction to nitroglycerin. The patient again has an elevated troponin. I suspect this is related to demand ischemia due to his hypertension. We will repeat an EKG in the morning and the patient currently is chest pain-free. 2. Renal insufficiency. The patient has chronic kidney disease stage 3. The patient's current creatinine is at her baseline of 1.18, which is slightly lower than her baseline since 2017. We will continue to monitor her BNP and avoid nephrotoxic medications. 3. Elevated blood glucose. The patient's blood sugar on arrival was 205. The patient currently does not take any oral or insulin for diabetes management due to her allergies. I will place her on a consistent carb heart healthy diet. She will not be started on the sliding scale due to her history of allergies to insulin and oral diabetic medications. I would recommend again that she follow up with Endocrinology as an outpatient for further management. Her hemoglobin A1c was 10.3. 4. Elevated troponin. The patient has a chronic elevation in her troponin, I suspect this is related to demand ischemia from hypertension. Her troponin today was 0.07. We will repeat her troponin and continue to monitor. Again, the patient does not have any active chest pain at this time. 5. Elevated BNP. Her BNP was 1166. The patient has no shortness of breath at this time. Chest x-ray does not show any congestive heart failure. She does have some mild swelling in her lower extremities, which the patient reports comes and goes. At this point, she does report an allergy to furosemide. I will hold off on giving her diuretics as the patient's oxygen saturation is within normal limits and she is not acutely short of breath. 6. Hyperthyroid. The patient's TSH is 0.00, her T4 is 18.66. She does have a scheduled followup appointment with Dr. Collins on 08/20/18. We could consider consult to Endocrinology as this also could be contributing to her hypertension. 7. Coronary artery disease. The patient is not currently taking any medications for coronary artery disease due to her extensive allergies. 8. The patient has a history of hyperlipidemia. She is currently not on any statin therapy due to her allergies. I would recommend continuing with lifestyle modifications and follow up with primary care provider for possible alternative agents to treat her hyperlipidemia. 9. FEN. The patient will be prescribed a consistent carb heart healthy diet. 10. Code status. She is a full code. 11. DVT prophylaxis. The patient is at high risk. I will order heparin as the patient was able to tolerate heparin subcu during her last admission. TIME SPENT: Time spent on this admission was 60 minutes, greater than half that time was spent [id number] with the patient, obtaining my history and physical; the other half of the time was spent reviewing my plan of care. I have discussed this with my attending, Dr. Jayy Mccray; he is in agreement with my plan. PATRICIA PAREDES, [employer]CHITECT [id number]/CPS #: [id number] YASSINE
[2018-08-12] MEDS ORDERED: cloNIDine TAB* 0.1 MG PO SCH (23:00)
[2018-08-13] MEDS: nitroGLYCERIN DRIP* 25,000 MCG/250 ML BTL IV SCH ×3 (02:31→14:30)
[2018-08-13 06:10] LABS: Blood Urea Nitrogen 26 mg/dL (6-24); CO2 Carbon Dioxide 27 mmol/L (22-32); Calcium 8.6 mg/dL (8.6-10.3); Chloride 104 mmol/L (101-111); EGFR African American 58.3 (>60); EGFR Non-African American 48.2 (>60); Glucose 235 mg/dL (70-100); Sodium 137 mmol/L (135-145)
[2018-08-13 06:13] LABS: Anion Gap 6 mmol/L (2-11); Troponin I 0.07 ng/mL (<0.04)
[2018-08-13] MEDS: Chlorthalidone TAB* 50 MG PO SCH (08:09)
[2018-08-13] MEDS: cloNIDine TAB* 0.1 MG PO SCH ×3 (08:09→20:53)
[2018-08-13] MEDS ORDERED: Methimazole TAB* 5 MG PO ONE (08:43)
--- NOTE | 2018-08-13 08:47 | CONSULT ---
Consult Consult: [facility] Inpatient Consult Note Date of Consult: 08/13/18 Reason for Consult: hyperthyroidism Reason for Admission: hypertensive urgency ASSESSMENT: 68 yo F with thyrotoxicosis and ophthalmopathy, most likely due to recent-onset Graves' Disease, now admitted for hypertensive urgency. Her symptoms of LE weakness, diarrhea, dry eyes, palpitations, tremor and tremulousness are consistent with Graves. Mild hypokalemia, goiter, tachycardia suggest a mild clinical syndrome. Multiple medication intolerances (BB, CCB, sulfa, iodine, diuretic, etc) will make medical treatment challenging; she is not a candidate for iodine ablation of the thyroid due to eye involvement. I recommend initiation of standard dose thionamide (methimazole) for now and observation for at least 24h to ensure that she tolerates this medication before discharge. She has uncontrolled diabetes and would benefit from resumption of basal insulin to establish glycemic control this admission. I also recommend nutritional insulin to estimate her insulin requirement. In the future, she would benefit from a low-carbohydrate diet, as she is intolerant to all classes of diabetes medications except insulin and has not been able to adhere to insulin regimens at home in the past. PLAN: - start methimazole 20mg BID today, then once daily tomorrow and at discharge - if allergic response or symptoms, start hydrocortisone 100mg Q6H - check free T4 and free T3 daily while inpatient - add-on free T4, free T3 and TRAb from AM sample (done) - start Lasix 20 units once daily - start Humalog 5 units TID-AC - start Humalog SSI SUBJECTIVE: History of Present Illness: 68 yo F with T2DM and multiple medication intolerances, recently admitted for lower extremity weakness, now re-admitted for hypertensive crisis. At the previous admission, she was found to have suppressed TSH and goiter on ultrasound, in setting of bilateral exophthalmos. She has been feeling until the past several months. She had a collapse at home several weeks ago that was caused by acute weakness in the lower extremities and inability to bear weight. She has recovered strength in the legs recently and has not fallen since, although she is now using a wheelchair. She was readmitted for hypertensive urgency after presenting to PCP office with tachycardia and BP>200, in setting of multiple intolerances to multiple antihypertensive agents. Past Medical History: 1. DM2, A1c >>10% since 2008, with microvascular (CKD, neuropathy) and macrovascular (toe amputation) 2. Essential hypertension 3. Multiple medication intolerances with angioedema 4. CAD/PAD 5. Dyslipidemia 6. BMI >30 Medications Prior to Admission: Chlorthalidone TAB* [Hygroton TAB*] 25 mg PO DAILY 03/10/16 [History Confirmed 08/12/18] Inpatient Medications: Acetaminophen (Tylenol Tab*) 650 mg PO Q4H PRN PRN Reason: FEVER/PAIN Chlorthalidone (Hygroton Tab*) 50 mg PO DAILY [facility] Last Admin: 08/13/18 08:09 Dose: 50 mg Clonidine HCl (Catapres Tab*) 0.2 mg PO TID [facility] Last Admin: 08/13/18 08:09 Dose: 0.2 mg Diphenhydramine HCl (Benadryl Iv*) 25 mg IV Q6H PRN PRN Reason: Allergy Symptoms Nitroglycerin/Dextrose (Nitroglycerin Drip*) 25,000 mcg in 250 mls @ 3 mls/hr IV .(Initial Rate) [facility]; Protocol Last Admin: 08/13/18 08:11 Dose: 3 mls/hr Allergies/Intolerances: MULTIPLE -- SEE LIST Social History: Lives alone. 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 Sister ( Shanelle Arias) is proxy. No alcohol, tobacco. Family History: Non-contributory. No autoimmune disorders that she recalls. Review of Systems: Diarrhea noted in past several days. No recent allergic or infectious symptoms. 12 system review is otherwise negative. OBJECTIVE: Temp Pulse Resp BP Pulse Ox 97.9 F 92 26 185/91 92 08/13/18 07:00 08/13/18 08:30 08/13/18 08:30 08/13/18 08:30 08/13/18 08:30 General: pleasant, oriented, no distress ENT: neck supple, moderate thyromegaly without bruit or nodule, no bruit is heard Chest: CTAB, no wheezing or crackles CV: tachycardic 90-100, no murmur Abdomen: soft, non-tender Extremities: s/p L forefoot amputation, no edema, distal pulses intact Skin: warm, dry, no rash Neuro: mild tremor of B hangs, strength 5/5, grossly intact motor/sensory in extremities Psych: pressured speech, heightened alertness, restricted affect, pleasant Labs: Thyroid U/S 08/02/18: heterogenous, hypoechoic nodule <1cm RIGHT, hyperechoic nodules <1cm LEFT and ISTHMUS WBC 3.1 10^3/ul (3.5-10.8) L 08/12/18 13:02 RBC 4.59 10^6/ul (4.00-5.40) 08/12/18 13:02 Hgb 12.8 g/dl (12.0-16.0) 08/12/18 13:02 Hct 39 % (35-47) 08/12/18 13:02 MCV 86 fL (80-97) 08/12/18 13:02 MCH 28 pg (27-31) 08/12/18 13:02 MCHC 33 g/dl (31-36) 08/12/18 13:02 RDW 14 % (10.5-15) 08/12/18 13:02 Plt Count 232 10^3/ul (150-450) 08/12/18 13:02 MPV 9.0 fL (7.4-10.4) 08/12/18 13:02 Neut % (Auto) 47.5 % 08/12/18 13:02 Lymph % (Auto) 36.0 % 08/12/18 13:02 [place] % (Auto) 13.2 % 08/12/18 13:02 Eos % (Auto) 2.3 % 08/12/18 13:02 Baso % (Auto) 1.0 % 08/12/18 13:02 Absolute Neuts (auto) 1.5 10^3/ul (1.5-7.7) 08/12/18 13:02 Absolute Lymphs (auto) 1.1 10^3/ul (1.0-4.8) 08/12/18 13:02 Absolute Monos (auto) 0.4 10^3/ul (0-0.8) 08/12/18 13:02 Absolute Eos (auto) 0.1 10^3/ul (0-0.6) 08/12/18 13:02 Absolute Basos (auto) 0 10^3/ul (0-0.2) 08/12/18 13:02 Absolute Nucleated RBC 0 10^3/ul 08/12/18 13:02 Nucleated RBC % 0.3 08/12/18 13:02 Sodium 137 mmol/L (135-145) 08/13/18 05:10 Potassium TNP 08/13/18 05:10 Chloride 104 mmol/L (101-111) 08/13/18 05:10 Carbon Dioxide 27 mmol/L (22-32) 08/13/18 05:10 Anion Gap 6 mmol/L (2-11) 08/13/18 05:10 BUN 26 mg/dL (6-24) H 08/13/18 05:10 Creatinine 1.13 mg/dL (0.51-0.95) H 08/13/18 05:10 Est GFR ( Amer) 58.3 (>60) 08/13/18 05:10 Est GFR (Non-Af Amer) 48.2 (>60) 08/13/18 05:10 BUN/Creatinine Ratio 23.0 (8-20) H 08/13/18 05:10 Glucose 235 mg/dL (70-100) H 08/13/18 05:10 Lactic Acid 1.2 mmol/L (0.5-2.0) 08/12/18 13:02 Calcium 8.6 mg/dL (8.6-10.3) 08/13/18 05:10 Magnesium 2.4 mg/dL (1.9-2.7) 08/12/18 15:11 Total Bilirubin 0.60 mg/dL (0.2-1.0) 08/12/18 13:02 AST 18 U/L (13-39) 08/12/18 15:11 ALT 18 U/L (7-52) 08/12/18 13:02 Alkaline Phosphatase 93 U/L (34-104) 08/12/18 13:02 Total Creatine Kinase 172 U/L (10-223) 08/12/18 13:02 CK-MB (CK-2) 5.6 ng/mL (0.6-6.3) 08/12/18 13:02 Troponin I 0.07 ng/mL (<0.04) H* 08/13/18 05:10 B-Natriuretic Peptide 1166 pg/mL (<=100) H 08/12/18 13:02 Total Protein 7.1 g/dL (6.4-8.9) 08/12/18 13:02 Albumin 3.7 g/dL (3.2-5.2) 08/12/18 13:02 Globulin 3.4 g/dL (2-4) 08/12/18 13:02 Albumin/Globulin Ratio 1.1 (1-3) 08/12/18 13:02 TSH 0.00 mcIU/mL (0.34-5.60) L 08/12/18 13:02 Thyroxine (T4) 18.66 g/dL (6.09-12.23) H 08/12/18 13:02 Urine Color Yellow 08/12/18 12:52 Urine Appearance Cloudy 08/12/18 12:52 Urine pH 6.0 (5-9) 08/12/18 12:52 Ur Specific [place] 1.014 (1.010-1.030) 08/12/18 12:52 Urine Protein 2+(100 mg/dl) (Negative) A 08/12/18 12:52 Urine Ketones Negative (Negative) 08/12/18 12:52 Urine Blood 2+ (Negative) A 08/12/18 12:52 Urine Nitrate Negative (Negative) 08/12/18 12:52 Urine Bilirubin Negative (Negative) 08/12/18 12:52 Urine Urobilinogen Negative (Negative) 08/12/18 12:52 Ur Leukocyte Esterase Trace (Negative) A 08/12/18 12:52 Urine WBC (Auto) 1+(6-10/hpf) (Absent) A 08/12/18 12:52 Urine RBC (Auto) 2+(6-10/hpf) (Absent) A 08/12/18 12:52 Ur Squamous Epith Cells Present (Absent) A 08/12/18 12:52 Urine Bacteria Absent (Absent) 08/12/18 12:52 Urine Glucose 2+(150 mg/dl) (Negative) A 08/12/18 12:52
[2018-08-13] MEDS ORDERED: Chlorthalidone TAB* 50 MG PO SCH (09:00)
--- NOTE | 2018-08-13 11:27 | PN ---
Subjective Date of Service: 08/13/18 Interval History: Pt feels well. denies SOB, CP. C/o feeing increased fatigue for the past several months now. Objective Active Medications: Acetaminophen (Tylenol Tab*) 650 mg PO Q4H PRN PRN Reason: FEVER/PAIN Chlorthalidone (Hygroton Tab*) 50 mg PO DAILY [facility] Last Admin: 08/13/18 08:09 Dose: 50 mg Clonidine HCl (Catapres Tab*) 0.2 mg PO TID [facility] Last Admin: 08/13/18 08:09 Dose: 0.2 mg Diphenhydramine HCl (Benadryl Iv*) 25 mg IV Q6H PRN PRN Reason: Allergy Symptoms Nitroglycerin/Dextrose (Nitroglycerin Drip*) 25,000 mcg in 250 mls @ 3 mls/hr IV .(Initial Rate) [facility]; Protocol Last Admin: 08/13/18 08:11 Dose: 3 mls/hr Methimazole (Tapazole Tab*) 20 mg PO BEDTIME [facility] Stop: 08/13/18 23:59 Methimazole (Tapazole Tab*) 20 mg PO DAILY [facility] Vital Signs - 8 hr 08/13/18 08/13/18 08/13/18 03:30 03:45 04:00 Temperature 100.0 F Pulse Rate 92 93 90 Respiratory 31 30 28 Rate Blood Pressure 179/88 177/90 169/84 (mmHg) O2 Sat by Pulse 95 95 95 Oximetry 08/13/18 08/13/18 08/13/18 04:01 04:15 04:30 Temperature Pulse Rate 90 91 91 Respiratory 29 28 28 Rate Blood Pressure 170/84 174/87 (mmHg) O2 Sat by Pulse 97 95 96 Oximetry 08/13/18 08/13/18 08/13/18 04:45 05:00 05:01 Temperature Pulse Rate 91 92 91 Respiratory 26 26 25 Rate Blood Pressure 174/85 172/85 (mmHg) O2 Sat by Pulse 94 95 96 Oximetry 08/13/18 08/13/18 08/13/18 05:07 05:15 05:30 Temperature Pulse Rate 92 91 91 Respiratory 27 23 17 Rate Blood Pressure 161/87 177/92 178/82 (mmHg) O2 Sat by Pulse 97 98 96 Oximetry 02/07/19 02/07/19 02/07/19 05:45 06:00 06:01 Temperature Pulse Rate 87 88 87 Respiratory 22 25 20 Rate Blood Pressure 180/91 171/95 (mmHg) O2 Sat by Pulse 98 78 100 Oximetry 08/13/18 08/13/18 08/13/18 06:12 06:45 07:00 Temperature 97.9 F Pulse Rate 89 91 96 Respiratory 20 23 24 Rate Blood Pressure 184/101 181/89 193/99 (mmHg) O2 Sat by Pulse 98 97 97 Oximetry 08/13/18 08/13/18 08/13/18 07:15 07:30 07:45 Temperature Pulse Rate 94 92 91 Respiratory 25 25 21 Rate Blood Pressure 186/96 190/90 185/88 (mmHg) O2 Sat by Pulse 97 97 97 Oximetry 08/13/18 08/13/18 08/13/18 07:50 08:01 08:17 Temperature Pulse Rate 92 92 Respiratory 24 28 24 Rate Blood Pressure 165/84 182/92 (mmHg) O2 Sat by Pulse 92 94 Oximetry 08/13/18 08/13/18 08/13/18 08:30 09:00 09:15 Temperature Pulse Rate 92 91 84 Respiratory 26 23 33 Rate Blood Pressure 185/91 199/98 187/93 (mmHg) O2 Sat by Pulse 92 94 92 Oximetry 08/13/18 08/13/18 08/13/18 09:30 09:45 09:53 Temperature Pulse Rate 81 80 78 Respiratory 33 28 30 Rate Blood Pressure 161/71 134/50 137/55 (mmHg) O2 Sat by Pulse 91 90 89 Oximetry 08/13/18 08/13/18 08/13/18 09:55 10:00 10:06 Temperature Pulse Rate 77 76 77 Respiratory 32 32 24 Rate Blood Pressure 142/57 138/54 119/64 (mmHg) O2 Sat by Pulse 89 89 89 Oximetry 08/13/18 08/13/18 08/13/18 10:10 10:15 10:20 Temperature Pulse Rate 75 77 80 Respiratory 30 25 28 Rate Blood Pressure 130/56 143/64 164/78 (mmHg) O2 Sat by Pulse 88 87 94 Oximetry 08/13/18 08/13/18 08/13/18 10:25 10:31 10:37 Temperature Pulse Rate 74 72 72 Respiratory 25 19 24 Rate Blood Pressure 157/68 111/71 158/66 (mmHg) O2 Sat by Pulse 95 95 94 Oximetry 08/13/18 08/13/18 08/13/18 10:40 10:51 11:00 Temperature Pulse Rate 73 72 73 Respiratory 24 29 27 Rate Blood Pressure 157/75 153/72 162/82 (mmHg) O2 Sat by Pulse 92 95 93 Oximetry 08/13/18 08/13/18 11:03 11:11 Temperature 98.1 F Pulse Rate 73 Respiratory 24 21 Rate Blood Pressure 163/79 (mmHg) O2 Sat by Pulse 95 Oximetry Oxygen Devices in Use Now: None Appearance: 68 yo f in nAD, aAOx3 Eyes: No Scleral Icterus, PERRLA Ears/Nose/Mouth/Throat: NL Teeth, Lips, Gums, Mucous Membranes Moist Neck: NL Appearance and Movements; NL JVP, Trachea Midline Respiratory: Symmetrical Chest Expansion and Respiratory Effort, Clear to Auscultation Cardiovascular: NL Sounds; No Murmurs; No JVD, RRR Abdominal: NL Sounds; No Tenderness; No Distention Lymphatic: No Cervical Adenopathy Extremities: No Edema, No Clubbing, Cyanosis, - - sp left foot toes amputation Skin: No Rash or Ulcers, No Nodules or Sclerosis Neurological: Alert and Oriented x 3, NL Muscle Strength and Tone Result Diagrams: 08/12/18 13:02 08/13/18 07:50 Microbiology and Other Data: Microbiology 08/12/18 16:20 Nasal Screen MRSA (PCR) - Final Nasal Mrsa Not Detected Assess/Plan/Problems-Billing Assessment: 68 yo F with h/o HTN, DM (untreated at home due to multiple allergies), left toes amputation inv the past presents with severe HTN and trop 0.07 - Patient Problems (1) Hyperthyroidism Comment: appreciate Dr. Collins's recommendations: will start methimazole (2) Hypertensive urgency Comment: cont nitroglicerin gtt Clonidine increased to 0.2 mg TID Chlortalidione increased to 50 mg Treatment is limited due to muliple allergies (3) Type 2 diabetes mellitus Comment: - Chronically uncontrolled - last A1c 10.3. - start Humalog TID and ISS as per DR. Collins (4) Elevated troponin Comment: Pt denies CP Pt has chronically elevated trops. suspect demand ischemia due to HTN. (5) DVT prophylaxis Comment: SQ heparin.
[2018-08-13] MEDS ORDERED: Dextrose 50% Syringe 50 ML* 25 GM/50 ML SYRINGE IV PUSH PRN (11:30)
[2018-08-13] MEDS ORDERED: Insulin LISPRO* 1 UNITS UNIT SUBCUT SCH ×2 (12:00)
[2018-08-13] MEDS ORDERED: Isosorbide Mononitrate ER TAB* 30 MG PO ONE (12:01)
[2018-08-13 12:35] LABS: Free T3 4.8 pg/mL (2.5-3.9)
[2018-08-13 12:36] LABS: Free T4 2.62 ng/dL (0.61-1.12)
[2018-08-13] MEDS: Heparin VIAL(*) 5000 UNITS/ML VIAL (FIVE THOUSAND) SUBCUT SCH ×2 (13:50→23:06)
[2018-08-13] MEDS ORDERED: Methimazole TAB* 5 MG PO SCH (21:00)
[2018-08-14] MEDS: Heparin VIAL(*) 5000 UNITS/ML VIAL (FIVE THOUSAND) SUBCUT SCH ×3 (06:44→21:05)
[2018-08-14] MEDS: cloNIDine TAB* 0.1 MG PO SCH ×3 (08:07→21:05)
[2018-08-14] MEDS: Chlorthalidone TAB* 50 MG PO SCH (08:07)
[2018-08-14] MEDS: Methimazole TAB* 5 MG PO SCH (08:08)
[2018-08-14] MEDS: Repaglinide TAB* 1 MG PO SCH ×3 (08:16→17:21)
--- NOTE | 2018-08-14 08:31 | PN ---
Subjective Date of Service: 08/14/18 Interval History: Pt feels well. Tired today. Denies SOB or CP. 'When asked about insulin Lantus that she tried one month ago and stopped due to adverse reaction, pt cannot recall what happened. Nevertheless when she thinks about Lantus " a feeling of swollen lips , hives and SOB comes to her mind". Pt usually is not on any treatment for her diabetes and had not been for at least a year with the exception of Lantus trial Objective Active Medications: Acetaminophen (Tylenol Tab*) 650 mg PO Q4H PRN PRN Reason: FEVER/PAIN Chlorthalidone (Hygroton Tab*) 50 mg PO DAILY [facility] Last Admin: 08/14/18 08:07 Dose: 50 mg Clonidine HCl (Catapres Tab*) 0.4 mg PO TID [facility] Last Admin: 08/14/18 08:07 Dose: 0.4 mg Diphenhydramine HCl (Benadryl Iv*) 25 mg IV Q6H PRN PRN Reason: Allergy Symptoms Heparin Sodium (Porcine) (Heparin Vial(*)) 5,000 units SUBCUT Q8HR [facility] Last Admin: 08/14/18 06:44 Dose: 5,000 units Nitroglycerin/Dextrose (Nitroglycerin Drip*) 25,000 mcg in 250 mls @ 3 mls/hr IV .(Initial Rate) [facility]; Protocol Last Admin: 08/13/18 14:30 Dose: 3 mls/hr Isosorbide Mononitrate (Imdur Er Tab*) 30 mg PO DAILY [facility] Last Admin: 08/14/18 08:07 Dose: 30 mg Methimazole (Tapazole Tab*) 20 mg PO DAILY [facility] Last Admin: 08/14/18 08:08 Dose: 20 mg Repaglinide (Prandin Tab*) 1 mg PO AC [facility] Last Admin: 08/14/18 08:16 Dose: 1 mg Vital Signs - 8 hr 08/14/18 08/14/18 08/14/18 00:30 00:31 00:40 Temperature Pulse Rate 67 67 67 Respiratory 36 33 32 Rate Blood Pressure 151/79 (mmHg) O2 Sat by Pulse 91 91 91 Oximetry 08/14/18 08/14/18 08/14/18 00:45 00:50 01:00 Temperature Pulse Rate 67 67 68 Respiratory 33 33 32 Rate Blood Pressure 150/79 151/78 (mmHg) O2 Sat by Pulse 90 91 91 Oximetry 08/14/18 08/14/18 08/14/18 01:01 01:10 01:15 Temperature Pulse Rate 68 67 72 Respiratory 30 31 31 Rate Blood Pressure 159/84 (mmHg) O2 Sat by Pulse 91 90 91 Oximetry 08/14/18 08/14/18 08/14/18 01:20 01:30 01:31 Temperature Pulse Rate 70 67 67 Respiratory 34 32 33 Rate Blood Pressure 158/84 (mmHg) O2 Sat by Pulse 92 92 92 Oximetry 08/14/18 08/14/18 08/14/18 01:40 01:45 01:50 Temperature Pulse Rate 67 67 67 Respiratory 33 32 34 Rate Blood Pressure 157/84 (mmHg) O2 Sat by Pulse 92 92 92 Oximetry 08/14/18 08/14/18 08/14/18 02:00 02:01 02:10 Temperature Pulse Rate 67 68 68 Respiratory 35 33 34 Rate Blood Pressure 161/82 (mmHg) O2 Sat by Pulse 92 92 89 Oximetry 08/14/18 08/14/18 08/14/18 02:15 02:20 02:30 Temperature Pulse Rate 68 67 67 Respiratory 29 34 29 Rate Blood Pressure 161/83 161/82 (mmHg) O2 Sat by Pulse 91 91 92 Oximetry 08/14/18 08/14/18 08/14/18 02:40 02:45 02:50 Temperature Pulse Rate 63 67 66 Respiratory 29 32 33 Rate Blood Pressure 168/88 (mmHg) O2 Sat by Pulse 92 90 92 Oximetry 08/14/18 08/14/18 08/14/18 03:00 03:01 03:10 Temperature 98.7 F Pulse Rate 68 68 65 Respiratory 30 18 8 Rate Blood Pressure 161/85 (mmHg) O2 Sat by Pulse 90 92 92 Oximetry 08/14/18 08/14/18 08/14/18 03:15 03:20 03:30 Temperature Pulse Rate 66 67 69 Respiratory 15 17 27 Rate Blood Pressure 164/84 165/86 (mmHg) O2 Sat by Pulse 91 92 92 Oximetry 08/14/18 08/14/18 08/14/18 03:31 03:40 03:45 Temperature Pulse Rate 68 70 70 Respiratory 25 19 20 Rate Blood Pressure 170/91 (mmHg) O2 Sat by Pulse 93 93 91 Oximetry 08/14/18 08/14/18 08/14/18 03:50 04:00 04:01 Temperature Pulse Rate 71 73 72 Respiratory 30 24 24 Rate Blood Pressure 171/90 (mmHg) O2 Sat by Pulse 92 90 92 Oximetry 08/14/18 08/14/18 08/14/18 04:10 04:15 04:20 Temperature Pulse Rate 70 68 69 Respiratory 25 23 22 Rate Blood Pressure 169/88 (mmHg) O2 Sat by Pulse 92 89 91 Oximetry 08/14/18 08/14/18 08/14/18 04:30 04:31 04:40 Temperature Pulse Rate 70 69 70 Respiratory 31 28 30 Rate Blood Pressure 170/89 (mmHg) O2 Sat by Pulse 89 91 92 Oximetry 08/14/18 08/14/18 08/14/18 04:45 04:50 05:00 Temperature Pulse Rate 70 69 70 Respiratory 26 25 30 Rate Blood Pressure 169/86 162/84 (mmHg) O2 Sat by Pulse 93 92 90 Oximetry 08/14/18 08/14/18 08/14/18 05:01 05:10 05:15 Temperature Pulse Rate 69 69 70 Respiratory 31 29 34 Rate Blood Pressure 166/84 (mmHg) O2 Sat by Pulse 92 92 92 Oximetry 08/14/18 08/14/18 08/14/18 05:20 05:30 05:31 Temperature Pulse Rate 70 72 71 Respiratory 30 26 17 Rate Blood Pressure 159/87 (mmHg) O2 Sat by Pulse 91 91 93 Oximetry 08/14/18 08/14/18 08/14/18 05:40 05:50 05:52 Temperature Pulse Rate 67 71 Respiratory 18 13 30 Rate Blood Pressure 157/92 (mmHg) O2 Sat by Pulse 94 93 Oximetry 08/14/18 08/14/18 08/14/18 06:00 06:01 06:10 Temperature Pulse Rate 71 72 72 Respiratory 24 34 31 Rate Blood Pressure 153/79 (mmHg) O2 Sat by Pulse 89 91 93 Oximetry 08/14/18 08/14/18 08/14/18 06:15 06:20 06:30 Temperature Pulse Rate 73 72 Respiratory 33 31 34 Rate Blood Pressure 187/86 (mmHg) O2 Sat by Pulse 90 94 Oximetry 08/14/18 08/14/18 08/14/18 06:31 06:40 06:45 Temperature Pulse Rate 70 70 70 Respiratory 21 32 28 Rate Blood Pressure 168/92 179/88 (mmHg) O2 Sat by Pulse 93 94 92 Oximetry 08/14/18 08/14/18 08/14/18 06:50 07:00 07:01 Temperature 98.4 F Pulse Rate 70 71 Respiratory 19 28 35 Rate Blood Pressure 175/92 (mmHg) O2 Sat by Pulse 91 91 Oximetry 08/14/18 08/14/18 08/14/18 07:10 07:15 07:20 Temperature Pulse Rate 72 70 70 Respiratory 31 34 31 Rate Blood Pressure 175/91 (mmHg) O2 Sat by Pulse 91 91 92 Oximetry 08/14/18 07:41 Temperature Pulse Rate Respiratory 27 Rate Blood Pressure (mmHg) O2 Sat by Pulse Oximetry Oxygen Devices in Use Now: None Appearance: 68 yo F in NAD, AAOx3 Eyes: No Scleral Icterus, PERRLA Ears/Nose/Mouth/Throat: NL Teeth, Lips, Gums, Mucous Membranes Moist Neck: NL Appearance and Movements; NL JVP, Trachea Midline Respiratory: Symmetrical Chest Expansion and Respiratory Effort, Clear to Auscultation Cardiovascular: NL Sounds; No Murmurs; No JVD, RRR Abdominal: NL Sounds; No Tenderness; No Distention, No Hepatosplenomegaly Lymphatic: No Cervical Adenopathy Extremities: No Edema, No Clubbing, Cyanosis, - - s/p amputation of all toes on left Skin: No Rash or Ulcers, No Nodules or Sclerosis Neurological: Alert and Oriented x 3, NL Muscle Strength and Tone Result Diagrams: 08/12/18 13:02 08/13/18 07:50 Microbiology and Other Data: Microbiology 08/12/18 16:20 Nasal Screen MRSA (PCR) - Final Nasal Mrsa Not Detected Assess/Plan/Problems-Billing Assessment: 68 yo F with h/o HTN, DM (untreated at home due to multiple allergies), left toes amputation inv the past presents with severe HTN and trop 0.07 - Patient Problems (1) Hyperthyroidism Comment: appreciate Dr. Collins's recommendations: methimazole started (2) Hypertensive urgency Comment: off nitroglicerin gtt Clonidine increased to 0.4 mg TID Chlortalidione increased to 50 mg stareted on Imdur 30 mg Treatment is limited due to muliple allergies (3) Type 2 diabetes mellitus Comment: - Chronically uncontrolled - last A1c 10.3. - pt is allergic to "all insulin" -agrees to try Prandin (4) Elevated troponin Comment: Pt denies CP Pt has chronically elevated trops. suspect demand ischemia due to HTN. (5) DVT prophylaxis Comment: SQ heparin. Status and Disposition: inpatient
[2018-08-14] MEDS ORDERED: Isosorbide Mononitrate ER TAB* 30 MG PO SCH (09:00)
[2018-08-14] MEDS ORDERED: Repaglinide TAB* 0.5 MG PO SCH (11:30)
[2018-08-14] MEDS ORDERED: Isosorbide Mononitrate ER TAB* 30 MG PO ONE (16:50)
[2018-08-14] MEDS ORDERED: Labetalol IV* 5 MG/ML 20 ML VIAL IV PUSH ONE (23:20)
[2018-08-14] MEDS: hydrALAZINE IV* 20 MG/ML VIAL IV SLOW PU ONE (23:57)
[2018-08-15] MEDS ORDERED: MinoXIDil TAB* 2.5 MG TAB PO ONE (00:45)
[2018-08-15] MEDS: nitroGLYCERIN DRIP* 25,000 MCG/250 ML BTL IV SCH (04:01)
[2018-08-15 04:18] LABS: ABS Basophils 0 10^3/ul (0-0.2); ABS Eosinophils 0.1 10^3/ul (0-0.6); ABS Lymphocytes 1.1 10^3/ul (1.0-4.8); ABS Monocytes 0.5 10^3/ul (0-0.8); ABS Neutrophils 1.3 10^3/ul (1.5-7.7); ABS Nucleated RBC 0 10^3/ul; Eosinophil % 2.5 %; Hematocrit 36 % (35-47); Hemoglobin 11.7 g/dl (12.0-16.0); Lymphocyte % 36.4 %; Mean Corpuscular HGB Conc 32 g/dl (31-36); Mean Corpuscular Hemoglobin 28 pg (27-31); Mean Corpuscular Volume 85 fL (80-97); Mean Platelet Volume 9.4 fL (7.4-10.4); Nucleated Red Blood Cells % 0; Platelet Count 213 10^3/ul (150-450); Red Blood Count 4.24 10^6/ul (4.00-5.40); Red Cell Distribution Width 14 % (10.5-15); White Blood Count 2.9 10^3/ul (3.5-10.8)
[2018-08-15 04:34] LABS: BUN/Creatinine Ratio 28.4 (8-20); Calcium 9.1 mg/dL (8.6-10.3); EGFR African American 47.9 (>60); EGFR Non-African American 39.6 (>60); Potassium 4.2 mmol/L (3.5-5.0)
[2018-08-15] MEDS: Heparin VIAL(*) 5000 UNITS/ML VIAL (FIVE THOUSAND) SUBCUT SCH ×3 (05:34→21:43)
[2018-08-15] MEDS: hydrALAZINE IV* 20 MG/ML VIAL IV SLOW PU ONE (07:26)
[2018-08-15] MEDS: Chlorthalidone TAB* 50 MG PO SCH (08:32)
[2018-08-15] MEDS: Isosorbide Mononitrate ER TAB* 60 MG PO SCH (08:32)
[2018-08-15] MEDS: cloNIDine TAB* 0.1 MG PO SCH ×4 (08:32→19:49)
[2018-08-15] MEDS: Repaglinide TAB* 1 MG PO SCH ×3 (08:32→16:36)
[2018-08-15] MEDS: Spironolactone TAB* 25 MG PO SCH (08:33)
[2018-08-15] MEDS: Methimazole TAB* 5 MG PO SCH (08:33)
--- NOTE | 2018-08-15 09:31 | PN ---
Subjective Date of Service: 08/15/18 Interval History: Pt has no new complaints. Feels tired. Was placed back on nitro gtt last night D/c'd gtt this aM Objective Active Medications: Acetaminophen (Tylenol Tab*) 650 mg PO Q4H PRN PRN Reason: FEVER/PAIN Chlorthalidone (Hygroton Tab*) 50 mg PO DAILY [facility] Last Admin: 08/15/18 08:32 Dose: 50 mg Clonidine HCl (Catapres Tab*) 0.8 mg PO TID [facility] Last Admin: 08/15/18 09:24 Dose: 0.4 mg Diphenhydramine HCl (Benadryl Iv*) 25 mg IV Q6H PRN PRN Reason: Allergy Symptoms Heparin Sodium (Porcine) (Heparin Vial(*)) 5,000 units SUBCUT Q8HR [facility] Last Admin: 08/15/18 05:34 Dose: 5,000 units Isosorbide Mononitrate (Imdur Er Tab*) 60 mg PO DAILY [facility] Last Admin: 08/15/18 08:32 Dose: 60 mg Methimazole (Tapazole Tab*) 20 mg PO DAILY [facility] Last Admin: 08/15/18 08:33 Dose: 20 mg Repaglinide (Prandin Tab*) 1 mg PO AC [facility] Last Admin: 08/15/18 08:32 Dose: 1 mg Spironolactone (Aldactone Tab*) 25 mg PO DAILY [facility] Last Admin: 08/15/18 08:33 Dose: 25 mg Vital Signs - 8 hr 08/15/18 08/15/18 08/15/18 01:30 01:35 01:40 Temperature Pulse Rate 62 61 62 Respiratory 29 25 27 Rate Blood Pressure 212/98 207/97 (mmHg) O2 Sat by Pulse 96 95 94 Oximetry 08/15/18 08/15/18 08/15/18 01:45 01:50 02:00 Temperature Pulse Rate 62 61 60 Respiratory 27 28 30 Rate Blood Pressure 213/98 204/95 (mmHg) O2 Sat by Pulse 96 95 95 Oximetry 08/15/18 08/15/18 08/15/18 02:10 02:20 02:30 Temperature Pulse Rate 60 57 60 Respiratory 28 32 28 Rate Blood Pressure 199/90 (mmHg) O2 Sat by Pulse 94 95 94 Oximetry 08/15/18 08/15/18 08/15/18 02:31 02:40 02:49 Temperature Pulse Rate 60 63 60 Respiratory 28 22 25 Rate Blood Pressure 194/86 (mmHg) O2 Sat by Pulse 95 94 95 Oximetry 08/15/18 08/15/18 08/15/18 02:51 03:00 03:10 Temperature Pulse Rate 61 64 61 Respiratory 28 17 14 Rate Blood Pressure 204/93 (mmHg) O2 Sat by Pulse 94 95 94 Oximetry 08/15/18 08/15/18 08/15/18 03:20 03:30 03:31 Temperature Pulse Rate 61 63 62 Respiratory 27 24 18 Rate Blood Pressure 182/76 (mmHg) O2 Sat by Pulse 95 96 96 Oximetry 08/15/18 08/15/18 08/15/18 03:33 03:40 03:50 Temperature 97.9 F Pulse Rate 60 61 Respiratory 30 30 Rate Blood Pressure (mmHg) O2 Sat by Pulse 97 96 Oximetry 08/15/18 08/15/18 08/15/18 04:00 04:01 04:10 Temperature Pulse Rate 61 60 59 Respiratory 27 16 31 Rate Blood Pressure 196/91 (mmHg) O2 Sat by Pulse 95 97 96 Oximetry 08/15/18 08/15/18 08/15/18 04:20 04:30 04:40 Temperature Pulse Rate 58 61 58 Respiratory 28 29 24 Rate Blood Pressure 173/78 (mmHg) O2 Sat by Pulse 95 95 94 Oximetry 08/15/18 08/15/18 08/15/18 04:50 05:00 05:10 Temperature Pulse Rate 60 62 61 Respiratory 28 27 28 Rate Blood Pressure 172/74 (mmHg) O2 Sat by Pulse 96 91 93 Oximetry 08/15/18 08/15/18 08/15/18 05:20 05:30 05:31 Temperature Pulse Rate 62 61 62 Respiratory 31 27 27 Rate Blood Pressure 172/77 (mmHg) O2 Sat by Pulse 94 94 92 Oximetry 08/15/18 08/15/18 08/15/18 05:40 05:50 06:00 Temperature Pulse Rate 57 61 59 Respiratory 26 24 27 Rate Blood Pressure 188/81 (mmHg) O2 Sat by Pulse 95 93 94 Oximetry 08/15/18 08/15/18 08/15/18 06:01 06:10 06:20 Temperature Pulse Rate 61 58 58 Respiratory 27 28 24 Rate Blood Pressure (mmHg) O2 Sat by Pulse 95 95 95 Oximetry 08/15/18 08/15/18 08/15/18 06:30 06:40 06:50 Temperature Pulse Rate 58 59 65 Respiratory 31 28 18 Rate Blood Pressure 182/82 (mmHg) O2 Sat by Pulse 94 94 96 Oximetry 08/15/18 08/15/18 08/15/18 07:00 07:02 07:10 Temperature Pulse Rate 59 60 62 Respiratory 27 22 25 Rate Blood Pressure 189/87 (mmHg) O2 Sat by Pulse 96 98 97 Oximetry 08/15/18 08/15/18 08/15/18 07:20 07:30 07:31 Temperature Pulse Rate 61 64 61 Respiratory 27 25 26 Rate Blood Pressure 195/91 (mmHg) O2 Sat by Pulse 98 95 96 Oximetry 08/15/18 08/15/18 08/15/18 07:40 07:57 08:00 Temperature Pulse Rate 65 72 61 Respiratory 25 27 25 Rate Blood Pressure 177/84 (mmHg) O2 Sat by Pulse 97 95 95 Oximetry 08/15/18 08/15/18 08/15/18 08:10 08:20 08:30 Temperature Pulse Rate 61 61 59 Respiratory 28 19 22 Rate Blood Pressure 178/76 (mmHg) O2 Sat by Pulse 95 96 95 Oximetry 08/15/18 08/15/18 08/15/18 08:31 08:40 08:50 Temperature Pulse Rate 59 65 60 Respiratory 31 25 18 Rate Blood Pressure (mmHg) O2 Sat by Pulse 97 96 96 Oximetry 08/15/18 08/15/18 09:00 09:01 Temperature Pulse Rate 66 67 Respiratory 19 28 Rate Blood Pressure 217/106 (mmHg) O2 Sat by Pulse 97 97 Oximetry Oxygen Devices in Use Now: None Appearance: 68 yo F in nAD, aAOx3 Eyes: No Scleral Icterus, PERRLA Ears/Nose/Mouth/Throat: NL Teeth, Lips, Gums, Mucous Membranes Moist Neck: NL Appearance and Movements; NL JVP, Trachea Midline Respiratory: Symmetrical Chest Expansion and Respiratory Effort, Clear to Auscultation Cardiovascular: NL Sounds; No Murmurs; No JVD, RRR Abdominal: NL Sounds; No Tenderness; No Distention, No Hepatosplenomegaly Lymphatic: No Cervical Adenopathy Extremities: No Edema, No Clubbing, Cyanosis, - - s/p all toes amputated on left Skin: No Rash or Ulcers, No Nodules or Sclerosis Neurological: Alert and Oriented x 3, NL Muscle Strength and Tone Result Diagrams: 08/15/18 04:05 08/15/18 04:05 Microbiology and Other Data: Microbiology 08/12/18 16:20 Nasal Screen MRSA (PCR) - Final Nasal Mrsa Not Detected Assess/Plan/Problems-Billing Assessment: 68 yo F with h/o HTN, DM (untreated at home due to multiple allergies), left toes amputation inv the past presents with severe HTN and trop 0.07 - Patient Problems (1) Hyperthyroidism Comment: appreciate Dr. Collins's recommendations: methimazole cont (2) Hypertensive urgency Comment: off nitroglicerin gtt Clonidine increased to 0.8 mg TID Chlortalidione increased to 50 mg started on Imdur 30 mg on 08/14/18, increased to 60 mg QD Treatment is limited due to muliple allergies will ad aldactone 25mg Reveived med records: pt has had HTN with SBP in 180 in the past 2-3 years. For now the goal SBP is 170-180 (since as outpatient it was noted to be at 260 of SBP). If it's stable at goal today she can be discharged in PM to be f/u with PCP and DR. Barbosa (3) Type 2 diabetes mellitus Comment: - Chronically uncontrolled - last A1c 10.3. - pt is allergic to "all insulin" - Prandin tolerated well (4) Elevated troponin Comment: Pt denies CP Pt has chronically elevated trops. suspect demand ischemia due to HTN. (5) CKD stage 3 due to type 2 diabetes mellitus Comment: creat at baseline 1.2-1.3 (6) Leukopenia Comment: mild, stable. Needs to f/u CBC's when on methimazole (7) DVT prophylaxis Comment: SQ heparin. Status and Disposition: inpatient
[2018-08-15] MEDS ORDERED: hydrALAZINE IV* 20 MG/ML VIAL IV SLOW PU PRN (10:37)
[2018-08-15] MEDS ORDERED: Nitro 2% OINT* (Nitroglycerin) 1 INCH/PAK PAK TOPICAL ONE (10:37)
[2018-08-15] MEDS ORDERED: Verapamil TAB* 80 MG PO ONE (10:45)
[2018-08-15] MEDS ORDERED: LORazepam TAB(*) 0.5 MG PO ONE (10:47)
[2018-08-15] MEDS: Verapamil TAB* 80 MG PO SCH ×2 (14:44→19:49)
[2018-08-16] MEDS: Heparin VIAL(*) 5000 UNITS/ML VIAL (FIVE THOUSAND) SUBCUT SCH ×3 (05:16→20:13)
[2018-08-16] MEDS: Repaglinide TAB* 1 MG PO SCH ×3 (08:02→16:06)
[2018-08-16] MEDS: Isosorbide Mononitrate ER TAB* 60 MG PO SCH (08:02)
[2018-08-16] MEDS: Spironolactone TAB* 25 MG PO SCH (08:03)
[2018-08-16] MEDS: cloNIDine TAB* 0.1 MG PO SCH ×3 (08:03→20:13)
[2018-08-16] MEDS: Verapamil TAB* 80 MG PO SCH ×3 (08:04→20:13)
[2018-08-16] MEDS: Chlorthalidone TAB* 50 MG PO SCH (08:04)
[2018-08-16] MEDS: Methimazole TAB* 5 MG PO SCH (08:05)
--- NOTE | 2018-08-16 14:24 | PN ---
Subjective Date of Service: 08/16/18 Interval History: Pt noted that she saw furniture an people that were in the room and were not there and "was hallucinating- likely due to the new medicine" I explained to pt that she had been sleeping very soundly after a dose of lorazepam she received yesterday afternoon and she could have an adverse reaction to it, although she also could have been not fully awake yet this aM. Pt thinks it's lorazepam that cause it and she refuses to "take more psychotropic medications". Pt does not feel comfortable to go home because of the "hallucinations" and prefers to be discharged tomorrow Objective Active Medications: Acetaminophen (Tylenol Tab*) 650 mg PO Q4H PRN PRN Reason: FEVER/PAIN Chlorthalidone (Hygroton Tab*) 50 mg PO DAILY [facility] Last Admin: 08/16/18 08:04 Dose: 50 mg Clonidine HCl (Catapres Tab*) 0.8 mg PO TID [facility] Last Admin: 08/16/18 08:03 Dose: 0.8 mg Diphenhydramine HCl (Benadryl Iv*) 25 mg IV Q6H PRN PRN Reason: Allergy Symptoms Heparin Sodium (Porcine) (Heparin Vial(*)) 5,000 units SUBCUT Q8HR [facility] Last Admin: 08/16/18 05:16 Dose: 5,000 units Isosorbide Mononitrate (Imdur Er Tab*) 60 mg PO DAILY [facility] Last Admin: 08/16/18 08:02 Dose: 60 mg Methimazole (Tapazole Tab*) 20 mg PO DAILY [facility] Last Admin: 08/16/18 08:05 Dose: 20 mg Repaglinide (Prandin Tab*) 1 mg PO AC [facility] Last Admin: 08/16/18 12:27 Dose: 1 mg Spironolactone (Aldactone Tab*) 25 mg PO DAILY [facility] Last Admin: 08/16/18 08:03 Dose: 25 mg Verapamil HCl (Calan Tab*) 80 mg PO TID [facility] Last Admin: 08/16/18 08:04 Dose: 80 mg Vital Signs - 8 hr 08/16/18 08/16/18 08/16/18 07:20 07:21 09:51 Temperature 97.4 F Pulse Rate 56 Respiratory 16 17 Rate Blood Pressure 188/68 162/78 (mmHg) O2 Sat by Pulse 98 Oximetry 08/16/18 11:10 Temperature 98.7 F Pulse Rate 50 Respiratory 18 Rate Blood Pressure 184/66 (mmHg) O2 Sat by Pulse 98 Oximetry Oxygen Devices in Use Now: None Appearance: 68 yo F in NAD, AAOx3 Eyes: No Scleral Icterus, PERRLA Ears/Nose/Mouth/Throat: NL Teeth, Lips, Gums, Mucous Membranes Moist Neck: NL Appearance and Movements; NL JVP, Trachea Midline Respiratory: Symmetrical Chest Expansion and Respiratory Effort, Clear to Auscultation Cardiovascular: NL Sounds; No Murmurs; No JVD, No Edema Abdominal: NL Sounds; No Tenderness; No Distention Lymphatic: No Cervical Adenopathy Extremities: No Edema, No Clubbing, Cyanosis Skin: No Rash or Ulcers, No Nodules or Sclerosis Neurological: Alert and Oriented x 3, NL Muscle Strength and Tone Result Diagrams: 08/17/18 05:22 08/17/18 05:22 Microbiology and Other Data: Microbiology 08/12/18 16:20 Nasal Screen MRSA (PCR) - Final Nasal Mrsa Not Detected Assess/Plan/Problems-Billing Assessment: 68 yo F with h/o HTN, DM (untreated at home due to multiple allergies), left toes amputation inv the past presents with severe HTN and trop 0.07 - Patient Problems (1) Hyperthyroidism Comment: appreciate Dr. Collins's recommendations: methimazole cont (2) Hypertensive urgency Comment: off nitroglicerin gtt Clonidine increased to 0.8 mg TID Chlortalidione increased to 50 mg started on Imdur 30 mg on 08/14/18, increased to 60 mg QD Treatment is limited due to muliple allergies. Spoke with Dr. Barbosa on 08/15/18 who will f/u with pt in office. Verapamil started with good results. One dose of Ativan lower pt's pressure to 150's , but pt thinks she may have hallucinated due to it and refuses to take it in the future. Due to the questinalble hallucinations will d/c pt tomorrow added aldactone 25mg on 08/15/18, will increase dose Reviewed med records: pt has had HTN with SBP in 180 in the past 2-3 years. For now the goal SBP is 170-180 (since as outpatient it was noted to be at 260 of SBP). (3) Type 2 diabetes mellitus Comment: - Chronically uncontrolled - last A1c 10.3. - pt is allergic to "all insulin" - Prandin tolerated well (4) Elevated troponin Comment: Pt denies CP Pt has chronically elevated trops. suspect demand ischemia due to HTN. (5) CKD stage 3 due to type 2 diabetes mellitus Comment: creat at baseline 1.2-1.3 (6) Leukopenia Comment: mild, stable. Needs to f/u CBC's when on methimazole (7) DVT prophylaxis Comment: SQ heparin. Status and Disposition: inpatient
[2018-08-16] MEDS ORDERED: Nitro 2% OINT* (Nitroglycerin) 1 INCH/PAK PAK TOPICAL ONE (16:09)
[2018-08-16] MEDS ORDERED: Spironolactone TAB* 25 MG PO ONE (16:10)
[2018-08-17] MEDS ORDERED: Nitro Patch/OINT Remove TOPICAL ONE
[2018-08-17 05:49] LABS: ABS Basophils 0 10^3/ul (0-0.2); ABS Eosinophils 0.1 10^3/ul (0-0.6); ABS Lymphocytes 1.1 10^3/ul (1.0-4.8); ABS Monocytes 0.5 10^3/ul (0-0.8); ABS Neutrophils 1.5 10^3/ul (1.5-7.7); ABS Nucleated RBC 0 10^3/ul; Eosinophil % 2.4 %; Hematocrit 41 % (35-47); Hemoglobin 13.3 g/dl (12.0-16.0); Lymphocyte % 34.7 %; Mean Corpuscular HGB Conc 33 g/dl (31-36); Mean Corpuscular Hemoglobin 27 pg (27-31); Mean Corpuscular Volume 84 fL (80-97); Mean Platelet Volume 9.3 fL (7.4-10.4); Nucleated Red Blood Cells % 0.2; Platelet Count 239 10^3/ul (150-450); Red Blood Count 4.84 10^6/ul (4.00-5.40); Red Cell Distribution Width 14 % (10.5-15); White Blood Count 3.3 10^3/ul (3.5-10.8)
[2018-08-17] MEDS: Heparin VIAL(*) 5000 UNITS/ML VIAL (FIVE THOUSAND) SUBCUT SCH ×3 (06:06→20:04)
[2018-08-17 06:26] LABS: Calcium 9.6 mg/dL (8.6-10.3); Potassium 4.4 mmol/L (3.5-5.0)
[2018-08-17 06:31] LABS: BUN/Creatinine Ratio 28.4 (8-20); EGFR African American 47.9 (>60); EGFR Non-African American 39.6 (>60)
[2018-08-17] MEDS: Chlorthalidone TAB* 50 MG PO SCH (07:41)
[2018-08-17] MEDS: cloNIDine TAB* 0.1 MG PO SCH ×3 (07:41→19:59)
[2018-08-17] MEDS: Repaglinide TAB* 1 MG PO SCH ×3 (07:41→16:40)
[2018-08-17] MEDS: Spironolactone TAB* 25 MG PO SCH (07:41)
[2018-08-17] MEDS: Isosorbide Mononitrate ER TAB* 60 MG PO SCH (07:42)
[2018-08-17] MEDS: Methimazole TAB* 5 MG PO SCH (07:42)
[2018-08-17] MEDS: Verapamil TAB* 120 MG PO SCH ×2 (07:43→13:03)
--- NOTE | 2018-08-17 13:04 | PN ---
Subjective Date of Service: 08/17/18 Interval History: Pt had been sleeping a lot and noted to be lethargic today during PT evaluation Objective Active Medications: Acetaminophen (Tylenol Tab*) 650 mg PO Q4H PRN PRN Reason: FEVER/PAIN Chlorthalidone (Hygroton Tab*) 50 mg PO DAILY [facility] Last Admin: 08/17/18 07:41 Dose: 50 mg Clonidine HCl (Catapres Tab*) 0.8 mg PO TID [facility] Last Admin: 08/17/18 07:41 Dose: 0.8 mg Diphenhydramine HCl (Benadryl Iv*) 25 mg IV Q6H PRN PRN Reason: Allergy Symptoms Heparin Sodium (Porcine) (Heparin Vial(*)) 5,000 units SUBCUT Q8HR [facility] Last Admin: 08/17/18 06:06 Dose: 5,000 units Isosorbide Mononitrate (Imdur Er Tab*) 60 mg PO DAILY [facility] Last Admin: 08/17/18 07:42 Dose: 60 mg Methimazole (Tapazole Tab*) 20 mg PO DAILY [facility] Last Admin: 08/17/18 07:42 Dose: 20 mg Repaglinide (Prandin Tab*) 1 mg PO AC [facility] Last Admin: 08/17/18 11:24 Dose: 1 mg Spironolactone (Aldactone Tab*) 50 mg PO DAILY [facility] Last Admin: 08/17/18 07:41 Dose: 50 mg Verapamil HCl (Calan Tab*) 120 mg PO TID [facility] Last Admin: 08/17/18 07:43 Dose: 120 mg Vital Signs - 8 hr 08/17/18 08/17/18 08/17/18 08:00 08:29 11:22 Temperature 97.8 F Pulse Rate 58 Respiratory 20 Rate Blood Pressure 169/69 (mmHg) Oxygen Devices in Use Now: None Appearance: 68 yo F in nAD, AAOx3, appears slow to respond, but does not fall asleep during visit Eyes: No Scleral Icterus, PERRLA Ears/Nose/Mouth/Throat: NL Teeth, Lips, Gums, Mucous Membranes Moist Neck: NL Appearance and Movements; NL JVP, Trachea Midline Respiratory: Symmetrical Chest Expansion and Respiratory Effort, Clear to Auscultation Cardiovascular: NL Sounds; No Murmurs; No JVD, RRR Abdominal: NL Sounds; No Tenderness; No Distention Lymphatic: No Cervical Adenopathy, No Inguinal Adenopathy Extremities: No Edema, No Clubbing, Cyanosis, - - s/p left foot toes amputated- stump healed Skin: No Nodules or Sclerosis Neurological: Alert and Oriented x 3, NL Muscle Strength and Tone, - - lethargic Result Diagrams: 08/17/18 05:22 08/17/18 05:22 Microbiology and Other Data: Microbiology 08/12/18 16:20 Nasal Screen MRSA (PCR) - Final Nasal Mrsa Not Detected Assess/Plan/Problems-Billing Assessment: 68 yo F with h/o HTN, DM (untreated at home due to multiple allergies), left toes amputation inv the past presents with severe HTN and trop 0.07 - Patient Problems (1) Hyperthyroidism Comment: appreciate Dr. Collins's recommendations: methimazole cont (2) Hypertensive urgency Comment: off nitroglicerin gtt Clonidine increased to 0.8 mg TID Chlortalidione increased to 50 mg started on Imdur 30 mg on 08/14/18, increased to 60 mg QD Treatment is limited due to muliple allergies. Spoke with Dr. Barbosa on 08/15/18 who will f/u with pt in office. Verapamil started with good results (titrated up from 80m to 120 TId on 08/16/18). One dose of Ativan lowered pt's pressure to 150's on 08/15 , but pt thinks she may have hallucinated due to it and refuses to take it in the future. added aldactone 25mg on 08/15/18, increased dose to 50 mg 08/16/18 Reviewed med records: pt has had HTN with SBP in 180 in the past 2-3 years. For now the goal SBP is 170-180 (since as outpatient it was noted to be at 260 of SBP). will ask nephorology for a formal consult. Aldactone, renin, cortisol, srum metanephrines oredered (3) Type 2 diabetes mellitus Comment: - Chronically uncontrolled - last A1c 10.3. - pt is allergic to "all insulin" - Prandin tolerated well (4) Elevated troponin Comment: Pt denies CP Pt has chronically elevated trops. suspect demand ischemia due to HTN. Echo 08/01/18 EF 55%, mod LVH (5) CKD stage 3 due to type 2 diabetes mellitus Comment: creat at baseline 1.2-1.3 (6) Leukopenia Comment: mild, stable. Needs to f/u CBC's when on methimazole (7) Lethargy Comment: suspect due to lowering pt's SBP from 260 to 160 in 5 days Will get CVT brain to eval further PT/OT ordered. Pt is very deconditioned and will likely need STR (8) DVT prophylaxis Comment: SQ heparin. Status and Disposition: inpatient
[2018-08-17] MEDS ORDERED: Senna TAB PO ONE (15:06)
[2018-08-17] MEDS ORDERED: Magnesium Sulfate 1 GM IV* 1 GM/100 ML BAG IV ONE (15:58)
[2018-08-17] MEDS: Magnesium Hydroxide LIQ* 30 ML UDC PO PRN (16:40)
[2018-08-17 18:19] LABS: Erythrocyte Sed Rate 67 mm/Hr (0-40)
--- NOTE | 2018-08-17 19:58 | CONS ---
[facility] NEPHROLOGY CONSULTATION REPORT: DATE OF CONSULT: 08/17/18 REQUESTING PHYSICIAN: Dr. Hernandez. REASON FOR CONSULT: Uncontrolled hypertension/hypertensive urgency. HISTORY OF PRESENT ILLNESS: A 68-year-old female with past medical history of coronary artery disease, peripheral vascular disease, hypertension, CABG, asthma , sleep apnea, GERD, diabetes, who presented to the hospital with blood pressures in the 260 systolic range. The patient had reported that her usual blood pressures at her doctor's office were in the 200/100 range. In the ER, was noted to be 221/118. She had also recently started taking hydralazine. When she was noted to have lip swelling and broke into hives, stopped the medication. The patient noted to have multiple drug allergies and is allergic to multiple blood pressure medications that she has tried in the past including ALISKIREN, AMLODIPINE, AVAPRO, HYDRALAZINE, METOPROLOL, LISINOPRIL, FUROSEMIDE. Her symptoms of allergy to METOPROLOL and GERARDO INHIBITOR were discussed in detail with the patient. The patient reports that usually she has always broken down into hives, had lip swelling and the METOPROLOL was significantly worse for the patient and the patient reports that her body twitches even when she hears about the METOPROLOL. PAST MEDICAL HISTORY: 1. Coronary artery disease. 2. CABG in the past. 3. Peripheral vascular disease. 4. Hypertension. 5. Carotid endarterectomy. 6. Diabetes. 7. Obesity. 8. Hypothyroidism. 9. Sleep apnea. 10. Dyslipidemia. 11. Asthma. 12. Seasonal allergies. 13. GERD. 14. Constipation. 15. Hamida. PAST SURGICAL HISTORY: 1. Quadruple bypass. 2. Cataracts. 3. Left fifth toe amputation. 4. Left second second amputation. 5. Right patellar tendon repair. 6. Tonsillectomy. 7. Adenoidectomy. 8. Carotid endarterectomy. 9. Left foot Lisfranc reduction. HOME MEDICATIONS: Prior to hospital stay: 1. Chlorthalidone 25 mg p.o. daily. Medication list currently: 1. Atenolol 650 p.o. q.4 hours p.r.n. 2. Chlorthalidone 50 mg p.o. daily. 3. Clonidine 0.8 mg p.o. t.i.d. 4. Diphenhydramine 25 mg IV q.6 p.r.n. 5. Heparin 5000 units subcu q.8 hours. 6. Isosorbide 60 mg p.o. daily. 7. Magnesium hydroxide 30 mL p.r.n. 8. Methimazole 1 mg p.o. a.c. 9. Senna. 10. Spironolactone 50 mg p.o. daily. 11. Verapamil 120 mg p.o. t.i.d. FAMILY HISTORY: Father had a history of hypertension and diabetes. Maternal and paternal grandparents with heart disease and diabetes. SOCIAL HISTORY: Quit smoking about 40 years ago. Does not use alcohol or illicit drugs. REVIEW OF SYSTEMS: Currently reports feeling very tired and sleepy. Otherwise , other 14-point review of systems noted to be negative other than those mentioned in the HPI. DIAGNOSTIC STUDIES/LAB DATA: WBC 3.3, hemoglobin 13.3, hematocrit 41, platelets are noted to be 239. Sodium 135, potassium 4.4, chloride 100, CO2 26 , BUN 38, creatinine noted to 1.38. ASSESSMENT AND PLAN: A 68-year-old female with history of coronary artery disease, significant peripheral vascular disease, diabetes, hypertension, hypothyroidism, here being seen for further evaluation of uncontrolled hypertension. 1. Uncontrolled hypertension/hypertensive urgency with multiple drug allergies. The patient is noted to be allergic to multiple blood pressure and other medications. The patient also noted to be allergic to METOPROLOL and does not want to take any beta-blockers currently. The patient's blood pressure medications have been steadily titrated by the Medicine team and recently, her verapamil and spironolactone was increased and blood pressure for the first time noted to be 148/65. Hence, we will not change any blood pressure medications at this time. If the heart rate is on the lower side, the verapamil dose can be titrated down. Eventually, it would be good to titrate down the clonidine due to side effects of reflex tachycardia and others. Otherwise, spironolactone and other medications are good choice for the patient. The patient is not completely unopposed to trying another beta- gary that is not metoprolol and in that case labetalol could be considered. However, the patient is on multiple blood pressure medications and continues to have very high blood pressures. In light of this, a secondary hypertension workup would be prudent. Recommend checking plasma renin activity, aldosterone levels to look for hyperaldosteronism, also checking cortisol level. The patient is hyperthryroid and may have multiple endocrine abnormalities. Also recommend checking plasma metanephrines to evaluate for pheochromocytoma. Renal artery stenosis would also be high on the list as the patient noted to have significant peripheral vascular disease. The patient reports that she has seen Dr. Barbosa many years ago and had some workup and was told that she does not have renal artery stenosis. We will try to get records of her old scan and this can be done as an outpatient. The patient advised to follow up with the renal services as an outpatient and can consider getting a renal artery Duplex or if this was done before, possibly MRA as fibromuscular dysplasia is better picked up on the MRA for further evaluation. Also, can consider checking complement panel to see if the patient has an underlying complement disorder that is making her sensitive and allergic to so many medications with ? heriditory angioedema. Also, recommend getting BHAVNA level and Scl-70 to do the gateway test for any autoimmune disorder. If the BHAVNA is noted to be positive, further workup can be considered.Also rec checking ANCA for vasculitis, GERARDO ( sarcoid) and assess urine protein to eval for any possible nephrotic syndrome. 2. Mild elevation in creatinine. We will follow trend and also evaluate for renal artery stenosis and any hemodynamic changes. [id number]/[facility] #: [id number] YASSINE
[2018-08-17] MEDS: Verapamil TAB* 80 MG PO SCH (19:59)
[2018-08-17 22:39] LABS: Urine Creatinine 52.67 mg/dL; Urine Creatinine Concentration 52.67 mg/dL
[2018-08-17 23:09] LABS: UR Microalbumin (mg/L) 465.7; Urine Microalbumin/Creatinine 884.1 (<31)
[2018-08-18] MEDS: Heparin VIAL(*) 5000 UNITS/ML VIAL (FIVE THOUSAND) SUBCUT SCH ×3 (05:57→21:25)
[2018-08-18 06:06] LABS: BUN/Creatinine Ratio 28.6 (8-20); Calcium 9.4 mg/dL (8.6-10.3); EGFR African American 48.3 (>60); EGFR Non-African American 39.9 (>60); Potassium 4.3 mmol/L (3.5-5.0)
[2018-08-18] MEDS: Repaglinide TAB* 1 MG PO SCH ×3 (07:58→17:01)
[2018-08-18] MEDS: cloNIDine TAB* 0.1 MG PO SCH ×3 (09:10→21:25)
[2018-08-18] MEDS: Chlorthalidone TAB* 50 MG PO SCH (09:12)
[2018-08-18] MEDS: Senna TAB PO SCH (09:13)
[2018-08-18] MEDS: Spironolactone TAB* 25 MG PO SCH (09:13)
[2018-08-18] MEDS: Isosorbide Mononitrate ER TAB* 60 MG PO SCH (09:14)
[2018-08-18] MEDS: Magnesium Hydroxide LIQ* 30 ML UDC PO PRN (09:17)
[2018-08-18] MEDS: Methimazole TAB* 5 MG PO SCH (09:17)
[2018-08-18] MEDS: Verapamil TAB* 80 MG PO SCH ×4 (10:21→21:25)
--- NOTE | 2018-08-18 12:36 | PN ---
Subjective Date of Service: 08/18/18 Interval History: Pt refused to take Verapamil stating that it caused her to hallucinate. when reassured that it probably was Ativan and not Verapamil, she took the medication. C/o dizziness initially when walking, that resolved and apparently pt did well ambulating with walker and one person assist last night. Objective Active Medications: Acetaminophen (Tylenol Tab*) 650 mg PO Q4H PRN PRN Reason: FEVER/PAIN Chlorthalidone (Hygroton Tab*) 50 mg PO DAILY [facility] Last Admin: 08/18/18 09:12 Dose: 50 mg Clonidine HCl (Catapres Tab*) 0.8 mg PO TID [facility] Last Admin: 08/18/18 09:10 Dose: 0.8 mg Diphenhydramine HCl (Benadryl Iv*) 25 mg IV Q6H PRN PRN Reason: Allergy Symptoms Heparin Sodium (Porcine) (Heparin Vial(*)) 5,000 units SUBCUT Q8HR [facility] Last Admin: 08/18/18 05:57 Dose: 5,000 units Isosorbide Mononitrate (Imdur Er Tab*) 60 mg PO DAILY [facility] Last Admin: 08/18/18 09:14 Dose: 60 mg Magnesium Hydroxide (Milk Of Magnesia Liq*) 30 ml PO Q2H PRN PRN Reason: CONSTIPATION Last Admin: 08/18/18 09:17 Dose: 30 ml Methimazole (Tapazole Tab*) 20 mg PO DAILY [facility] Last Admin: 08/18/18 09:17 Dose: 20 mg Repaglinide (Prandin Tab*) 1 mg PO AC [facility] Last Admin: 08/18/18 11:57 Dose: 1 mg Senna (Senokot Tab*) 1 tab PO DAILY [facility] Last Admin: 08/18/18 09:13 Dose: 1 tab Spironolactone (Aldactone Tab*) 50 mg PO DAILY [facility] Last Admin: 08/18/18 09:13 Dose: 50 mg Verapamil HCl (Calan Tab*) 80 mg PO TID [facility] Last Admin: 08/18/18 10:26 Dose: 80 mg Vital Signs - 8 hr 08/18/18 08/18/18 08/18/18 06:47 06:49 08:28 Temperature 98.0 F 97.8 F Pulse Rate 58 57 Respiratory 18 20 17 Rate Blood Pressure 172/89 160/100 (mmHg) O2 Sat by Pulse 97 99 Oximetry 08/18/18 11:09 Temperature Pulse Rate 60 Respiratory Rate Blood Pressure 182/94 (mmHg) O2 Sat by Pulse Oximetry Oxygen Devices in Use Now: None Appearance: 68 yo F in nAD, AAOx3 Eyes: No Scleral Icterus, PERRLA Ears/Nose/Mouth/Throat: NL Teeth, Lips, Gums, Mucous Membranes Moist Neck: NL Appearance and Movements; NL JVP, Trachea Midline Respiratory: Symmetrical Chest Expansion and Respiratory Effort, Clear to Auscultation Cardiovascular: NL Sounds; No Murmurs; No JVD, RRR Abdominal: NL Sounds; No Tenderness; No Distention, No Hepatosplenomegaly Lymphatic: No Cervical Adenopathy Extremities: No Edema, No Clubbing, Cyanosis, - - s/p left foor toes 2-5 amputation Skin: No Rash or Ulcers, No Nodules or Sclerosis Neurological: Alert and Oriented x 3, NL Muscle Strength and Tone Result Diagrams: 08/17/18 05:22 08/18/18 05:25 Microbiology and Other Data: Microbiology 08/12/18 16:20 Nasal Screen MRSA (PCR) - Final Nasal Mrsa Not Detected Assess/Plan/Problems-Billing Assessment: 68 yo F with h/o HTN, DM (untreated at home due to multiple allergies), left toes amputation inv the past presents with severe HTN and trop 0.07 - Patient Problems (1) Hyperthyroidism Comment: appreciate Dr. Collins's recommendations: methimazole cont (2) Hypertensive urgency Comment: off nitroglicerin gtt Clonidine at 0.8 mg TID Chlortalidione at 50 mg Imdur 60 mg QD Treatment is limited due to muliple allergies. Spoke with Dr. Barbosa on 08/15/18 who will f/u with pt in office. Verapamil started with good results (titrated up from 80m to 120 TId on 08/16/18), but due to braqdycardia dose lowered to 80 mg TID on 08/17/18 One dose of Ativan lowered pt's pressure to 150's on 08/15 , but pt thinks she may have hallucinated due to it and refuses to take it in the future. added aldactone 25mg on 08/15/18, increased dose to 50 mg 08/16/18 Reviewed med records: pt has had HTN with SBP in 180 in the past 2-3 years. For now the goal SBP is 170-180 (since as outpatient it was noted to be at 260 of SBP). Aldactone, renin, cortisol, serum metanephrines ordered . Appreciate Dr. Leos consult from nephrology (3) Type 2 diabetes mellitus Comment: - Chronically uncontrolled - last A1c 10.3. - pt is allergic to "all insulin" - Prandin tolerated well (4) Elevated troponin Comment: Pt denies CP Pt has chronically elevated trops. suspect demand ischemia due to HTN. Echo 08/01/18 EF 55%, mod LVH (5) CKD stage 3 due to type 2 diabetes mellitus Comment: creat at baseline 1.2-1.3 (6) Leukopenia Comment: mild, stable. Needs to f/u CBC's when on methimazole (7) Lethargy Comment: suspect due to lowering pt's SBP from 260 to [address] brain neg 08/17/18 PT/OT cont. Pt recommended STR, refused (8) DVT prophylaxis Comment: SQ heparin. Status and Disposition: inpatient. Probably d/c home with VNS tomorrow. Denies STR placement
[2018-08-18 14:29] LABS: Complement C3 172 mg/dL (75 - 175)
[2018-08-19] MEDS: Heparin VIAL(*) 5000 UNITS/ML VIAL (FIVE THOUSAND) SUBCUT SCH ×2 (05:27→17:34)
[2018-08-19] MEDS: Methimazole TAB* 5 MG PO SCH (08:04)
[2018-08-19] MEDS: cloNIDine TAB* 0.1 MG PO SCH ×2 (08:05→16:44)
[2018-08-19] MEDS: Repaglinide TAB* 1 MG PO SCH ×3 (08:06→17:33)
[2018-08-19] MEDS: Chlorthalidone TAB* 50 MG PO SCH (08:06)
[2018-08-19] MEDS: Isosorbide Mononitrate ER TAB* 60 MG PO SCH (08:06)
[2018-08-19] MEDS: Spironolactone TAB* 25 MG PO SCH (08:06)
[2018-08-19] MEDS: Senna TAB PO SCH (08:06)
[2018-08-19] MEDS: Verapamil TAB* 80 MG PO SCH ×2 (08:06→17:23)
[2018-08-19 12:11] LABS: Renin 0.6 ng/mL/h
--- NOTE | 2018-08-19 14:06 | PN ---
Subjective Date of Service: 08/19/18 Interval History: Arrived to eval pt who had been "lethargic " as per RN since this morning. Pt appears to have left facial droop , she is difficult to arouse, but once awaken cannot keep her eyes open. She is able to follow commands with lots of prompting. She c/o no pain. Unable to determine when the symptoms started. RN noted that pt had been lethargic since morning, but did not notice any weakness. Right now pt has left facial droop and left UE and LE weakness Objective Active Medications: Acetaminophen (Tylenol Tab*) 650 mg PO Q4H PRN PRN Reason: FEVER/PAIN Chlorthalidone (Hygroton Tab*) 50 mg PO DAILY [facility] Last Admin: 08/19/18 08:06 Dose: 50 mg Clonidine HCl (Catapres Tab*) 0.8 mg PO TID [facility] Last Admin: 08/19/18 08:05 Dose: 0.8 mg Diphenhydramine HCl (Benadryl Iv*) 25 mg IV Q6H PRN PRN Reason: Allergy Symptoms Heparin Sodium (Porcine) (Heparin Vial(*)) 5,000 units SUBCUT Q8HR [facility] Last Admin: 08/19/18 05:27 Dose: 5,000 units Sodium Chloride (Ns 0.9% 1000 Ml) 1,000 mls @ 100 mls/hr IV PER RATE [facility] Isosorbide Mononitrate (Imdur Er Tab*) 60 mg PO DAILY [facility] Last Admin: 08/19/18 08:06 Dose: 60 mg Magnesium Hydroxide (Milk Of Magnesia Liq*) 30 ml PO Q2H PRN PRN Reason: CONSTIPATION Last Admin: 08/18/18 09:17 Dose: 30 ml Methimazole (Tapazole Tab*) 20 mg PO DAILY [facility] Last Admin: 08/19/18 08:04 Dose: 20 mg Repaglinide (Prandin Tab*) 1 mg PO AC [facility] Last Admin: 08/19/18 13:08 Dose: 1 mg Senna (Senokot Tab*) 1 tab PO DAILY [facility] Last Admin: 08/19/18 08:06 Dose: 1 tab Spironolactone (Aldactone Tab*) 50 mg PO DAILY [facility] Last Admin: 08/19/18 08:06 Dose: 50 mg Verapamil HCl (Calan Tab*) 80 mg PO TID [facility] Last Admin: 08/19/18 08:06 Dose: 80 mg Vital Signs - 8 hr 08/19/18 08/19/18 08/19/18 07:22 07:41 09:34 Temperature 98.7 F Pulse Rate 66 Respiratory 19 20 Rate Blood Pressure 222/88 192/89 (mmHg) O2 Sat by Pulse 97 Oximetry 08/19/18 11:19 Temperature 98.5 F Pulse Rate 57 Respiratory 20 Rate Blood Pressure 195/74 (mmHg) O2 Sat by Pulse 95 Oximetry Oxygen Devices in Use Now: None Appearance: 68 yo f in NAD, very lethargic, when awaken, AAOx3 Eyes: No Scleral Icterus, PERRLA Ears/Nose/Mouth/Throat: NL Teeth, Lips, Gums, Mucous Membranes Moist Neck: NL Appearance and Movements; NL JVP, Trachea Midline Respiratory: Symmetrical Chest Expansion and Respiratory Effort, Clear to Auscultation Cardiovascular: NL Sounds; No Murmurs; No JVD, RRR Abdominal: NL Sounds; No Tenderness; No Distention, No Hepatosplenomegaly Extremities: No Edema, No Clubbing, Cyanosis, - - S/p L TMA Skin: No Rash or Ulcers, No Nodules or Sclerosis Neurological: - - left facila droop that corrects when pt smiles.L pronator drift. Handgrips nearly equal at 4+/5 B/l. L LE unable top lift off bed. R LE lifts off bed for 1-2 sec before falling down, Babinski nonreactive b/l Result Diagrams: 08/17/18 05:22 08/18/18 05:25 Microbiology and Other Data: Microbiology 08/12/18 16:20 Nasal Screen MRSA (PCR) - Final Nasal Mrsa Not Detected Assess/Plan/Problems-Billing Assessment: 68 yo F with h/o HTN, DM (untreated at home due to multiple allergies), left toes amputation inv the past presents with severe HTN and trop 0.07 - Patient Problems (1) CVA (cerebral vascular accident) Comment: Pt has new left deficit likely due to CVA. Appreciate Dr. Luis's consult Awaiting CT brain /MRI, carotid dopplers cont telem will start gentle IVF (2) Hyperthyroidism Comment: appreciate Dr. Collins's recommendations: methimazole cont (3) Hypertensive urgency Comment: off nitroglicerin gtt Clonidine at 0.8 mg TID Chlortalidione at 50 mg Imdur 60 mg QD Treatment is limited due to muliple allergies. Spoke with Dr. Barbosa on 08/15/18 who will f/u with pt in office. Verapamil started with good results (titrated up from 80m to 120 TId on 08/16/18), but due to braqdycardia dose lowered to 80 mg TID on 08/17/18 One dose of Ativan lowered pt's pressure to 150's on 08/15 , but pt thinks she may have hallucinated due to it and refuses to take it in the future. added aldactone 25mg on 08/15/18, increased dose to 50 mg 08/16/18 Reviewed med records: pt has had HTN with SBP in 180 in the past 2-3 years. For now the goal SBP is 170-180 (since as outpatient it was noted to be at 260 of SBP). Aldactone, renin, cortisol, serum metanephrines ordered . Appreciate Dr. Leos consult from nephrology (4) Type 2 diabetes mellitus Comment: - Chronically uncontrolled - last A1c 10.3. - pt is allergic to "all insulin" - Prandin tolerated well (5) Elevated troponin Comment: Pt denied CP Pt has chronically elevated trops. suspect demand ischemia due to HTN. Echo 08/01/18 EF 55%, mod LVH (6) CKD stage 3 due to type 2 diabetes mellitus Comment: creat at baseline 1.2-1.3 (7) Leukopenia Comment: mild, stable. Needs to f/u CBC's when on methimazole (8) Lethargy Comment: suspect due to lowering pt's SBP from 260 to [address] brain neg 08/17/18 Now with lateralizing symptoms and possible CVA (9) DVT prophylaxis Comment: SQ heparin. Status and Disposition: inpatient.
[2018-08-19] MEDS ORDERED: NS 0.9% 1000 ML** 1,000 ML IV SCH (14:15)
[2018-08-19] MEDS ORDERED: Aspirin EC TAB* 325 MG PO ONE (14:49)
[2018-08-19] MEDS ORDERED: Nitro 2% OINT* (Nitroglycerin) 1 INCH/PAK PAK TOPICAL ONE (18:40)
[2018-08-19 19:50] VITALS: BP 224/88
[2018-08-19] MEDS ORDERED: Verapamil TAB* 80 MG PO SCH (21:00)
[2018-08-19] MEDS ORDERED: cloNIDine TAB* 0.1 MG PO SCH ×2 (21:00)
--- NOTE | 2018-08-19 21:26 | PN ---
PROGRESS NOTE: DATE OF VISIT: 08/19/18 REASON FOR VISIT: Uncontrolled hypertension. SUBJECTIVE: Patient noted being more lethargic today. Patient is answering questions appropriately and is alert and oriented at time of exam; however, patient noted to have new onset of left-sided weakness. Vitals and labs have been reviewed. PHYSICAL EXAMINATION: HEENT: NCAT at time of exam. Heart: S1, S2 present. Regular at the time of exam. Lungs: Clear to auscultation bilaterally. Abdomen: Soft, nontender. Extremities: Patient noted to have mild left upper and lower extremity weakness.Neuro: Alert oriented answering all questions appropriately at time of exam.Full neuro exam not performed. ASSESSMENT AND PLAN: 1. Hypertensive urgency. Patient was initially on a nitroglycerin drip currently off. Patient on chlorthalidone 50 mg, Imdur 60 mg, verapamil 80 mg t.i.d., clonidine 0.8 mg t.i.d., Aldactone 50 mg. Patient noted to have multiple drug allergies making management challenging including allergy to METOPROLOL, GERARDO INHIBITOR, ARB, LASIX and multiple other medications. 2. Workup in progress. We are checking renin aldosterone, cortisol, serum metanephrines to evaluate for pheochromocytoma. Also, checking ANCA for vasculitis and complement panel to evaluate if the patient has hereditary angioedema as she is allergic to multiple medications, and GERARDO level. 3. With respect to management, as the patient has acute stroke under consideration and now noted to have an ICA occlusion, would not make any blood pressure changes and would let bp run above systolic 220. If tPA is considered or if she is candidate for thrombectomy/clot retrieval and other procedures, can use Cardene drip or nitro drip to manage blood pressure to goal accurately. At this time, we will reduce the clonidine at this point to 0.2 mg 3 times a day due to neurologic side effects and can also cause significant bradycardia that the patient had previously.Will allow BP to run high in the acute stroke setting. Once it is okay to manage patient's blood pressure better, the next step can be possibly to switch the patient to labetalol from diltiazem and patient only expresses an allergy to METOPROLOL, which is described as swelling and was previously open to trying other beta-blockers. Would not try an isolated beta- gary without the alpha-blockade as we have not conclusively ruled out pheochromocytoma and other etiology. Patient also has hyperthyroidism contributing. In light of this, can consider possibly trying labetalol in the hospital evaluating her symptoms and heart rate closely. Once her acute stroke symptoms have improved, can also consider adding alpha- gary like prazosin/doxazosin for further management.But for now, would only reduce BP meds to allow for cerebral perfusion. [id number]/[facility] #: [id number] [facility]
--- NOTE | 2018-08-19 22:01 | CONS ---
CC: Dr. Garzon * CONSULTATION REPORT: DATE OF CONSULT: 08/19/18 PRIMARY CARE PROVIDER: Dr. Garzon. REASON FOR CONSULT: Acute change in mental status, left-sided weakness. HISTORY OF PRESENT ILLNESS: It should be noted that Ms. Arias is unable to give me any history at this point. She is currently very somnolent, but arousable. My history was obtained from speaking with Dr. Hernandez, her hospitalist , as well as reviewing her records. Briefly, she is a 68-year-old female who has a history of multiple risks factors including coronary artery disease status post CABG, peripheral vascular disease, hypertension, sleep apnea, GERD, diabetes, asthma. She was sent to the emergency room on 08/12/18 from her doctor 's office due to severe hypertension. She has a history of significant hypertension that has been refractory to medications. In the office, on the day admission, she was 200/100. She was also recently admitted in July for a bout of hypertension. At the time of her admission here, she noted that she had been started on hydralazine. She had broken out and some swelling in her lower lip and also hives, she discontinued the medication on her own. She unfortunately has a long list of allergies, see below, and is limited in what she can take for medications. Her hospital course on this admission has been complicated by refractory, difficult to treat blood pressure. Despite multiple medications, she tends to have a very high blood pressure in the morning which then will improve somewhat during the day after she has received her medications. She has required a nitroglycerin drip for significant blood pressure elevations. She has also been intermittently very lethargic throughout her hospitalization, with moments of clarity followed by moments where she will be very sleepy, but generally she could be aroused. There is a report that yesterday at some point in the morning she was noted to have some left-sided weakness that was very transient in nature, although it was difficult to determine exactly when the symptoms began. Her last known normal is very difficult to determine, but it appears that she had at least 1 episode yesterday of some left-sided findings suggesting that her last normal was at the very least yesterday afternoon putting her outside both TPA and clot retrieval window. By the time that she developed her new symptoms today, she became very lethargic, she was noted to be lethargic this morning but became more so in the afternoon to the point where she was obtunded, very difficult to arouse, although she would wake up, hold her eyes open briefly. Dr. Hernandez was at the bedside when she called me and noted that she had significant left-sided facial droop as well as what appeared to be profound left arm and leg weakness. When I arrived at the bedside, the patient was sitting up in the bed, but had her head back, her mouth open, would arouse to loud voice and painful stimuli, would stay open and would answer some questions appropriately, but then fell back asleep immediately. She was able to follow commands with multiple prompts , but she clearly had weakness on the left side of her body and face. Based on this, she was sent for a CAT scan stat, which showed no acute changes, subsequently had an MRI stat, which showed evidence of what appears to be a thromboembolic event in the right MCA territory. In addition, carotid ultrasound and echocardiogram had been ordered. Unfortunately, she has an allergy to iodinated contrast dye, so we cannot get a CT angiogram. We can, however, do the MRI of the head without contrast. PAST MEDICAL HISTORY: Per chart review, her past medical history includes coronary artery disease status post CABG, peripheral vascular disease, hypertension, carotid endarterectomy, diabetes, obesity, hypothyroidism, sleep apnea, dyslipidemia, asthma, seasonal allergies, GERD, constipation, and edgar. PAST SURGICAL HISTORY: Includes quintuple bypass, cataracts, left fifth toe amputation, left second toe amputation, right patellar tendon repair, tonsillectomy, adenoidectomy, carotid endarterectomy, left foot Lisfranc reduction. MEDICATIONS: Home medication was chlorthalidone 25 mg daily. Current medications include: 1. Acetaminophen. 2. She is to start aspirin. 3. Hygroton 50 mg daily. 4. Clonidine 0.2 mg t.i.d. 5. Diphenhydramine p.r.n. 6. Imdur ER 60 mg daily. 7. Magnesium hydroxide. 8. Methimazole 20 mg daily. 9. Protonix 40 mg daily. 10. Prandin 1 mg p.o. a.c. 11. Senokot. 12. Spironolactone 50 mg daily. 13. Verapamil 80 mg p.o. t.i.d. ALLERGIES: Her allergies are extensive, please see the EMR for the complete list, they include TEKTURNA; NORVASC; ROCEPHIN; INSULINS; IODINATED CONTRAST DYE , BOTH ORAL AND IV; AVAPRO; LEVAQUIN; METOPROLOL; POLYETHYLENE GLYCOL; AVANDIA; CRESTOR; METFORMIN; FUROSEMIDE; HYDRALAZINE; IODINE; LISINOPRIL. FAMILY HISTORY: Again per chart record review includes history of hypertension and diabetes in her father and paternal grandparent, history of heart disease and diabetes. No reported cancer. SOCIAL HISTORY: She is a prior smoker, quit about 40 years ago. Denies any alcohol or illicit substance use. She is single and lives alone. Her sister is her surrogate decision maker. REVIEW OF SYSTEMS: Review of systems and 14-organ systems, I was unable to obtain because of her mental status. PHYSICAL EXAM: Vital Signs: 192/89 to 195/74 to 180/77, temperature is afebrile at 98.5, pulse rate of 62, respiratory rate of 15, pulse ox of 98%. In general, she is a well-nourished, well-developed female, she is lying in the hospital bed, very somnolent. Normocephalic, atraumatic. Sclerae anicteric. Mucous membranes are moist. Oropharynx is clear. Nares are patent. Neck is supple. No thyromegaly or carotid bruits. Chest clear to auscultation bilaterally. Cardiovascular is regular rate and rhythm. Abdomen is nondistended. Extremities: There is no clubbing, cyanosis, or edema. She does have amputation to the left distal foot. Skin is warm and dry. On neurologic exam, she is somnolent but awakens to loud noise and painful stimuli. She does answer some questions appropriately. She mumbles and not speaking in complete sentences. She follows very simple commends, squeezes my hands, will open her eyes. It is difficult to assess dysarthria. It appears that she may be somewhat dysarthric when she speaks. Cranial nerves: Her pupils are equally round, reactive to light. She does move her eyes left to right and will track for a moment. Visual godinez difficult to assess, she would not keep her eyes open. Her face, she has a left lower facial droop. Facial sensation difficult to assess. Her hearing seems to be impaired bilaterally. Tongue is midline. Difficult to view her palate. Motor Exam: She is not spontaneously moving, but will withdraw to pain and grimace to pain x4. She will hold her leg and arm up on the right side with some mild drift. She will not hold her left arm or left leg up without assistance and it drops immediately to the bed. Sensation: Again withdraws to pain x4 and grimaces x4. DTRs are down throughout 1+ and symmetric in the upper extremities, trace at the patella, absent at the ankles, downgoing Babinski bilaterally. Could not test finger-to- nose. She has no resting tremor. Gait could not be tested. DIAGNOSTIC STUDIES/LAB DATA: Her lab work includes most recently white count 3.3, ESR 67. Chemistries: Blood sugar 319 to 335 to 366. TSH receptor antibody 7.0, compliment C3 172, compliment C4 42. Most recent basic metabolic panel from 08/18/18, sodium of 132, chloride of 99, BUN of 38, creatinine of 1.33, glucose of 327, TSH 0.00, free T4 2.62 elevated. Studies done included as noted above, head MRI is pending. Carotid ultrasound is pending. Echocardiogram is pending. Brain CT as noted above from 08/19/18, there is no intracranial acute pathology. Brain CT from 08/17/18 shows no definite intracranial mass or hemorrhage. ASSESSMENT AND PLAN: Ms. Arias is a 68-year-old female with multiple stroke risk factors including hypertension, hyperlipidemia, coronary artery disease status post quintuple bypass, diabetes, sleep apnea with hypertension that is refractory to medications and has been very high recently. She was admitted with elevated blood pressures over 200s and her blood pressures have been very difficult to control throughout her hospitalization. She has a number of allergies as listed above. She has been intermittently somnolent, but today had an acute change in status in the early afternoon. She apparently had an episode yesterday of some left-sided transient weakness. Difficult to determine the last normal, but at the very least her last normal was yesterday in the morning at some time. She is outside of the TPA and thrombectomy window , and she has evidence of a new stroke on MRI. The plan is to proceed with a stoke workup. We will get the MRI of the head. Unfortunately, we cannot get a CTA due to her allergy to iodinated contrast. Get a carotid ultrasound, get an echocardiogram. I would recommend starting aspirin as there is no evidence of bleeding and starting Plavix. We will continue both for 30 days; at which point she can go to mono antiplatelet therapy. We would allow for permissive hypertension and I would not be too aggressive with her blood pressures treating for a systolic blood pressure over 200 to 205, diastolic blood pressure over 105 to 110, would strive for very tight blood glucose control. Her hypertension is going to be a major hernandez given the fact that she has had this problem for many years and it has been difficult to control. I would recommend very close monitoring and frequent neuro checks, continue telemetry to look for any evidence of atrial fibrillation or other arrhythmias. Management of her diabetes, chronic kidney disease per primary team. Management of her hyperthyroidism per Dr. Collins. I will continue to follow her closely, make further recommendations as necessary. Thank you for the opportunity to participate in the care of this very interesting patient. [id number]/[facility] #: [id number] YASSINE
[2018-08-20] MEDS ORDERED: Nitro Patch/OINT Remove TOPICAL ONE (00:30)
--- NOTE | 2018-08-20 03:57 | TRS ---
CC: Dr. Garzon; Dr. Luis; Dr. Leos from Nephrology * TRANSFER SUMMARY: DATE OF ADMISSION TO [facility]: 08/12/18 DATE OF TRANSFER FROM [facility] TO [facility]: PRIMARY CARE PROVIDER: Dr. Garzon. DISCHARGE DIAGNOSES: 1. Acute ischemic cerebrovascular accident with occlusion of right internal carotid artery resulting in left-sided weakness. 2. Uncontrolled hypertension with hypertensive urgency at admission. 3. Uncontrolled diabetes in patient who is allergic to insulin. SECONDARY DIAGNOSES: 1. History of diabetes. 2. Hypertension. 3. Recently diagnosed hyperthyroidism, on methimazole. 4. History of coronary artery disease, status post coronary artery bypass grafting. 5. History of peripheral vascular disease, status post right carotid endarterectomy at [facility] in 2007. 6. History of obesity. 7. Sleep apnea in the past, currently not treated. 8. Dyslipidemia. 9. Asthma. 10. Seasonal allergies. 11. Gastroesophageal reflux disease. 12. History of left-sided toe 1 to 5 amputation. 13. History of right patellar tendon repair. 14. Tonsillectomy. 15. Adenoidectomy. 16. Left foot transmetatarsal amputation. ALLERGIES: Multiple and include ALISKIREN, AMLODIPINE, CEFTRIAXONE, ALL INSULINS, IODINE CONTRAST, AVAPRO, HYDRALAZINE, LEVAQUIN, METOPROLOL, MIRALAX, AVANDIA, CRESTOR, METFORMIN, IODINE, LISINOPRIL, and FUROSEMIDE. Most of the allergies are either lip swelling or hives. IODINE caused anaphylactic shock. HYDRALAZINE caused hives. METFORMIN caused pain. FUROSEMIDE unknown reaction. SIMVASTATIN, swelling of face, lips, and throat. AVANDIA, shortness of breath. MIRALAX, shortness of breath. METOPROLOL, swelling. LEVAQUIN, hives. AVAPRO, swelling of face and lips. The patient is unsure what happened to INSULIN, but she thinks that it was swelling of her lips. CEFTRIAXONE also caused swelling of lips. AMLODIPINE caused shortness of breath and ALISKIREN swelling of face, lips, and throat. HOSPITALIZATION COURSE: Susan Arias is a 68-year-old female who went to her primary care provider for an initial appointment to establish care. She was noted to have systolic pressures in the 260s range without any symptoms. She was directed by her provider to the emergency department. At this point, it was noted that she has multiple allergies. It also was noted that she was recently hospitalized in May 2017 and she was noted to be hyperthyroid, but did not follow up. The patient's multiple drug allergies make it very difficult to treat her hypertension and diabetes. She was seen by Dr. Collins in consultation from Endocrinology, who initially recommended insulin, but then discontinued it due to the patient's allergy. Dr. Collins placed the patient on methimazole for hyperthyroidism. The patient's blood pressure continued to be high. Initially, she was in the intensive care unit for a total of 3 days on nitroglycerin drip and able to be taken off. Eventually, we asked our nephrologists, initially Dr. Barbosa and then Dr. Leos, to see the patient in consultation. Eventually, the patient's systolic pressures were in the 160s to 180s on chlorthalidone 50 mg daily, clonidine 0.8 mg 3 times a day, Imdur 60 mg daily, Aldactone 50 mg daily, and verapamil 180 mg 3 times a day. The patient was a day earlier on verapamil at 120 mg 3 times a day, but that caused her to be bradycardic. Once the patient's systolic pressures were in the 180s and 160s, she became more lethargic, but she did not have any focal deficits and her brain CT on 08/17/18 was unremarkable. It was concluded that the patient likely is adjusting to her new blood pressure medication. The patient did have a couple of episodes of dizziness when standing up, but she could was able to ambulate with Physical Therapy's support. On 08/18/18, the patient again developed dizziness while in the bathroom. She was able to go back to the bed and provider was notified by the nurse that the patient got dizzy. At that point, there were no indications that the patient has any neurologic changes that were conveyed to the provider. Later on though , one of the nurses involved in the patient's care a day later noted that it is possible that the patient had left leg weakness at that point, but once again that was not apparent and that was not conveyed to the physician at that time, which was mid day on 08/18/18. The patient's afternoon and evening on 08/18/18 were apparently uneventful. The patient was noted to be lethargic again on and she was seen by a silk opener, but no detailed neuro exam was performed at this point. Mid day on 08/19/18, she was seen by the attending physician and noted to be lethargic with left-sided facial droop, left pronator drift, and left leg weakness. At that point, the patient was correcting the left facial droop, was smiling somewhat. Her speech was clear, but she was very difficult to arouse. She was able to follow commands. Her left upper extremity was at 4/5 proximally and 4+/5 distally. The left lower extremity, she was unable to raise off bed. Babinski was not bilaterally. Dr. Luis from Neurology was notified almost immediately. A CT of the brain performed at 1400 showed no acute bleed. A subsequent brain MRI obtained on , impression: "Small foci of restricted diffusion within the right insular and right posterior frontal and anterior parietal lobes consistent with subacute nonhemorrhagic infarct. There was loss of the flow void of the left internal carotid artery consistent with right internal carotid artery occlusion. Right mastoid effusion. Diffuse involutional change. A head MRA was also obtained, impression: "There is a complete occlusion of the right internal carotid artery from the level of the base of the skull to the junction of the right middle cerebral artery. There was diminutive filling of the anterior middle cerebral arteries likely by collateralized flow. There was reduced flow at the right insular branches of the middle cerebral artery relative to the left corresponding to the multifocal infarct seen on the MRI of the brain." The patient's carotid Doppler studies are still pending at the time of dictation , but from verbal report that I received from Dr. Ricci, the radiologist, the patient has a mobile clot within the right internal carotid artery. The patient's blood pressure medications were adjusted to optimize cerebral flow. Her verapamil was continued. Withhold parameter for clonidine was lowered to 0.2 mg 3 times a day. Her Aldactone and Imdur were discontinued. Her systolic pressures at one point were 235 and she was noted to have improved neuro exam just before transfer with the left upper extremity of 4+/5 and left leg being able to lift off bed at 4+/5. She still continued to have left facial droop, but she was definitely more awake and conversational and oriented x3. That was the neuro exam just prior to her transfer to [facility]. Please note that during Dr. Luis's evaluation of the patient on 08/19/18, it was noted that with this questionable episode of left-sided weakness approximately 24 hours prior, it is difficult to actually establish time of onset of the patient's acute CVA. But due to the mobile clot in the right carotid artery, [facility] was called and an interventional radiologist and vascular surgeon evaluated the patient's studies and recommended for the patient to be transferred urgently to [facility] for further evaluation of treatment of her right internal carotid artery occlusion. The patient was started on intravenous fluids at 75 mL an hour and Protonix at 40 mg IV was administered. Please note that the patients' diabetes was uncontrolled throughout her hospital stay. The patient refused to take insulin citing insulin allergy. She was allergic to most of medications that she could be treated with for her diabetes. We started her on Prandin throughout her hospital stay with a miniscule response. Please also note that the patient has chronic renal insufficiency and the patient's creatinine ranged from 1.8 in May 2017 to 1.18 on the day of admission on 08/12/18 to 1.33 on 08/18/18. The patient's sister, Shanelle, was notified about transfer to [facility] and both the patient and her sister agreed for the patient to be transferred. The patient's vitals at the time of transfer, systolic pressure of 220/112, heart rate of 65 and regular, respiratory rate 26, oxygen saturation 95% on room air, and temperature 98.9. LABORATORY DATA AND STUDIES PERFORMED DURING THE HOSPITAL STAY: Included: On 08/18/18, sodium of 132, potassium 4.3, chloride 99, carbon dioxide 23, BUN 38, and creatinine 1.33. Last sugar documented just before transfer was 384. The patient's plasma-free metanephrines and normetanephrines are pending at the time of dictation. Cortisol level collected at 5 a.m. on 08/17/18 was 14.8. T3 was 4.8. T4 was 18.6. Free T4 was 2.6. TSH was 0. Aldosterone levels are pending. Renin level is 0.6. LDL cholesterol was 59 on 08/02/18. Troponin was 0.07 on 08/13/18 and that was x2 draws. Liver function test showed ALT was 18. Alkaline phosphatase was 93. Total CPKs were 172 and bilirubin was 0.6. That was on the day of admission. TSH receptor antibody was 7.0, noted on 08/13/18. On 08/17/18, complement C3 was 172 and complement C4 was 42. For further studies, please refer to electronic charge. The patient's consultation during the hospital stay included Dr. Leos from Nephrology and Dr. Luis from Neurology. At transfer after discussion with Neurology and knowing that the patient's systolic pressures at home run over 200 range, it is accepted for the patient to have systolic pressures up to 280 to optimize cerebral perfusion. For remaining part of physical exam on the day of transfer, please see daily progress notes. Please note that this is a short summary of the patient's hospitalization. Please refer to further medical records for details. Approximately 1 hour and 60 minutes were spent on transfer of this patient. [id number]/[facility] #: [id number] YASSINE
[2018-08-20] MEDS ORDERED: Pantoprazole IV* 40 MG IV SCH (09:00)
[2018-08-20] MEDS ORDERED: Aspirin EC TAB* 81 MG TAB.EC PO SCH (09:00)
[2018-08-20 11:14] LABS: Free T3 4.26 pg/mL (2.5-3.9); Free T4 2.88 ng/dL (0.61-1.12)
[2018-08-20 12:48] LABS: Plasma Free Metanephrine 0.21 nmol/L (<0.50); Plasma Free Normetanephrine <0.20 nmol/L (<0.90)
== END 2018-08-19 20:30 | disposition short-term general hospital (02) | DRG 304 ==
LOC: ED 12:28 → ICU 15:13 → OBSVTOIN 08-14 15:30 → MEDTELE 08-15 15:30 → ICU 08-19 18:31
PROVIDERS: ADMIT Internal Medicine; ATTEND Internal Medicine
DX: I16.0 Hypertensive urgency (principal); I63.231 Cerebral infarction due to unspecified occlusion or stenosis of right carotid arteries; I16.1 Hypertensive emergency; G81.94 Hemiplegia, unspecified affecting left nondominant side; E11.65 Type 2 diabetes mellitus with hyperglycemia; E05.00 Thyrotoxicosis with diffuse goiter without thyrotoxic crisis or storm; E87.6 Hypokalemia; I25.10 Atherosclerotic heart disease of native coronary artery without angina pectoris; E11.51 Type 2 diabetes mellitus with diabetic peripheral angiopathy without gangrene; E66.9 Obesity, unspecified; G47.30 Sleep apnea, unspecified; E78.5 Hyperlipidemia, unspecified; J45.909 Unspecified asthma, uncomplicated; K21.9 Gastro-esophageal reflux disease without esophagitis; R42 Dizziness and giddiness; R29.810 Facial weakness; H74.8X1 Other specified disorders of right middle ear and mastoid; E11.22 Type 2 diabetes mellitus with diabetic chronic kidney disease; I12.9 Hypertensive chronic kidney disease with stage 1 through stage 4 chronic kidney disease, or unspecified chronic kidney disease; R74.8 Abnormal levels of other serum enzymes; D72.819 Decreased white blood cell count, unspecified; N18.3 Chronic kidney disease, stage 3 (moderate); Z98.42 Cataract extraction status, left eye; Z98.41 Cataract extraction status, right eye; Z87.891 Personal history of nicotine dependence; Z89.422 Acquired absence of other left toe(s); Z88.8 Allergy status to other drugs, medicaments and biological substances; Z89.432 Acquired absence of left foot; Z95.1 Presence of aortocoronary bypass graft; Z91.041 Radiographic dye allergy status; Z88.1 Allergy status to other antibiotic agents; Z68.35 Body mass index [BMI] 35.0-35.9, adult
CPT/HCPCS: 36415; 70450; 70544; 70551; 71045; 80048; 80053; 81003; 81015; 82043; 82088; 82164; 82533; 82550; 82553; 82570; 83516; 83520; 83605; 83735; 83835; 83880; 84156; 84244; 84436; 84439; 84443; 84481; 84484; 85025; 85652; 86038; 86160; 86162; 86235; 87086; 87641; 93005; 93880; 99285; A9270-GY; G8978-GP-CK; G8979-GP-CI; G8987-GO-CK; G8988-GO-CI; J0360; J1200; J1644; J1940; J3475